=== PATIENT | male | born 1945 | race Hispanic/Latino ===

== ENCOUNTER 2018-03-13 19:28 | Observation (INO) | payer OTHER ==
[2018-03-13 19:34] VITALS: BMI 26.2
--- NOTE | 2018-03-13 20:18 | ED PDOC ---
Arrival/HPI - General Chief Complaint: Dizziness/Lightheaded Time Seen by Provider: 03/13/18 19:31 Historian: Patient - History of Present Illness Narrative History of Present Illness (Text): 03/13/18 20:16 Bruce Riggins is a 72 year old male smoker, whose past medical history includes hypertension, who presents to the Emergency department complaining of dizziness. Patient was sitting in his car smoking a cigarette when began feeling dizzy. Patient denies any fever, chills, chest pain, shortness of breath, nausea, vomiting, diarrhea, urinary symptoms, back pain, neck pain, headache, focal deficits, vision changes, or any other complaints. 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 Past Medical History - Provider Review Nursing Documentation Reviewed: Yes - Cardiac Hx Hypertension: Yes - Psychiatric Hx Depression: No Hx Emotional Abuse: No Hx Physical Abuse: No Hx Substance Use: No - Surgical History Hx Appendectomy: Yes (at age 17) - Anesthesia Hx Anesthesia: Yes Hx Anesthesia Reactions: No - Suicidal Assessment Feels Threatened In Home Enviroment: No Family/Social History - Physician Review Nursing Documentation Reviewed: Yes Family/Social History: Unknown Family HX Smoking Status: Heavy Smoker > 10 Cigarettes Daily Hx Alcohol Use: No Hx Substance Use: No Hx Substance Use Treatment: No Allergies/Home Meds Allergies/Adverse Reactions: Allergies No Known Allergies Allergy (Verified 03/13/18 19:39) Home Medications: Home Meds Medication Instructions Recorded Confirmed Losartan Potassium 50 mg PO DAILY 03/13/18 03/13/18 Losartan [Cozaar] 50 mg PO DAILY 03/13/18 03/13/18 Metoprolol Tartrate [Lopressor] 50 mg PO DAILY 03/13/18 03/13/18 Tamsulosin [Flomax] 0.4 mg PO HS 03/13/18 03/13/18 Review of Systems - Physician Review All systems were reviewed & negative as marked: Yes - Review of Systems Constitutional: Normal. absent: Fevers Eyes: Normal ENT: Normal Respiratory: Normal. absent: SOB, Cough Cardiovascular: Normal. absent: Chest Pain Gastrointestinal: Normal. absent: Abdominal Pain, Diarrhea, Nausea, Vomiting Genitourinary Male: Normal. absent: Dysuria, Frequency, Hematuria, Urinary Output Changes Musculoskeletal: Normal. absent: Back Pain, Neck Pain Skin: Normal. absent: Rash Neurological: Dizziness. absent: Headache Endocrine: Normal Hemo/Lymphatic: Normal Psychiatric: Normal Physical Exam Vital Signs Reviewed: Yes Vital Signs Temp Pulse Resp BP Pulse Ox 03/13/18 19:42 98.7 F 106 H 18 145/97 H 98 Temperature: Afebrile Blood Pressure: Normal Pulse: Regular Respiratory Rate: Normal Appearance: Positive for: Well-Appearing, Non-Toxic, Comfortable Pain Distress: None Mental Status: Positive for: Alert and Oriented X 3 - Systems Exam Head: Present: Atraumatic, Normocephalic Pupils: Present: PERRL Extroacular Muscles: Present: EOMI Conjunctiva: Present: Normal Ears: Present: Normal, NORMAL TM, Normal Canal. No: Erythema, TM Bulging, Fluid, TM Perf Mouth: Present: Moist Mucous Membranes Pharnyx: Present: Normal. No: ERYTHEMA, EXUDATE, TONSILS ENLARGED, Peritonsilar Swelling, Uvular Deviation, Muffled/Hoarse Voice, Strider, Soft Palate/Uvular Edema Nose (External): Present: Atraumatic Nose (Internal): Present: Normal Inspection Neck: Present: Normal Range of Motion. No: Meningeal Signs, MIDLINE TENDERNESS, Paraspinal Tenderness Respiratory/Chest: Present: Clear to Auscultation, Good Air Exchange. No: Respiratory Distress, Accessory Muscle Use Cardiovascular: Present: Regular Rate and Rhythm, Normal S1, S2. No: Murmurs Abdomen: No: Tenderness, Distention, Peritoneal Signs Back: Present: Normal Inspection. No: CVA Tenderness, Midline Tenderness, Paraspinal Tenderness Upper Extremity: Present: Normal Inspection. No: Cyanosis, Edema Lower Extremity: Present: Normal Inspection. No: Edema Neurological: Present: GCS=15, CN II-XII Intact, Speech Normal, Motor Func Grossly Intact, Normal Sensory Function, Normal Cerebellar Funct, Memory Normal Skin: Present: Warm, Dry, Normal Color. No: Rashes Psychiatric: Present: Alert, Oriented x 3, Normal Insight, Normal Concentration Medical Decision Making ED Course and Treatment: 03/13/18 20:16 Impression: 72 year old male complaining of dizziness tonight. Plan: -- CT Head w/o contrast -- EKG -- Chest X-ray -- Labs, troponin -- UA -- IV fluids -- Reassess and disposition Progress Notes: 03/13/18 20:36 Reviewed EKG, sinus tachycardia at [address]-segment elevations or depressions, no T-wave inversions, normal intervals. 03/13/18 22:40 CT Head reviewed, shows: BRAIN Chronic periventricular and subcortical microvascular disease is seen. 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 VENTRICLES: There is generalized parenchymal atrophy noted as demonstrated by symmetrical dilatation of ventricles and sulci. ORBITS: The orbits are unremarkable. SINUSES AND MASTOIDS: The paranasal sinuses and mastoid air cells are clear. BONES: No fracture. SOFT TISSUES: Unremarkable. MISCELLANEOUS: No acute intracranial pathology. IMPRESSION: 1. There is generalized parenchymal atrophy noted as demonstrated by symmetrical dilatation of ventricles and sulci. 2. Chronic periventricular and subcortical microvascular disease is seen. 3. 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 4. No acute intracranial pathology. Electronically signed on Mar 13, 2018 10:38:15 PM EST by: Jorge Limon M.D., GIL Certified By [facility]BR & [facility] Fellowship Trained MRI and CT SpecialistCT 03/13/18 22:53 Chest X-ray reviewed, shows no acute processes. 03/14/18 00:[address] Benavides, covering for Dr. Lorenz, who is aware and agrees with plan. Accepts pt in to her service. Pt will go to [facility] observation for dehydration and COPD. - Lab Interpretations I have reviewed the lab results: Yes - RAD Interpretation Structural Architect: ED Physician, Radiologist - EKG Interpretation Interpreted by ED Physician: Yes Type: 12 lead EKG - Scribe Statement The provider has reviewed the documentation as recorded by the Susanibmike Trujillo Provider Scribe Attestation: All medical record entries made by the Scribe were at my direction and personally dictated by me. I have reviewed the chart and agree that the record accurately reflects my personal performance of the history, physical exam, medical decision making, and the department course for this patient. I have also personally directed, reviewed, and agree with the discharge instructions and disposition. Disposition/Present on Arrival - Present on Arrival Any Indicators Present on Arrival: No History of DVT/PE: No History of Uncontrolled Diabetes: No Urinary Catheter: No History of Decub. Ulcer: No History Surgical Site Infection Following: None - Disposition Have Diagnosis and Disposition been Completed?: Yes Diagnosis: COPD (chronic obstructive pulmonary disease) Disposition: HOSPITALIZED Disposition Time: 00:45 Condition: FAIR
[2018-03-13 21:13] LABS: BASO # 0.04 K/mm3 (0.0-2.0); BASO % 0.3 % (0.0-3.0); EOS # 0.2 (0.0-0.7); EOS % 1.9 % (1.5-5.0); GRAN # 9.39 (1.4-6.5); GRAN % 79.7 % (50.0-68.0); HEMOGLOBIN 11.8 g/dL (14.0-18.0); LYMPH # 1.4 (1.2-3.4); LYMPH % 12.2 % (22.0-35.0); MEAN CELL VOLUME 85.8 fl (80.0-105.0); MEAN CORPUSCULAR HEMOGLOBIN 27.5 pg (25.0-35.0); MEAN CORPUSCULAR HGB CONC 32.1 g/dl (31.0-37.0); MEAN PLATELET VOLUME 8.9 fl (7.0-11.0); MONO # 0.7 (0.1-0.6); MONO % 5.9 % (1.0-6.0); RBC 4.29 10^6/uL (3.5-6.1); RED CELL DISTRIBUTION WIDTH 14.5 % (11.5-14.5); WHITE BLOOD COUNT 11.8 10^3/uL (4.5-11.0)
[2018-03-13 21:22] LABS: ALB/GLOB RATIO 1.2 (1.1-1.8); ALBUMIN 3.8 g/dL (3.0-4.8); ALT/SGPT 54 U/L (7-56); AST/SGOT 28 U/L (17-59); BLOOD UREA NITROGEN 38 mg/dL (7-21); GFR NON-AFRICAN AMERICAN 60
[2018-03-13 21:33] LABS: TROPONIN I 0.02 ng/mL
[2018-03-13] MEDS: Sodium Chloride 0.9% 1,000 ML IV SCH (21:54)
[2018-03-14] MEDS ORDERED: Albuterol-Ipratrop 3 mg / 0.5 (3 ml) UD IH PRN (01:39)
[2018-03-14] MEDS ORDERED: Sodium Chloride 0.9% 1,000 ML IV STA (01:39)
[2018-03-14] MEDS: Albuterol-Ipratrop 3 mg / 0.5 (3 ml) UD IH SCH ×3 (01:39→02:05)
[2018-03-14 01:50] LABS: PH,URINE 6.5 (4.7-8.0); URINE BILIRUBIN NEGATIVE (NEGATIVE); URINE BLOOD NEGATIVE (NEGATIVE); URINE GLUCOSE (UA) NEGATIVE (NEGATIVE); URINE LEUKOCYTE ESTERASE TRACE Leu/uL (NEGATIVE); URINE PROTEIN TRACE mg/dL (<30 mg/dL); URINE UROBILINOGEN 0.2 E.U./dL (<1 E.U./dL)
[2018-03-14 01:55] LABS: URINE APPEARANCE SL CLOUDY (CLEAR); URINE COLOR YELLOW (YELLOW)
[2018-03-14 02:09] LABS: URINE RBC NEGATIVE /hpf (0-2)
[2018-03-14 02:10] LABS: URINE BACTERIA LARGE (NEG)
[2018-03-14] MEDS ORDERED: Metoprolol 1 mg/ml Inj IVP ONE (02:49)
[2018-03-14] MEDS ORDERED: Metoprolol Succinate 50 mg XL Tab PO ONE (02:59)
[2018-03-14 05:03] VITALS: RESP 20
--- NOTE | 2018-03-14 09:20 | RAD ---
Date of service: 03/13/2018 PROCEDURE: CHEST RADIOGRAPH, 1 VIEW HISTORY: pain COMPARISON: None available. FINDINGS: LUNGS: Clear. PLEURA: No pneumothorax or pleural fluid seen. CARDIOVASCULAR: No aortic atherosclerotic calcification present. Normal. OSSEOUS STRUCTURES: Sternal wires VISUALIZED UPPER ABDOMEN: Normal. OTHER FINDINGS: None. IMPRESSION: No active disease.
--- NOTE | 2018-03-14 10:05 | HP ---
DATE OF EXAM: 03/14/2018 HISTORY OF PRESENT ILLNESS: Mr. Riggins is a 72-year-old male admitted to the hospital with dehydration. He was sitting in his car felt dizzy. No nausea or vomiting. No fever. No cough [place] [id number]. UA mildly positive. He was hydrated in the ER. 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 No acute pathology. No complaints right now. PAST MEDICAL HISTORY: Hypertension. PAST SURGICAL HISTORY: None. PERSONAL HISTORY: Heavy smoker, more than 10 cigarettes a day. No history of alcohol abuse. FAMILY HISTORY: Noncontributory. ALLERGIES: NO KNOWN DRUG ALLERGIES. HOME MEDICATION: Potassium, Cozaar 50 mg daily, Lopressor 50 mg daily, Flomax 0.4 mg p.o. at bedtime. REVIEW OF SYSTEMS: As per HPI. Rest of 12-point systems reviewed negative. PHYSICAL EXAMINATION: GENERAL: Comfortable in bed in no acute distress. VITAL SIGNS: Temperature 98.7, heart rate 106 per minute, respiratory rate 18 per minute, blood pressure of 145/97 and pulse ox is 98% room air. HEENT: Pallor positive. NECK: No lymphadenopathy. CHEST: Air entry present and equal bilaterally. No added sounds. CARDIOVASCULAR: S1, S2 normal. No murmur. No gallop. ABDOMEN: Soft, nontender. No hepatosplenomegaly. EXTREMITIES: No edema. SKIN: No petechiae. No rash. NEURO: Alert and oriented x3. No focal sensory motor deficit. LABORATORY DATA: CT head as per HPI. White count 11.8, hemoglobin 11.8 and platelet 204,000. Granulocyte 79% and lymphocyte 12%. Sodium 139, potassium 4.1, BUN 38 and creatinine 1.2. LFTs within normal limits. UA positive, trace leukocyte esterase. ASSESSMENT: 1. Dehydration. 2. Dizziness. 3. Hypertension. 4. Leukocytosis. 5. Anemia. PLAN: He will be admitted to the hospital, IV fluid at 100 mL an hour, normal saline and Nicoderm patch one patch daily. DuoNeb inhalation every 4 hours p.r.n., Tylenol 650 every 4 hours p.r.n. for pain. We will continue home medications, losartan 50 mg daily, metoprolol 50 mg daily and Flomax 0.4 mg p.o. at bedtime for BPH. We will continue to monitor clinically. Zuleika Benavides MD ANTHONY
--- NOTE | 2018-03-14 10:11 | CT ---
Date of service: 03/13/2018 PROCEDURE: CT HEAD WITHOUT CONTRAST. HISTORY: dizzy COMPARISON: None available. TECHNIQUE: Axial computed tomography images were obtained through the head/brain without intravenous contrast. Radiation dose: Total exam DLP = 981.98 mGy-cm. This CT exam was performed using one or more of the following dose reduction techniques: Automated exposure control, adjustment of the mA and/or kV according to patient size, and/or use of iterative reconstruction technique. FINDINGS: HEMORRHAGE: No intracranial hemorrhage. BRAIN: No mass effect or edema. Chronic microvascular changes are seen in the periventricular white matter. There is more focal encephalomalacia in the right parietal lobe and right frontal lobe. VENTRICLES: There is moderate atrophy right greater than left. There dilatation of the right lateral ventricle CALVARIUM: Unremarkable. PARANASAL SINUSES: Unremarkable as visualized. No significant inflammatory changes. MASTOID AIR CELLS: Unremarkable as visualized. No inflammatory changes. OTHER FINDINGS: The report concurs with the preliminary [facility] report IMPRESSION: No acute intracranial finding
[2018-03-14] MEDS: Sodium Chloride 0.9% 1,000 ML IV SCH (12:45)
--- NOTE | 2018-03-15 07:57 | CARD ---
APPROVED REPORT Date of service: 03/13/2018 EKG Measurement Heart [id number] <Conclusion> Sinus tachycardia PRWP NSSTW changes Prolonged QTc
[2018-03-15 08:29] VITALS: PULSE 85; TEMP 98.6; O2SAT 98
[2018-03-15 10:59] VITALS: BP 140/74
--- NOTE | 2018-03-17 22:56 | CP.PCM.DIS ---
Provider - Provider Date of Admission: 03/14/18 01:07 Attending physician: Zuleika Benavides MD Primary care physician: Estrada Cifuentes MD Time Spent in preparation of Discharge (in minutes): 55 Hospital Course - Lab Results Lab Results: Micro Results 03/14/18 01:30 Urine,Clean Catch Urine Culture - Final Proteus Vulgaris Most Recent Lab Values WBC 11.8 10^3/uL (4.5-11.0) H 03/13/18 21:05 RBC 4.29 10^6/uL (3.5-6.1) 03/13/18 21:05 Hgb 11.8 g/dL (14.0-18.0) L 03/13/18 21:05 Hct 36.8 % (42.0-52.0) L 03/13/18 21:05 MCV 85.8 fl (80.0-105.0) 03/13/18 21:05 MCH 27.5 pg (25.0-35.0) 03/13/18 21:05 MCHC 32.1 g/dl (31.0-37.0) 03/13/18 21:05 RDW 14.5 % (11.5-14.5) 03/13/18 21:05 Plt Count 204 10^3/uL (120.0-450.0) 03/13/18 21:05 MPV 8.9 fl (7.0-11.0) 03/13/18 21:05 Gran % 79.7 % (50.0-68.0) H 03/13/18 21:05 Lymph % (Auto) 12.2 % (22.0-35.0) L 03/13/18 21:05 Borden % (Auto) 5.9 % (1.0-6.0) 03/13/18 21:05 Eos % (Auto) 1.9 % (1.5-5.0) 03/13/18 21:05 Baso % (Auto) 0.3 % (0.0-3.0) 03/13/18 21:05 Gran # 9.39 (1.4-6.5) H 03/13/18 21:05 Lymph # (Auto) 1.4 (1.2-3.4) 03/13/18 21:05 Borden # (Auto) 0.7 (0.1-0.6) H 03/13/18 21:05 Eos # (Auto) 0.2 (0.0-0.7) 03/13/18 21:05 Baso # (Auto) 0.04 K/mm3 (0.0-2.0) 03/13/18 21:05 Sodium 139 mmol/L (132-148) 03/13/18 21:05 Potassium 4.1 mmol/L (3.6-5.0) 03/13/18 21:05 Chloride 107 mmol/L (98-107) 03/13/18 21:05 Carbon Dioxide 28 mmol/L (21-33) 03/13/18 21:05 Anion Gap 8 (10-20) L 03/13/18 21:05 BUN 38 mg/dL (7-21) H 03/13/18 21:05 Creatinine 1.2 mg/dl (0.8-1.5) 03/13/18 21:05 Est GFR ( Amer) > 60 03/13/18 21:05 Est GFR (Non-Af Amer) 60 03/13/18 21:05 Random Glucose 103 mg/dL (70-110) 03/13/18 21:05 Calcium 9.0 mg/dL (8.4-10.5) 03/13/18 21:05 Total Bilirubin 0.3 mg/dL (0.2-1.3) 03/13/18 21:05 AST 28 U/L (17-59) 03/13/18 21:05 ALT 54 U/L (7-56) 03/13/18 21:05 Alkaline Phosphatase 92 U/L (38-126) 03/13/18 21:05 Troponin I 0.02 ng/mL 03/13/18 21:05 Total Protein 7.0 g/dL (5.8-8.3) 03/13/18 21:05 Albumin 3.8 g/dL (3.0-4.8) 03/13/18 21:05 Globulin 3.2 gm/dL 03/13/18 21:05 Albumin/Globulin Ratio 1.2 (1.1-1.8) 03/13/18 21:05 Urine Color Yellow (YELLOW) 03/14/18 01:30 Urine Appearance Sl cloudy (CLEAR) 03/14/18 01:30 Urine pH 6.5 (4.7-8.0) 03/14/18 01:30 Ur Specific [place] 1.020 (1.005-1.035) 03/14/18 01:30 Urine Protein Trace mg/dL (<30 mg/dL) H 03/14/18 01:30 Urine Glucose (UA) Negative mg/dL (NEGATIVE) 03/14/18 01:30 Urine Ketones Negative mg/dL (NEGATIVE) 03/14/18 01:30 Urine Blood Negative (NEGATIVE) 03/14/18 01:30 Urine Nitrate Positive (NEGATIVE) H 03/14/18 01:30 Urine Bilirubin Negative (NEGATIVE) 03/14/18 01:30 Urine Urobilinogen 0.2 E.U./dL (<1 E.U./dL) 03/14/18 01:30 Ur Leukocyte Esterase Trace Allyson/uL (NEGATIVE) H 03/14/18 01:30 Urine RBC Negative /hpf (0-2) 03/14/18 01:30 Urine WBC 1 - 3 /hpf (0-6) 03/14/18 01:30 Ur Epithelial Cells 4 - 5 /hpf (0-5) 03/14/18 01:30 Urine Bacteria Large (NEG) 03/14/18 01:30 Urine Other Mucus 03/14/18 01:30 - Hospital Course Hospital Course: 1. Dehydration. 2. Dizziness. 3. Hypertension. 4. Leukocytosis. 5. Anemia Mr. Riggins is a 72-year-old male admitted to the hospital with dehydration. He was sitting in his car felt dizzy. No nausea or vomiting. No fever. No cough [place] [id number]. UA mildly positive. He was hydrated in the ER. 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 No acute pathology. No complaints right now. He is being discharge home in stable condition. PHYSICAL EXAMINATION: GENERAL: Comfortable in bed in no acute distress. VITAL SIGNS: Temperature 98.8, heart rate 80 per minute, respiratory rate 18 per minute, blood pressure of 140/80 and pulse ox is 98% room air. HEENT: Pallor positive. NECK: No lymphadenopathy. CHEST: Air entry present and equal bilaterally. No added sounds. CARDIOVASCULAR: S1, S2 normal. No murmur. No gallop. ABDOMEN: Soft, nontender. No hepatosplenomegaly. EXTREMITIES: No edema. SKIN: No petechiae. No rash. NEURO: Alert and oriented x3. No focal sensory motor deficit. Dispo : discharge home. condition on discharge : stable. Meds : continue home meds. FU : with Dr. Sr. Zuleika Benavides MD - Date & Time of H&P Date of H&P: 03/15/18 Time of H&P: 11:00 Discharge Plan - Follow Up Plan Condition: FAIR Disposition: HOME/ ROUTINE Instructions: Chronic Obstructive Pulmonary Disease (COPD), Including Emphysema, Smoking: Not Just Harmful to Your Lungs and Heart, Dehydration, Adult (DC), High Blood Pressure (DC), Prostate Cancer (DC), Flu Vaccine Referrals: Zuleika Benavides MD [Staff Provider] -
== END 2018-03-15 14:37 | disposition home or self-care (01) ==
LOC: ED 19:28 → ERH 03-14 01:07 → 5RSO 03-14 02:30
PROVIDERS: ADMIT Internal Medicine Medical Oncology; ATTEND Internal Medicine Medical Oncology
DX: E86.0 Dehydration (principal); I10 Essential (primary) hypertension; D64.9 Anemia, unspecified; F17.210 Nicotine dependence, cigarettes, uncomplicated; G93.89 Other specified disorders of brain; D72.829 Elevated white blood cell count, unspecified; N40.0 Benign prostatic hyperplasia without lower urinary tract symptoms
CPT/HCPCS: 70450; 71045; 80053; 81001; 84484; 85025; 87086; 87181; 93005; 96374; 99285; G0378; J2930; J7030

== ENCOUNTER 2018-03-15 17:51 | Emergency (ER) | payer OTHER ==
[2018-03-15 21:34] VITALS: BMI 23.1
== END 2018-03-15 18:05 | disposition left against medical advice (07) ==
LOC: ED 17:51
DX: Z02.89 Encounter for other administrative examinations (principal); Z59.0 Homelessness

== ENCOUNTER 2018-03-15 21:16 | Emergency (ER) | payer OTHER ==
[2018-03-15 21:34] VITALS: BMI 23.1
--- NOTE | 2018-03-15 21:37 | ED PDOC ---
Arrival/HPI - General Time Seen by Provider: 03/15/18 21:18 Historian: Patient - History of Present Illness Narrative History of Present Illness (Text): 03/15/18 21:36 A 72 year old male, whose past medical history includes hypertension, brought in by Beatriz CORNEJO after being found sleeping in an apartment building. Someone in the apartment building called the police and the police brought patient to the Emergency room Patient reports no symptomatic/physical complaints. No PMD Past Medical History - Provider Review Nursing Documentation Reviewed: Yes - Cardiac Hx Hypertension: Yes - Pulmonary Hx Respiratory Disorders: Yes Hx Chronic Obstructive Pulmonary Disease (COPD): Yes Other/Comment: smoker 1 PPD - Neurological Hx Neurological Disorder: No - HEENT Hx HEENT Disorder: No - Renal Hx Renal Disorder: No - Endocrine/Metabolic Hx Endocrine Disorders: No - Hematological/Oncological Hx Blood Disorders: No - Integumentary Other/Comment: rash/reaction from bed bugs - Musculoskeletal/Rheumatological Hx Musculoskeletal Disorders: Yes Hx Falls: No Other/Comment: uses cane for ambulation - Gastrointestinal Hx Gastrointestinal Disorders: No - Genitourinary/Gynecological Hx Genitourinary Disorders: Yes Other/Comment: Hx prostate ca with radiation therapy - Psychiatric Hx Depression: No Hx Emotional Abuse: No Hx Physical Abuse: No Hx Substance Use: No - Surgical History Hx Appendectomy: Yes (at age 17) - Anesthesia Hx Anesthesia: Yes Hx Anesthesia Reactions: No - Suicidal Assessment Feels Threatened In Home Enviroment: No Family/Social History - Physician Review Nursing Documentation Reviewed: Yes Family/Social History: No Known Family HX Smoking Status: Heavy Smoker > 10 Cigarettes Daily Hx Alcohol Use: No Hx Substance Use: No Hx Substance Use Treatment: No Allergies/Home Meds Allergies/Adverse Reactions: Allergies No Known Allergies Allergy (Verified 03/15/18 21:33) Home Medications: Home Meds Medication Instructions Recorded Confirmed RX: Losartan Potassium 50 mg PO DAILY 03/13/18 03/15/18 RX: Losartan [Cozaar] 50 mg PO DAILY 03/13/18 03/15/18 RX: Metoprolol Tartrate [Lopressor] 50 mg PO DAILY 03/13/18 03/15/18 RX: Tamsulosin [Flomax] 0.4 mg PO HS 03/13/18 03/15/18 Review of Systems - Physician Review All systems were reviewed & negative as marked: Yes - Review of Systems Constitutional: absent: Fevers, Night Sweats Respiratory: absent: SOB, Cough Cardiovascular: absent: Chest Pain Gastrointestinal: absent: Abdominal Pain, Diarrhea, Nausea Genitourinary Male: absent: Dysuria, Frequency, Hematuria Musculoskeletal: absent: Back Pain, Neck Pain Neurological: absent: Headache, Dizziness Physical Exam Appearance: Positive for: Other (disheveled) - Systems Exam Head: Present: Atraumatic, Normocephalic Pupils: Present: PERRL Extroacular Muscles: Present: EOMI Conjunctiva: Present: Normal Mouth: Present: Moist Mucous Membranes Neck: Present: Normal Range of Motion Respiratory/Chest: Present: Clear to Auscultation, Good Air Exchange. No: Respiratory Distress, Accessory Muscle Use Cardiovascular: Present: Regular Rate and Rhythm, Normal S1, S2. No: Murmurs Abdomen: No: Tenderness, Distention, Peritoneal Signs Back: Present: Normal Inspection Upper Extremity: Present: Normal Inspection. No: Cyanosis, Edema Lower Extremity: Present: Normal Inspection. No: Edema Neurological: Present: GCS=15, CN II-XII Intact, Speech Normal Skin: Present: Warm, Dry, Normal Color. No: Rashes Psychiatric: Present: Alert, Oriented x 3, Other (disheveled) Medical Decision Making ED Course and Treatment: 03/15/18 21:35 Impression: 72 year old male brought in by Beatriz CORNEJO after being found sleeping in an apartment building. Plan: -- Reassess and disposition Prior Visits: Notes and results from previous visits were reviewed. Patient was last seen in the emergency department on 03/13/2018 for dizziness. Patient was admitted for COPD. Progress Notes: Patient with no complaints at all in the ED. No further medical evaluation clinically indicated at this time. Stable for discharge. - Scribe Statement The provider has reviewed the documentation as recorded by the Dylan Parson Provider Scribe Attestation: All medical record entries made by the Susanibmike were at my direction and personally dictated by me. I have reviewed the chart and agree that the record accurately reflects my personal performance of the history, physical exam, medical decision making, and the department course for this patient. I have also personally directed, reviewed, and agree with the discharge instructions and disposition. Disposition/Present on Arrival - Present on Arrival Any Indicators Present on Arrival: No History of DVT/PE: No History of Uncontrolled Diabetes: No Urinary Catheter: No History Surgical Site Infection Following: None - Disposition Have Diagnosis and Disposition been Completed?: Yes Diagnosis: Homelessness Disposition: HOME/ ROUTINE Disposition Time: 21:42 Condition: STABLE Discharge Instructions (ExitCare): Deciding Where to Go for Care Additional Instructions: SKYLER GALLAGHER, thank you for letting us take care of you today. Your provider was Violet Moe MD and you were treated for HOMELESS. The emergency medical care you received today was directed at your acute symptoms. If you were prescribed any medication, please fill it and take as directed. It may take several days for your symptoms to resolve. Return to the Emergency Department if your symptoms worsen, do not improve, or if you have any other problems. Please contact your doctor or call one of the physicians/clinics you have been referred to that are listed on the Patient Visit Information form that is included in your discharge packet. Bring any paperwork you were given at discharge with you along with any medications you are taking to your follow up visit. Our treatment cannot replace ongoing medical care by a primary care provider outside of the emergency department. Thank you for allowing the [facility] team to be part of your care today. If you had an X-Ray or CT scan: A Radiologist will review the ED reading if any change in treatment is needed we will contact you. If you had a blood, urine, or wound culture: It will take several days for the results, if any change in treatment is needed we will contact you. If you had an STI test: It will take 48 hours for the results. Please call after 1 week if you have not heard back. Forms: [employer] (Sinhala)
[2018-03-15 21:58] VITALS: RESP 18; TEMP 97.8; O2SAT 100
[2018-03-16 00:26] VITALS: BP 128/89; PULSE 87
== END 2018-03-16 00:20 | disposition home or self-care (01) ==
LOC: ED 21:16
DX: Z59.0 Homelessness (principal); I10 Essential (primary) hypertension; F17.210 Nicotine dependence, cigarettes, uncomplicated

== ENCOUNTER 2018-03-16 14:26 | Emergency (ER) | payer OTHER ==
[2018-03-16 14:27] VITALS: BMI 26.2
[2018-03-16 14:33] VITALS: BP 137/72; PULSE 88; RESP 18; TEMP 97.9; O2SAT 97
--- NOTE | 2018-03-16 15:00 | ED PDOC ---
Arrival/HPI - General Chief Complaint: Dizziness/Lightheaded - History of Present Illness Narrative History of Present Illness (Text): 03/16/18 16:36 A 72 year old male, whose past medical history includes hypertension, reports to the emergency department for a complaint of dizziness. Patient has been seen in the emergency department multiple times desiring a place to stay. He has been noted to have bed bugs on him. Upon interrogation patient denies any somatic complaints at this time and requests a bed to stay. The patient denies fevers, chills, headache, dizziness, chest pain, shortness of breath, dyspnea on exertion, cough, abdominal pain, nausea, vomiting, diarrhea, back pain, neck pain, urinary/bowel changes, or any other complaint. Time/Duration: Prior to Arrival Symptom Onset: Sudden Symptom Course: Unchanged Activities at Onset: Rest Context: Street Past Medical History - Provider Review Nursing Documentation Reviewed: Yes - Cardiac Hx Hypertension: Yes - Pulmonary Hx Respiratory Disorders: Yes Hx Chronic Obstructive Pulmonary Disease (COPD): Yes Other/Comment: smoker 1 PPD - Neurological Hx Neurological Disorder: No - HEENT Hx HEENT Disorder: No - Renal Hx Renal Disorder: No - Endocrine/Metabolic Hx Endocrine Disorders: No - Hematological/Oncological Hx Blood Disorders: No - Integumentary Other/Comment: rash/reaction from bed bugs - Musculoskeletal/Rheumatological Hx Musculoskeletal Disorders: Yes Hx Falls: No Other/Comment: uses cane for ambulation - Gastrointestinal Hx Gastrointestinal Disorders: No - Genitourinary/Gynecological Hx Genitourinary Disorders: Yes Other/Comment: Hx prostate ca with radiation therapy - Psychiatric Hx Depression: No Hx Emotional Abuse: No Hx Physical Abuse: No Hx Substance Use: No - Surgical History Hx Appendectomy: Yes (at age 17) - Anesthesia Hx Anesthesia: Yes Hx Anesthesia Reactions: No Hx Malignant Hyperthermia: No - Suicidal Assessment Feels Threatened In Home Enviroment: No Family/Social History - Physician Review Nursing Documentation Reviewed: Yes Family/Social History: No Known Family HX Smoking Status: Heavy Smoker > 10 Cigarettes Daily Hx Alcohol Use: No Hx Substance Use: No Hx Substance Use Treatment: No Allergies/Home Meds Allergies/Adverse Reactions: Allergies No Known Allergies Allergy (Verified 03/15/18 21:33) Home Medications: Home Meds Medication Instructions Recorded Confirmed Losartan Potassium 50 mg PO DAILY 03/13/18 03/15/18 Losartan [Cozaar] 50 mg PO DAILY 03/13/18 03/15/18 Metoprolol Tartrate [Lopressor] 50 mg PO DAILY 03/13/18 03/15/18 Tamsulosin [Flomax] 0.4 mg PO HS 03/13/18 03/15/18 Review of Systems - Physician Review All systems were reviewed & negative as marked: Yes - Review of Systems Constitutional: absent: Fevers ENT: absent: Sore Throat Respiratory: absent: SOB, Cough Cardiovascular: absent: Chest Pain, BROWNING Gastrointestinal: absent: Abdominal Pain, Stool Changes, Diarrhea, Nausea, Vomiting Genitourinary Male: absent: Urinary Output Changes Musculoskeletal: absent: Back Pain, Neck Pain Neurological: absent: Headache, Dizziness Physical Exam - Physical Exam Physical Exam Limitations: Uncooperative Vital Signs Reviewed: Yes Vital Signs Temp Pulse Resp BP Pulse Ox 03/16/18 14:32 97.9 F 88 18 137/72 97 Temperature: Afebrile Blood Pressure: Normal Pulse: Regular Respiratory Rate: Normal Appearance: Positive for: Well-Appearing, Non-Toxic, Comfortable Pain Distress: None Mental Status: Positive for: Alert and Oriented X 3 Medical Decision Making ED Course and Treatment: Impression: A 72 year old male reports to the emergency department with complaint of dizziness, upon interrogation, patient denies any complaints and requesting a place to stay. Plan: -- Reassess and disposition Prior Visits: Notes and results from previous visits were reviewed. Progress Notes: Patient is in no acute distress. I have discussed plan with the patient, who expresses understanding. Patient is stable for discharge. Patient was instructed to follow up with physician or return if symptoms worsen or new concerning symptoms arise. Disposition/Present on Arrival - Present on Arrival Any Indicators Present on Arrival: No History of DVT/PE: No History of Uncontrolled Diabetes: No Urinary Catheter: No History of Decub. Ulcer: No History Surgical Site Infection Following: None - Disposition Have Diagnosis and Disposition been Completed?: Yes Diagnosis: Homelessness Disposition Time: 14:59 Patient Plan: Discharge Patient Problems: Current Active Problems Problem Status Onset Homelessness Acute Condition: STABLE Print Language: CROATIAN Additional Instructions: All medical record entries made by the Scribe were at my direction and personally dictated by me. I have reviewed the chart and agree that the record accurately reflects my personal performance of the history, physical exam, medic al decision making, and the department course for this patient. I have also personally directed, reviewed, and agree with the discharge instructions and disposition. Referrals: Destiny Warner MD [Medical Doctor] - Follow up with primary [facility] [place] - Follow up with primary Forms: [employer] (Andorran)
== END 2018-03-16 15:10 | disposition home or self-care (01) ==
LOC: ED 14:26
DX: Z59.0 Homelessness (principal); I10 Essential (primary) hypertension; F17.210 Nicotine dependence, cigarettes, uncomplicated

== ENCOUNTER 2018-03-18 22:01 | Emergency (ER) | payer OTHER ==
[2018-03-18 22:01] VITALS: BMI 26.2
--- NOTE | 2018-03-18 23:08 | ED PDOC ---
Arrival/HPI - General Chief Complaint: Medical Clearance Time Seen by Provider: 03/18/18 22:02 Historian: Patient - History of Present Illness Narrative History of Present Illness (Text): 03/18/18 23:05 72 year old male, whose past medical history includes hypertension, reports to the emergency department for a complaint of homelessness. Patient has been seen in the emergency department multiple times desiring a place to stay. He has been noted to have bed bugs on him, and has been showered and treated before room assignment. Upon interrogation patient denies any somatic complaints at this time and requests a bed to stay. The patient denies fevers, chills, headache, dizziness, chest pain, shortness of breath, cough, abdominal pain, nausea, vomiting, diarrhea, back pain, neck pain, urinary/bowel symptoms, or any other complaint. Time/Duration: Prior to Arrival Past Medical History - Provider Review Nursing Documentation Reviewed: Yes - Cardiac Hx Hypertension: Yes - Pulmonary Hx Respiratory Disorders: Yes Hx Chronic Obstructive Pulmonary Disease (COPD): Yes Other/Comment: smoker 1 PPD - Neurological Hx Neurological Disorder: No - HEENT Hx HEENT Disorder: No - Renal Hx Renal Disorder: No - Endocrine/Metabolic Hx Endocrine Disorders: No - Hematological/Oncological Hx Blood Disorders: No - Integumentary Other/Comment: rash/reaction from bed bugs - Musculoskeletal/Rheumatological Hx Musculoskeletal Disorders: Yes Hx Falls: No Other/Comment: uses cane for ambulation - Gastrointestinal Hx Gastrointestinal Disorders: No - Genitourinary/Gynecological Hx Genitourinary Disorders: Yes Other/Comment: Hx prostate ca with radiation therapy - Psychiatric Hx Depression: No Hx Emotional Abuse: No Hx Physical Abuse: No Hx Substance Use: No - Surgical History Hx Appendectomy: Yes (at age 17) - Anesthesia Hx Anesthesia: Yes Hx Anesthesia Reactions: No Hx Malignant Hyperthermia: No - Suicidal Assessment Feels Threatened In Home Enviroment: No Family/Social History - Physician Review Nursing Documentation Reviewed: Yes Family/Social History: No Known Family HX Smoking Status: Heavy Smoker > 10 Cigarettes Daily Hx Alcohol Use: No Hx Substance Use: No Hx Substance Use Treatment: No Allergies/Home Meds Allergies/Adverse Reactions: Allergies No Known Allergies Allergy (Verified 03/18/18 22:28) Home Medications: Home Meds Medication Instructions Recorded Confirmed Losartan Potassium 50 mg PO DAILY 03/13/18 03/18/18 Losartan [Cozaar] 50 mg PO DAILY 03/13/18 03/18/18 Metoprolol Tartrate [Lopressor] 50 mg PO DAILY 03/13/18 03/18/18 Tamsulosin [Flomax] 0.4 mg PO HS 03/13/18 03/18/18 Review of Systems - Physician Review All systems were reviewed & negative as marked: Yes - Review of Systems Constitutional: absent: Fevers, Night Sweats Respiratory: absent: SOB, Cough Cardiovascular: absent: Chest Pain Gastrointestinal: Normal. absent: Abdominal Pain, Diarrhea, Nausea, Vomiting Genitourinary Male: Normal. absent: Urinary Output Changes Musculoskeletal: absent: Back Pain, Neck Pain Neurological: absent: Headache, Dizziness Physical Exam - Systems Exam Head: Present: Atraumatic, Normocephalic Pupils: Present: PERRL Extroacular Muscles: Present: EOMI Conjunctiva: Present: Normal Mouth: Present: Moist Mucous Membranes Neck: Present: Normal Range of Motion Respiratory/Chest: Present: Clear to Auscultation, Good Air Exchange. No: Respiratory Distress, Accessory Muscle Use Cardiovascular: Present: Regular Rate and Rhythm, Normal S1, S2. No: Murmurs Abdomen: No: Tenderness, Distention, Peritoneal Signs Back: Present: Normal Inspection Upper Extremity: Present: Normal Inspection. No: Cyanosis, Edema Lower Extremity: Present: Normal Inspection. No: Edema Neurological: Present: GCS=15, CN II-XII Intact, Speech Normal Skin: Present: Warm, Dry, Normal Color. No: Rashes Psychiatric: Present: Alert, Oriented x 3, Normal Insight, Normal Concentration - Scribe Statement The provider has reviewed the documentation as recorded by the Dylan Woods Provider Scribe Attestation: All medical record entries made by the Scribe were at my direction and personally dictated by me. I have reviewed the chart and agree that the record accurately reflects my personal performance of the history, physical exam, medical decision making, and the department course for this patient. I have also personally directed, reviewed, and agree with the discharge instructions and disposition. Disposition/Present on Arrival - Present on Arrival Any Indicators Present on Arrival: No History of DVT/PE: No History of Uncontrolled Diabetes: No Urinary Catheter: No History of Decub. Ulcer: No History Surgical Site Infection Following: None - Disposition Have Diagnosis and Disposition been Completed?: Yes Diagnosis: Homelessness Disposition: HOME/ ROUTINE Disposition Time: 22:30 Patient Problems: Current Active Problems Problem Status Onset Homelessness Acute Condition: GOOD Discharge Instructions (ExitCare): Dana Additional Instructions: SKYLER GALLAGHER, thank you for letting us take care of you today. The emergency medical care you received today was directed at your acute symptoms. If you were prescribed any medication, please fill it and take as directed. It may take several days for your symptoms to resolve. Return to the Emergency Department if your symptoms worsen, do not improve, or if you have any other problems. Please contact your doctor or call one of the physicians/clinics you have been referred to that are listed on the Patient Visit Information form that is included in your discharge packet. Bring any paperwork you were given at discharge with you along with any medications you are taking to your follow up visit. Our treatment cannot replace ongoing medical care by a primary care provider outside of the emergency department. Thank you for allowing the [facility] team to be part of your care today. Follow up with your doctor or our clinic this week. Referrals: [facility] [Outside] - Follow up with primary Estrada Cifuentes MD [Primary Care Provider] - Follow up with primary Destiny Warner MD [Medical Doctor] - Follow up with primary Forms: [employer] (Tongan)
[2018-03-19 06:12] VITALS: O2SAT 97
[2018-03-19 06:16] VITALS: BP 145/80
[2018-03-19 06:17] VITALS: PULSE 85; RESP 20; TEMP 98.9
== END 2018-03-19 06:19 | disposition home or self-care (01) ==
LOC: ED 22:01
DX: Z59.0 Homelessness (principal); I10 Essential (primary) hypertension; F17.210 Nicotine dependence, cigarettes, uncomplicated

== ENCOUNTER 2018-03-21 20:52 | Emergency (ER) | payer OTHER ==
[2018-03-21 20:52] VITALS: BMI 26.2
[2018-03-21 21:50] VITALS: RESP 18; TEMP 98.9
--- NOTE | 2018-03-21 22:18 | ED PDOC ---
Arrival/HPI - General Historian: Patient - History of Present Illness Narrative History of Present Illness (Text): 03/21/18 22:09 72 y o male with past medical history of HTN, homelessness presents to ED c/o b/l foot pain. Pt also states that he is here because it is cold outside. Reports he usually stays at residential in [place] but states that it was closed today because of a drug problem. States he walked from [place] to [place] and then called an ambulance to bring him to the ED. Otherwise denies any acute complaints. Denies headache, dizziness, fever, chills, chest pain, sob, n/v/d/c, abd pain, urinary complaints, or other symptoms currently. States he has a chronic cough that has been present for years that he states is due to his cigarette smoking. Past medical hx: HTN PSurgHx: denies Allergies: NKDA Meds: none Fam hx: denies Soc hx: smokes 1 ppd for 40+ years; homeless currently PMD: none <Yousif Mix - Last Filed: 03/21/18 22:43> <Asad Herzog - Last Filed: 03/21/18 22:47> - General Chief Complaint: Fever Time Seen by Provider: 03/21/18 21:06 Past Medical History - Infectious Disease Hx of Infectious Diseases: None - Cardiac Hx Hypertension: Yes - Pulmonary Hx Respiratory Disorders: Yes Hx Chronic Obstructive Pulmonary Disease (COPD): Yes Other/Comment: smoker 1 PPD - Neurological Hx Neurological Disorder: No - HEENT Hx HEENT Disorder: No - Renal Hx Renal Disorder: No - Endocrine/Metabolic Hx Endocrine Disorders: No - Hematological/Oncological Hx Blood Disorders: No - Integumentary Other/Comment: rash/reaction from bed bugs - Musculoskeletal/Rheumatological Hx Musculoskeletal Disorders: Yes Hx Falls: No Other/Comment: uses cane for ambulation - Gastrointestinal Hx Gastrointestinal Disorders: No - Genitourinary/Gynecological Hx Genitourinary Disorders: Yes Other/Comment: Hx prostate ca with radiation therapy - Psychiatric Hx Depression: No Hx Emotional Abuse: No Hx Physical Abuse: No Hx Substance Use: No - Surgical History Hx Appendectomy: Yes (at age 17) - Anesthesia Hx Anesthesia: Yes Hx Anesthesia Reactions: No Hx Malignant Hyperthermia: No - Suicidal Assessment Feels Threatened In Home Enviroment: No <Yousif Mix - Last Filed: 03/21/18 22:43> Family/Social History Family/Social History: No Known Family HX Smoking Status: Heavy Smoker > 10 Cigarettes Daily Hx Alcohol Use: No Hx Substance Use: No Hx Substance Use Treatment: No <Yousif Mix - Last Filed: 03/21/18 22:43> Allergies/Home Meds <Yousif Mix - Last Filed: 03/21/18 22:43> <MinoAsad - Last Filed: 03/21/18 22:47> Allergies/Adverse Reactions: Allergies No Known Allergies Allergy (Verified 03/18/18 22:28) Home Medications: Home Meds Medication Instructions Recorded Confirmed RX: Losartan Potassium 50 mg PO DAILY 03/13/18 03/21/18 RX: Losartan [Cozaar] 50 mg PO DAILY 03/13/18 03/21/18 RX: Metoprolol Tartrate [Lopressor] 50 mg PO DAILY 03/13/18 03/21/18 RX: Tamsulosin [Flomax] 0.4 mg PO HS 03/13/18 03/21/18 Review of Systems - Review of Systems Constitutional: Normal Cardiovascular: absent: Chest Pain, Palpitations Gastrointestinal: absent: Abdominal Pain, Stool Changes Musculoskeletal: absent: Arthralgias, Myalgias Skin: absent: Rash, Pruritis Neurological: absent: Headache, Dizziness, Gait Changes <Yousif Mix - Last Filed: 03/21/18 22:43> Physical Exam Vital Signs Temp Pulse Resp BP Pulse Ox 03/21/18 21:00 98.9 F 92 H 18 188/72 H 98 Temperature: Afebrile Blood Pressure: Hypertensive Pulse: Regular Respiratory Rate: Normal Appearance: Positive for: Non-Toxic, Comfortable, Unkept Pain Distress: None Mental Status: Positive for: Alert and Oriented X 3 - Systems Exam Head: Present: Atraumatic, Normocephalic Pupils: Present: PERRL Extroacular Muscles: Present: EOMI Conjunctiva: Present: Normal Mouth: Present: Moist Mucous Membranes Pharnyx: Present: Normal. No: ERYTHEMA, EXUDATE Neck: Present: Normal Range of Motion. No: MIDLINE TENDERNESS, JVD, Lymphadenopathy Respiratory/Chest: Present: Clear to Auscultation, Good Air Exchange. No: Respiratory Distress, Accessory Muscle Use, Wheezes, Rales, Rhonchi Cardiovascular: Present: Regular Rate and Rhythm, Normal S1, S2. No: Murmurs, Rub, Gallop Abdomen: Present: Normal Bowel Sounds. No: Tenderness, Distention, Mass/Organomegaly Upper Extremity: Present: Normal Inspection, Normal ROM, NORMAL PULSES, Neurovascularly Intact, Capillary Refill < 2s. No: Cyanosis, Edema Lower Extremity: Present: Normal Inspection, Edema (1+ pitting edema in ankles b/l; tenderness to palpation on soles of feet b/l), NORMAL PULSES, Neurovascularly Intact, Capillary Refill < 2 s. No: CALF TENDERNESS, Melody's Sign, Erythema, Temperature Abnormalties Skin: Present: Warm, Dry, Normal Color. No: Rashes Psychiatric: Present: Alert, Oriented x 3, Normal Insight, Normal Concentration <Yousif Mix - Last Filed: 03/21/18 22:43> Vital Signs Temp Pulse Resp BP Pulse Ox 03/21/18 21:00 98.9 F 92 H 18 188/72 H 98 <Asad Herzog - Last Filed: 03/21/18 22:47> Medical Decision Making ED Course and Treatment: 03/21/18 22:32 Pt w/ past medical hx of HTN, homelessness presenting w/ plantar fasciitis. Pt states he wants to sleep here for the night. Stable for discharge at this time, can follow with PMD 1 week after discharge. <Yousif Mix - Last Filed: 03/21/18 22:43> ED Course and Treatment: Seen and examined with resident. 72 y/o M presents for place to sleep. On exam, no distress. <Asad Herzog - Last Filed: 03/21/18 22:47> Disposition/Present on Arrival - Present on Arrival Any Indicators Present on Arrival: No History of DVT/PE: No History of Uncontrolled Diabetes: No Urinary Catheter: No History of Decub. Ulcer: No History Surgical Site Infection Following: None - Disposition Have Diagnosis and Disposition been Completed?: Yes Disposition Time: 22:35 Patient Plan: Discharge <Yousif Mix - Last Filed: 03/21/18 22:43> <Asad Herzog - Last Filed: 03/21/18 22:47> - Disposition Diagnosis: Plantar fasciitis, bilateral, Homelessness Disposition: HOME/ ROUTINE Patient Problems: Current Active Problems Problem Status Onset Homelessness Acute Plantar fasciitis, bilateral Acute Condition: GOOD Discharge Instructions (ExitCare): Heel Pain (Caused by Plantar Fasciitis) (DC) Print Language: CZECH Additional Instructions: Please follow up with your primary care physician (Dr. Warner, [facility]) within 1 week of discharge. Should symptoms recur or worsen, please call your primary care physician or report to your nearest emergency department. Referrals: Destiny Warner MD [Medical Doctor] - Follow up with primary Forms: [employer] (Turkmen)
[2018-03-22 00:01] VITALS: BP 145/74; PULSE 88; O2SAT 100
== END 2018-03-21 23:55 | disposition home or self-care (01) ==
LOC: ED 20:52
DX: M72.2 Plantar fascial fibromatosis (principal); Z59.0 Homelessness; I10 Essential (primary) hypertension; J44.9 Chronic obstructive pulmonary disease, unspecified; F17.210 Nicotine dependence, cigarettes, uncomplicated

== ENCOUNTER 2018-05-16 13:53 | Emergency (ER) | payer OTHER ==
[2018-05-16 13:53] VITALS: BMI 24.9
[2018-05-16 14:02] VITALS: RESP 18; TEMP 97.6; O2SAT 98
[2018-05-16 15:52] VITALS: BP 136/72; PULSE 86
--- NOTE | 2018-05-16 16:31 | ED PDOC ---
Arrival/HPI - General Chief Complaint: Lower Extremity Problem/Injury Time Seen by Provider: 05/16/18 13:58 Historian: Patient - History of Present Illness Narrative History of Present Illness (Text): 05/16/18 16:29 A 72 year old male, whose past medical history includes chronic foot pain, presents to the emergency department complaining of chronic right foot pain. Patient has been to the ER multiple times for the same complaint. Continues to have sutures to right foot. Patient denies any recent falls/traumas, or any other complaints at this time. Past Medical History - Provider Review Nursing Documentation Reviewed: Yes - Infectious Disease Hx of Infectious Diseases: None - Cardiac Hx Hypertension: Yes - Pulmonary Hx Respiratory Disorders: Yes Hx Chronic Obstructive Pulmonary Disease (COPD): Yes Other/Comment: smoker 1 PPD - Neurological Hx Neurological Disorder: No - HEENT Hx HEENT Disorder: No - Renal Hx Renal Disorder: No - Endocrine/Metabolic Hx Endocrine Disorders: No - Hematological/Oncological Hx Blood Disorders: No - Integumentary Hx Dermatological Disorder: Yes - Musculoskeletal/Rheumatological Hx Musculoskeletal Disorders: Yes Other/Comment: uses cane for ambulation. plantar faciitis - Gastrointestinal Hx Gastrointestinal Disorders: No - Genitourinary/Gynecological Hx Genitourinary Disorders: Yes Other/Comment: Hx prostate ca with radiation therapy - Psychiatric Hx Psychophysiologic Disorder: No Hx Substance Use: No - Surgical History Hx Appendectomy: Yes (at age 17) - Anesthesia Hx Anesthesia: Yes Hx Anesthesia Reactions: No Hx Malignant Hyperthermia: No - Suicidal Assessment Feels Threatened In Home Enviroment: No Family/Social History - Physician Review Nursing Documentation Reviewed: Yes Family/Social History: No Known Family HX Smoking Status: Heavy Smoker > 10 Cigarettes Daily Hx Alcohol Use: No Hx Substance Use: No Hx Substance Use Treatment: No Allergies/Home Meds Allergies/Adverse Reactions: Allergies No Known Allergies Allergy (Verified 05/12/18 08:59) Review of Systems - Physician Review All systems were reviewed & negative as marked: Yes - Review of Systems Constitutional: absent: Fevers, Night Sweats Respiratory: absent: SOB Cardiovascular: absent: Chest Pain Gastrointestinal: absent: Abdominal Pain, Nausea, Vomiting Musculoskeletal: Other (chronic right foot pain.) Physical Exam Vital Signs Reviewed: Yes Vital Signs Temp Pulse Resp BP Pulse Ox 05/16/18 15:52 86 18 136/72 98 05/16/18 13:58 97.6 F 90 18 157/71 H 98 Temperature: Afebrile Blood Pressure: Normal Pulse: Regular Respiratory Rate: Normal Appearance: Positive for: Well-Appearing, Non-Toxic, Comfortable Pain Distress: None Mental Status: Positive for: Alert and Oriented X 3 - Systems Exam Head: Present: Atraumatic, Normocephalic Respiratory/Chest: Present: Clear to Auscultation, Good Air Exchange. No: Respiratory Distress, Accessory Muscle Use Cardiovascular: Present: Regular Rate and Rhythm, Normal S1, S2. No: Murmurs Abdomen: No: Tenderness, Distention, Peritoneal Signs Upper Extremity: Present: Normal Inspection. No: Cyanosis, Edema Lower Extremity: Present: Other (right foot sutures to plantar aspect; has superficial ulcer right foot at NTP joint area.) Neurological: Present: GCS=15, CN II-XII Intact, Speech Normal Psychiatric: Present: Alert, Oriented x 3, Normal Insight, Normal Concentration Medical Decision Making ED Course and Treatment: 05/16/18 16:31 Impression: 72 year old male with chronic right foot pain. Plan: -- Reassess and disposition Prior Visits: Notes and results from previous visits were reviewed. Patient was last seen in the emergency department on 05/12/2018 for bilateral ankle pain. Patient was discharged home. Progress Notes: 05/16/2018 16:30 Right foot has been cleaned and redressed. Patient has been instructed to follow up at podiatry clinic for further management, patient understands. - Scribe Statement The provider has reviewed the documentation as recorded by the Dylan Parson Provider Scribe Attestation: All medical record entries made by the Dylan were at my direction and personally dictated by me. I have reviewed the chart and agree that the record accurately reflects my personal performance of the history, physical exam, medical decision making, and the department course for this patient. I have also personally directed, reviewed, and agree with the discharge instructions and disposition. Disposition/Present on Arrival - Present on Arrival Any Indicators Present on Arrival: No History of DVT/PE: No History of Uncontrolled Diabetes: No Urinary Catheter: No History of Decub. Ulcer: No History Surgical Site Infection Following: None - Disposition Have Diagnosis and Disposition been Completed?: Yes Diagnosis: Foot ulcer Disposition: HOME/ ROUTINE Disposition Time: 14:30 Condition: GOOD Discharge Instructions (ExitCare): Laceration Repair With Stitches (DC) Additional Instructions: SKYLER GALLAGHER, thank you for letting us take care of you today. The emergency medical care you received today was directed at your acute symptoms. If you were prescribed any medication, please fill it and take as directed. It may take several days for your symptoms to resolve. Return to the Emergency Department if your symptoms worsen, do not improve, or if you have any other problems. Please contact your doctor or call one of the physicians/clinics you have been referred to that are listed on the Patient Visit Information form that is included in your discharge packet. Bring any paperwork you were given at discharge with you along with any medications you are taking to your follow up visit. Our treatment cannot replace ongoing medical care by a primary care provider outside of the emergency department. Thank you for allowing the [facility] team to be part of your care today. YOU MUST FOLLOW UP WITH THE PODIATRY CLINIC FOR SUTURE REMOVAL AND WOUND CARE OF YOUR FOOT ULCER. Referrals: [facility] [Outside] - Follow up with primary Podiatry Clinic [Outside] - Follow up with primary Murali Wesley MD [Primary Care Provider] - Follow up with primary Forms: [employer] (Luxembourgish)
== END 2018-05-16 15:53 | disposition home or self-care (01) ==
LOC: ED 13:53
DX: L97.519 Non-pressure chronic ulcer of other part of right foot with unspecified severity (principal); F17.210 Nicotine dependence, cigarettes, uncomplicated; J44.9 Chronic obstructive pulmonary disease, unspecified; I10 Essential (primary) hypertension; Z85.46 Personal history of malignant neoplasm of prostate

== ENCOUNTER 2018-05-17 06:51 | Inpatient (IN) | payer OTHER ==
--- NOTE | 2018-05-17 07:20 | ED PDOC ---
Arrival/HPI - General Chief Complaint: Chest Pain Time Seen by Provider: 05/17/18 07:03 - History of Present Illness Narrative History of Present Illness (Text): 05/17/18 07:20 A 72 year old male with no significant past medical history presents to the em ergency department complaining of chest pain since 2 o'clock. Patient reports he was sanding the floorwhen he experienced chest pain for a few minutes. Patient states he fell down the stairs from light headedness after experiencing chest pain to which he developed a bruise to his left upper chest which does not hurt that much. Patient denies any shortness of breath, nausea, or any other complaints. PMD: Dr. Wesley (Dr. Wesley states he only saw the patient once years ago when Dr. Sims's patients were transferred to him.) Time/Duration: 4-6 hours Symptom Onset: Sudden Symptom Course: Unchanged Activities at Onset: Light Context: Home Past Medical History - Provider Review Nursing Documentation Reviewed: Yes - Infectious Disease Hx of Infectious Diseases: None - Cardiac Hx Hypertension: Yes - Pulmonary Hx Respiratory Disorders: Yes Hx Chronic Obstructive Pulmonary Disease (COPD): Yes Other/Comment: smoker 1 PPD - Neurological Hx Neurological Disorder: No - HEENT Hx HEENT Disorder: No - Renal Hx Renal Disorder: No - Endocrine/Metabolic Hx Endocrine Disorders: No - Hematological/Oncological Hx Blood Disorders: No - Integumentary Hx Dermatological Disorder: Yes Other/Comment: rash/reaction from bed bugs - Musculoskeletal/Rheumatological Hx Musculoskeletal Disorders: Yes Other/Comment: uses cane for ambulation. plantar faciitis - Gastrointestinal Hx Gastrointestinal Disorders: No - Genitourinary/Gynecological Hx Genitourinary Disorders: Yes Other/Comment: Hx prostate ca with radiation therapy - Psychiatric Hx Psychophysiologic Disorder: No Hx Substance Use: No - Surgical History Hx Appendectomy: Yes (at age 17) - Anesthesia Hx Anesthesia: Yes Hx Anesthesia Reactions: No Hx Malignant Hyperthermia: No - Suicidal Assessment Feels Threatened In Home Enviroment: No Family/Social History - Physician Review Nursing Documentation Reviewed: Yes Family/Social History: No Known Family HX Smoking Status: Heavy Smoker > 10 Cigarettes Daily Hx Alcohol Use: No Hx Substance Use: No Hx Substance Use Treatment: No Allergies/Home Meds Allergies/Adverse Reactions: Allergies No Known Allergies Allergy (Verified 05/12/18 08:59) Review of Systems - Physician Review All systems were reviewed & negative as marked: Yes - Review of Systems Respiratory: absent: SOB Gastrointestinal: absent: Nausea Physical Exam - Physical Exam Narrative Physical Exam (Text): 05/17/18 07:21 Constitutional: No acute distress. Head: Normocephalic. Atraumatic. Eyes: PERRL. ENT: Moist mucous membranes. Neck: Supple. Cardiovascular: Regular rate. Chest: No tenderness. Respiratory: Clear to auscultation bilaterally. GI: Soft. Nontender. Nondistended. Back: No CVA tenderness. No midline tenderness. Musculoskeletal: No tenderness or swelling of extremities. Skin: Ecchymosis to left side of chest. Neurologic: Alert, no focal deficit. Vital Signs Reviewed: Yes Vital Signs Temp Pulse Resp BP Pulse Ox 05/17/18 07:03 98.1 F 106 H 19 190/90 H 97 Temperature: Afebrile Blood Pressure: Hypertensive Pulse: Tachycardic Respiratory Rate: Normal Medical Decision Making ED Course and Treatment: 05/17/18 07:21 Impression: 72 year old male presents to the emergency department complaining of chest pain Plan: -- Chest CT without contrast -- Head CT without contrast -- Labs -- CBC -- Reassess and disposition Prior Visits: Notes and results from previous visits were reviewed. Progress Notes: 05/17/18 07:23 EKG: Ordered, reviewed, and independently interpreted the EKG. Rate : 110 BPM Rhythm : NSR Interpretation : No ST elevations. 05/17/18 09:24 Procedure: Chest CT without contrast Dictator: Jese Chacon MD Impression: Unremarkable non-contrast enhanced CT of the chest. No evidence of displaced rib fracture or pneumothorax. Procedure: Head CT without contrast Dictator: Jese Chacon MD Impression: No acute intracranial findings. Aspirin administered, continue cardiac observation for rule out ACS. - Scribe Statement The provider has reviewed the documentation as recorded by the Dylan Boone All medical record entries made by the Susanibmike were at my direction and personally dictated by me. I have reviewed the chart and agree that the record accurately reflects my personal performance of the history, physical exam, medical decision making, and the department course for this patient. I have also personally directed, reviewed, and agree with the discharge instructions and disposition. Disposition/Present on Arrival - Present on Arrival Any Indicators Present on Arrival: No History of DVT/PE: No History of Uncontrolled Diabetes: No Urinary Catheter: No History of Decub. Ulcer: No History Surgical Site Infection Following: None - Disposition Have Diagnosis and Disposition been Completed?: Yes Diagnosis: Chest pain Disposition: HOSPITALIZED Disposition Time: 09:24 Patient Plan: Observation, Telemetry Condition: FAIR
[2018-05-17 07:41] LABS: BASO # 0.04 K/mm3 (0.0-2.0); BASO % 0.4 % (0.0-3.0); EOS # 0.2 (0.0-0.7); EOS % 1.6 % (1.5-5.0); GRAN # 8.1 (1.4-6.5); GRAN % 81.8 % (50.0-68.0); LYMPH # 0.9 (1.2-3.4); LYMPH % 9.4 % (22.0-35.0); MEAN CELL VOLUME 82.5 fl (80.0-105.0); MEAN CORPUSCULAR HEMOGLOBIN 25.1 pg (25.0-35.0); MEAN CORPUSCULAR HGB CONC 30.4 g/dl (31.0-37.0); MEAN PLATELET VOLUME 8.3 fl (7.0-11.0); MONO # 0.7 (0.1-0.6); MONO % 6.8 % (1.0-6.0); RBC 3.99 10^6/uL (3.5-6.1); RED CELL DISTRIBUTION WIDTH 16.8 % (11.5-14.5); WHITE BLOOD COUNT 9.9 10^3/uL (4.5-11.0)
[2018-05-17 08:03] LABS: ALB/GLOB RATIO 1.4 (1.1-1.8); ALT/SGPT 22 U/L (7-56); AST/SGOT 25 U/L (17-59); BLOOD UREA NITROGEN 29 mg/dL (7-21); CALCIUM 8.9 mg/dL (8.4-10.5); GFR NON-AFRICAN AMERICAN > 60
[2018-05-17 08:07] LABS: TROPONIN I 0.04 ng/mL
--- NOTE | 2018-05-17 09:09 | CT ---
Date of service: 05/17/2018 PROCEDURE: CT HEAD WITHOUT CONTRAST. HISTORY: fall, headstrike COMPARISON: 05/05/2018 TECHNIQUE: Axial computed tomography images were obtained through the head/brain without intravenous contrast. Radiation dose: Total exam DLP = 986.49 mGy-cm. This CT exam was performed using one or more of the following dose reduction techniques: Automated exposure control, adjustment of the mA and/or kV according to patient size, and/or use of iterative reconstruction technique. FINDINGS: HEMORRHAGE: No intracranial hemorrhage. BRAIN: No mass effect or edema. Chronic encephalomalacia is seen in the right frontal and right parietal lobes. VENTRICLES: Unremarkable. No hydrocephalus. CALVARIUM: There is a large left frontal scalp hematoma. There is no associated fracture PARANASAL SINUSES: Unremarkable as visualized. No significant inflammatory changes. MASTOID AIR CELLS: Unremarkable as visualized. No inflammatory changes. OTHER FINDINGS: None. IMPRESSION: No acute intracranial findings
--- NOTE | 2018-05-17 09:13 | CT ---
Date of service: 05/17/2018 PROCEDURE: CT Chest without contrast HISTORY: fall, chest ecchymosis COMPARISON: None available. TECHNIQUE: Contiguous axial images were obtained through the chest without intravenous contrast enhancement. Sagittal and coronal reconstructions were performed. Radiation dose: Total exam DLP = 424.17 mGy-cm. This CT exam was performed using one or more of the following dose reduction techniques: Automated exposure control, adjustment of the mA and/or kV according to patient size, and/or use of iterative reconstruction technique. FINDINGS: LUNGS: Clear lungs. Visualized airway clear MEDIASTINUM: Unremarkable thoracic aorta. No aneurysm. Normal sized heart. Main pulmonary artery unremarkable. No vascular congestion. No lymphadenopathy. Aortic and coronary artery calcification PLEURA: No pleural fluid. No pneumothorax. BONES: No fracture. No destructive lesion. UPPER ABDOMEN: Grossly unremarkable. OTHER FINDINGS: None. IMPRESSION: Unremarkable non-contrast enhanced CT of the chest. No evidence of displaced rib fracture or pneumothorax.
[2018-05-17] MEDS ORDERED: Potassium Chloride 30 MEQ in Sodium Chloride 0.9% 1,000 ML IV SCH (10:15)
[2018-05-17] MEDS: Ergocalciferol 50,000 Intl Units Cap PO SCH (11:20)
[2018-05-17] MEDS ORDERED: Albuterol-Ipratrop 3 mg / 0.5 (3 ml) UD IH PRN (12:16)
--- NOTE | 2018-05-17 12:20 | CP.PCM.HP ---
<TashJono - Last Filed: 05/17/18 12:02> History of Present Illness - History of Present Illness History of Present Illness: Medicine H/P: Tash, PGY-2 Chief Complaint: Chest pain HPI: 72 year old male with pertinent medical history of questionable valve replacement presents s/p a fall with chest pain and headache. Patient states that he was at the top of his stairs, when he felt dizzy, lost control of his bladder, and fell down the stairs, hitting his chest and his forehead. Patient denies having any convulsions or any previous history of seizures. Patient denies having a cardiac catheterization, an echocardiogram, or recent stress testing, but that he does follow with Dr. Yuen. Patient at this time admits to reproducible chest pain on his left side, but denies any shortness of breath, loss of consciousness, and confusion. ED work-up showed tachycardia and hypertension with baseline anemia, elevated magnesium but otherwise normal electrolytes, elevated BUN, negative Head CT, negative chest CT for fractures, and EKG with Sinus Tachycardia and LVH. Review of Systems: 12 point ROS obtained and negative except as per HPI Surgical Hx: Questionable valve replacement; Appendectomy Medical Hx: COPD, HTN, Chronic b/l plantar fascitis, and Homelessness Allergies: NKDA Social Hx: 1ppd X 50 years; Denies EtOH, Illicits Home Meds: Lopressor 50, Cozaar 50, ASA 81, Flomax .4 HS Family Hx: Non-contributory PMD: Dr. 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 Present on Admission - Present on Admission Any Indicators Present on Admission: No Past Patient History - Infectious Disease Hx of Infectious Diseases: None - Past Social History Smoking Status: Heavy Smoker > 10 Cigarettes Daily - CARDIAC Hx Hypertension: Yes - PULMONARY Hx Respiratory Disorders: Yes Hx Chronic Obstructive Pulmonary Disease (COPD): Yes Other/Comment: smoker 1 PPD - NEUROLOGICAL Hx Neurological Disorder: No - HEENT Hx HEENT Problems: No - RENAL Hx Chronic Kidney Disease: No - ENDOCRINE/METABOLIC Hx Endocrine Disorders: No - HEMATOLOGICAL/ONCOLOGICAL Hx Blood Disorders: No - INTEGUMENTARY Hx Dermatological Problems: Yes Other/Comment: rash/reaction from bed bugs - MUSCULOSKELETAL/RHEUMATOLOGICAL Hx Musculoskeletal Disorders: Yes Other/Comment: uses cane for ambulation. plantar faciitis - GASTROINTESTINAL Hx Gastrointestinal Disorders: No - GENITOURINARY/GYNECOLOGICAL Hx Genitourinary Disorders: Yes Other/Comment: Hx prostate ca with radiation therapy - PSYCHIATRIC Hx Psychophysiologic Disorder: No Hx Substance Use: No - SURGICAL HISTORY Hx Appendectomy: Yes (at age 17) - ANESTHESIA Hx Anesthesia: Yes Hx Anesthesia Reactions: No Hx Malignant Hyperthermia: No Meds Allergies/Adverse Reactions: Allergies Allergy/AdvReac Type Severity Reaction Status Date / Time No Known Allergies Allergy Verified 05/12/18 08:59 Physical Exam - Constitutional Appears: Non-toxic, Unkempt - Head Exam Head Exam: NORMAL INSPECTION, NORMOCEPHALIC Additional comments: Contusion on left side of forehead - Eye Exam Eye Exam: EOMI, Normal appearance, PERRL Pupil Exam: NORMAL ACCOMODATION, PERRL - ENT Exam ENT Exam: Mucous Membranes Moist, Normal Exam - Neck Exam Neck exam: Positive for: Normal Inspection - Respiratory Exam Respiratory Exam: Clear to Auscultation Bilateral, NORMAL BREATHING PATTERN - Cardiovascular Exam Cardiovascular Exam: Tachycardia, REGULAR RHYTHM, +S1, +S2. absent: JVD, Systolic Murmur - GI/Abdominal Exam GI & Abdominal Exam: Normal Bowel Sounds, Soft. absent: Tenderness - Extremities Exam Extremities exam: Positive for: normal inspection - Back Exam Back exam: NORMAL INSPECTION - Neurological Exam Neurological exam: Alert, CN II-XII Intact, Normal Gait, Oriented x3, Reflexes Normal - Psychiatric Exam Psychiatric exam: Normal Affect, Normal Mood - Skin Skin Exam: Dry, Intact, Normal Color, Warm Results - Vital Signs Recent Vital Signs: Last Vital Signs Temp 97.8 F 05/17/18 11:24 Pulse 108 H 05/17/18 11:24 Resp 18 05/17/18 11:24 BP 118/62 05/17/18 11:24 Pulse Ox 98 05/17/18 11:24 - Labs Result Diagrams: 05/17/18 07:23 05/17/18 07:23 Labs: Laboratory Results - last 24 hr 05/17/18 05/17/18 07:23 07:23 WBC 9.9 D RBC 3.99 Hgb 10.0 L Hct 32.9 L MCV 82.5 MCH 25.1 MCHC 30.4 L RDW 16.8 H Plt Count 295 MPV 8.3 Gran % 81.8 H Lymph % (Auto) 9.4 L [place] % (Auto) 6.8 H Eos % (Auto) 1.6 Baso % (Auto) 0.4 Gran # 8.10 H Lymph # (Auto) 0.9 L [place] # (Auto) 0.7 H Eos # (Auto) 0.2 Baso # (Auto) 0.04 Sodium 139 Potassium 4.3 Chloride 105 Carbon Dioxide 28 Anion Gap 10 BUN 29 H Creatinine 0.9 Est GFR ( Amer) > 60 Est GFR (Non-Af Amer) > 60 Random Glucose 117 H Calcium 8.9 Phosphorus 3.2 Magnesium 2.5 H Total Bilirubin 0.3 AST 25 ALT 22 Alkaline Phosphatase 85 Total Creatine Kinase 59 Troponin I 0.04 D Total Protein 6.9 Albumin 4.0 Globulin 2.9 Albumin/Globulin Ratio 1.4 Assessment & Plan - Assessment and Plan (Free Text) Assessment: 72 year old male with pertinent medical history of questionable valve replacement and HTN presents with reproducible chest pain and head contusion. Plan Patient's initial EKG shows sinus tachy with LVH, but no signs of ischemia, and on physical exam chest pain is reproducible. Patient is neurovascularly intact. BUN is elevated and patient objectively seems unkempt with poor nutrition; per chart review, patient has periods of homelessness when his girlfriend kicks him out of the house. Given this information, patient's chest pain seems to be a result of his fall down the stairs, and his fall might have been secondary to poor po intake and dehydration. Anemia is also on the differential, but patient is at his baseline H&H. On his last admission, Fe/TIBC were both low, indicating ACD; he was prescribed iron at that time. Of note - PE was initially on the differential, given sinus tachycardia, chest pain, and syncopal event, however, patient is satting well on RA and denies any shortness of breath. Chest pain, likely 2/2 musculoskeletal s/p fall, r/o ACS - Trend tropes; EKG stat and next day in AM - ASA daily - TSH, A1C, Lipid panel, ECHO ordered; will calculate ASCVD - Cardiology consult: Dr. Yuen - Admit to tele Syncopal Event, most likely 2/2 dehdyration vs anemia vs arrhythmia vs stroke - CT Head resulted; MRI Brain, Cartoid U/s ordered - IVF hydration with NS at 100 mls/hr - Anemia work up as below, cardiac work up as above - Neurology consult: Dr. Jackson LVH, most likely 2/2 HTN - Cardiology consult: Dr. Yuen - Control pressure Bilateral LE Lesions - Wound care Hx Anemia - Iron studies to determine if patient's therapy on last admission is working - Continue Feosol for now - Monitor with CBC Hx HTN - Continue home medications of Cozaar, Lopressor Hx COPD - Continue with duonebs KILO and PRN Hx BPH - Continue Flomax Hx Tobacco Abuse - Patient counseled on cessation; does not want to quit - Nicotine patch offered Prophylaxis - SCD/Protonix <Rangasamy,Ajantha - Last Filed: 05/18/18 16:11> Results - Vital Signs Recent Vital Signs: Last Vital Signs Temp 97.1 F L 05/18/18 12:00 Pulse 75 05/18/18 14:00 Resp 19 05/18/18 12:00 BP 108/55 L 05/18/18 12:00 Pulse Ox 97 05/18/18 09:00 - Labs Result Diagrams: 05/18/18 07:00 05/18/18 07:00 Labs: Laboratory Results - last 24 hr 05/17/18 05/17/18 05/17/18 13:00 15:59 22:09 WBC RBC Hgb Hct MCV MCH MCHC RDW Plt Count MPV Neut % (Auto) Lymph % (Auto) [place] % (Auto) Eos % (Auto) Baso % (Auto) Lymph # (Auto) [place] # (Auto) Eos # (Auto) Baso # (Auto) Absolute Neuts (auto) ESR Sodium Potassium Chloride Carbon Dioxide Anion Gap BUN Creatinine Est GFR ( Amer) Est GFR (Non-Af Amer) Random Glucose Calcium Magnesium Ferritin 36.3 Total Bilirubin AST ALT Alkaline Phosphatase Lactate Dehydrogenase 466 Total Creatine Kinase 55 Troponin I 0.04 0.03 D Total Protein Albumin Globulin Albumin/Globulin Ratio Triglycerides Cholesterol LDL Cholesterol Direct HDL Cholesterol TSH 3rd Generation 05/18/18 05/18/18 05/18/18 02:15 07:00 07:00 WBC 8.2 RBC 3.52 Hgb 8.9 L Hct 29.1 L MCV 82.7 MCH 25.3 MCHC 30.6 L RDW 17.2 H Plt Count 274 MPV 8.5 Neut % (Auto) 69.6 H Lymph % (Auto) 19.3 L [place] % (Auto) 8.0 H Eos % (Auto) 2.7 Baso % (Auto) 0.4 Lymph # (Auto) 1.6 [place] # (Auto) 0.7 H Eos # (Auto) 0.2 Baso # (Auto) 0.03 Absolute Neuts (auto) 5.68 ESR Sodium 136 Potassium 4.7 Chloride 106 Carbon Dioxide 28 Anion Gap 7 L BUN 22 H Creatinine 1.1 Est GFR ( Amer) > 60 Est GFR (Non-Af Amer) > 60 Random Glucose 91 Calcium 8.5 Magnesium 2.4 H Ferritin Total Bilirubin 0.3 AST 19 ALT 30 Alkaline Phosphatase 75 Lactate Dehydrogenase 407 Total Creatine Kinase 67 Troponin I 0.02 D Total Protein 5.6 L Albumin 3.1 Globulin 2.6 Albumin/Globulin Ratio 1.2 Triglycerides 88 Cholesterol 119 L LDL Cholesterol Direct 70 HDL Cholesterol 32 TSH 3rd Generation 05/18/18 05/18/18 07:00 07:00 WBC RBC Hgb Hct MCV MCH MCHC RDW Plt Count MPV Neut % (Auto) Lymph % (Auto) [place] % (Auto) Eos % (Auto) Baso % (Auto) Lymph # (Auto) [place] # (Auto) Eos # (Auto) Baso # (Auto) Absolute Neuts (auto) ESR 31 H Sodium Potassium Chloride Carbon Dioxide Anion Gap BUN Creatinine Est GFR ( Amer) Est GFR (Non-Af Amer) Random Glucose Calcium Magnesium Ferritin Total Bilirubin AST ALT Alkaline Phosphatase Lactate Dehydrogenase Total Creatine Kinase Troponin I Total Protein Albumin Globulin Albumin/Globulin Ratio Triglycerides Cholesterol LDL Cholesterol Direct HDL Cholesterol TSH 3rd Generation 1.13 Attending/Attestation - Attestation I have personally seen and examined this patient.: Yes I have fully participated in the care of the patient.: Yes I have reviewed all pertinent clinical information: Yes Notes (Text): 05/18/18 16:06 Attending note; Patient seen and examined with resident. Patient is alert and awake. Poor historian. History reviewed from the chart. Patient is currently homeless. Unkempt. Patient is a 72 year old male with pertinent medical history of questionable valve replacement presents s/p a fall with chest pain and headache. Patient states that he was at the top of his stairs, when he felt dizzy, lost control of his bladder, and fell down the stairs. Denies any loss of consciousness. Denies any leg pain. Denies any abdominal pain. Denies any fevers, chills. 1. Status post fall/dizziness; currently has abrasions on the left frontal area. Conclusions on the left chest area. Patient with a history of long-standing gait instability secondary to neuropathy and peripheral vascular disease. EKG shows sinus tachycardia and nonspecific changes. Cardiac enzymes negative. 2. Left sided chest pain; post fall. CT is negative for any fracture or injury. 3. History of coronary artery disease and questionable history of valve surgery. Cardiology evaluation requested. Echocardiogram ordered. 4. Patient's medications reviewed with [facility] pharmacy. Patient was recently discharged from [facility] with aspirin, Plavix and Eliquis. We will get medical records from [facility]. 5. History of peripheral vascular disease; continue aspirin. 6. Homelessness; social insurance administrator evaluation requested. 7. Lower extremity wound. Patient has sutures in the right foot. Podiatry evaluation requested. Prognosis is poor secondary to noncompliance with follow-up and homelessness. Upon discharge patient will follow up with PMD Dr. Wesley.
[2018-05-17 13:30] LABS: TROPONIN I 0.04 ng/mL
[2018-05-17] MEDS: Sodium Chloride 0.9% 1,000 ML IV SCH (13:37)
[2018-05-17 13:58] LABS: IRON 29 ug/dL (45-180)
--- NOTE | 2018-05-17 13:59 | CP.PCM.CON ---
History of Present Illness - History of Present Illness History of Present Illness: Consult Note for Neurology Service, Dr. Jackson (requested as per attending Dr. Mcrae) Yousif Mix DO PGY-1 This is a 72 y o male with PMhx COPD, HTN, chronic b/l plantar fasciitis, and homelessness, who presented to the ED today s/p fall c/o chest pain and headache. Reason for Neurology consult was for syncopal event. Pt seen and examined at bedside. Denies any acute complaints, resting comfortably at bedside. Per chart review, pt stated that when he was at the top of his stairs, he started to feel dizzy, lost control of his bladder at that time, and fell down the stairs, hitting his chest and forehead. Denies seizure-like activity, vision changes, tinnitus, vertigo-like symptoms, sob, n/v/d/c, abd pain, urinary complaints, or other symptoms. PMhx: COPD, HTN, chronic b/l plantar fasciitis, and homelessness PSurgHx: Questionable valve replacement; Appendectomy Allergies: NKDA Current meds: reviewed as per MAR Fam hx: denies Soc hx: Smokes 1 ppd x 50 y; denies EtOH or illicit drug use PMD: [place] Review of Systems - Constitutional Constitutional: Headache. absent: Anorexia, Chills, Fatigue, Fever, Frequent Falls - EENT Eyes: absent: Blurred Vision, Change in Vision, Sees Flashes, Spots in Vision Ears: absent: Tinnitus - Cardiovascular Cardiovascular: Chest Pain. absent: Dyspnea on Exertion, Leg Edema, Palpitations - Neurological Neurological: Dizziness, Headaches. absent: Abnormal Hearing, Abnormal Movements, Abnormal Speech, Behavioral Changes, Confusion, Numbness, Focal [place], Sensory Deficit, Tingling, Tremor, Weakness Past Patient History - Infectious Disease Hx of Infectious Diseases: None - Past Social History Smoking Status: Heavy Smoker > 10 Cigarettes Daily - CARDIAC Hx Hypertension: Yes - PULMONARY Hx Respiratory Disorders: Yes Hx Chronic Obstructive Pulmonary Disease (COPD): Yes Other/Comment: smoker 1 PPD - NEUROLOGICAL Hx Neurological Disorder: No - HEENT Hx HEENT Problems: No - RENAL Hx Chronic Kidney Disease: No - ENDOCRINE/METABOLIC Hx Endocrine Disorders: No - HEMATOLOGICAL/ONCOLOGICAL Hx Blood Disorders: No - INTEGUMENTARY Hx Dermatological Problems: Yes Other/Comment: rash/reaction from bed bugs - MUSCULOSKELETAL/RHEUMATOLOGICAL Hx Musculoskeletal Disorders: Yes Other/Comment: uses cane for ambulation. plantar faciitis - GASTROINTESTINAL Hx Gastrointestinal Disorders: No - GENITOURINARY/GYNECOLOGICAL Hx Genitourinary Disorders: Yes Other/Comment: Hx prostate ca with radiation therapy - PSYCHIATRIC Hx Psychophysiologic Disorder: No Hx Substance Use: No - SURGICAL HISTORY Hx Appendectomy: Yes (at age 17) - ANESTHESIA Hx Anesthesia: Yes Hx Anesthesia Reactions: No Hx Malignant Hyperthermia: No Meds Allergies/Adverse Reactions: Allergies Allergy/AdvReac Type Severity Reaction Status Date / Time No Known Allergies Allergy Verified 05/12/18 08:59 - Medications Medications: Current Medications Albuterol/Ipratropium (Duoneb 3 Mg/0.5 Mg (3 Ml) Ud) 3 ml IH [id number] Albuterol/Ipratropium (Duoneb 3 Mg/0.5 Mg (3 Ml) Ud) 3 ml IH Q2H PRN PRN Reason: Shortness of Breath Aspirin (Ecotrin) 81 mg PO DAILY [facility] Ergocalciferol (Drisdol 50,000 Intl Units Cap) 1 cap PO Q7D [facility] Last Admin: 05/17/18 11:20 Dose: 1 cap Ferrous Sulfate (Feosol) 324 mg PO TID [facility] Last Admin: 05/17/18 13:45 Dose: 324 mg Sodium Chloride (Sodium Chloride 0.9%) 1,000 mls @ 100 mls/hr IV .Q10H [facility] Last Admin: 05/17/18 13:37 Dose: 100 mls/hr Metoprolol Tartrate (Lopressor) 50 mg PO DAILY [facility] Last Admin: 05/17/18 11:18 Dose: 50 mg Nicotine (Nicoderm Cq) 1 patch TD DAILY [facility] Last Admin: 05/17/18 13:42 Dose: Not Given Pantoprazole Sodium (Protonix Ec Tab) 40 mg PO 0600 [facility] Tamsulosin HCl (Flomax) 0.4 mg PO HS [facility] Physical Exam - Constitutional Appears: Non-toxic, Unkempt - Head Exam Head Exam: ATRAUMATIC, NORMOCEPHALIC - Eye Exam Eye Exam: EOMI, Normal appearance, PERRL - ENT Exam ENT Exam: Mucous Membranes Moist - Respiratory Exam Respiratory Exam: Clear to Auscultation Bilateral, NORMAL BREATHING PATTERN. absent: Rales, Rhonchi, Wheezes - Cardiovascular Exam Cardiovascular Exam: Tachycardia, +S1, +S2. absent: Gallop, Rubs, Systolic Murmur - GI/Abdominal Exam GI & Abdominal Exam: Normal Bowel Sounds, Soft. absent: Distended, Organomegaly, Tenderness - Extremities Exam Extremities exam: Positive for: full ROM, normal capillary refill, normal inspection, pedal pulses present. Negative for: calf tenderness, pedal edema - Neurological Exam Neurological exam: Alert, CN II-XII Intact, Oriented x3, Reflexes Normal - Expanded Neurological Exam Expanded Patient oriented to: person, place, time Speech: Fluid Speech Cerebellar Function: Finger to Nose: Normal Upper motor neuron: Pronator Drift: Normal Neuro motor strength exam: Left Upper Extremity: 5, Right Upper Extremity: 5, Left Lower Extremity: 5, Right Lower Extremity: 5 Coma Scale Eye Opening: SPONTANEOUS Coma Scale Motor Response: OBEYS COMMANDS Coma Scale Verbal: Oriented Coma Scale Total: 15 - Skin Skin Exam: Dry, Intact, Warm Results - Vital Signs Recent Vital Signs: Last Vital Signs Temp 97.8 F 05/17/18 11:24 Pulse 108 H 05/17/18 11:24 Resp 18 05/17/18 11:24 BP 118/62 05/17/18 11:24 Pulse Ox 98 05/17/18 11:24 - Labs Result Diagrams: 05/17/18 07:23 05/17/18 07:23 Labs: Laboratory Results - last 24 hr 05/17/18 05/17/18 05/17/18 07:23 07:23 12:45 WBC 9.9 D RBC 3.99 Hgb 10.0 L Hct 32.9 L MCV 82.5 MCH 25.1 MCHC 30.4 L RDW 16.8 H Plt Count 295 MPV 8.3 Gran % 81.8 H Lymph % (Auto) 9.4 L [place] % (Auto) 6.8 H Eos % (Auto) 1.6 Baso % (Auto) 0.4 Gran # 8.10 H Lymph # (Auto) 0.9 L [place] # (Auto) 0.7 H Eos # (Auto) 0.2 Baso # (Auto) 0.04 Sodium 139 Potassium 4.3 Chloride 105 Carbon Dioxide 28 Anion Gap 10 BUN 29 H Creatinine 0.9 Est GFR ( Amer) > 60 Est GFR (Non-Af Amer) > 60 Random Glucose 117 H Calcium 8.9 Phosphorus 3.2 Magnesium 2.5 H Iron Total Bilirubin 0.3 AST 25 ALT 22 Alkaline Phosphatase 85 Lactate Dehydrogenase 505 Total Creatine Kinase 59 58 Troponin I 0.04 D 0.04 Total Protein 6.9 Albumin 4.0 Globulin 2.9 Albumin/Globulin Ratio 1.4 05/17/18 13:20 WBC RBC Hgb Hct MCV MCH MCHC RDW Plt Count MPV Gran % Lymph % (Auto) [place] % (Auto) Eos % (Auto) Baso % (Auto) Gran # Lymph # (Auto) [place] # (Auto) Eos # (Auto) Baso # (Auto) Sodium Potassium Chloride Carbon Dioxide Anion Gap BUN Creatinine Est GFR ( Amer) Est GFR (Non-Af Amer) Random Glucose Calcium Phosphorus Magnesium Iron 29 L Total Bilirubin AST ALT Alkaline Phosphatase Lactate Dehydrogenase Total Creatine Kinase Troponin I Total Protein Albumin Globulin Albumin/Globulin Ratio Assessment & Plan - Assessment and Plan (Free Text) Assessment: This is a 72 y o male with PMhx COPD, HTN, chronic b/l plantar fasciitis, and homelessness, who presented to the ED today s/p fall c/o chest pain and headache. Reason for Neurology consult was for syncopal event. Plan: Syncope/dizziness -R/o neurogenic, cardiogenic, vasovagal as etiologies; could also be 2/2 iron deficiency anemia, currently on Feosol tx -Trops 0.04 x2 -CT head: Chronic encephalomalacia seen in R frontal + R parietal lobes. Large L frontal scalp hematoma. Otherwise no acute intracranial findings. -Echo and carotid doppler done, f/u results -MRI ordered, f/u results -C/w ASA Will continue to follow. Thank you for allowing us to participate in the care of your patient. Please call with any questions/concerns. Pt seen, examined with, and plan discussed with Dr. Jackson, attending physician. Yousif Mix DO PGY-1, Produce Sorter Pager #[phone]
[2018-05-17 14:07] LABS: % IRON SATURATION 10 % (20-55); TOTAL IRON BINDING CAPACITY 290 ug/dL (261-462)
[2018-05-17 15:16] VITALS: BMI 26.1
[2018-05-17] MEDS ORDERED: Pneumococcal 23-Valent Vaccine IM ONE (15:17)
[2018-05-17] MEDS ORDERED: Influenza Vaccine 60 mcg/0.5 mL SYR (4YR UP) IM ONE (15:17)
--- NOTE | 2018-05-17 15:48 | CARD ---
APPROVED REPORT Date of service: 05/17/2018 EKG Measurement Heart [id number] <Conclusion> Sinus tachycardia Voltage criteria for left ventricular hypertrophy Abnormal ECG
[2018-05-17 16:29] LABS: TROPONIN I 0.04 ng/mL
--- NOTE | 2018-05-17 17:26 | CARD ---
APPROVED REPORT Date of service: 05/17/2018 EXAM: Two-dimensional and M-mode echocardiogram with Doppler and color Doppler. INDICATION Chest Pain R/O ACS 2D DIMENSIONS Left Atrium (2D)4.5 (1.6-4.0cm)IVSd1.6 (0.7-1.1cm) LVDd5.2 (3.9-5.9cm)PWd1.5 (0.7-1.1cm) LVDs3.6 (2.5-4.0cm)FS (%) 30.7 % LVEF (%)57.9 (>50%) M-Mode DIMENSIONS Aortic Root3.80 (2.2-3.7cm)Aortic Cusp Exc.2.10 (1.5-2.0cm) Aortic Valve AoV Peak Zsfmjznl343.0cm/sAoV VTI36.7cmAO Peak GR.14mmHg LVOT Peak Dnkkughv058.0cm/sLVOT VTI25.00cmAO Mean GR.8mmHg Mitral Valve MV E Qsieofio13.3cm/sMV A Dwogpiwk217.0cm/sE/A ratio0.8 TDI Lateral E' Peak V11.00cm/sMedial E' Peak V9.22cm/sE/Lateral E'8.4 E/Medial E'10.0 Pulmonary Valve PV Peak Gvdpjwkj58.4cm/sPV Peak Grad.3mmHg Tricuspid Valve TR Peak Ewfpewow413id/sRAP PNWAFNST88cvBxBH Peak Gr.17mmHg [id number] LEFT VENTRICLE The left ventricle is normal size. There is mild to moderate concentric left ventricular hypertrophy. The left ventricular function is normal. The left ventricular ejection fraction is within the normal range. Transmitral Doppler flow pattern is Grade I-abnormal relaxation pattern. RIGHT VENTRICLE The right ventricle is normal size. There is normal right ventricular wall thickness. The right ventricular systolic function is normal. ATRIA The left atrium is mildly dilated. The right atrium size is normal. AORTIC VALVE The aortic valve is mildly to moderately sclerotic. No aortic regurgitation is present. There is trace valvular aortic stenosis. MITRAL VALVE The mitral valve is mildly thickened. Mitral regurgitation is trace to mild. TRICUSPID VALVE There is mild tricuspid regurgitation. There is mild pulmonary hypertension. PULMONIC VALVE There is trace pulmonic valvular regurgitation. GREAT VESSELS The aortic root is mildly enlarged. PERICARDIAL EFFUSION There is no pericardial effusion. <Conclusion> There is mild to moderate concentric left ventricular hypertrophy. The left ventricular function is normal. The left ventricular ejection fraction is within the normal range. Transmitral Doppler flow pattern is Grade I-abnormal relaxation pattern. Mitral regurgitation is trace to mild. There is mild tricuspid regurgitation. There is mild pulmonary hypertension.
[2018-05-18] MEDS: Albuterol-Ipratrop 3 mg / 0.5 (3 ml) UD IH SCH ×6 (00:40→23:56)
[2018-05-18 02:47] LABS: TROPONIN I 0.02 ng/mL
[2018-05-18] MEDS: Sodium Chloride 0.9% 1,000 ML IV SCH ×2 (05:06→14:24)
[2018-05-18] MEDS ORDERED: Pantoprazole 40 mg EC Tab PO SCH (06:00)
[2018-05-18 07:32] LABS: BASO # 0.03 K/mm3 (0.0-2.0); BASO % 0.4 % (0.0-3.0); EOS # 0.2 (0.0-0.7); EOS % 2.7 % (1.5-5.0); HEMOGLOBIN 8.9 g/dL (14.0-18.0); LYMPH # 1.6 (1.2-3.4); LYMPH % 19.3 % (22.0-35.0); MEAN CELL VOLUME 82.7 fl (80.0-105.0); MEAN CORPUSCULAR HEMOGLOBIN 25.3 pg (25.0-35.0); MEAN CORPUSCULAR HGB CONC 30.6 g/dl (31.0-37.0); MEAN PLATELET VOLUME 8.5 fl (7.0-11.0); MONO # 0.7 (0.1-0.6); RBC 3.52 10^6/uL (3.5-6.1); RED CELL DISTRIBUTION WIDTH 17.2 % (11.5-14.5); WHITE BLOOD COUNT 8.2 10^3/uL (4.5-11.0)
[2018-05-18 07:56] LABS: ALB/GLOB RATIO 1.2 (1.1-1.8); ALBUMIN 3.1 g/dL (3.0-4.8); ALT/SGPT 30 U/L (7-56); AST/SGOT 19 U/L (17-59); BLOOD UREA NITROGEN 22 mg/dL (7-21); CALCIUM 8.5 mg/dL (8.4-10.5); GFR NON-AFRICAN AMERICAN > 60; HDL CHOLESTEROL 32 mg/dL (29-60); LDL CHOLESTEROL 70 mg/dL (0-129)
[2018-05-18] MEDS: Collagenase 250 Units/gm Ointment(30 gm) TOP SCH ×2 (11:27→14:13)
--- NOTE | 2018-05-18 11:33 | CP.PCM.PN ---
<Ishmael Fuentes - Last Filed: 05/18/18 12:12> Subjective - Date & Time of Evaluation Date of Evaluation: 05/18/18 Time of Evaluation: 11:26 - Subjective Subjective: Ishmael Fuentes D.O. PGY-3, Internal Medicine Resident, Hospitalist Progress Note 72 year old male with a PMH of sternotomy for suspected valve repair, HFpEF, DVT on Eliquis, HTN, COPD, suspected CAD, and homelessness who presented after a fall complaining of chest pain and headache. Patient was seen and examined at bedside. States that he is feeling somewhat better. Chest pain resolved. No overnight events. Objective - Vital Signs/Intake and Output Vital Signs (last 24 hours): Temp Pulse Resp BP Pulse Ox 97.8 F 83 20 169/74 H 96 05/18/18 05:23 05/18/18 10:19 05/18/18 05:23 05/18/18 10:19 05/18/18 05:23 Intake and Output: 05/18/18 05/18/18 06:59 18:59 Intake Total 180 Output Total 700 Balance -520 - Medications Medications: Current Medications Albuterol/Ipratropium (Duoneb 3 Mg/0.5 Mg (3 Ml) Ud) 3 ml [id number] Last Admin: 05/18/18 08:28 Dose: Not Given Albuterol/Ipratropium (Duoneb 3 Mg/0.5 Mg (3 Ml) Ud) 3 ml IH Q2H PRN PRN Reason: Shortness of Breath Aspirin (Ecotrin) 81 mg PO DAILY [facility] Last Admin: 05/18/18 10:19 Dose: 81 mg Collagenase (Santyl) 0 gm TOP DAILY [facility] Ergocalciferol (Drisdol 50,000 Intl Units Cap) 1 cap PO Q7D [facility] Last Admin: 05/17/18 11:20 Dose: 1 cap Ferrous Sulfate (Feosol) 324 mg PO TID [facility] Last Admin: 05/18/18 10:19 Dose: 324 mg Sodium Chloride (Sodium Chloride 0.9%) 1,000 mls @ 100 mls/hr IV .Q10H [facility] Last Admin: 05/18/18 05:06 Dose: 100 mls/hr Metoprolol Tartrate (Lopressor) 50 mg PO DAILY [facility] Last Admin: 05/18/18 10:19 Dose: 50 mg Nicotine (Nicoderm Cq) 1 patch TD DAILY [facility] Last Admin: 05/18/18 10:18 Dose: Not Given Pantoprazole Sodium (Protonix Ec Tab) 40 mg PO 0600 [facility] Last Admin: 05/18/18 05:06 Dose: 40 mg Tamsulosin HCl (Flomax) 0.4 mg PO HS [facility] Last Admin: 05/17/18 22:05 Dose: 0.4 mg - Labs Labs: 05/18/18 07:00 05/18/18 07:00 - Constitutional Appears: Disheveled, elderly male, Non-toxic, Unkempt - Head Exam Head Exam: NORMAL INSPECTION, NORMOCEPHALIC Additional comments: Contusion on left side of forehead, healing ecchymosis - Eye Exam Eye Exam: EOMI, Normal appearance, PERRL - ENT Exam ENT Exam: Mucous Membranes Moist, Normal Exam - Neck Exam Neck exam: soft, supple, no LAD - Respiratory Exam Respiratory Exam: Clear to Auscultation Bilateral, NORMAL BREATHING PATTERN, no wheezing, rhonchi, or rales appreciated - Cardiovascular Exam Cardiovascular Exam: RRR, +S1, +S2. absent: JVD, Systolic Murmur - GI/Abdominal Exam GI & Abdominal Exam: Normal Bowel Sounds, Soft. absent: Tenderness - Extremities Exam Extremities exam: BL feet covered s/p md physician dermatologist examination, known stitches on R foot - Neurological Exam Neurological exam: Alert, CN II-XII Intact, Normal Gait, Oriented x4, Reflexes Normal - Psychiatric Exam Psychiatric exam: Normal Affect, Normal Mood - Skin Skin Exam: Dry, Intact, Normal Color, Warm Assessment and Plan - Assessment and Plan (Free Text) Assessment: 72 year old male with a PMH of sternotomy for suspected valve repair, HFpEF, DVT on Eliquis, HTN, COPD, suspected CAD, and homelessness who presented after a fall complaining of chest pain and headache. Plan: 1. Syncope Likely dehydration given homelessness status in the setting of anemia of chronic disease 05/17 CT Head showed no acute changes MRI Brain and Carotid U/s pending Cont NS @ 100 mls/hr Neurology following PT eval pending 2. Chest pain in setting of known HFpEF and LVH with hx of HTN Likely musculoskeletal after recent fall down flight of stairs Troponins negative x3 Cont aspirin Cardio following Monitoring in tele Total cholesterol low, TSH within limits, echo shows HFpEF 3. Bilateral LE Lesions 2/2 homelessness/trauma Wound care Podiatry following 4. Anemia of Chronic Disease Cont iron supplementation Monitoring CBCs Hemodynamically stable No active bleeding 5. Hx HTN Cont home medications of Cozaar and Lopressor 6. Hx COPD Cont with duonebs KILO and PRN 7. Hx BPH Cont Flomax 8. Hx Tobacco Abuse Counseled on cessation, unwilling to try and quit Cont nicotine patch 9. Homelessness Social work/CM consulted Ppx: SCD Patient was seen and examined and case was discussed at length during rounds with attending physician Dr. Clementina Davey <Jessica Mcrae - Last Filed: 05/18/18 16:40> Objective - Vital Signs/Intake and Output Vital Signs (last 24 hours): Temp Pulse Resp BP Pulse Ox 97.1 F L 75 19 108/55 L 97 05/18/18 12:00 05/18/18 14:00 05/18/18 12:00 05/18/18 12:00 05/18/18 09:00 Intake and Output: 05/18/18 05/18/18 06:59 18:59 Intake Total 180 Output Total 700 Balance -520 - Medications Medications: Current Medications Albuterol/Ipratropium (Duoneb 3 Mg/0.5 Mg (3 Ml) Ud) 3 ml IH [id number] Last Admin: 05/18/18 12:01 Dose: Not Given Albuterol/Ipratropium (Duoneb 3 Mg/0.5 Mg (3 Ml) Ud) 3 ml IH Q2H PRN PRN Reason: Shortness of Breath Aspirin (Ecotrin) 81 mg PO DAILY [facility] Last Admin: 05/18/18 10:19 Dose: 81 mg Collagenase (Santyl) 0 gm TOP DAILY [facility] Last Admin: 05/18/18 14:13 Dose: 2 applic Ergocalciferol (Drisdol 50,000 Intl Units Cap) 1 cap PO Q7D [facility] Last Admin: 05/17/18 11:20 Dose: 1 cap Ferrous Sulfate (Feosol) 324 mg PO TID [facility] Last Admin: 05/18/18 14:13 Dose: 324 mg Sodium Chloride (Sodium Chloride 0.9%) 1,000 mls @ 100 mls/hr IV .Q10H [facility] Last Admin: 05/18/18 14:24 Dose: 100 mls/hr Metoprolol Tartrate (Lopressor) 50 mg PO DAILY [facility] Last Admin: 05/18/18 10:19 Dose: 50 mg Nicotine (Nicoderm Cq) 1 patch TD DAILY [facility] Last Admin: 05/18/18 10:18 Dose: Not Given Tamsulosin HCl (Flomax) 0.4 mg PO HS [facility] Last Admin: 05/17/18 22:05 Dose: 0.4 mg - Labs Labs: 05/18/18 07:00 05/18/18 07:00 Attending/Attestation - Attestation I have personally seen and examined this patient.: Yes I have fully participated in the care of the patient.: Yes I have reviewed all pertinent clinical information, including history, physical exam and plan: Yes Notes (Text): 05/18/18 16:13 Attending note; Patient seen and examined with resident. Patient is alert and awake. Poor historian. History reviewed from the chart. [place] [facility] [place]. [place] was recently discharged [place] [facility]. Patient has multiple ER visits between [facility] and other hospitals because of homelessness and and chronic fall/ leg pain issues. Patient is a 72 year old male with pertinent medical history of questionable valve replacement presents s/p a fall with chest pain and headache. Patient states that he was at the top of his stairs, when he felt dizzy, lost control of his bladder, and fell down the stairs. Denies any loss of consciousness. Denies any leg pain. Denies any abdominal pain. Denies any fevers, chills. 1. Status post fall/dizziness/syncope; currently has abrasions on the left fro ntal area. Contusions on the left chest area. Patient with a history of long-standing gait instability secondary to neuropathy and peripheral vascular disease. EKG shows sinus tachycardia and nonspecific changes. Cardiac enzymes negative. Neurology evaluation appreciated. CT head showed chronic encephalomalacia in the frontal and parietal lobe. No acute ischemia noted. MRI and carotid Doppler. 2. Left sided chest pain; post fall. cardiac enzymes negative. CT chest is negative for any fracture or injury. 3. History of coronary artery disease and questionable history of valve surgery. Cardiology evaluation requested. Echocardiogram showed normal ejection fraction. 4. History of DVT as per [facility] [place]. Continue eliquis. 5. History of peripheral vascular disease; continue aspirin. No evidence of peripheral stent placement/ documentation noted. 6. Anemia; chronic. Monitor closely. 6. Homelessness; social work nurse evaluation requested. 7. Lower extremity wound. Patient has sutures in the right foot. Podiatry evaluation appreciated. Wound culture sent. Prognosis is poor secondary to noncompliance with follow-up and homelessness. Upon discharge patient will follow up with PMD Dr. Wesley.
--- NOTE | 2018-05-18 12:48 | CON ---
DATE OF CONSULTATION: 05/18/2018 REQUESTING PHYSICIAN: Jessica Mcrae MD REASON FOR CONSULTATION: Possible syncope and chest pain. HISTORY: This is a 72-year-old man well known to me with a history of coronary artery disease status post prior bypass surgery as well as prior carotid endarterectomy, who reportedly had a fall at home. Details were somewhat vague. According to the chart, he was sanding a floor and developed chest pain and lightheadedness and fell down stairs. Upon interrogation this morning, he cannot recall having had any chest pain and cannot recall the details of his fall. He is uncertain if he lost consciousness. He is well known to me and often, in light of his symptoms and disease processes, does not give reliable history. He was under my care some years ago when he underwent bypass surgery and carotid endarterectomy, however has not maintained regular followup. He has been a heavy smoker for many years and continues to do so. He does have a history of hypertension and COPD. PAST HISTORY: Notable for prostate cancer for which he has undergone radiation therapy. He had a prior appendectomy. MEDICATIONS AT HOME: Reportedly are clindamycin, carvedilol 6.25 mg b.i.d., Eliquis, metformin 500 mg b.i.d., Lipitor, Plavix, Pro-Air, Protonix, Symbicort, and Zestril. It is unclear as to his compliance with medications. It is not immediately clear why he had been placed on Eliquis either. ALLERGIES: NONE. FAMILY HISTORY: He cannot recall. SOCIAL HISTORY: As mentioned, he does state that he is currently homeless. REVIEW OF SYSTEMS: A 10-point review of systems appears otherwise unremarkable. PHYSICAL EXAMINATION: GENERAL: He is a somewhat disheveled-appearing middle-aged man. VITAL SIGNS: His blood pressure is 116/56 with a pulse of 76 and sinus. Respirations are 16. He is afebrile. HEENT: A facial contusion is noted. NECK: No JVD. CHEST: Bilateral scattered rhonchi. HEART: PMI displaced laterally with a systolic murmur at the left sternal border. ABDOMEN: Soft, nontender with normoactive bowel sounds. EXTREMITIES: No edema. SKIN: Warm and dry. PSYCHIATRIC: Fairly normal mood and affect. NEUROLOGIC: Alert and oriented x3. No gross motor or sensory deficits noted. DIAGNOSTIC DATA: Potassium 4.7, BUN and creatinine 22 and 1.1. White count 8.2, hemoglobin and hematocrit 8.9 and 29.1 with a platelet count of 274,000. Cholesterol 119 with HDL 32, LDL 70, triglycerides of 88. His electrocardiogram reveals a sinus tachycardia with voltage criteria for LVH. An echocardiogram reportedly showed [id number] concentric LVH with normal LV function, mild mitral and tricuspid regurgitation. Chest x-ray is pending. Three sets of cardiac enzymes are negative. IMPRESSION: 1. Recent fall, unclear if this was a syncopal event. Etiology uncertain. 2. Known coronary artery disease status post prior bypass surgery, appears clinically stable at the present time. 3. Carotid disease, status post carotid endarterectomy. 4. Persistent tobacco abuse. 5. History of prostate cancer. RECOMMENDATIONS: Aspirin and beta-geni therapy should continue for now. Anticoagulant therapy should be withheld. Smoking absence was strongly encouraged. Telemetry monitoring should continue for now. Further recommendations were made based on review of the rest of his workup and his clinical course. Thank you for this consultation. We would be happy to see him as needed. Asad Barnhart MD
--- NOTE | 2018-05-18 13:27 | CON ---
DATE OF CONSULTATION: 05/18/2018 HISTORY OF PRESENT ILLNESS: A 72-year-old male seen at bedside for consultation, evaluation and management of bilateral foot wounds. The patient is a poor historian and cannot recall time or place of any of the events leading up to his admission. He states that he fell down the stairs and is adamant about "I wasn't drunk." The patient presented to the [facility] Room on 05/05/2018 after his fall where he had sustained a fracture of his right fifth digit with a severe laceration that required suturing at that time. He did not follow up as directed with production support specialist. He does not remember if he has experienced any fever, chills, nausea or vomiting. He states that he had chest pains and headaches, so he went to the emergency room. PAST MEDICAL HISTORY: Significant for essential hypertension, COPD, homelessness. PAST SURGICAL HISTORY: The patient does not remember; however, there is documentation in MAR for possible valve replacement and appendectomy. FAMILY HISTORY: The patient does not know his family history. SOCIAL HISTORY: The patient is a heavy smoker over one pack a day x50 years. He denies any illicit drug use and denies alcohol abuse. CURRENT MEDICATIONS: All listed in MAR. ALLERGIES: HE DOES NOT KNOW IF HE IS ALLERGIC TO ANY MEDICATIONS, BUT THERE ARE NO KNOWN DRUG ALLERGIES NOTED IN THE MAR. OBJECTIVE: VITAL SIGNS: Temperature of 97.8, pulse rate of 80, blood pressure of 115/56, respiratory rate of 20. EXTREMITIES: Nonpalpable pedal pulses noted bilaterally. Absent pedal hair growth noted bilaterally. Lower extremity skin presents thin, shining discolored bilaterally. Capillary filling time is delayed times all digits. There is decreased protective sensation noted using 5.07 g monofilament wire testing bilaterally. There is noted to be a superficial unstageable ulceration on the plantar aspect of the left first metatarsophalangeal joint. The ulcer measures approximately 0.2 x 0.2 x 0.2 cm. The base of the ulcer is primarily granular. No probing to the tendon or bone. There is scant serous drainage, no purulence. No signs of underlying abscess formation. Right foot presents with intact sutures at the base of the right fifth digit. There are no signs of dehiscence. The toe is not edematous or erythematous to suggest cellulitic activity present. There is a full-thickness ulceration located on the plantar aspect of the right first metatarsophalangeal joint that measures approximately 2 cm x 2 cm x 0.3 cm. Base of the ulcer is primarily fibrotic with some granulation tissue evident. The wound does not probe to tendon or bone. There is noted to be minimal serous drainage. There is no purulence to suggest underlying abscess formation. The periphery of the wound is void of edema or erythema to suggest cellulitic activity. LABORATORY FINDINGS: White count of 8.2, hemoglobin of 8.9, hematocrit of 29.1, platelet count of 274,000. X-rays taken on 05/05/2018 reveal acute fracture of the proximal phalanx of the right fifth digit. ASSESSMENT: Full-thickness right plantar foot ulceration and partial-thickness left plantar foot ulceration, resolving laceration to the right fifth digit. PLAN: The patient was examined and all of his answers to questions were vague and generalized with no specific answers. He has no palpable pulses. We will order arterial Dopplers to ascertain arterial lower extremity perfusion. We will order x-rays to evaluate wound healing of the fifth digit and to rule out osteomyelitis at ulcerated regions. A culture was taken and submitted for sensitivities. We will order Santyl ointment as an enzymatic debriding agent to the left plantar foot ulceration. We will order surgical shoes and Multi-Podus boots to offload the areas of concern. Recommend infectious disease consult to evaluate culture and sensitivity results. Recommend vascular consult with Dr. Johann Posadas to evaluate arterial Dopplers and ascertain whether vascular intervention is warranted given his lack of palpable pedal pulses. The patient will be seen and followed daily. Travis Zuniga DPM
--- NOTE | 2018-05-18 14:06 | RAD ---
Date of service: 05/18/2018 PROCEDURE: Right Foot Radiographs. HISTORY: submet one ulceration COMPARISON: Comparison is made with the prior study dated 04/11/2018 FINDINGS: BONES: Small cortical erosion noted at medial aspect of the distal 1st metatarsal bone adjacent to the skin ulcer suspicious for possible an early osteomyelitis. Otherwise no significant interval changes in the right foot since the previous exam. JOINTS: Arthritic degenerative changes are again noted. SOFT TISSUES: Skin and subcutaneous defect noted medial to the distal portion of 1st metatarsal bone consistent with ulcer. OTHER FINDINGS: None. IMPRESSION: Skin ulcer adjacent to the distal 1st metatarsal bone with suspicious for small erosion at the medial aspect of the distal 1st metatarsal head may represent an early osteomyelitis.
--- NOTE | 2018-05-18 14:08 | RAD ---
Date of service: 05/18/2018 PROCEDURE: Left Foot Radiographs. HISTORY: submet one ulceration COMPARISON: Comparison is made to the previous study dated 04/11/2018 FINDINGS: BONES: No significant interval changes noted in the osseous structures since the previous exam. JOINTS: Degenerative changes are noted. SOFT TISSUES: Normal. OTHER FINDINGS: None. IMPRESSION: No evidence of acute pathology.
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
--- NOTE | 2018-05-18 21:37 | US ---
HISTORY: Leg pain and swelling. Evaluate for DVT PHYSICIAN(S): Johann Posadas MD. TECHNIQUE: Duplex sonography and color-flow Doppler with graded compression were used to evaluate the deep venous systems of both lower extremities. FINDINGS: The visualized deep venous systems of both lower extremities are sonographically normal and compressible. Normal wave forms and augmentation are seen. There is no sonographic evidence for deep venous thrombosis in the visualized segments of both lower extremities. IMPRESSION: No sonographic evidence for deep venous thrombosis in the visualized segments of both lower extremities.
--- NOTE | 2018-05-18 21:57 | US ---
PROCEDURE: Bilateral carotid artery duplex ultrasound HISTORY: Carotid stenosis PHYSICIAN(S): Johann Posadas MD. TECHNIQUE: Duplex sonography and color-flow Doppler were used to evaluate the carotid bifurcations and limited segments of the vertebral arteries bilaterally. FINDINGS: There is moderate smooth diffuse plaque noted at the carotid bifurcations bilaterally. The peak systolic velocity in the proximal right internal carotid artery is 169 cm/sec. This corresponds to a 60-79 percent proximal right ICA stenosis. Normal systolic velocities are noted in the proximal right external carotid artery. There is antegrade flow in the right vertebral artery. The peak systolic velocity in the proximal left internal carotid artery is 109 cm/sec. This corresponds to a 40-59 percent proximal left ICA stenosis. Normal systolic velocities are noted in the proximal left external carotid artery. The left vertebral artery is not visualized and may be occluded IMPRESSION: 1. 60-79 percent proximal right ICA stenosis. 2. 40-59 percent proximal left ICA stenosis. 3. Antegrade flow in the right vertebral artery. The left vertebral artery is not visualized and may be occluded
--- NOTE | 2018-05-18 22:27 | CARD ---
APPROVED REPORT Date of service: 05/18/2018 EKG Measurement Heart [id number] <Conclusion> Normal sinus rhythm Prolonged QT Abnormal ECG
[2018-05-19] MEDS: Albuterol-Ipratrop 3 mg / 0.5 (3 ml) UD IH SCH ×5 (03:13→19:22)
[2018-05-19 06:21] LABS: BASO # 0.03 K/mm3 (0.0-2.0); BASO % 0.3 % (0.0-3.0); EOS # 0.2 (0.0-0.7); EOS % 1.7 % (1.5-5.0); LYMPH # 1.4 (1.2-3.4); MEAN CELL VOLUME 82.9 fl (80.0-105.0); MEAN CORPUSCULAR HEMOGLOBIN 25.2 pg (25.0-35.0); MEAN CORPUSCULAR HGB CONC 30.4 g/dl (31.0-37.0); MEAN PLATELET VOLUME 8.6 fl (7.0-11.0); MONO # 0.7 (0.1-0.6); MONO % 7.4 % (1.0-6.0); RBC 3.57 10^6/uL (3.5-6.1); RED CELL DISTRIBUTION WIDTH 16.8 % (11.5-14.5); WHITE BLOOD COUNT 9.2 10^3/uL (4.5-11.0)
[2018-05-19 06:33] LABS: ALB/GLOB RATIO 1.1 (1.1-1.8); ALT/SGPT 26 U/L (7-56); AST/SGOT 18 U/L (17-59); BLOOD UREA NITROGEN 22 mg/dL (7-21); CALCIUM 8.5 mg/dL (8.4-10.5); GFR NON-AFRICAN AMERICAN 60
[2018-05-19] MEDS: Sodium Chloride 0.9% 1,000 ML IV SCH (10:22)
--- NOTE | 2018-05-19 11:01 | CP.PCM.PN ---
<Harjinder Perez - Last Filed: 05/19/18 11:02> Subjective - Date & Time of Evaluation Date of Evaluation: 05/19/18 Time of Evaluation: 10:57 - Subjective Subjective: INTERNAL MEDICINE PROGRESS NOTE FOR DR. CHE Perez PGY1 Pt seen and examined at bedside this am. No acute nursing events overnight. Pt denies 12 point ROS Objective - Vital Signs/Intake and Output Vital Signs (last 24 hours): Temp Pulse Resp BP Pulse Ox 97.7 F 78 20 132/83 98 05/19/18 06:00 05/19/18 10:00 05/19/18 06:00 05/19/18 09:31 05/19/18 06:00 Intake and Output: 05/19/18 05/19/18 06:59 18:59 Intake Total 1901 Output Total 1900 Balance 1 - Medications Medications: Current Medications Albuterol/Ipratropium (Duoneb 3 Mg/0.5 Mg (3 Ml) Ud) 3 ml IH [id number] [facility] Last Admin: 05/19/18 08:06 Dose: Not Given Albuterol/Ipratropium (Duoneb 3 Mg/0.5 Mg (3 Ml) Ud) 3 ml IH Q2H PRN PRN Reason: Shortness of Breath Apixaban (Eliquis) 5 mg PO BID [facility]; Protocol Aspirin (Ecotrin) 81 mg PO DAILY [facility] Last Admin: 05/19/18 09:31 Dose: 81 mg Collagenase (Santyl) 0 gm TOP DAILY [facility] Last Admin: 05/18/18 14:13 Dose: 2 applic Ergocalciferol (Drisdol 50,000 Intl Units Cap) 1 cap PO Q7D [facility] Last Admin: 05/17/18 11:20 Dose: 1 cap Ferrous Sulfate (Feosol) 324 mg PO TID [facility] Last Admin: 05/19/18 09:31 Dose: 324 mg Sodium Chloride (Sodium Chloride 0.9%) 1,000 mls @ 100 mls/hr IV .Q10H [facility] Last Admin: 05/19/18 10:22 Dose: 100 mls/hr Metoprolol Tartrate (Lopressor) 50 mg PO DAILY [facility] Last Admin: 05/19/18 09:31 Dose: 50 mg Nicotine (Nicoderm Cq) 1 patch TD DAILY [facility] Last Admin: 05/19/18 09:34 Dose: Not Given Tamsulosin HCl (Flomax) 0.4 mg PO HS [facility] Last Admin: 05/18/18 21:18 Dose: 0.4 mg - Labs Labs: 05/19/18 05:00 05/19/18 05:00 - Constitutional Appears: Well, Non-toxic, No Acute Distress - Head Exam Head Exam: NORMAL INSPECTION, NORMOCEPHALIC - Eye Exam Eye Exam: EOMI, Normal appearance - ENT Exam ENT Exam: Mucous Membranes Moist, Normal Exam - Neck Exam Neck Exam: Normal Inspection - Respiratory Exam Respiratory Exam: Clear to Ausculation Bilateral, NORMAL BREATHING PATTERN - Cardiovascular Exam Cardiovascular Exam: REGULAR RHYTHM, +S1, +S2 - GI/Abdominal Exam GI & Abdominal Exam: Soft. absent: Tenderness - Extremities Exam Extremities Exam: absent: Calf Tenderness Additional comments: Dressings in place covering both feet - Back Exam Back Exam: NORMAL INSPECTION - Neurological Exam Neurological Exam: Alert, Awake, Oriented x3 - Psychiatric Exam Psychiatric exam: Normal Affect, Normal Mood - Skin Skin Exam: Dry, Intact, Warm Additional comments: L forehead contusion, no abrasion Assessment and Plan - Assessment and Plan (Free Text) Assessment: 72 year old male with a PMH of sternotomy for questionable valve repair, HFpEF, DVT on Eliquis, HTN, COPD, suspected CAD, and homelessness who presented after a fall from top of stairs with complaints of dizziness, chest pain and headache without LOC Plan: S/p fall/dizziness/syncope Likely dehydration given homelessness status in the setting of anemia of chronic disease 05/17: CT Head showed no acute changes, No acute changes on EKG MRI Brain and Carotid U/s pending Cont NS @ 100 mls/hr Neurology following PT eval pending Chest pain in setting of known HFpEF and LVH with hx of HTN Likely musculoskeletal after recent fall down flight of stairs Troponins negative x3 Cont aspirin Cardio following Monitoring in tele Total cholesterol low, TSH within limits, echo shows HFpEF Bilateral LE Lesions Hx of PAD. Continue aspirin 2/2 homelessness/trauma Wound care Duplex arterial ultrasounds pending Pt had recently had R foot MRI in march, no need to repeat Anemia of Chronic Disease Cont ferrous supplementation Monitoring CBCs Hemodynamically stable No active bleeding Hx DVT per [facility] records. Continue eliquis Hx HTN Cont home medications metoprolol Hx COPD Cont with duonebs [facility] and PRN Hx BPH Cont Flomax Hx Tobacco Abuse Counseled on cessation, unwilling to try and quit Cont nicotine patch Homelessness Social work/CM consulted Ppx: SCD Case seen, examined and discussed with attending physician, Dr Che Perez PGY1 <Jessica Mcrae - Last Filed: 05/19/18 11:59> Objective - Vital Signs/Intake and Output Vital Signs (last 24 hours): Temp Pulse Resp BP Pulse Ox 97.7 F 78 20 132/83 98 05/19/18 06:00 05/19/18 10:00 05/19/18 06:00 05/19/18 09:31 05/19/18 06:00 Intake and Output: 05/19/18 05/19/18 06:59 18:59 Intake Total 1901 1200 Output Total 1900 Balance 1 1200 - Medications Medications: Current Medications Albuterol/Ipratropium (Duoneb 3 Mg/0.5 Mg (3 Ml) Ud) 3 ml IH [id number] [facility] Last Admin: 05/19/18 08:06 Dose: Not Given Albuterol/Ipratropium (Duoneb 3 Mg/0.5 Mg (3 Ml) Ud) 3 ml IH Q2H PRN PRN Reason: Shortness of Breath Apixaban (Eliquis) 5 mg PO BID [facility]; Protocol Last Admin: 05/19/18 11:25 Dose: 5 mg Aspirin (Ecotrin) 81 mg PO DAILY [facility] Last Admin: 05/19/18 09:31 Dose: 81 mg Collagenase (Santyl) 0 gm TOP DAILY [facility] Last Admin: 05/18/18 14:13 Dose: 2 applic Ergocalciferol (Drisdol 50,000 Intl Units Cap) 1 cap PO Q7D [facility] Last Admin: 05/17/18 11:20 Dose: 1 cap Ferrous Sulfate (Feosol) 324 mg PO TID [facility] Last Admin: 05/19/18 09:31 Dose: 324 mg Sodium Chloride (Sodium Chloride 0.9%) 1,000 mls @ 100 mls/hr IV .Q10H [facility] Last Admin: 05/19/18 10:22 Dose: 100 mls/hr Metoprolol Tartrate (Lopressor) 50 mg PO DAILY [facility] Last Admin: 05/19/18 09:31 Dose: 50 mg Nicotine (Nicoderm Cq) 1 patch TD DAILY [facility] Last Admin: 05/19/18 09:34 Dose: Not Given Tamsulosin HCl (Flomax) 0.4 mg PO HS [facility] Last Admin: 05/18/18 21:18 Dose: 0.4 mg - Labs Labs: 05/19/18 05:00 05/19/18 05:00 Attending/Attestation - Attestation I have personally seen and examined this patient.: Yes I have fully participated in the care of the patient.: Yes I have reviewed all pertinent clinical information, including history, physical exam and plan: Yes Notes (Text): 05/19/18 11:51 Attending note; Patient seen and examined with resident. Patient is a 72 year old male with pertinent medical history of CABG, peripheral arterial disease, DVT, anemia, homelessness and noncompliance with medication is admitted status post fall. 1. Status post fall/dizziness/syncope; currently has abrasions on the left frontal area. Contusions on the left chest area. Patient with a history of long-standing gait instability secondary to neuropathy and peripheral vascular disease. EKG shows sinus tachycardia and nonspecific changes. Cardiac enzymes negative. Neurology evaluation appreciated. CT head showed chronic encephalomalacia in the frontal and parietal lobe. No acute ischemia noted. Patient did not tolerate MRI yesterday. Carotid ultrasound showed right-sided 60-79% stenosis and left carotid 40-59%. Continue aspirin. Follow-up with urology. 2. Left sided chest pain; post fall. cardiac enzymes negative. CT chest is negative for any fracture or injury. 3. History of coronary artery disease and questionable history of valve surgery. Cardiology evaluation requested. Echocardiogram showed normal ejection fraction. 4. History of DVT as per [facility] record. Continue eliquis. 5. History of peripheral vascular disease; continue aspirin. Will follow-up with interventional radiology tomorrow. Patient had recent MRA done on 04/12 showed right-sided SFA occlusion. 6. Anemia; chronic. Iron deficiency anemia. Benefiber ordered. 6. Homelessness; elementary school social worker evaluation requested. 7. Lower extremity wound. Patient has sutures in the right foot. Podiatry evaluation appreciated. Wound culture is pending. 8. ID evaluation appreciated; patient is currently off antibiotics. X-ray of the left foot is negative. X-ray of right foot showed distal early first metatarsal osteomyelitis. MRI of the right foot ordered. Prognosis is poor secondary to noncompliance with follow-up and homelessness. Upon discharge patient will follow up with PMD Dr. Wesley. 05/19/18 11:59
--- NOTE | 2018-05-19 12:21 | PN ---
DATE: 05/19/2018 SUBJECTIVE: The patient is in bed in no acute distress, nontoxic. PHYSICAL EXAMINATION: VITAL SIGNS: Temperature is 98, blood pressure is 150/90, respiratory rate of 20, heart rate of 89. HEENT: Unremarkable. NECK: Supple. LUNGS: Have decreased breath sounds. HEART: Normal S1, S2. ABDOMEN: Soft, nontender. LABORATORY EXAMINATION: Reveals the white count of 9.2, hemoglobin of 9, sed rate is 25. Chemistries reveals a BUN of 22, creatinine of 1.2. Microbiology is right foot culture is pending and review of orders reveals the patient to be off of antibiotics. X-ray of the foot reveals an ulcer, possible early osteomyelitis. Sed rate is 25. Chemistries; c-reactive protein of 17. The patient is scheduled for ultrasound lower extremity MRI of the head. ASSESSMENT AND PLAN: This is a 72-year-old with hypertension, diabetes, prostate cancer, chronic obstructive lung disease, diastolic congestive heart failure, anemia, admitted with systemic inflammatory response syndrome with left foot medial ulcer and a right foot medial and lateral ulcer, questionable osteomyelitis in a patient who is not systemically ill and currently off of antibiotics. Awaiting for should have an MRI of the foot both feet to rule out osteomyelitis and currently off of antibiotics and absence of any systemic presentation. We will hold off antibiotics pending MRI of bilateral feet. If osteo this present, we will need bone biopsy and bone cultures prior to any antibiotics. Otherwise, clinically at this time it appears to have superficial ulcers with no evidence of infection as far as the cellulitis is concerned. Should have an MRI of both feet. Toby Martin MD
[2018-05-19] MEDS: Collagenase 250 Units/gm Ointment(30 gm) TOP SCH (13:23)
--- NOTE | 2018-05-19 14:28 | CP.PCM.PN ---
<Kenny Wadsworth - Last Filed: 05/19/18 22:33> Subjective - Date & Time of Evaluation Date of Evaluation: 05/19/18 Time of Evaluation: 14:28 - Subjective Subjective: Podiatry Progress Note - Drs. Zuniga/Lorena 72M seen and evaluated this AM for bilateral foot wounds. Patient resting comfortably, hemodynamically stable and NAD. No acute events overnight. Patient more awake and alert during interview today; offers no complaints to both foot wounds. Dressings to bilateral LE clean/dry/intact. Denies n/v/f/d/c/sob. Objective - Vital Signs/Intake and Output Vital Signs (last 24 hours): Temp Pulse Resp BP Pulse Ox 98.2 F 58 L 20 122/66 98 05/19/18 12:00 05/19/18 12:00 05/19/18 12:00 05/19/18 12:00 05/19/18 06:00 Intake and Output: 05/19/18 05/19/18 06:59 18:59 Intake Total 1901 1200 Output Total 1900 Balance 1 1200 - Medications Medications: Current Medications Albuterol/Ipratropium (Duoneb 3 Mg/0.5 Mg (3 Ml) Ud) 3 ml IH [id number] [facility] Last Admin: 05/19/18 13:08 Dose: Not Given Albuterol/Ipratropium (Duoneb 3 Mg/0.5 Mg (3 Ml) Ud) 3 ml IH Q2H PRN PRN Reason: Shortness of Breath Apixaban (Eliquis) 5 mg PO BID [facility]; Protocol Last Admin: 05/19/18 11:25 Dose: 5 mg Aspirin (Ecotrin) 81 mg PO DAILY [facility] Last Admin: 05/19/18 09:31 Dose: 81 mg Collagenase (Santyl) 0 gm TOP DAILY [facility] Last Admin: 05/19/18 13:23 Dose: 1 applic Ergocalciferol (Drisdol 50,000 Intl Units Cap) 1 cap PO Q7D [facility] Last Admin: 05/17/18 11:20 Dose: 1 cap Ferrous Sulfate (Feosol) 324 mg PO TID [facility] Last Admin: 05/19/18 13:09 Dose: 324 mg Sodium Chloride (Sodium Chloride 0.9%) 1,000 mls @ 100 mls/hr IV .Q10H [facility] Last Admin: 05/19/18 10:22 Dose: 100 mls/hr Metoprolol Tartrate (Lopressor) 50 mg PO DAILY [facility] Last Admin: 05/19/18 09:31 Dose: 50 mg Nicotine (Nicoderm Cq) 1 patch TD DAILY [facility] Last Admin: 05/19/18 09:34 Dose: Not Given Tamsulosin HCl (Flomax) 0.4 mg PO HS [facility] Last Admin: 05/18/18 21:18 Dose: 0.4 mg - Labs Labs: 05/19/18 05:00 05/19/18 05:00 - Constitutional Appears: Non-toxic, No Acute Distress - Extremities Exam Additional comments: VASC: DP and PT pulses non-palpable b/l. CFT <3 seconds to digits x5 b/l. Pedal hair growth absent. NEURO: Light touch and protective sensation diminished bilaterally. DERM: LLE=Ulceration noted to plantar aspect of left 1st met head measuring approximately 0.2 x 0.2 x 0.2 cm - noted to have a granular base and hyperkeratotic rim; minimal serous drainage present; no purulence; no fluctuance; no undermining; no tunneling RLE=Sutures present to sulcus of 5th digit - appear intact with no evidence of wound dehiscence. Full thickness ulcer noted to medial aspect of 1st MPJ measuring approximately 2 x 2 x 0.3cm -wound noted to have a mixed fibronecrotic base and hyperkeratotic rim; no drainage present; no purulence; no fluctuance; no probe to bone. ORTHO: No pain on palpation noted to wounds. - Neurological Exam Neurological Exam: Alert, Awake, Oriented x3 - Psychiatric Exam Psychiatric exam: Normal Affect, Normal Mood Assessment and Plan - Assessment and Plan (Free Text) Assessment: 72M with 1) full thickness ulceration, right foot 2) resolving laceration right 5th digit 3) partial thickness left plantar foot ulcer Plan: Patient seen and evaluated Discussed with attending, Dr. Carrillo Right foot XR: Skin ulcer adjacent to 1st metatarsal, erosion at medial aspect of distal 1st metatarsal possible OM Arterial duplex ordered, pending ID recs appreciated Pending vascular consult Right foot wound culture pending Podiatry will continue to follow <aTnvi Carrillo - Last Filed: 05/20/18 08:03> Objective - Vital Signs/Intake and Output Vital Signs (last 24 hours): Temp Pulse Resp BP Pulse Ox 98.0 F 80 20 146/59 L 96 05/20/18 05:39 05/20/18 05:39 05/20/18 05:39 05/20/18 05:39 05/20/18 05:39 Intake and Output: 05/20/18 05/20/18 06:59 18:59 Intake Total 1320 Output Total 1190 Balance 130 - Medications Medications: Current Medications Albuterol/Ipratropium (Duoneb 3 Mg/0.5 Mg (3 Ml) Ud) 3 ml IH [id number] [facility] Last Admin: 05/20/18 02:48 Dose: Not Given Albuterol/Ipratropium (Duoneb 3 Mg/0.5 Mg (3 Ml) Ud) 3 ml IH Q2H PRN PRN Reason: Shortness of Breath Apixaban (Eliquis) 5 mg PO BID [facility]; Protocol Last Admin: 05/19/18 17:12 Dose: 5 mg Aspirin (Ecotrin) 81 mg PO DAILY [facility] Last Admin: 05/19/18 09:31 Dose: 81 mg Collagenase (Santyl) 0 gm TOP DAILY [facility] Last Admin: 05/19/18 13:23 Dose: 1 applic Ergocalciferol (Drisdol 50,000 Intl Units Cap) 1 cap PO Q7D [facility] Last Admin: 05/17/18 11:20 Dose: 1 cap Ferrous Sulfate (Feosol) 324 mg PO TID [facility] Last Admin: 05/19/18 17:12 Dose: 324 mg Sodium Chloride (Sodium Chloride 0.9%) 1,000 mls @ 100 mls/hr IV .Q10H [facility] Last Admin: 05/20/18 00:00 Dose: 100 mls/hr Metoprolol Tartrate (Lopressor) 50 mg PO DAILY [facility] Last Admin: 05/19/18 09:31 Dose: 50 mg Nicotine (Nicoderm Cq) 1 patch TD DAILY [facility] Last Admin: 05/19/18 09:34 Dose: Not Given Tamsulosin HCl (Flomax) 0.4 mg PO HS [facility] Last Admin: 05/19/18 21:18 Dose: 0.4 mg - Labs Labs: 05/20/18 07:00 05/19/18 05:00
--- NOTE | 2018-05-19 17:13 | PN ---
DATE: 05/19/2018 SUBJECTIVE: The patient is seen lying in bed on telemetry. He is comfortable. Denies any chest pain. CURRENT MEDICATIONS: Include DuoNeb inhaler, Ecotrin, Eliquis 5 mg b.i.d., ferrous sulfate, Flomax, metoprolol 50 mg daily, Nicoderm patch. OBJECTIVE: GENERAL: He is a middle-aged man, who is comfortable at rest. VITAL SIGNS: Blood pressure 122/80 with pulse 76 in sinus, respirations 16. He is afebrile. HEENT: No JVD. CHEST: Few scattered rhonchi. Heart: PMI displaced laterally. No pathological gallops noted. ABDOMEN: Soft and nontender with normoactive bowel sounds. EXTREMITIES: No edema. DIAGNOSTIC DATA: Potassium 4.6, BUN and creatinine 22 and 1.2. White count 9.2, hemoglobin and hematocrit 9 and 29.6 with platelet count of 258,000. IMPRESSION: 1. Status post recent fall with questionable syncope. 2. Carotid disease status post prior bypass surgery. 3. Persistent tobacco abuse. 4. Peripheral vascular disease. RECOMMENDATION: At this time, no further cardiac workup appears necessary. Continue risk factor control and smoking abstinence was strongly encouraged. Telemetry can be discontinued at this time. I will be happy to see as needed. Asad Barnhart MD
[2018-05-20] MEDS: Albuterol-Ipratrop 3 mg / 0.5 (3 ml) UD IH SCH ×6 (02:48→23:44)
[2018-05-20 07:20] LABS: BASO # 0.04 K/mm3 (0.0-2.0); BASO % 0.5 % (0.0-3.0); EOS # 0.2 (0.0-0.7); HEMOGLOBIN 9.4 g/dL (14.0-18.0); LYMPH # 1.4 (1.2-3.4); MEAN CELL VOLUME 81.9 fl (80.0-105.0); MEAN CORPUSCULAR HEMOGLOBIN 25.3 pg (25.0-35.0); MEAN CORPUSCULAR HGB CONC 30.9 g/dl (31.0-37.0); MEAN PLATELET VOLUME 8.7 fl (7.0-11.0); MONO # 0.5 (0.1-0.6); MONO % 6.4 % (1.0-6.0); RBC 3.71 10^6/uL (3.5-6.1); RED CELL DISTRIBUTION WIDTH 16.8 % (11.5-14.5); WHITE BLOOD COUNT 8.3 10^3/uL (4.5-11.0)
[2018-05-20 08:07] LABS: ALB/GLOB RATIO 1.1 (1.1-1.8); ALT/SGPT 27 U/L (7-56); AST/SGOT 23 U/L (17-59); BLOOD UREA NITROGEN 20 mg/dL (7-21); CALCIUM 8.6 mg/dL (8.4-10.5); GFR NON-AFRICAN AMERICAN > 60
[2018-05-20] MEDS: Collagenase 250 Units/gm Ointment(30 gm) TOP SCH (09:27)
--- NOTE | 2018-05-20 09:57 | CP.PCM.PN ---
Subjective - Date & Time of Evaluation Date of Evaluation: 05/20/18 Time of Evaluation: 09:53 - Subjective Subjective: Podiatry Progress Note - Drs. Zuniga/Lorena 72M seen and evaluated this AM with Dr. Carrillo for bilateral foot wounds. Patient resting comfortably, hemodynamically stable and NAD. No acute events overnight. Patient more awake and alert during interview today; offers no complaints to both foot wounds. Dressings to bilateral LE clean/dry/intact. Denies n/v/f/d/c/sob. Objective - Vital Signs/Intake and Output Vital Signs (last 24 hours): Temp Pulse Resp BP Pulse Ox 98.0 F 85 20 145/69 96 05/20/18 05:39 05/20/18 09:20 05/20/18 05:39 05/20/18 09:20 05/20/18 05:39 Intake and Output: 05/20/18 05/20/18 06:59 18:59 Intake Total 1320 Output Total 1190 Balance 130 - Medications Medications: Current Medications Albuterol/Ipratropium (Duoneb 3 Mg/0.5 Mg (3 Ml) Ud) 3 ml IH [id number] [facility] Last Admin: 05/20/18 08:53 Dose: Not Given Albuterol/Ipratropium (Duoneb 3 Mg/0.5 Mg (3 Ml) Ud) 3 ml IH Q2H PRN PRN Reason: Shortness of Breath Apixaban (Eliquis) 5 mg PO BID [facility]; Protocol Last Admin: 05/20/18 09:20 Dose: 5 mg Aspirin (Ecotrin) 81 mg PO DAILY [facility] Last Admin: 05/20/18 09:20 Dose: 81 mg Collagenase (Santyl) 0 gm TOP DAILY [facility] Last Admin: 05/20/18 09:27 Dose: Not Given Ergocalciferol (Drisdol 50,000 Intl Units Cap) 1 cap PO Q7D [facility] Last Admin: 05/17/18 11:20 Dose: 1 cap Ferrous Sulfate (Feosol) 324 mg PO TID [facility] Last Admin: 05/20/18 09:20 Dose: 324 mg Sodium Chloride (Sodium Chloride 0.9%) 1,000 mls @ 100 mls/hr IV .Q10H [facility] Last Admin: 05/20/18 00:00 Dose: 100 mls/hr Metoprolol Tartrate (Lopressor) 50 mg PO DAILY [facility] Last Admin: 05/20/18 09:20 Dose: 50 mg Nicotine (Nicoderm Cq) 1 patch TD DAILY [facility] Last Admin: 05/20/18 09:23 Dose: Not Given Tamsulosin HCl (Flomax) 0.4 mg PO HS [facility] Last Admin: 05/19/18 21:18 Dose: 0.4 mg - Labs Labs: 05/20/18 07:00 05/20/18 07:00 - Constitutional Appears: Well, Non-toxic, No Acute Distress - Head Exam Head Exam: ATRAUMATIC, NORMOCEPHALIC - Extremities Exam Additional comments: VASC: DP and PT pulses non-palpable b/l. CFT <3 seconds to digits x5 b/l. Pedal hair growth absent. NEURO: Light touch and protective sensation diminished bilaterally. DERM: LLE=Ulceration noted to plantar aspect of left 1st met head measuring approximately 0.2 x 0.2 x 0.2 cm - noted to have a granular base and hyperkeratotic rim; minimal serous drainage present; no purulence; no fluctuance; no undermining; no tunneling RLE=Sutures present to sulcus of 5th digit - appear intact with no evidence of wound dehiscence. Full thickness ulcer noted to medial aspect of 1st MPJ measuring approximately 2 x 2 x 0.3cm -wound noted to have a mixed fibronecrotic base and hyperkeratotic rim; no drainage present; no purulence; no fluctuance; no probe to bone. ORTHO: No pain on palpation noted to wounds. - Neurological Exam Neurological Exam: Alert, Awake, Oriented x3 - Psychiatric Exam Psychiatric exam: Normal Affect, Normal Mood Assessment and Plan - Assessment and Plan (Free Text) Assessment: 72M with 1) full thickness ulceration, right foot 2) resolving laceration right 5th digit 3) partial thickness left plantar foot ulcer Plan: Patient seen and evaluated with Dr. Carrillo Afebrile, absent leukocytosis Right foot XR: Skin ulcer adjacent to 1st metatarsal, erosion at medial aspect of distal 1st metatarsal possible OM Dressing instructions - cleansed with normal saline, b/l medial ulcerations dressed with optifoam, right laceration site betadine and DSD - will remove sutures tomorrow Arterial duplex ordered, pending ID recs appreciated Pending vascular consult Right foot wound culture pending Podiatry will continue to follow
[2018-05-20] MEDS: Sodium Chloride 0.9% 1,000 ML IV SCH ×3 (11:37→17:45)
--- NOTE | 2018-05-20 13:58 | CP.PCM.PN ---
<Frantz Redman - Last Filed: 05/20/18 14:34> Subjective - Date & Time of Evaluation Date of Evaluation: 05/20/18 Time of Evaluation: 06:15 - Subjective Subjective: Pt seen and examined this morning at bedside, pt has no new complaints at this time. Per nursing, no acute events overnight. Objective - Vital Signs/Intake and Output Vital Signs (last 24 hours): Temp Pulse Resp BP Pulse Ox 97.1 F L 59 L 19 130/64 96 05/20/18 12:00 05/20/18 12:00 05/20/18 12:00 05/20/18 12:00 05/20/18 05:39 Intake and Output: 05/20/18 05/20/18 06:59 18:59 Intake Total 1320 Output Total 1190 Balance 130 - Medications Medications: Current Medications Albuterol/Ipratropium (Duoneb 3 Mg/0.5 Mg (3 Ml) Ud) 3 ml IH [id number] [facility] Last Admin: 05/20/18 08:53 Dose: Not Given Albuterol/Ipratropium (Duoneb 3 Mg/0.5 Mg (3 Ml) Ud) 3 ml IH Q2H PRN PRN Reason: Shortness of Breath Aspirin (Ecotrin) 81 mg PO DAILY [facility] Last Admin: 05/20/18 09:20 Dose: 81 mg Atorvastatin Calcium (Lipitor) 20 mg PO DAILY [facility] Collagenase (Santyl) 0 gm TOP DAILY [facility] Last Admin: 05/20/18 09:27 Dose: Not Given Ergocalciferol (Drisdol 50,000 Intl Units Cap) 1 cap PO Q7D [facility] Last Admin: 05/17/18 11:20 Dose: 1 cap Ferrous Sulfate (Feosol) 324 mg PO TID [facility] Last Admin: 05/20/18 09:20 Dose: 324 mg Sodium Chloride (Sodium Chloride 0.9%) 1,000 mls @ 100 mls/hr IV .Q10H [facility] Metoprolol Tartrate (Lopressor) 50 mg PO DAILY [facility] Last Admin: 05/20/18 09:20 Dose: 50 mg Nicotine (Nicoderm Cq) 1 patch TD DAILY [facility] Last Admin: 05/20/18 09:23 Dose: Not Given Tamsulosin HCl (Flomax) 0.4 mg PO HS [facility] Last Admin: 05/19/18 21:18 Dose: 0.4 mg - Labs Labs: 05/20/18 07:00 05/20/18 07:00 - Constitutional Appears: No Acute Distress - Head Exam Head Exam: ATRAUMATIC, NORMOCEPHALIC - Eye Exam Eye Exam: EOMI - ENT Exam ENT Exam: Mucous Membranes Moist - Respiratory Exam Respiratory Exam: Clear to Ausculation Bilateral, NORMAL BREATHING PATTERN. absent: Accessory Muscle Use - Cardiovascular Exam Cardiovascular Exam: RRR, +S1, +S2. absent: Diastolic murmur, JVD, Murmur - GI/Abdominal Exam GI & Abdominal Exam: Soft, Normal Bowel Sounds - Extremities Exam Extremities Exam: Full ROM. absent: Pedal Edema - Neurological Exam Neurological Exam: Alert, Awake, Oriented x3 - Psychiatric Exam Psychiatric exam: Normal Affect, Normal Mood - Skin Skin Exam: Dry, Intact, Normal Color Assessment and Plan - Assessment and Plan (Free Text) Assessment: Pt is a 72 yo male with a PMH of sternotomy for ?valve repair, HFpEF, DVT on Eliquis, HTN, COPD, ?CAD, and homelessness who presented after a fall down the steps with associated dizziness, chest pain but without LOC. Plan: Syncope, s/p fall - NS@100 - PT: follow up recs - Carotid US: R ICA 60-79% stenosis, L ICA 40-59% stenosis - 05/17: CT Head showed no acute changes - MRI Brain: follow up - Neurology consulted Chest pain, rule out ACS - Likely musculoskeletal after recent fall down flight of stairs - Troponins negative x3 - continue telemetry - TSH 1.13 - echo shows HFpEF - Cardio following Bilateral LE Lesions - Hx of PAD - Wound care consulted - Duplex arterial ultrasounds: follow up - Podiatry, appreciate recs HTN - metoprolol COPD - duonebs KILO and PRN BPH - Flomax Hx of DVT - Hold eliquis due to GI bleed Anemia of Chronic Disease - ferrous supplementation Tobacco Abuse - nicotine patch - Counseled on cessation, unwilling to try and quit Homelessness - Social work consulted - CM consulted Ppx SCD Pt seen, examined, assessment and plan discussed with Dr Yas Redman PGY1, Internal Medicine Resident <Yas Mcneil R - Last Filed: 05/20/18 15:19> Objective - Vital Signs/Intake and Output Vital Signs (last 24 hours): Temp Pulse Resp BP Pulse Ox 97.1 F L 59 L 19 130/64 96 05/20/18 12:00 05/20/18 12:00 05/20/18 12:00 05/20/18 12:00 05/20/18 05:39 Intake and Output: 05/20/18 05/20/18 06:59 18:59 Intake Total 1320 Output Total 1190 Balance 130 - Medications Medications: Current Medications Albuterol/Ipratropium (Duoneb 3 Mg/0.5 Mg (3 Ml) Ud) 3 ml IH [id number] [facility] Last Admin: 05/20/18 12:03 Dose: Not Given Albuterol/Ipratropium (Duoneb 3 Mg/0.5 Mg (3 Ml) Ud) 3 ml IH Q2H PRN PRN Reason: Shortness of Breath Aspirin (Ecotrin) 81 mg PO DAILY [facility] Last Admin: 05/20/18 09:20 Dose: 81 mg Atorvastatin Calcium (Lipitor) 20 mg PO DAILY [facility] Collagenase (Santyl) 0 gm TOP DAILY [facility] Last Admin: 05/20/18 09:27 Dose: Not Given Ergocalciferol (Drisdol 50,000 Intl Units Cap) 1 cap PO Q7D [facility] Last Admin: 05/17/18 11:20 Dose: 1 cap Ferrous Sulfate (Feosol) 324 mg PO TID [facility] Last Admin: 05/20/18 09:20 Dose: 324 mg Sodium Chloride (Sodium Chloride 0.9%) 1,000 mls @ 100 mls/hr IV .Q10H [facility] Metoprolol Tartrate (Lopressor) 50 mg PO DAILY [facility] Last Admin: 05/20/18 09:20 Dose: 50 mg Nicotine (Nicoderm Cq) 1 patch TD DAILY [facility] Last Admin: 05/20/18 09:23 Dose: Not Given Tamsulosin HCl (Flomax) 0.4 mg PO HS [facility] Last Admin: 05/19/18 21:18 Dose: 0.4 mg - Labs Labs: 05/20/18 07:00 05/20/18 07:00 Attending/Attestation - Attestation I have personally seen and examined this patient.: Yes I have fully participated in the care of the patient.: Yes I have reviewed all pertinent clinical information, including history, physical exam and plan: Yes Notes (Text): Patient seen and examined by me with resident at 9:55AM on 05/20/18. Case including HPI, physical exam, and assessment and plan discussed with resident. Agree with above with following additions/corrections. Patient is a 72-year-old male with past medical history significant for COPD, chronic bilateral plantar fasciitis, CABG, PAD, DVT, anemia, noncompliance with medications, and homelessness presented to the emergency room with chest pain after a fall. Patient states he is feeling ok. Complains of bilateral feet pain. Patient kory es shortness of breath. No chest pain or palpitations. No headaches or dizziness. No fevers or chills. No nausea, vomiting, or abdominal pain. No dysuria. Physical exam: General: Awake and alert sitting up in bed in no acute distress HEENT: Normocephalic, atraumatic. Extraocular muscles intact, pupils equal and reactive, no scleral icterus. Oropharynx is pink and moist. No pharyngeal erythema or exudate appreciated. Neck is supple. Cardiovascular: Regular rhythm. Normal S1 and S2. No murmurs, rubs, or gallops appreciated Pulmonary: Normal respiratory effort. Decreased breath sounds at bases. No rhonchi, rales, or wheezing appreciated. Gastrointestinal: Soft, nondistended. Nontender. Positive bowel sounds all 4 quadrants. No guarding. Musculoskeletal: Moves all extremities. No calf tenderness. Positive bilateral lower extremity pitting edema. Unable to appreciate pedal pulses. Dressings bialteral feet clean, dry, and intact. Central nervous system: AAOx3, CN 2-12 grossly intact. Dermatologic: Skin warm and dry. Assessment and plan: Patient is a 72-year-old male with past medical history significant for COPD, chronic bilateral plantar fasciitis, CABG, PAD, DVT, anemia, noncompliance with medications, and homelessness presented to the emergency room with chest pain after a fall. 1. Dizziness, gait instability, Fall. Head CT per radiologist showed no intracranial abnormality. Carotid ultrasound per radiologist showed 60-79% proximal right ICA stenosis, 40-59% proximal left ICA stenosis, antegrade flow in the right vertebral artery, the left vertebral artery is no visualized and may be occluded. Continue ASA and Lipitor. Will need repeat cartoid ultrasound in [address] Jackson. Neurology following, recommendations appreciated. MRI brain pending. 2. Chest pain in a patient with CAD. Chest pain resolved. Troponins within normal limits. ACS ruled out. Cardiology following, recommendations appreciated. 2D echo per nanoscience technician showed mild to moderate concentric left ventricular hypertrophy; left ventricular function is normal; left ventricular ejection fraction is within normal range; transmitral doppler flow pattern is grade 1 abnormal relaxation pattern; mitral regurgitation is trace to mild; mild tricuspid regurgitation; mild pulmonary hypertension. Continue ASA, Lipitor, and Lopressor. Chest CT per radiologist showed unremarkable non-contrast enhanced CT of the chest; no evidence of displaced rib fracture or pneumothorax. 3. Bilateral feet ulcers. PAD. Podiatry following, recommendations appreciated. Right foot wound culture positive for corynebacterium. Continue local wound care. Pending right foot MRI to rule out osteomyelitis. Left foot xray per radiologist showed no evidence of acute pathology. Right foot xray per radiologist showed skin ulcer adjacent to the distal 1st metatarsal bone with suspicious for small erosion at the medial aspect of the distal 1st metatarsal head may represent an early osteomyelitis. Bilateral lower extremity venous dopplers negative for DVT. Arterial dopplers pending. IR evaluation pending. ID following, no antibiotics currently. 4. Stool for occult blood positive. Patient on Eliquis and ASA. GI consulted, follow up recommendations. 5. Chronic anemia. Continue ferrous sulfate. H&H stable. Continue to monitor. 6. Essential hypertension. Continue metoprolol 7. COPD. Continue nebulizer treatments. Patient counseled at length on tobacco cessation. 8. History of DVT. Continue Eliquis 9. BPH. Continue Flomax. 10. Tobacco abuse. Patient counseled at length on tobacco cessation. Continue nicotine patch 11. Homelessness. composition worker following. 12. GI/DVT prophylaxis. Protonix/Lovenox 13. Paitent is a full code. Case was discussed in detail with the patient regarding current diagnosis and treatment plan. All questions answered.
--- NOTE | 2018-05-20 14:10 | CP.PCM.PN ---
Subjective - Date & Time of Evaluation Date of Evaluation: 05/20/18 Time of Evaluation: 14:10 - Subjective Subjective: Neurology Progress Note: Patient seen and assessed at bedside. No acute events noted overnight. Patient denies any complaints at this time and 12 point ROS unremarkable at this time. Objective - Vital Signs/Intake and Output Vital Signs (last 24 hours): Temp Pulse Resp BP Pulse Ox 97.1 F L 59 L 19 130/64 96 05/20/18 12:00 05/20/18 12:00 05/20/18 12:00 05/20/18 12:00 05/20/18 05:39 Intake and Output: 05/20/18 05/20/18 06:59 18:59 Intake Total 1320 Output Total 1190 Balance 130 - Medications Medications: Current Medications Albuterol/Ipratropium (Duoneb 3 Mg/0.5 Mg (3 Ml) Ud) 3 ml IH [id number] [facility] Last Admin: 05/20/18 12:03 Dose: Not Given Albuterol/Ipratropium (Duoneb 3 Mg/0.5 Mg (3 Ml) Ud) 3 ml IH Q2H PRN PRN Reason: Shortness of Breath Aspirin (Ecotrin) 81 mg PO DAILY [facility] Last Admin: 05/20/18 09:20 Dose: 81 mg Atorvastatin Calcium (Lipitor) 20 mg PO DAILY [facility] Collagenase (Santyl) 0 gm TOP DAILY [facility] Last Admin: 05/20/18 09:27 Dose: Not Given Ergocalciferol (Drisdol 50,000 Intl Units Cap) 1 cap PO Q7D [facility] Last Admin: 05/17/18 11:20 Dose: 1 cap Ferrous Sulfate (Feosol) 324 mg PO TID [facility] Last Admin: 05/20/18 09:20 Dose: 324 mg Sodium Chloride (Sodium Chloride 0.9%) 1,000 mls @ 100 mls/hr IV .Q10H [facility] Metoprolol Tartrate (Lopressor) 50 mg PO DAILY [facility] Last Admin: 05/20/18 09:20 Dose: 50 mg Nicotine (Nicoderm Cq) 1 patch TD DAILY [facility] Last Admin: 05/20/18 09:23 Dose: Not Given Tamsulosin HCl (Flomax) 0.4 mg PO HS [facility] Last Admin: 05/19/18 21:18 Dose: 0.4 mg - Labs Labs: 05/20/18 07:00 05/20/18 07:00 - Additional Findings Additional findings: - Constitutional Appears: Non-toxic, Unkempt - Head Exam Head Exam: NORMOCEPHALIC Additional Comments: Contusion noted to left scalp - Eye Exam Eye Exam: EOMI, Normal appearance, PERRL - ENT Exam ENT Exam: Mucous Membranes Moist - Respiratory Exam Respiratory Exam: Clear to Auscultation Bilateral, NORMAL BREATHING PATTERN. absent: Rales, Rhonchi, Wheezes - Cardiovascular Exam Cardiovascular Exam: Tachycardia, +S1, +S2. absent: Gallop, Rubs, Systolic Murmur - GI/Abdominal Exam GI & Abdominal Exam: Normal Bowel Sounds, Soft. absent: Distended, Organomegaly, Tenderness - Extremities Exam Extremities exam: Additional Comments: Bilateral lower extremity wound dressing clean, dry and intact - Neurological Exam Neurological exam: Alert, CN II-XII Intact, Oriented x3, Reflexes Normal - Expanded Neurological Exam Expanded Patient oriented to: person, place, time Speech: Fluid Speech Cerebellar Function: Finger to Nose: Normal Upper motor neuron: Pronator Drift: Normal Neuro motor strength exam: Left Upper Extremity: 5, Right Upper Extremity: 5, Left Lower Extremity: 5, Right Lower Extremity: 5 Coma Scale Eye Opening: SPONTANEOUS Coma Scale Motor Response: OBEYS COMMANDS Coma Scale Verbal: Oriented Coma Scale Total: 15 - Skin Skin Exam: Dry, Intact, Warm Assessment and Plan - Assessment and Plan (Free Text) Assessment: 72 year old male with a past medical history significant for COPD, HTN, and chronic bilateral plantar fasciitis who presented s/p fall and with complaints of chest pain and headache. Neurology was consulted as patient had a syncopal episode. Plan: -MRI Brain pending -CT Head showed chronic encephalomalacia seen in right frontal and parietal lobes, large left frontal scalp hematoma and no acute intracranial abnormalities -2D Echocardiogram showed normal left ventricular function, no cardiac thrombi or atrial septal defects -Carotid Artery US showed 60-79% proximal right ICA stenosis and 40-59% proximal left ICA stenosis -Continue ASA and Lipitor -Advised smoking cessation -Further recommendations as per Dr. Jackson Disposition: Patient will need to continue daily low dose ASA and Lipitor as ordered as well as have repeat Carotid Artery US with his PMD as an outpatient in six months time. Patient seen and case discussed with attending, Dr. Jackson. Ganesh Miles PGY2
--- NOTE | 2018-05-20 14:22 | CON ---
DATE OF CONSULTATION: 05/20/2018 TIME OF CONSULTATION: 12:08 p.m. CHIEF COMPLAINT/HISTORY OF PRESENT ILLNESS: This is a disheveled 72-year-old gentleman, who was admitted after a serious fall. I am evaluating him for PVD and ischemia, primarily involving the right foot. Mr. Riggins has an ischemic laceration of the base of the right fifth toe and an ischemic ulceration of the right first MTP joint medially. He continues to smoke ~ 1 pack/day. He has documented coronary and cerebrovascular disease. He had a CABG and a carotid endarterectomy approximately 8 years ago. He is on Eliquis for uncertain indications. He is also on anti platelet therapy. On physical exam, he has an absent right femoral pulse. He has a palpable left femoral pulse. His popliteal and distal pulses were absent bilaterally. Mr. Riggins underwent a lower extremity arterial workup in March,. His right NGOZI is severely abnormal, 0.44. His left NGOZI is also severely abnormal, 0.55. At that time in March, he also had an MRA runoff, which was limited due to motion. 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 There are bilateral long segment SFA occlusions. He has one - two vessel tibial runoff bilaterally. I spoke this with Mr. Riggins concerning his right foot. Hopefully, by intervening on the iliac disease, we may be able to improve healing. His BUN and creatinine are normal. He needs to stop smoking, but I doubt he will be compliant with that. I will schedule him for an angiogram and possible iliac intervention in the next 1-2 days. Johann Posadas MD ANTHONY
--- NOTE | 2018-05-20 14:56 | CP.PCM.PN ---
Subjective - Date & Time of Evaluation Date of Evaluation: 05/20/18 Time of Evaluation: 14:10 - Subjective Subjective: No fevers, not in distress. Objective - Vital Signs/Intake and Output Vital Signs (last 24 hours): Temp Pulse Resp BP Pulse Ox 97.1 F L 59 L 19 130/64 96 05/20/18 12:00 05/20/18 12:00 05/20/18 12:00 05/20/18 12:00 05/20/18 05:39 Intake and Output: 05/20/18 05/20/18 06:59 18:59 Intake Total 1320 Output Total 1190 Balance 130 - Medications Medications: Current Medications Albuterol/Ipratropium (Duoneb 3 Mg/0.5 Mg (3 Ml) Ud) 3 ml IH [id number] [facility] Last Admin: 05/20/18 12:03 Dose: Not Given Albuterol/Ipratropium (Duoneb 3 Mg/0.5 Mg (3 Ml) Ud) 3 ml IH Q2H PRN PRN Reason: Shortness of Breath Aspirin (Ecotrin) 81 mg PO DAILY [facility] Last Admin: 05/20/18 09:20 Dose: 81 mg Atorvastatin Calcium (Lipitor) 20 mg PO DAILY [facility] Collagenase (Santyl) 0 gm TOP DAILY [facility] Last Admin: 05/20/18 09:27 Dose: Not Given Ergocalciferol (Drisdol 50,000 Intl Units Cap) 1 cap PO Q7D [facility] Last Admin: 05/17/18 11:20 Dose: 1 cap Ferrous Sulfate (Feosol) 324 mg PO TID [facility] Last Admin: 05/20/18 09:20 Dose: 324 mg Sodium Chloride (Sodium Chloride 0.9%) 1,000 mls @ 100 mls/hr IV .Q10H [facility] Metoprolol Tartrate (Lopressor) 50 mg PO DAILY [facility] Last Admin: 05/20/18 09:20 Dose: 50 mg Nicotine (Nicoderm Cq) 1 patch TD DAILY [facility] Last Admin: 05/20/18 09:23 Dose: Not Given Tamsulosin HCl (Flomax) 0.4 mg PO HS [facility] Last Admin: 05/19/18 21:18 Dose: 0.4 mg - Labs Labs: 05/20/18 07:00 05/20/18 07:00 - Constitutional Appears: No Acute Distress, Chronically Ill - Head Exam Head Exam: NORMAL INSPECTION - Respiratory Exam Respiratory Exam: Decreased Breath Sounds - Cardiovascular Exam Cardiovascular Exam: +S1, +S2 - GI/Abdominal Exam GI & Abdominal Exam: Soft. absent: Tenderness Assessment and Plan - Assessment and Plan (Free Text) Plan: Assessment SIRS probably due to superficial ulcers on the left foot, R/O osteomyelitis HTN DM prostate cancer chronic CHF Plan continue to monitor off antibiotics since the patient is not toxic and will f ollow up MRI of the foot discussed with Podiatry
--- NOTE | 2018-05-20 16:55 | MRI ---
Date of service: 05/20/2018 PROCEDURE: MRI BRAIN WITHOUT CONTRAST HISTORY: Syncopal event. COMPARISON: Comparison made with prior CT scan 05/17/2018.. TECHNIQUE: . Note that the patient terminated the exam prior to completion and only axial diffusion imaging obtained. The study is therefore limited. FINDINGS: HEMORRHAGE: No gross intracranial hemorrhage identified on diffusion imaging.. DWI: No evidence of an acute or early subacute infarction seen on diffusion imaging. . BRAIN PARENCHYMA: Chronic appearing ischemic changes in the right frontal and right parietal regions with moderate diffuse/confluent chronic white matter ischemic changes. Moderate to significant atrophy. VENTRICLES: Unremarkable. No hydrocephalus. CRANIUM: Unremarkable. ORBITS: Grossly unremarkable. PARANASAL SINUSES/MASTOIDS: Clear VASCULAR SYSTEM: Skull base flow voids intact. OTHER FINDINGS: Limited study demonstrating no acute IMPRESSION: Limited study as patient terminated the exam. No gross intracranial hemorrhage or infarction so far as can be seen. Chronic appearing ischemic changes in the right frontal and right parietal regions with moderate diffuse/confluent chronic white matter ischemic changes. Moderate to significant atrophy.
--- NOTE | 2018-05-20 20:35 | CON ---
DATE: 05/20/2018 HISTORY OF PRESENT ILLNESS: I saw Mr. Riggins this morning. He is a 72-year-old male with no significant past medical or GI history, who presented apparently to the emergency room with complaints of chest pain. The patient had been seen previously by Dr. Wesley. The patient was seen by multiple consultants including Dr. Barnhart, Dr. Martin, and Dr. Carrillo. PAST MEDICAL HISTORY: I reviewed the patient's past medica history, which is not significant for any GI issues including dysphagia, rectal bleeding, etc. Note that reviewing the H and P, it Indicates the patient's medical history includes COPD, hypertension, homelessness, and high blood pressure. Note that the patient has not had any EGD or colonoscopies. Current evaluation of the patient consists of treatment of his foot disease by Dr. Carrillo. This consult was apparently called for occult bleeding.. PHYSICAL EXAMINATION: VITAL SIGNS: I reviewed this patient's vital signs. HEENT: Noncontributory. LUNGS: Decreased breath sounds at bases. HEART: Regular rhythm. ABDOMEN: Soft. No tenderness elicited anywhere. LABORATORY DATA: Significant for H and H of 10 and 32, decreased to 9.4 and 30 and platelet count 251. Chemistry noncontributory. ASSESSMENT AND PLAN: This is a 72-year-old male currently being treated by Infectious Disease. Cardiology indicates that at this particular time point no significant cardiac workup appears necessary. On discussion with the patient, he indicates he is willing to follow with Dr. Wesley and there is no evidence of gross rectal bleeding possibly a colonoscopy procedure and/or EGD could be accomplished on an outpatient basis. Again, the patient is asymptomatic from a GI point of view. Sameer Rodriguez DO, PhD [facility]Y
[2018-05-21] MEDS: Albuterol-Ipratrop 3 mg / 0.5 (3 ml) UD IH SCH ×4 (05:21→14:49)
[2018-05-21 07:25] LABS: BASO # 0.03 K/mm3 (0.0-2.0); BASO % 0.4 % (0.0-3.0); EOS # 0.2 (0.0-0.7); EOS % 2.2 % (1.5-5.0); HEMOGLOBIN 9.2 g/dL (14.0-18.0); LYMPH # 1.4 (1.2-3.4); LYMPH % 16.9 % (22.0-35.0); MEAN CELL VOLUME 82.6 fl (80.0-105.0); MEAN CORPUSCULAR HGB CONC 30.3 g/dl (31.0-37.0); MEAN PLATELET VOLUME 8.8 fl (7.0-11.0); MONO # 0.6 (0.1-0.6); MONO % 7.7 % (1.0-6.0); RBC 3.68 10^6/uL (3.5-6.1); RED CELL DISTRIBUTION WIDTH 16.7 % (11.5-14.5); WHITE BLOOD COUNT 8.3 10^3/uL (4.5-11.0)
[2018-05-21 07:28] LABS: ALB/GLOB RATIO 1.2 (1.1-1.8); ALT/SGPT 23 U/L (7-56); AST/SGOT 18 U/L (17-59); BLOOD UREA NITROGEN 20 mg/dL (7-21); CALCIUM 8.7 mg/dL (8.4-10.5); GFR NON-AFRICAN AMERICAN > 60
[2018-05-21 07:34] LABS: INR 1.13; PROTHROMBIN TIME 12.8 SECONDS (9.4-12.5)
[2018-05-21] MEDS ORDERED: Phenylephrine 10 mg/ml Inj ONE (08:00)
[2018-05-21] MEDS ORDERED: Lidocaine 2% Inj (20ml) ONE (08:00)
[2018-05-21] MEDS ORDERED: Iodixanol 320 MG/ML 200 ML BOTTLE IV ONE (08:01)
[2018-05-21] MEDS ORDERED: Nitroglycerin 50mg in D5W 50 MG/250 ML BOTTLE IV ONE (08:01)
[2018-05-21] MEDS ORDERED: Iodixanol 320 mg/ml 150 ml Bottle IV ONE (08:01)
[2018-05-21] MEDS ORDERED: Midazolam 2 MG/2 ML VIAL ONE ×2 (09:07→09:22)
[2018-05-21] MEDS ORDERED: Iodixanol 320 MG/ML 100 ML BOTTLE IV ONE (09:31)
[2018-05-21] MEDS ORDERED: DiphenhydrAMINE 50 mg/ml Inj ONE (10:04)
--- NOTE | 2018-05-21 10:42 | CP.PCM.PN ---
Subjective - Date & Time of Evaluation Date of Evaluation: 05/21/18 Time of Evaluation: 10:39 - Subjective Subjective: Podiatry Progress Note - Drs. Zuniga/Lorena 72M seen and evaluated this AM with Dr. Zuniga for bilateral foot wounds. Patient resting comfortably, hemodynamically stable and NAD. No acute events overnight. Denies pedal complaints. Dressings to bilateral LE clean/dry/intact. Denies n/v/f/d/c/sob. Objective - Vital Signs/Intake and Output Vital Signs (last 24 hours): Temp Pulse Resp BP Pulse Ox 98.7 F 82 20 129/66 97 05/21/18 05:51 05/21/18 05:51 05/21/18 05:51 05/21/18 05:51 05/21/18 05:51 Intake and Output: 05/21/18 05/21/18 06:59 18:59 Intake Total 3600 Output Total 2200 Balance 1400 - Medications Medications: Current Medications Albuterol/Ipratropium (Duoneb 3 Mg/0.5 Mg (3 Ml) Ud) 3 ml IH [id number] [facility] Last Admin: 05/21/18 07:30 Dose: 3 ml Albuterol/Ipratropium (Duoneb 3 Mg/0.5 Mg (3 Ml) Ud) 3 ml IH Q2H PRN PRN Reason: Shortness of Breath Aspirin (Ecotrin) 81 mg PO DAILY [facility] Last Admin: 05/20/18 09:20 Dose: 81 mg Atorvastatin Calcium (Lipitor) 20 mg PO DAILY [facility] Collagenase (Santyl) 0 gm TOP DAILY [facility] Last Admin: 05/20/18 09:27 Dose: Not Given Ergocalciferol (Drisdol 50,000 Intl Units Cap) 1 cap PO Q7D [facility] Last Admin: 05/17/18 11:20 Dose: 1 cap Ferrous Sulfate (Feosol) 324 mg PO TID [facility] Last Admin: 05/20/18 17:44 Dose: 324 mg Sodium Chloride (Sodium Chloride 0.9%) 1,000 mls @ 100 mls/hr IV .Q10H [facility] Last Admin: 05/20/18 17:45 Dose: 100 mls/hr Metoprolol Tartrate (Lopressor) 50 mg PO DAILY [facility] Last Admin: 05/20/18 09:20 Dose: 50 mg Nicotine (Nicoderm Cq) 1 patch TD DAILY [facility] Last Admin: 05/20/18 09:23 Dose: Not Given Ondansetron HCl (Zofran Inj) 4 mg IVP ONCE PRN PRN Reason: Nausea/Vomiting Tamsulosin HCl (Flomax) 0.4 mg PO HS [facility] Last Admin: 05/20/18 21:59 Dose: 0.4 mg - Labs Labs: 05/21/18 07:00 05/21/18 07:00 PT 12.8 SECONDS (9.4-12.5) H 05/21/18 07:00 INR 1.13 05/21/18 07:00 APTT 29.0 Seconds (26.9-38.3) 05/21/18 07:00 - Constitutional Appears: Non-toxic - Head Exam Head Exam: NORMOCEPHALIC - Extremities Exam Additional comments: VASC: DP and PT pulses non-palpable b/l. CFT <3 seconds to digits x5 b/l. Pedal hair growth absent. NEURO: Light touch and protective sensation diminished bilaterally. DERM: LLE=Ulceration noted to plantar aspect of left 1st met head measuring approximately 0.2 x 0.2 x 0.2 cm - noted to have a granular base and hyperkeratotic rim; minimal serous drainage present; no purulence; no fluctu ance; no undermining; no tunneling RLE=Sutures present to sulcus of 5th digit - appear intact with no evidence of wound dehiscence. Full thickness ulcer noted to medial aspect of 1st MPJ measuring approximately 2 x 2 x 0.3cm -wound noted to have a mixed fibronecrotic base and hyperkeratotic rim; no drainage present; no purulence; no fluctuance; no probe to bone. ORTHO: No pain on palpation noted to wounds. - Neurological Exam Neurological Exam: Alert, Awake, Oriented x3 - Psychiatric Exam Psychiatric exam: Normal Affect, Normal Mood Assessment and Plan - Assessment and Plan (Free Text) Assessment: 72M with 1) full thickness ulceration, right foot 2) resolving laceration right 5th digit 3) partial thickness left plantar foot ulcer Plan: Patient seen and evaluated with Dr. Zuniga Afebrile, absent leukocytosis Right foot XR: Skin ulcer adjacent to 1st metatarsal, erosion at medial aspect of distal 1st metatarsal possible OM Dressing instructions - cleansed with normal saline, b/l medial ulcerations dressed with optifoam, right laceration site betadine and DSD Patient underwent interventional vascular procedure this morning Sutures to be removed tomorrow Arterial duplex ordered, pending ID recs appreciated Pending vascular consult Right foot wound culture pending Podiatry will continue to follow
--- NOTE | 2018-05-21 13:40 | CP.PCM.PN ---
Subjective - Date & Time of Evaluation Date of Evaluation: 05/21/18 Time of Evaluation: 07:45 - Subjective Subjective: No fevers, not in distress. Objective - Vital Signs/Intake and Output Vital Signs (last 24 hours): Temp Pulse Resp BP Pulse Ox 97.1 F L 59 L 19 130/64 96 05/20/18 12:00 05/20/18 12:00 05/20/18 12:00 05/20/18 12:00 05/20/18 05:39 Intake and Output: 05/20/18 05/20/18 06:59 18:59 Intake Total 1320 Output Total 1190 Balance 130 - Medications Medications: Current Medications Albuterol/Ipratropium (Duoneb 3 Mg/0.5 Mg (3 Ml) Ud) 3 ml IH [id number] [facility] Last Admin: 05/20/18 12:03 Dose: Not Given Albuterol/Ipratropium (Duoneb 3 Mg/0.5 Mg (3 Ml) Ud) 3 ml IH Q2H PRN PRN Reason: Shortness of Breath Aspirin (Ecotrin) 81 mg PO DAILY [facility] Last Admin: 05/20/18 09:20 Dose: 81 mg Atorvastatin Calcium (Lipitor) 20 mg PO DAILY [facility] Collagenase (Santyl) 0 gm TOP DAILY [facility] Last Admin: 05/20/18 09:27 Dose: Not Given Ergocalciferol (Drisdol 50,000 Intl Units Cap) 1 cap PO Q7D [facility] Last Admin: 05/17/18 11:20 Dose: 1 cap Ferrous Sulfate (Feosol) 324 mg PO TID [facility] Last Admin: 05/20/18 09:20 Dose: 324 mg Sodium Chloride (Sodium Chloride 0.9%) 1,000 mls @ 100 mls/hr IV .Q10H [facility] Metoprolol Tartrate (Lopressor) 50 mg PO DAILY [facility] Last Admin: 05/20/18 09:20 Dose: 50 mg Nicotine (Nicoderm Cq) 1 patch TD DAILY [facility] Last Admin: 05/20/18 09:23 Dose: Not Given Tamsulosin HCl (Flomax) 0.4 mg PO HS [facility] Last Admin: 05/19/18 21:18 Dose: 0.4 mg - Labs Labs: 05/20/18 07:00 05/20/18 07:00 - Constitutional Appears: Chronically Ill - Head Exam Head Exam: NORMAL INSPECTION - Respiratory Exam Respiratory Exam: Decreased Breath Sounds - Cardiovascular Exam Cardiovascular Exam: +S1, +S2 - GI/Abdominal Exam GI & Abdominal Exam: Soft. absent: Tenderness Assessment and Plan - Assessment and Plan (Free Text) Plan: Assessment SIRS probably due to superficial ulcers on the left foot, R/O osteomyelitis HTN DM prostate cancer chronic CHF Plan continue to monitor off antibiotics since the patient is not toxic and will follow up MRI of the foot discussed with Podiatry previously
--- NOTE | 2018-05-21 14:17 | PN ---
DATE: 05/21/2018 TIME: 10:35. SUBJECTIVE: Mr. Riggins's angiogram reveals an occluded right external iliac stent and right common femoral artery. He has a large profunda femoral artery with an occluded right SFA. There is two-vessel runoff below the knee. The occluded right external iliac stent and right common femoral artery were recanalized with [place] atherectomy and drug-eluting balloon angioplasty. There is a good right femoral pulse present. He has a strong right posterior tibial signal by Doppler, but no anterior tibial signal. Hopefully, this will be enough improvement in circulation to heal his ischemic areas in the right foot. If not, he can be evaluated for a femoral-popliteal bypass. Obviously, he is not a good candidate for this and is currently smoking. If that is not an option, he may require below-knee amputation at some point if the wounds deteriorate. He needs close interval wound care followup. Johann Posadas MD [facility]
--- NOTE | 2018-05-21 15:36 | CP.PCM.PN ---
<Frantz Redman - Last Filed: 05/21/18 15:49> Subjective - Date & Time of Evaluation Date of Evaluation: 05/21/18 Time of Evaluation: 06:15 - Subjective Subjective: Pt seen and examined this morning at bedside. Per nursing, multipodus boots on both feet for heel, dressings on bl feet wrapped in cling. Pt being non compliant with nursing staff, peripheral pulses palpated. Pt eating well. Objective - Vital Signs/Intake and Output Vital Signs (last 24 hours): Temp Pulse Resp BP Pulse Ox 98 F 77 13 214/100 H 97 05/21/18 11:34 05/21/18 13:48 05/21/18 11:34 05/21/18 13:48 05/21/18 05:51 Intake and Output: 05/21/18 05/21/18 06:59 18:59 Intake Total 3600 Output Total 2200 Balance 1400 - Medications Medications: Current Medications Albuterol/Ipratropium (Duoneb 3 Mg/0.5 Mg (3 Ml) Ud) 3 ml IH [id number] [facility] Last Admin: 05/21/18 14:49 Dose: Not Given Albuterol/Ipratropium (Duoneb 3 Mg/0.5 Mg (3 Ml) Ud) 3 ml IH Q2H PRN PRN Reason: Shortness of Breath Aspirin (Ecotrin) 81 mg PO DAILY [facility] Last Admin: 05/21/18 13:47 Dose: 81 mg Atorvastatin Calcium (Lipitor) 20 mg PO DAILY [facility] Last Admin: 05/21/18 13:47 Dose: 20 mg Collagenase (Santyl) 0 gm TOP DAILY [facility] Last Admin: 05/20/18 09:27 Dose: Not Given Ergocalciferol (Drisdol 50,000 Intl Units Cap) 1 cap PO Q7D [facility] Last Admin: 05/17/18 11:20 Dose: 1 cap Ferrous Sulfate (Feosol) 324 mg PO TID [facility] Last Admin: 05/21/18 13:47 Dose: 324 mg Sodium Chloride (Sodium Chloride 0.9%) 1,000 mls @ 100 mls/hr IV .Q10H [facility] Last Admin: 05/20/18 17:45 Dose: 100 mls/hr Metoprolol Tartrate (Lopressor) 50 mg PO DAILY [facility] Last Admin: 05/21/18 13:47 Dose: 50 mg Nicotine (Nicoderm Cq) 1 patch TD DAILY [facility] Last Admin: 05/21/18 13:30 Dose: Not Given Ondansetron HCl (Zofran Inj) 4 mg IVP ONCE PRN PRN Reason: Nausea/Vomiting Tamsulosin HCl (Flomax) 0.4 mg PO HS [facility] Last Admin: 05/20/18 21:59 Dose: 0.4 mg - Labs Labs: 05/21/18 07:00 05/21/18 07:00 PT 12.8 SECONDS (9.4-12.5) H 05/21/18 07:00 INR 1.13 05/21/18 07:00 APTT 29.0 Seconds (26.9-38.3) 05/21/18 07:00 - Constitutional Appears: No Acute Distress - Head Exam Head Exam: ATRAUMATIC, NORMOCEPHALIC - Eye Exam Eye Exam: EOMI - ENT Exam ENT Exam: Mucous Membranes Moist - Neck Exam Neck Exam: Full ROM - Respiratory Exam Respiratory Exam: Clear to Ausculation Bilateral, NORMAL BREATHING PATTERN. absent: Accessory Muscle Use, Respiratory Distress - Cardiovascular Exam Cardiovascular Exam: RRR, +S1, +S2. absent: Diastolic murmur, Murmur - GI/Abdominal Exam GI & Abdominal Exam: Soft, Normal Bowel Sounds. absent: Tenderness - Rectal Exam Rectal Exam: NORMAL INSPECTION - Extremities Exam Extremities Exam: absent: Pedal Edema - Neurological Exam Neurological Exam: Alert, Awake, Oriented x3 - Psychiatric Exam Psychiatric exam: Normal Affect, Normal Mood - Skin Skin Exam: Dry, Intact, Warm Assessment and Plan - Assessment and Plan (Free Text) Assessment: Pt is a 72 yo male with a PMH of sternotomy for ?valve repair, HFpEF, DVT on Eliquis, HTN, COPD, ?CAD, and homelessness who presented after a fall down the steps with associated dizziness, chest pain but without LOC. Plan: Possible Syncope, s/p fall - NS@100 - PT: xrays show possible osteopmyelitis - Carotid US: R ICA 60-79% stenosis, L ICA 40-59% stenosis - 05/17: CT Head showed no acute changes - MRI Brain: chronic ischemic changes in the right frontal and right parietal region - Neurology, pt should continue ASA and lipitor, repeat carotid art US as out pt in 6 months Chest pain, rule out ACS - Likely musculoskeletal after recent fall down flight of stairs - Troponins negative x3 - TSH 1.13 - echo shows HFpEF, EF 57% - cardiac cath report pending - Cardio following Bilateral LE Lesions - Hx of PAD - Wound care consulted - Duplex arterial ultrasounds: follow up - Podiatry, appreciate recs - angio report pending - ID, monitor pt off antibiotics, follow up foot MRI HTN - metoprolol COPD - duonebs KILO and PRN BPH - Flomax Hx of DVT - hold eliquis at this time Anemia of Chronic Disease - ferrous supplementation Tobacco Abuse - nicotine patch - Counseled on cessation, unwilling to try and quit Homelessness - Social work consulted - CM consulted Ppx SCD Pt seen, examined, assessment and plan discussed with Dr Yas Redman PGY1, Internal Medicine Resident <Yas Mcneil R - Last Filed: 05/21/18 17:08> Objective - Vital Signs/Intake and Output Vital Signs (last 24 hours): Temp Pulse Resp BP Pulse Ox 98 F 68 16 157/82 H 97 05/21/18 11:34 05/21/18 16:50 05/21/18 16:50 05/21/18 16:50 05/21/18 05:51 Intake and Output: 05/21/18 05/21/18 06:59 18:59 Intake Total 3600 Output Total 2200 Balance 1400 - Medications Medications: Current Medications Albuterol/Ipratropium (Duoneb 3 Mg/0.5 Mg (3 Ml) Ud) 3 ml IH [id number] PRN PRN Reason: Shortness of Breath Arformoterol Tartrate (Brovana) 15 mcg IH [id number] [facility] Aspirin (Ecotrin) 81 mg PO DAILY [facility] Last Admin: 05/21/18 13:47 Dose: 81 mg Atorvastatin Calcium (Lipitor) 20 mg PO DAILY [facility] Last Admin: 05/21/18 13:47 Dose: 20 mg Budesonide (Pulmicort Respules) 0.25 mg IH [id number] [facility] Carvedilol (Coreg) 6.25 mg PO BID [facility] Collagenase (Santyl) 0 gm TOP DAILY [facility] Last Admin: 05/20/18 09:27 Dose: Not Given Ergocalciferol (Drisdol 50,000 Intl Units Cap) 1 cap PO Q7D [facility] Last Admin: 05/17/18 11:20 Dose: 1 cap Ferrous Sulfate (Feosol) 324 mg PO TID [facility] Last Admin: 05/21/18 13:47 Dose: 324 mg Sodium Chloride (Sodium Chloride 0.9%) 1,000 mls @ 100 mls/hr IV .Q10H [facility] Last Admin: 05/20/18 17:45 Dose: 100 mls/hr Lisinopril (Zestril) 5 mg PO DAILY [facility] Nicotine (Nicoderm Cq) 1 patch TD DAILY [facility] Last Admin: 05/21/18 13:30 Dose: Not Given Ondansetron HCl (Zofran Inj) 4 mg IVP ONCE PRN PRN Reason: Nausea/Vomiting Pantoprazole Sodium (Protonix Ec Tab) 40 mg PO 0600 [facility] Tamsulosin HCl (Flomax) 0.4 mg PO HS [facility] Last Admin: 05/20/18 21:59 Dose: 0.4 mg - Labs Labs: 05/21/18 07:00 05/21/18 07:00 PT 12.8 SECONDS (9.4-12.5) H 05/21/18 07:00 INR 1.13 05/21/18 07:00 APTT 29.0 Seconds (26.9-38.3) 05/21/18 07:00 Attending/Attestation - Attestation I have personally seen and examined this patient.: Yes I have fully participated in the care of the patient.: Yes I have reviewed all pertinent clinical information, including history, physical exam and plan: Yes Notes (Text): Patient seen and examined by me with resident at 4:30PM on 05/21/18. Case including HPI, physical exam, and assessment and plan discussed with resident. Agree with above with following additions/corrections. Patient is a 72-year-old male with past medical history significant for COPD, chronic bilateral plantar fasciitis, CABG, PAD, DVT, anemia, noncompliance with medications, and homelessness presented to the emergency room with chest pain after a fall. Patient states he is feeling ok. S/P vascular procedure. States he has pain in his feet. Patient denies any pain at left groin site where procedure was done. Patient denies shortness of breath. No chest pain or palpitations. No headaches or dizziness. No fevers or chills. No nausea, vomiting, or abdominal pain. No dysuria. Physical exam: General: Awake and alert lying in bed in no acute distress HEENT: Normocephalic, atraumatic. Extraocular muscles intact, pupils equal and reactive, no scleral icterus. Oropharynx is pink and moist. No pharyngeal erythema or exudate appreciated. Neck is supple. Cardiovascular: Regular rhythm. Normal S1 and S2. No murmurs, rubs, or gallops appreciated Pulmonary: Normal respiratory effort. Decreased breath sounds at bases. No rhonchi, rales, or wheezing appreciated. Gastrointestinal: Soft, nondistended. Nontender. Positive bowel sounds all 4 quadrants. No guarding. Musculoskeletal: Moves all extremities. No calf tenderness. Positive bilateral lower extremity pitting edema. Dressings bialteral feet clean, dry, and intact. Left groin dressing clean, dry, and intact Central nervous system: AAOx3, CN 2-12 grossly intact. Dermatologic: Skin warm and dry. Assessment and plan: Patient is a 72-year-old male with past medical history significant for COPD, chronic bilateral plantar fasciitis, CABG, PAD, DVT, anemia, noncompliance with medications, and homelessness presented to the emergency room with chest pain after a fall. 1. Bilateral feet ulcers. PAD. S/P angiogram today which per interventional radiologist showed an occluded right external iliac stent and right common femoral artery; large profunda femoral artery with an occluded right SFA. S/P recanalization with SilverHawk atherectomy and drug-eluting balloon angioplasty of occulded right external iliac stent and right common femoral artery. IR following, recommendations appreciated. Continue aspirin and Lipitor. Podiatry following, recommendations appreciated. Right foot wound culture positive for corynebacterium. Continue local wound care. Pending right foot MRI to rule out osteomyelitis. Left foot xray per radiologist showed no evidence of acute pathology. Right foot xray per radiologist showed skin ulcer adjacent to the distal 1st metatarsal bone with suspicious for small erosion at the medial aspect of the distal 1st metatarsal head may represent an early osteomyelitis. Bilateral lower extremity venous dopplers negative for DVT. ID following, no antibiotics for now. 2. Dizziness, gait instability, Fall. Continue ASA and Lipitor. Neurology following, recommendations appreciated. MRI brain per radiologist showed limited study as patient terminated the exam, no gross intracranial hemorrhage or infarction, chronic appearing ischemic changes in the right frontal and right parietal regions and moderate diffuse/confluent chronic white matter ischemic changes, moderate to significant atrophy. Head CT per radiologist showed no intracranial abnormality. Carotid ultrasound per radiologist showed 60-79% proximal right ICA stenosis, 40-59% proximal left ICA stenosis, antegrade flow in the right vertebral artery, the left vertebral artery is no visualized and may be occluded. Will need repeat cartoid ultrasound in [address] Jackson. 3. Chest pain in a patient with CAD. Chest pain resolved. Continue ASA, Lipitor, Coreg, and Lisinopril. Troponins within normal limits. ACS ruled out. Cardiology following, recommendations appreciated. 2D echo per pedorthist showed mild to moderate concentric left ventricular hypertrophy; left ventricular function is normal; left ventricular ejection fraction is within normal range; transmitral doppler flow pattern is grade 1 abnormal relaxation pattern; mitral regurgitation is trace to mild; mild tricuspid regurgitation; mild pulmonary hypertension. Chest CT per radiologist showed unremarkable non-contrast enhanced CT of the chest; no evidence of displaced rib fracture or pneumothorax. 4. Stool for occult blood positive. Patient on Eliquis and ASA. GI recommendations appreciated. Patient to have outpatient colonscopy and EGD. H&H stable 5. Chronic anemia. Continue ferrous sulfate. H&H stable. Continue to monitor. 6. Essential hypertension. Continue Coreg and Lisinopril 7. COPD. Continue nebulizer treatments as needed. Placed on Brovana and pulmicort. Patient counseled at length on tobacco cessation. 8. History of DVT. Continue Eliquis when ok with IR. 9. BPH. Continue Flomax. 10. Tobacco abuse. Patient counseled at length on tobacco cessation. Continue nicotine patch 11. Homelessness. insemination worker following. 12. GI/DVT prophylaxis. Protonix/ELiquis when ok with IR. 13. Paitent is a full code. Case was discussed in detail with the patient regarding current diagnosis and treatment plan. All questions answered.
[2018-05-21] MEDS ORDERED: Albuterol-Ipratrop 3 mg / 0.5 (3 ml) UD IH PRN (17:02)
--- NOTE | 2018-05-21 20:11 | VASCULAR ---
Date of service: 05/21/2018 PROCEDURE: 1. Abdominal aortogram and bilateral lower extremity runoff with right selective views 2. Right external iliac artery silver Hawk atherectomy and drug-eluting balloon angioplasty 3. Right common femoral artery silver Hawk atherectomy and drug-eluting balloon angioplasty HISTORY: Severe peripheral vascular disease. Right foot ischemia with digital gangrene. Occluded right external iliac artery stent. PHYSICIAN(S): Johann Posadas M.D. TECHNIQUE: The relative risks and indications of the procedure were explained to the patient and consent obtained. The patient was hydrated prior to the procedure and the appropriate labs drawn. The patient was placed supine on the arteriogram table and the left groin prepped and draped in the usual sterile fashion. Conscious sedation and monitoring were provided throughout the procedure by a nurse. Under ultrasound guidance, the left common femoral artery was punctured with a micropuncture set. A 5 Yemeni sheath was placed. Through the sheath and over guidewire a 5 Yemeni flush catheter was placed the abdominal aorta at the level renal arteries and a PA DSA abdominal pelvic arteriogram performed. The catheter was pulled down the aortic bifurcation and bilateral oblique DSA pelvic arteriograms were performed. Overlapping bilateral lower extremity DSA arteriograms were obtained from the inguinal ligaments to the feet. A 7 Yemeni 45 cm sheath was advanced over the bifurcation and placed in the right common iliac artery. The occluded self expanding stent in the right external iliac artery was crossed with an angled glidewire and 5 Yemeni catheter. The right common femoral artery occlusion was also crossed with a 5 Yemeni catheter and angled Glidewire. The wire was advanced into the large right profunda femoral artery. The guidewire was exchanged for a 0.014 support wire. Silver Hawk atherectomy of the occluded right external iliac artery stent and chronically occluded right common femoral artery was performed. Approximately 6 passes were obtained. The right common femoral artery was dilated with a 7 mm drug-eluting balloon. Eventually an 8 mm balloon was utilized. The occluded right external iliac artery stent was dilated with 7 and 8 mm balloons. Completion angiograms were obtained. The sheath was removed hemostasis obtained with a Perclose device. The patient tolerated the procedure well. FINDINGS: There are single renal arteries bilaterally. Mild smooth stenoses are present. There is smooth diffuse calcified atherosclerotic disease of the infrarenal abdominal aorta. The aortic bifurcation is patent. The common iliac arteries are smoothly disease but widely patent on two views. Left internal iliac artery is occluded. The right internal iliac artery is patent. There is an occlusion of the right external iliac artery self expanding stent. The left external iliac artery is patent without a significant stenosis. Right lower extremity: The right common femoral artery is occluded. The right SFA is occluded from its origin to the adductor canal. There reconstitution of the proximal right profunda femoral artery. The right popliteal artery is reconstituted and patent. The right anterior tibial artery occludes near its origin. There is 2 vessel runoff via the right posterior tibial and peroneal arteries which supply the dorsalis pedis artery and plantar arch Left lower extremity: Left common femoral artery is patent. The left profunda femoral artery is hypertrophied.. The left SFA is occluded proximally. There reconstitution of the mid left SFA. Calcification of the distal left SFA is noted. The left popliteal artery is continuous. Once again there occlusion of the proximal left anterior tibial artery. There is 2 vessel runoff via the left posterior tibial and peroneal arteries. IMPRESSION: 1.Successful silver Hawk atherectomy and drug-eluting balloon angioplasty of the occluded right external iliac artery stent 2. Successful silver Hawk atherectomy and drug-eluting balloon angioplasty of the occluded right common femoral artery. 3. Long segment right SFA occlusion. 4. Proximal left SFA occlusion. 5. Two vessel tibial runoff bilaterally. 6. If the patient's right foot gangrene progresses, he can potentially be evaluated for right femoral-popliteal bypass.
[2018-05-21] MEDS: Sodium Chloride 0.9% 1,000 ML IV SCH (20:30)
[2018-05-21] MEDS: Budesonide 0.25 mg/2 ml Inhal Susp UD IH SCH (21:35)
[2018-05-21] MEDS: Arformoterol 15 mcg/2 ml Inh Sol IH SCH (21:35)
[2018-05-22 04:46] LABS: URINE BILIRUBIN NEGATIVE (NEGATIVE); URINE BLOOD NEGATIVE (NEGATIVE); URINE GLUCOSE (UA) NEGATIVE (NEGATIVE); URINE LEUKOCYTE ESTERASE NEGATIVE Leu/uL (NEGATIVE); URINE PROTEIN NEGATIVE mg/dL (<30 mg/dL); URINE UROBILINOGEN 0.2 E.U./dL (<1 E.U./dL)
[2018-05-22 04:55] LABS: URINE APPEARANCE CLEAR (CLEAR); URINE COLOR YELLOW (YELLOW)
[2018-05-22] MEDS: Pantoprazole 40 mg EC Tab PO SCH (06:18)
[2018-05-22 07:09] LABS: BASO # 0.03 K/mm3 (0.0-2.0); BASO % 0.3 % (0.0-3.0); EOS # 0.2 (0.0-0.7); EOS % 2.4 % (1.5-5.0); HEMOGLOBIN 10.2 g/dL (14.0-18.0); MEAN CELL VOLUME 81.4 fl (80.0-105.0); MEAN CORPUSCULAR HEMOGLOBIN 25.7 pg (25.0-35.0); MEAN CORPUSCULAR HGB CONC 31.6 g/dl (31.0-37.0); MEAN PLATELET VOLUME 8.6 fl (7.0-11.0); MONO # 0.8 (0.1-0.6); MONO % 8.5 % (1.0-6.0); RBC 3.97 10^6/uL (3.5-6.1); RED CELL DISTRIBUTION WIDTH 16.5 % (11.5-14.5); WHITE BLOOD COUNT 9.5 10^3/uL (4.5-11.0)
[2018-05-22 07:30] LABS: ALB/GLOB RATIO 1.2 (1.1-1.8); ALBUMIN 3.3 g/dL (3.0-4.8); ALT/SGPT 26 U/L (7-56); AST/SGOT 18 U/L (17-59); BLOOD UREA NITROGEN 17 mg/dL (7-21); CALCIUM 8.9 mg/dL (8.4-10.5); GFR NON-AFRICAN AMERICAN > 60
[2018-05-22] MEDS: Budesonide 0.25 mg/2 ml Inhal Susp UD IH SCH ×2 (07:37→21:50)
[2018-05-22] MEDS: Arformoterol 15 mcg/2 ml Inh Sol IH SCH ×2 (07:37→21:51)
--- NOTE | 2018-05-22 09:55 | CP.PCM.PN ---
Subjective - Date & Time of Evaluation Date of Evaluation: 05/22/18 Time of Evaluation: 09:50 - Subjective Subjective: Podiatry Progress Note - Drs. Zuniga/Lorena 72M seen and evaluated this AM for bilateral foot wounds. Patient resting comfortably, hemodynamically stable and NAD. No acute events overnight. Patient offers no complaints to both foot wounds. Dressings to bilateral LE clean/dry/intact. Denies n/v/f/d/c/sob. Objective - Vital Signs/Intake and Output Vital Signs (last 24 hours): Temp Pulse Resp BP Pulse Ox 98.9 F 86 20 138/64 99 05/22/18 05:16 05/22/18 05:16 05/22/18 05:16 05/22/18 05:16 05/22/18 05:16 Intake and Output: 05/22/18 05/22/18 06:59 18:59 Intake Total 1200 Output Total 1850 Balance -650 - Medications Medications: Current Medications Albuterol/Ipratropium (Duoneb 3 Mg/0.5 Mg (3 Ml) Ud) 3 ml IH [id number] PRN PRN Reason: Shortness of Breath Arformoterol Tartrate (Brovana) 15 mcg IH [id number] [facility] Last Admin: 05/22/18 07:37 Dose: Not Given Aspirin (Ecotrin) 81 mg PO DAILY [facility] Last Admin: 05/21/18 13:47 Dose: 81 mg Atorvastatin Calcium (Lipitor) 20 mg PO DAILY [facility] Last Admin: 05/21/18 13:47 Dose: 20 mg Budesonide (Pulmicort Respules) 0.25 mg IH [id number] [facility] Last Admin: 05/22/18 07:37 Dose: Not Given Carvedilol (Coreg) 6.25 mg PO BID [facility] Last Admin: 05/21/18 18:23 Dose: 6.25 mg Collagenase (Santyl) 0 gm TOP DAILY [facility] Last Admin: 05/20/18 09:27 Dose: Not Given Ergocalciferol (Drisdol 50,000 Intl Units Cap) 1 cap PO Q7D [facility] Last Admin: 05/17/18 11:20 Dose: 1 cap Ferrous Sulfate (Feosol) 324 mg PO TID [facility] Last Admin: 05/21/18 18:23 Dose: 324 mg Sodium Chloride (Sodium Chloride 0.9%) 1,000 mls @ 100 mls/hr IV .Q10H [facility] Last Admin: 05/21/18 20:30 Dose: Not Given Lisinopril (Zestril) 5 mg PO DAILY [facility] Nicotine (Nicoderm Cq) 1 patch TD DAILY [facility] Last Admin: 05/21/18 13:30 Dose: Not Given Ondansetron HCl (Zofran Inj) 4 mg IVP ONCE PRN PRN Reason: Nausea/Vomiting Pantoprazole Sodium (Protonix Ec Tab) 40 mg PO 0600 [facility] Last Admin: 05/22/18 06:18 Dose: 40 mg Tamsulosin HCl (Flomax) 0.4 mg PO HS [facility] Last Admin: 05/21/18 21:19 Dose: 0.4 mg - Labs Labs: 05/22/18 06:30 05/22/18 06:30 PT 12.8 SECONDS (9.4-12.5) H 05/21/18 07:00 INR 1.13 05/21/18 07:00 APTT 29.0 Seconds (26.9-38.3) 05/21/18 07:00 - Constitutional Appears: Non-toxic, No Acute Distress - Head Exam Head Exam: NORMOCEPHALIC - Extremities Exam Additional comments: VASC: DP and PT pulses non-palpable b/l. CFT <3 seconds to digits x5 b/l. Pedal hair growth absent. NEURO: Light touch and protective sensation diminished bilaterally. DERM: LLE=Ulceration noted to plantar aspect of left 1st met head measuring approximately 0.2 x 0.2 x 0.2 cm - noted to have a granular base and hyperkeratotic rim; minimal serous drainage present; no purulence; no fluctuance; no undermining; no tunneling RLE=Sutures present to sulcus of 5th digit - appear intact with no evidence of wound dehiscence. Full thickness ulcer noted to medial aspect of 1st MPJ measuring approximately 2 x 2 x 0.3cm -wound noted to have a mixed fibronecrotic base and hyperkeratotic rim; no drainage present; no purulence; no fluctuance; no probe to bone. ORTHO: No pain on palpation noted to wounds. - Neurological Exam Neurological Exam: Alert, Awake - Psychiatric Exam Psychiatric exam: Normal Affect, Normal Mood Assessment and Plan - Assessment and Plan (Free Text) Assessment: 72M with 1) full thickness ulceration, right foot 2) resolving laceration right 5th digit 3) partial thickness left plantar foot ulcer Plan: Patient seen and evaluated with Dr. Carrillo Afebrile, absent leukocytosis Right foot XR: Skin ulcer adjacent to 1st metatarsal, erosion at medial aspect of distal 1st metatarsal possible OM Sutures removed from right laceration site with 1 interdigital stitch left intact - patient tolerated procedure Dressing instructions - cleansed with normal saline, betadine to laceration site on right foot, santyl applied to ulcerations b/l and dressed with optifoam and DSD Dr. Posadas vascular procedure - successful angioplasty of occluded right external iliac artery stent, angioplasty of occluded right common femoral artery, long segment right SFA occlusion, proximal left SFA occlusion, two vessel tibial runo ff bilaterally, if gangrene progresses to right foot, fem-pop bypass evaluation Right foot wound culture - corynebacterium species Continue abx per ID Podiatry will continue to follow
[2018-05-22] MEDS: Collagenase 250 Units/gm Ointment(30 gm) TOP SCH (11:28)
--- NOTE | 2018-05-22 14:43 | MRI ---
Date of service: 05/22/2018 PROCEDURE: MRI Right Foot HISTORY: Pain. COMPARISON: None available. TECHNIQUE: Multiecho multiplanar sequences were performed through the right foot without the use of intravenous contrast. FINDINGS: BONES: Marrow signal abnormality in the 5th distal and middle phalanges compatible with osteomyelitis in the appropriate clinical setting. Severe degenerative changes of the 1st metatarsophalangeal joint. MUSCLES: Extensive edema in the plantar musculature possibly representing myositis. SOFT TISSUES: Normal. LISFRANC LIGAMENT: Normal. PLANTAR PLATE: Normal. EXTENSOR TENDONS: Normal. FLEXOR TENDONS: Normal. OTHER FINDINGS: None. IMPRESSION: Marrow signal abnormality in the 5th distal and middle phalanges compatible with osteomyelitis in the appropriate clinical setting.
--- NOTE | 2018-05-22 15:48 | CP.PCM.PN ---
<Frantz Redman - Last Filed: 05/22/18 16:03> Subjective - Date & Time of Evaluation Date of Evaluation: 05/22/18 Time of Evaluation: 06:00 - Subjective Subjective: Pt seen and examined at bedside. Per nursing, pt BP was elevated, pt given hydralazine, pt being non compliant with with staff. No bleeding or oozing from catheter site, able to doppler pulses BL. Objective - Vital Signs/Intake and Output Vital Signs (last 24 hours): Temp Pulse Resp BP Pulse Ox 98.6 F 89 18 123/56 L 99 05/22/18 12:00 05/22/18 12:00 05/22/18 12:00 05/22/18 12:00 05/22/18 05:16 Intake and Output: 05/22/18 05/22/18 06:59 18:59 Intake Total 1200 680 Output Total 1850 925 Balance -650 -245 - Medications Medications: Current Medications Albuterol/Ipratropium (Duoneb 3 Mg/0.5 Mg (3 Ml) Ud) 3 ml IH [id number] PRN PRN Reason: Shortness of Breath Arformoterol Tartrate (Brovana) 15 mcg IH [id number] [facility] Last Admin: 05/22/18 07:37 Dose: Not Given Aspirin (Ecotrin) 81 mg PO DAILY [facility] Last Admin: 05/22/18 11:25 Dose: 81 mg Atorvastatin Calcium (Lipitor) 20 mg PO DAILY [facility] Last Admin: 05/22/18 11:24 Dose: 20 mg Budesonide (Pulmicort Respules) 0.25 mg IH [id number] [facility] Last Admin: 05/22/18 07:37 Dose: Not Given Carvedilol (Coreg) 6.25 mg PO BID [facility] Last Admin: 05/22/18 11:25 Dose: 6.25 mg Collagenase (Santyl) 0 gm TOP DAILY [facility] Last Admin: 05/22/18 11:28 Dose: 1 applic Ergocalciferol (Drisdol 50,000 Intl Units Cap) 1 cap PO Q7D [facility] Last Admin: 05/17/18 11:20 Dose: 1 cap Ferrous Sulfate (Feosol) 324 mg PO TID [facility] Last Admin: 05/22/18 14:33 Dose: 324 mg Sodium Chloride (Sodium Chloride 0.9%) 1,000 mls @ 100 mls/hr IV .Q10H [facility] Last Admin: 05/21/18 20:30 Dose: Not Given Lisinopril (Zestril) 5 mg PO DAILY [facility] Last Admin: 05/22/18 11:27 Dose: 5 mg Nicotine (Nicoderm Cq) 1 patch TD DAILY [facility] Last Admin: 05/22/18 10:00 Dose: Not Given Ondansetron HCl (Zofran Inj) 4 mg IVP ONCE PRN PRN Reason: Nausea/Vomiting Pantoprazole Sodium (Protonix Ec Tab) 40 mg PO 0600 [facility] Last Admin: 05/22/18 06:18 Dose: 40 mg Tamsulosin HCl (Flomax) 0.4 mg PO HS [facility] Last Admin: 05/21/18 21:19 Dose: 0.4 mg - Labs Labs: 05/22/18 06:30 05/22/18 06:30 PT 12.8 SECONDS (9.4-12.5) H 05/21/18 07:00 INR 1.13 05/21/18 07:00 APTT 29.0 Seconds (26.9-38.3) 05/21/18 07:00 - Constitutional Appears: No Acute Distress - Head Exam Head Exam: ATRAUMATIC, NORMOCEPHALIC - Eye Exam Eye Exam: EOMI - ENT Exam ENT Exam: Mucous Membranes Moist - Neck Exam Neck Exam: Full ROM - Respiratory Exam Respiratory Exam: Clear to Ausculation Bilateral, NORMAL BREATHING PATTERN. absent: Accessory Muscle Use, Wheezes, Respiratory Distress - Cardiovascular Exam Cardiovascular Exam: RRR, +S1, +S2. absent: Diastolic murmur, Murmur - GI/Abdominal Exam GI & Abdominal Exam: Soft, Normal Bowel Sounds. absent: Tenderness - Extremities Exam Extremities Exam: Full ROM. absent: Calf Tenderness, Pedal Edema Additional comments: distal pulses dopplerable BL, no bleeding or oozing form catheter site - Neurological Exam Neurological Exam: Alert, Awake, Oriented x3 - Psychiatric Exam Psychiatric exam: Normal Affect, Normal Mood - Skin Skin Exam: Dry, Intact, Warm Assessment and Plan - Assessment and Plan (Free Text) Assessment: Pt is a 72 yo male with a PMH of sternotomy for ?valve repair, HFpEF, DVT on Eliquis, HTN, COPD, ?CAD, and homelessness who presented after a fall down the steps with associated dizziness, chest pain but without LOC. Plan: Possible Syncope, s/p fall - Carotid US: R ICA 60-79% stenosis, L ICA 40-59% stenosis - 05/17: CT Head showed no acute changes - MRI Brain: chronic ischemic changes in the right frontal and right parietal region - Neurology, pt should continue ASA and lipitor, repeat carotid art US as out pt in 6 months - PT: rec home PT vs JUAN MANUEL pending ambulation assessment Bilateral LE Lesions - Hx of PAD - Foot MRI: marrow signal abnormality in the 5th distal and middle phalanges compatible with osteomyelitis in the appropriate clinical setting. - ID, monitor pt off antibiotics, follow up foot MRI - IR, angio reveals occluded right external iliac stent and right common femoral art were recanalized with a drug eluting balloon angioplasty. In the future, pt may need fem-pop bypass - Podiatry, continue antibiotics per ID Chest pain, rule out ACS - Likely musculoskeletal after recent fall down flight of stairs - Troponins negative x3 - TSH 1.13 - echo shows HFpEF, EF 57% - Cardio following Hx of DVT - hold eliquis Anemia of Chronic Disease - ferrous supplementation HTN - metoprolol COPD - duonebs KILO and PRN BPH - Flomax Tobacco Abuse - nicotine patch - Counseled on cessation, unwilling to try and quit Homelessness - Social work consulted - CM consulted Ppx - SCD Pt seen, examined, assessment and plan discussed with Dr Yas Redman PGY1, Internal Medicine Resident <Yas Mcneil R - Last Filed: 05/23/18 16:49> Objective - Vital Signs/Intake and Output Vital Signs (last 24 hours): Temp Pulse Resp BP Pulse Ox 98.0 F 66 18 110/54 L 98 05/23/18 16:35 05/23/18 16:35 05/23/18 16:35 05/23/18 16:35 05/23/18 16:35 Intake and Output: 05/23/18 05/23/18 06:59 18:59 Intake Total 420 Output Total 650 Balance -230 - Medications Medications: Current Medications Albuterol/Ipratropium (Duoneb 3 Mg/0.5 Mg (3 Ml) Ud) 3 ml IH [id number] PRN PRN Reason: Shortness of Breath Arformoterol Tartrate (Brovana) 15 mcg IH [id number] Last Admin: 05/23/18 08:09 Dose: Not Given Aspirin (Ecotrin) 81 mg PO DAILY [facility] Last Admin: 05/23/18 09:22 Dose: 81 mg Atorvastatin Calcium (Lipitor) 20 mg PO DAILY [facility] Last Admin: 05/23/18 09:21 Dose: 20 mg Budesonide (Pulmicort Respules) 0.25 mg IH [id number] [facility] Last Admin: 05/23/18 08:10 Dose: Not Given Carvedilol (Coreg) 6.25 mg PO BID [facility] Last Admin: 05/23/18 09:21 Dose: 6.25 mg Collagenase (Santyl) 0 gm TOP DAILY [facility] Last Admin: 05/23/18 09:22 Dose: 1 applic Ergocalciferol (Drisdol 50,000 Intl Units Cap) 1 cap PO Q7D [facility] Last Admin: 05/17/18 11:20 Dose: 1 cap Ferrous Sulfate (Feosol) 324 mg PO TID [facility] Last Admin: 05/23/18 13:47 Dose: 324 mg Sodium Chloride (Sodium Chloride 0.9%) 1,000 mls @ 100 mls/hr IV .Q10H [facility] Last Admin: 05/21/18 20:30 Dose: Not Given Doxycycline Hyclate 100 mg/ (Sodium Chloride) 100 mls @ 100 mls/hr IVPB Q12 [facility]; Protocol Cefepime HCl (Maxipime 2gm) 2 gm in 100 mls @ 25 mls/hr IVPB Q12 [facility]; Protocol Stop: 05/28/18 22:01 Lisinopril (Zestril) 5 mg PO DAILY [facility] Last Admin: 05/23/18 09:22 Dose: 5 mg Nicotine (Nicoderm Cq) 1 patch TD DAILY [facility] Last Admin: 05/23/18 09:23 Dose: Not Given Ondansetron HCl (Zofran Inj) 4 mg IVP ONCE PRN PRN Reason: Nausea/Vomiting Pantoprazole Sodium (Protonix Ec Tab) 40 mg PO 0600 [facility] Last Admin: 05/23/18 06:25 Dose: 40 mg Tamsulosin HCl (Flomax) 0.4 mg PO HS [facility] Last Admin: 05/22/18 21:12 Dose: 0.4 mg - Labs Labs: 05/23/18 06:00 05/23/18 06:00 PT 12.8 SECONDS (9.4-12.5) H 05/21/18 07:00 INR 1.13 05/21/18 07:00 APTT 29.0 Seconds (26.9-38.3) 05/21/18 07:00 Attending/Attestation - Attestation I have personally seen and examined this patient.: Yes I have fully participated in the care of the patient.: Yes I have reviewed all pertinent clinical information, including history, physical exam and plan: Yes Notes (Text): Patient seen and examined by me with resident at 10:30AM on 05/22/18. Case including HPI, physical exam, and assessment and plan discussed with resident. Agree with above with following additions/corrections. Patient is a 72-year-old male with past medical history significant for COPD, chronic bilateral plantar fasciitis, CABG, PAD, DVT, anemia, noncompliance with medications, and homelessness presented to the emergency room with chest pain after a fall. Patient states he feels ok. States pain in his feet have improved. No pain at left groin site where vascular procedure was done. No shortness of breath. No ch est pain or palpitations. No headaches or dizziness. No fevers or chills. No nausea, vomiting, or abdominal pain. No dysuria. Physical exam: General: Awake and alert lying in bed in no acute distress HEENT: Normocephalic, atraumatic. Extraocular muscles intact, pupils equal and reactive, no scleral icterus. Oropharynx is pink and moist. No pharyngeal erythema or exudate appreciated. Neck is supple. Cardiovascular: Regular rhythm. Normal S1 and S2. No murmurs, rubs, or gallops appreciated Pulmonary: Normal respiratory effort. Decreased breath sounds at bases. No rhonchi, rales, or wheezing appreciated. Gastrointestinal: Soft, nondistended. Nontender. Positive bowel sounds all 4 quadrants. No guarding. Musculoskeletal: Moves all extremities. No calf tenderness. Positive bilateral lower extremity pitting edema. Dressings bialteral feet clean, dry, and intact. Central nervous system: AAOx3, CN 2-12 grossly intact. Dermatologic: Skin warm and dry. Assessment and plan: Patient is a 72-year-old male with past medical history significant for COPD, chronic bilateral plantar fasciitis, CABG, PAD, DVT, anemia, noncompliance with medications, and homelessness presented to the emergency room with chest pain after a fall. 1. Bilateral feet ulcers. PAD. S/P angiogram 05/21/18 which per radiologist showed an occluded right external iliac stent and right common femoral artery; large profunda femoral artery with an occluded right SFA. S/P recanalization with [place] atherectomy and drug-eluting balloon angioplasty of occulded right external iliac stent and right common femoral artery. IR following, recommendations appreciated. Continue aspirin and Lipitor. ID following, no antibiotics for now. Pending right foot MRI to rule out osteomyelitis. Podiatry following, recommendations appreciated. Right foot wound culture positive for corynebacterium. Continue local wound care. Left foot xray per radiologist showed no evidence of acute pathology. Right foot xray per radiologist showed skin ulcer adjacent to the distal 1st metatarsal bone with suspicious for small erosion at the medial aspect of the distal 1st metatarsal head may represent an early osteomyelitis. Bilateral lower extremity venous dopplers negative for DVT. 2. Dizziness, gait instability, Fall. Continue ASA and Lipitor. JUAN MANUEL recommended. Neurology following, recommendations appreciated. MRI brain per radiologist showed limited study as patient terminated the exam, no gross intracranial hemorrhage or infarction, chronic appearing ischemic changes in the right frontal and right parietal regions and moderate diffuse/confluent chronic white matter ischemic changes, moderate to significant atrophy. Head CT per radiologist showed no intracranial abnormality. Carotid ultrasound per radiologist showed 60-79% proximal right ICA stenosis, 40-59% proximal left ICA stenosis, antegrade flow in the right vertebral artery, the left vertebral artery is no visualized and may be occluded. Will need repeat cartoid ultrasound in [address] Jackson. 3. Chest pain in a patient with CAD. Chest pain resolved. Continue ASA, Lipitor, Coreg, and Lisinopril. Troponins within normal limits. ACS ruled out. Cardiology following, recommendations appreciated. 2D echo per returned case inspector showed mild to moderate concentric left ventricular hypertrophy; left ventricular function is normal; left ventricular ejection fraction is within normal range; transmitral doppler flow pattern is grade 1 abnormal relaxation pattern; mitral regurgitation is trace to mild; mild tricuspid regurgitation; mild pulmonary hypertension. Chest CT per radiologist showed unremarkable non-contrast enhanced CT of the chest; no evidence of displaced rib fracture or pneumothorax. 4. Stool for occult blood positive. Patient on Eliquis and ASA. GI recommendations appreciated. Patient to have outpatient colonscopy and EGD. H&H stable 5. Chronic anemia. Continue ferrous sulfate. H&H stable. Continue to monitor. 6. Essential hypertension. Continue Coreg and Lisinopril 7. COPD. Continue nebulizer treatments. Continue Brovana and pulmicort. Patient counseled at length on tobacco cessation. 8. History of DVT. Restart Eliquis when ok with IR. 9. BPH. Continue Flomax. 10. Tobacco abuse. Patient counseled at length on tobacco cessation. Continue nicotine patch 11. Homelessness. See by PT. JUAN MANUEL recommended. skid road worker following. 12. GI/DVT prophylaxis. Protonix/ELiquis when ok with IR. 13. Sin is a full code. Case was discussed in detail with the patient regarding current diagnosis and treatment plan. All questions answered.
--- NOTE | 2018-05-22 16:06 | CP.PCM.PN ---
Subjective - Date & Time of Evaluation Date of Evaluation: 05/22/18 Time of Evaluation: 14:20 - Subjective Subjective: MRI of the foot done today, no fevers, not in distress. Objective - Vital Signs/Intake and Output Vital Signs (last 24 hours): Temp Pulse Resp BP Pulse Ox 98 F 79 13 180/81 H 97 05/21/18 11:34 05/21/18 11:34 05/21/18 11:34 05/21/18 11:34 05/21/18 05:51 Intake and Output: 05/21/18 05/21/18 06:59 18:59 Intake Total 3600 Output Total 2200 Balance 1400 - Medications Medications: Current Medications Albuterol/Ipratropium (Duoneb 3 Mg/0.5 Mg (3 Ml) Ud) 3 ml IH [id number] [facility] Last Admin: 05/21/18 10:40 Dose: Not Given Albuterol/Ipratropium (Duoneb 3 Mg/0.5 Mg (3 Ml) Ud) 3 ml IH Q2H PRN PRN Reason: Shortness of Breath Aspirin (Ecotrin) 81 mg PO DAILY [facility] Last Admin: 05/20/18 09:20 Dose: 81 mg Atorvastatin Calcium (Lipitor) 20 mg PO DAILY [facility] Collagenase (Santyl) 0 gm TOP DAILY [facility] Last Admin: 05/20/18 09:27 Dose: Not Given Ergocalciferol (Drisdol 50,000 Intl Units Cap) 1 cap PO Q7D [facility] Last Admin: 05/17/18 11:20 Dose: 1 cap Ferrous Sulfate (Feosol) 324 mg PO TID [facility] Last Admin: 05/21/18 13:28 Dose: Not Given Sodium Chloride (Sodium Chloride 0.9%) 1,000 mls @ 100 mls/hr IV .Q10H [facility] Last Admin: 05/20/18 17:45 Dose: 100 mls/hr Metoprolol Tartrate (Lopressor) 50 mg PO DAILY [facility] Last Admin: 05/20/18 09:20 Dose: 50 mg Nicotine (Nicoderm Cq) 1 patch TD DAILY [facility] Last Admin: 05/21/18 13:30 Dose: Not Given Ondansetron HCl (Zofran Inj) 4 mg IVP ONCE PRN PRN Reason: Nausea/Vomiting Tamsulosin HCl (Flomax) 0.4 mg PO HS [facility] Last Admin: 05/20/18 21:59 Dose: 0.4 mg - Labs Labs: 05/21/18 07:00 05/21/18 07:00 PT 12.8 SECONDS (9.4-12.5) H 05/21/18 07:00 INR 1.13 05/21/18 07:00 APTT 29.0 Seconds (26.9-38.3) 05/21/18 07:00 - Constitutional Appears: Chronically Ill - Head Exam Head Exam: NORMAL INSPECTION - Respiratory Exam Respiratory Exam: Decreased Breath Sounds - Cardiovascular Exam Cardiovascular Exam: +S1, +S2 - GI/Abdominal Exam GI & Abdominal Exam: Soft. absent: Tenderness Assessment and Plan - Assessment and Plan (Free Text) Plan: Assessment SIRS probably due to superficial ulcers on the left foot, R/O osteomyelitis HTN DM prostate cancer chronic CHF Plan continue to monitor off antibiotics since the patient is not toxic and will follow up MRI of the foot discussed with Dr. Carrillo
[2018-05-23] MEDS: Pantoprazole 40 mg EC Tab PO SCH (06:25)
[2018-05-23 06:45] LABS: BASO # 0.02 K/mm3 (0.0-2.0); BASO % 0.2 % (0.0-3.0); EOS # 0.4 (0.0-0.7); EOS % 4.3 % (1.5-5.0); HEMOGLOBIN 10.3 g/dL (14.0-18.0); LYMPH # 1.2 (1.2-3.4); LYMPH % 12.5 % (22.0-35.0); MEAN CELL VOLUME 82.5 fl (80.0-105.0); MEAN CORPUSCULAR HEMOGLOBIN 25.4 pg (25.0-35.0); MEAN CORPUSCULAR HGB CONC 30.8 g/dl (31.0-37.0); MEAN PLATELET VOLUME 9.6 fl (7.0-11.0); MONO # 0.9 (0.1-0.6); RBC 4.05 10^6/uL (3.5-6.1); RED CELL DISTRIBUTION WIDTH 16.8 % (11.5-14.5); WHITE BLOOD COUNT 9.8 10^3/uL (4.5-11.0)
[2018-05-23 07:26] LABS: ALB/GLOB RATIO 1.2 (1.1-1.8); ALBUMIN 3.4 g/dL (3.0-4.8); ALT/SGPT 21 U/L (7-56); AST/SGOT 18 U/L (17-59); BLOOD UREA NITROGEN 23 mg/dL (7-21); CALCIUM 8.9 mg/dL (8.4-10.5); GFR NON-AFRICAN AMERICAN > 60
[2018-05-23] MEDS: Arformoterol 15 mcg/2 ml Inh Sol IH SCH ×2 (08:09→19:33)
[2018-05-23] MEDS: Budesonide 0.25 mg/2 ml Inhal Susp UD IH SCH ×2 (08:10→19:33)
[2018-05-23] MEDS: Collagenase 250 Units/gm Ointment(30 gm) TOP SCH (09:22)
--- NOTE | 2018-05-23 10:16 | CP.PCM.PN ---
Subjective - Date & Time of Evaluation Date of Evaluation: 05/23/18 Time of Evaluation: 10:11 - Subjective Subjective: Podiatry Progress Note - Drs. Zuniga/Lorena 72M seen and evaluated this AM with Dr. Carrillo for bilateral foot wounds. Patient resting comfortably, hemodynamically stable and NAD. No acute events overnight. Patient offers no complaints to both foot wounds. Dressings to bilateral LE clean/dry/intact. Denies n/v/f/d/c/sob. Objective - Vital Signs/Intake and Output Vital Signs (last 24 hours): Temp Pulse Resp BP Pulse Ox 97.8 F 70 18 122/59 L 95 05/23/18 06:00 05/23/18 09:22 05/23/18 06:00 05/23/18 09:22 05/23/18 06:00 Intake and Output: 05/23/18 05/23/18 06:59 18:59 Intake Total 420 Output Total 650 Balance -230 - Medications Medications: Current Medications Albuterol/Ipratropium (Duoneb 3 Mg/0.5 Mg (3 Ml) Ud) 3 ml IH [id number] PRN PRN Reason: Shortness of Breath Arformoterol Tartrate (Brovana) 15 mcg IH [id number] [facility] Last Admin: 05/23/18 08:09 Dose: Not Given Aspirin (Ecotrin) 81 mg PO DAILY [facility] Last Admin: 05/23/18 09:22 Dose: 81 mg Atorvastatin Calcium (Lipitor) 20 mg PO DAILY [facility] Last Admin: 05/23/18 09:21 Dose: 20 mg Budesonide (Pulmicort Respules) 0.25 mg IH [id number] [facility] Last Admin: 05/23/18 08:10 Dose: Not Given Carvedilol (Coreg) 6.25 mg PO BID [facility] Last Admin: 05/23/18 09:21 Dose: 6.25 mg Collagenase (Santyl) 0 gm TOP DAILY [facility] Last Admin: 05/23/18 09:22 Dose: 1 applic Ergocalciferol (Drisdol 50,000 Intl Units Cap) 1 cap PO Q7D [facility] Last Admin: 05/17/18 11:20 Dose: 1 cap Ferrous Sulfate (Feosol) 324 mg PO TID [facility] Last Admin: 05/23/18 09:21 Dose: 324 mg Sodium Chloride (Sodium Chloride 0.9%) 1,000 mls @ 100 mls/hr IV .Q10H [facility] Last Admin: 05/21/18 20:30 Dose: Not Given Lisinopril (Zestril) 5 mg PO DAILY [facility] Last Admin: 05/23/18 09:22 Dose: 5 mg Nicotine (Nicoderm Cq) 1 patch TD DAILY [facility] Last Admin: 05/23/18 09:23 Dose: Not Given Ondansetron HCl (Zofran Inj) 4 mg IVP ONCE PRN PRN Reason: Nausea/Vomiting Pantoprazole Sodium (Protonix Ec Tab) 40 mg PO 0600 [facility] Last Admin: 05/23/18 06:25 Dose: 40 mg Tamsulosin HCl (Flomax) 0.4 mg PO HS [facility] Last Admin: 05/22/18 21:12 Dose: 0.4 mg - Labs Labs: 05/23/18 06:00 05/23/18 06:00 PT 12.8 SECONDS (9.4-12.5) H 05/21/18 07:00 INR 1.13 05/21/18 07:00 APTT 29.0 Seconds (26.9-38.3) 05/21/18 07:00 - Constitutional Appears: Non-toxic, No Acute Distress - Head Exam Head Exam: NORMOCEPHALIC - Extremities Exam Additional comments: VASC: DP and PT pulses dopplerable. CFT <3 seconds to digits x5 b/l. Pedal hair growth absent. NEURO: Light touch and protective sensation diminished bilaterally. DERM: LLE=Ulceration noted to plantar aspect of left 1st met head measuring approxi mately 0.2 x 0.2 x 0.2 cm - noted to have a granular base and hyperkeratotic rim; minimal serous drainage present; no purulence; no fluctuance; no undermining; no tunneling RLE=Sutures present to sulcus of 5th digit - appear intact with no evidence of wound dehiscence. Full thickness ulcer noted to medial aspect of 1st MPJ measuring approximately 2 x 2 x 0.3cm -wound noted to have a mixed fibronecrotic base and hyperkeratotic rim; no drainage present; no purulence; no fluctuance; no probe to bone. ORTHO: No pain on palpation noted to wounds. - Neurological Exam Neurological Exam: Alert, Awake - Psychiatric Exam Psychiatric exam: Normal Affect, Normal Mood Assessment and Plan - Assessment and Plan (Free Text) Assessment: 72M with 1) full thickness ulceration, right foot 2) resolving laceration right 5th digit 3) partial thickness left plantar foot ulcer Plan: Patient seen and evaluated with Dr. Carrillo Afebrile, absent leukocytosis Right foot XR: Skin ulcer adjacent to 1st metatarsal, erosion at medial aspect of distal 1st metatarsal possible OM Sutures removed from right laceration site with 1 interdigital stitch left intact - patient tolerated procedure Dressing instructions - cleansed with normal saline, betadine to laceration site on right foot, santyl applied to ulcerations b/l and dressed with optifoam and DSD Dr. Posadas vascular procedure - successful angioplasty of occluded right external iliac artery stent, angioplasty of occluded right common femoral artery, long segment right SFA occlusion, proximal left SFA occlusion, two vessel tibial runoff bilaterally, if gangrene progresses to right foot, fem-pop bypass evaluation Right foot wound culture - corynebacterium species Right foot MRI: marrow signal abnormality in 5th distal and middle phalanges suggestive of OM in appropriate clinical setting Continue abx per ID Will need 4-6 weeks IV abx, stable for transfer to [facility] per podiatry, will follow as outpatient Dressing instructions: santyl to ulcers at right first MPJ and left submet 1, cover with foam dressing, right laceration at fifth digit apply betadine and dry sterile dressing Can be full weight bearing in surgical shoe, wedge shoe if provided for heel weight bearing to offload right fifth digit Podiatry will continue to follow
--- NOTE | 2018-05-23 12:28 | CP.PCM.PN ---
<Frantz Redman - Last Filed: 05/23/18 12:51> Subjective - Date & Time of Evaluation Date of Evaluation: 05/23/18 Time of Evaluation: 06:00 - Subjective Subjective: Pt seen and examined this morning at bedside. Per nursing, pt BP elevated 181/82 given hydralazine, pt confused and having auditory hallucinations, left groin status unchanged. Objective - Vital Signs/Intake and Output Vital Signs (last 24 hours): Temp Pulse Resp BP Pulse Ox 97.7 F 72 18 102/54 L 95 05/23/18 12:00 05/23/18 12:00 05/23/18 12:00 05/23/18 12:00 05/23/18 06:00 Intake and Output: 05/23/18 05/23/18 06:59 18:59 Intake Total 420 Output Total 650 Balance -230 - Medications Medications: Current Medications Albuterol/Ipratropium (Duoneb 3 Mg/0.5 Mg (3 Ml) Ud) 3 ml IH [id number] PRN PRN Reason: Shortness of Breath Arformoterol Tartrate (Brovana) 15 mcg IH [id number] [facility] Last Admin: 05/23/18 08:09 Dose: Not Given Aspirin (Ecotrin) 81 mg PO DAILY [facility] Last Admin: 05/23/18 09:22 Dose: 81 mg Atorvastatin Calcium (Lipitor) 20 mg PO DAILY [facility] Last Admin: 05/23/18 09:21 Dose: 20 mg Budesonide (Pulmicort Respules) 0.25 mg IH [id number] [facility] Last Admin: 05/23/18 08:10 Dose: Not Given Carvedilol (Coreg) 6.25 mg PO BID [facility] Last Admin: 05/23/18 09:21 Dose: 6.25 mg Collagenase (Santyl) 0 gm TOP DAILY [facility] Last Admin: 05/23/18 09:22 Dose: 1 applic Ergocalciferol (Drisdol 50,000 Intl Units Cap) 1 cap PO Q7D [facility] Last Admin: 05/17/18 11:20 Dose: 1 cap Ferrous Sulfate (Feosol) 324 mg PO TID [facility] Last Admin: 05/23/18 09:21 Dose: 324 mg Sodium Chloride (Sodium Chloride 0.9%) 1,000 mls @ 100 mls/hr IV .Q10H [facility] Last Admin: 05/21/18 20:30 Dose: Not Given Lisinopril (Zestril) 5 mg PO DAILY [facility] Last Admin: 05/23/18 09:22 Dose: 5 mg Nicotine (Nicoderm Cq) 1 patch TD DAILY [facility] Last Admin: 05/23/18 09:23 Dose: Not Given Ondansetron HCl (Zofran Inj) 4 mg IVP ONCE PRN PRN Reason: Nausea/Vomiting Pantoprazole Sodium (Protonix Ec Tab) 40 mg PO 0600 [facility] Last Admin: 05/23/18 06:25 Dose: 40 mg Tamsulosin HCl (Flomax) 0.4 mg PO HS [facility] Last Admin: 05/22/18 21:12 Dose: 0.4 mg - Labs Labs: 05/23/18 06:00 05/23/18 06:00 PT 12.8 SECONDS (9.4-12.5) H 05/21/18 07:00 INR 1.13 05/21/18 07:00 APTT 29.0 Seconds (26.9-38.3) 05/21/18 07:00 - Constitutional Appears: No Acute Distress - Head Exam Head Exam: ATRAUMATIC, NORMOCEPHALIC - Eye Exam Eye Exam: EOMI - ENT Exam ENT Exam: Mucous Membranes Moist - Neck Exam Neck Exam: Full ROM - Respiratory Exam Respiratory Exam: Clear to Ausculation Bilateral, NORMAL BREATHING PATTERN. absent: Accessory Muscle Use - Cardiovascular Exam Cardiovascular Exam: RRR, +S1, +S2 - GI/Abdominal Exam GI & Abdominal Exam: Soft, Normal Bowel Sounds. absent: Tenderness - Extremities Exam Extremities Exam: Full ROM. absent: Calf Tenderness, Pedal Edema, Tenderness Additional comments: dressing on both LE, clean dry and intact - Neurological Exam Neurological Exam: Alert, Awake, Oriented x3 - Psychiatric Exam Psychiatric exam: Normal Affect, Normal Mood - Skin Skin Exam: Dry, Intact, Normal Color Assessment and Plan - Assessment and Plan (Free Text) Assessment: Pt is a 72 yo male with a PMH of sternotomy for ?valve repair, HFpEF, DVT on Eliquis, HTN, COPD, ?CAD, and homelessness who presented after a fall down the steps with associated dizziness, chest pain but without LOC. Plan: Clinical Osteomyelitis - Hx of PAD - Foot MRI: marrow signal abnormality in the 5th distal and middle phalanges compatible with osteomyelitis in the appropriate clinical setting. - ID, following - IR, angio reveals occluded right external iliac stent and right common femoral art were recanalized with a drug eluting balloon angioplasty. In the future, pt may need fem-pop bypass - Podiatry, Will need 4-6 weeks IV abx, stable for transfer to [facility] per podiatry, will follow as outpatient. continue to treat with Betadine. Santyl to ulcers at right first MPJ and left submet 1, cover with foam dressing, right laceration at fifth digit apply betadine and dry sterile dressing. Possible Syncope, s/p fall - Carotid US: R ICA 60-79% stenosis, L ICA 40-59% stenosis - 05/17: CT Head showed no acute changes - MRI Brain: chronic ischemic changes in the right frontal and right parietal region - Neurology, pt should continue ASA and lipitor, repeat carotid art US as out pt in 6 months - PT: rec subacute rehab Chest pain, rule out ACS - Likely musculoskeletal after recent fall down flight of stairs - Troponins negative x3 - TSH 1.13 - echo shows HFpEF, EF 57% - Cardio following BPH - Flomax Tobacco Abuse - nicotine patch - Counseled on cessation, unwilling to try and quit Hx of DVT - hold eliquis Anemia of Chronic Disease - ferrous supplementation HTN - metoprolol COPD - duonebs [facility] and PRN Homelessness - Social work consulted - CM consulted Ppx - SCD Dispo: pt pending placement Pt seen, examined, assessment and plan discussed with Dr Yas Redman PGY1, Internal Medicine Resident <Yas Mcneil R - Last Filed: 05/24/18 07:47> Objective - Vital Signs/Intake and Output Vital Signs (last 24 hours): Temp Pulse Resp BP Pulse Ox 98.0 F 70 20 118/50 L 97 05/24/18 06:00 05/24/18 06:00 05/24/18 06:00 05/24/18 06:00 05/24/18 06:00 Intake and Output: 05/24/18 05/24/18 06:59 18:59 Intake Total 203 Balance 203 - Medications Medications: Current Medications Albuterol/Ipratropium (Duoneb 3 Mg/0.5 Mg (3 Ml) Ud) 3 ml IH [id number] PRN PRN Reason: Shortness of Breath Arformoterol Tartrate (Brovana) 15 mcg IH [id number] [facility] Last Admin: 05/23/18 19:33 Dose: 15 mcg Aspirin (Ecotrin) 81 mg PO DAILY [facility] Last Admin: 05/23/18 09:22 Dose: 81 mg Atorvastatin Calcium (Lipitor) 20 mg PO DAILY [facility] Last Admin: 05/23/18 09:21 Dose: 20 mg Budesonide (Pulmicort Respules) 0.25 mg IH [id number] [facility] Last Admin: 05/23/18 19:33 Dose: 0.25 mg Carvedilol (Coreg) 6.25 mg PO BID [facility] Last Admin: 05/23/18 17:33 Dose: 6.25 mg Collagenase (Santyl) 0 gm TOP DAILY [facility] Last Admin: 05/23/18 09:22 Dose: 1 applic Ergocalciferol (Drisdol 50,000 Intl Units Cap) 1 cap PO Q7D [facility] Last Admin: 05/17/18 11:20 Dose: 1 cap Ferrous Sulfate (Feosol) 324 mg PO TID [facility] Last Admin: 05/23/18 17:33 Dose: 324 mg Sodium Chloride (Sodium Chloride 0.9%) 1,000 mls @ 100 mls/hr IV .Q10H [facility] Last Admin: 05/21/18 20:30 Dose: Not Given Doxycycline Hyclate 100 mg/ (Sodium Chloride) 100 mls @ 100 mls/hr IVPB Q12 [facility]; Protocol Last Admin: 05/23/18 22:15 Dose: 100 mls/hr Cefepime HCl (Maxipime 2gm) 2 gm in 100 mls @ 25 mls/hr IVPB Q12 [facility]; Protocol Stop: 05/28/18 22:01 Last Admin: 05/23/18 22:14 Dose: 25 mls/hr Lisinopril (Zestril) 5 mg PO DAILY [facility] Last Admin: 05/23/18 09:22 Dose: 5 mg Nicotine (Nicoderm Cq) 1 patch TD DAILY [facility] Last Admin: 05/23/18 09:23 Dose: Not Given Ondansetron HCl (Zofran Inj) 4 mg IVP ONCE PRN PRN Reason: Nausea/Vomiting Pantoprazole Sodium (Protonix Ec Tab) 40 mg PO 0600 [facility] Last Admin: 05/24/18 05:35 Dose: 40 mg Tamsulosin HCl (Flomax) 0.4 mg PO HS [facility] Last Admin: 05/23/18 22:14 Dose: 0.4 mg - Labs Labs: 05/24/18 06:30 05/24/18 06:30 PT 12.8 SECONDS (9.4-12.5) H 05/21/18 07:00 INR 1.13 05/21/18 07:00 APTT 29.0 Seconds (26.9-38.3) 05/21/18 07:00 Attending/Attestation - Attestation I have personally seen and examined this patient.: Yes I have fully participated in the care of the patient.: Yes I have reviewed all pertinent clinical information, including history, physical exam and plan: Yes Notes (Text): Patient seen and examined by me with resident at 9:40AM on 05/23/18. Case including HPI, physical exam, and assessment and plan discussed with resident. Agree with above with following additions/corrections. Patient is a 72-year-old male with past medical history significant for COPD, chronic bilateral plantar fascitis, CABG, PAD, DVT, anemia, noncompliance with medications, and homelessness presented to the emergency room with chest pain after a fall. Patient states he is feeling much better today. Denies any pain in is feet. Patient wants to work with physical therapy. Patient denies shortness of breath. No chest pain or palpitations. No headaches or dizziness. No fevers or chills. No nausea, vomiting, or abdominal pain. No dysuria. Physical exam: General: Awake and alert lying in bed in no acute distress HEENT: Normocephalic, atraumatic. Extraocular muscles intact, pupils equal and reactive, no scleral icterus. Oropharynx is pink and moist. No pharyngeal erythema or exudate appreciated. Neck is supple. Cardiovascular: Regular rhythm. Normal S1 and S2. No murmurs, rubs, or gallops appreciated Pulmonary: Normal respiratory effort. Decreased breath sounds at bases. No rhonchi, rales, or wheezing appreciated. Gastrointestinal: Soft, nondistended. Nontender. Positive bowel sounds all 4 quadrants. No guarding. Musculoskeletal: Moves all extremities. No calf tenderness. Positive bilateral lower extremity pitting edema. Dressings bilateral feet clean, dry, and intact. Central nervous system: AAOx3, CN 2-12 grossly intact. Dermatologic: Skin warm and dry. Assessment and plan: Patient is a 72-year-old male with past medical history significant for COPD, chronic bilateral plantar fasciitis, CABG, PAD, DVT, anemi a, noncompliance with medications, and homelessness presented to the emergency room with chest pain after a fall. 1. Bilateral feet ulcers. PAD. S/P angiogram 05/21/18 which per radiologist showed an occluded right external iliac stent and right common femoral artery; large profunda femoral artery with an occluded right SFA. S/P recanalization with [place] atherectomy and drug-eluting balloon angioplasty of occulded right external iliac stent and right common femoral artery. IR following, kelsi mmendations appreciated. Continue aspirin and Lipitor. ID following, no antibiotics for now. MRI right foot per radiologist showed marrow signal abnormality in the fifth distal and middle phalanges compatible with osteomyelitis in the appropriate clinical setting. Patient started on doxycycline and cefepime per ID. Podiatry following, recommendations appreciated. Right foot wound culture positive for corynebacterium. Continue local wound care. Left foot xray per radiologist showed no evidence of acute pathology. Right foot xray per radiologist showed skin ulcer adjacent to the distal 1st metatarsal bone with suspicious for small erosion at the medial aspect of the distal 1st metatarsal head may represent an early osteomyelitis. Bilateral lower extremity venous dopplers negative for DVT. 2. Dizziness, gait instability, Fall. Continue ASA and Lipitor. PT following, recommendations appreciated. For JUAN MNAUEL tomorrow. Neurology following, recommendations appreciated. MRI brain per radiologist showed limited study as patient terminated the exam, no gross intracranial hemorrhage or infarction, chronic appearing ischemic changes in the right frontal and right parietal regions and moderate diffuse/confluent chronic white matter ischemic changes, moderate to significant atrophy. Head CT per radiologist showed no intracranial abnormality. Carotid ultrasound per radiologist showed 60-79% proximal right ICA stenosis, 40-59% proximal left ICA stenosis, antegrade flow in the right vertebral artery, the left vertebral artery is no visualized and may be occluded. Will need repeat cartoid ultrasound in [address] Jackson. 3. Chest pain in a patient with CAD. Chest pain resolved. Continue ASA, Lipitor, Coreg, and Lisinopril. Troponins within normal limits. ACS ruled out. Cardiology following, recommendations appreciated. 2D echo per relationship advisor showed mild to moderate concentric left ventricular hypertrophy; left ventricular function is normal; left ventricular ejection fraction is within normal range; transmitral doppler flow pattern is grade 1 abnormal relaxation pattern; mitral regurgitation is trace to mild; mild tricuspid regurgitation; mild pulmonary hypertension. Chest CT per radiologist showed unremarkable non-contrast enhanced CT of the chest; no evidence of displaced rib fracture or pneumothorax. 4. Stool for occult blood positive. Patient on Eliquis and ASA. GI recommendations appreciated. Patient to have outpatient colonscopy and EGD. H&H stable 5. Chronic anemia. Continue ferrous sulfate. H&H stable. Continue to monitor. 6. Essential hypertension. Continue Coreg and Lisinopril 7. COPD. Continue nebulizer treatments. Continue Brovana and pulmicort. Patient counseled at length on tobacco cessation. 8. History of DVT. Restart Eliquis when ok with IR. 9. BPH. Continue Flomax. 10. Tobacco abuse. Patient counseled at length on tobacco cessation. Continue nicotine patch 11. Homelessness. See by PT. JUAN MANUEL recommended. house worker following. 12. GI/DVT prophylaxis. Protonix/ELiquis when ok with IR. 13. Paitent is a full code. Case was discussed in detail with the patient regarding current diagnosis and treatment plan. All questions answered.
--- NOTE | 2018-05-23 13:23 | CP.PCM.PN ---
Subjective - Date & Time of Evaluation Date of Evaluation: 05/23/18 Time of Evaluation: 10:00 - Subjective Subjective: No increased pain the right foot, no fevers, no nausea, no diarrhea, no SOB at rest. Objective - Vital Signs/Intake and Output Vital Signs (last 24 hours): Temp Pulse Resp BP Pulse Ox 98.6 F 89 18 123/56 L 99 05/22/18 12:00 05/22/18 12:00 05/22/18 12:00 05/22/18 12:00 05/22/18 05:16 Intake and Output: 05/22/18 05/22/18 06:59 18:59 Intake Total 1200 680 Output Total 1850 925 Balance -650 -245 - Medications Medications: Current Medications Albuterol/Ipratropium (Duoneb 3 Mg/0.5 Mg (3 Ml) Ud) 3 ml IH [id number] PRN PRN Reason: Shortness of Breath Arformoterol Tartrate (Brovana) 15 mcg IH [id number] [facility] Last Admin: 05/22/18 07:37 Dose: Not Given Aspirin (Ecotrin) 81 mg PO DAILY [facility] Last Admin: 05/22/18 11:25 Dose: 81 mg Atorvastatin Calcium (Lipitor) 20 mg PO DAILY [facility] Last Admin: 05/22/18 11:24 Dose: 20 mg Budesonide (Pulmicort Respules) 0.25 mg IH [id number] [facility] Last Admin: 05/22/18 07:37 Dose: Not Given Carvedilol (Coreg) 6.25 mg PO BID [facility] Last Admin: 05/22/18 11:25 Dose: 6.25 mg Collagenase (Santyl) 0 gm TOP DAILY [facility] Last Admin: 05/22/18 11:28 Dose: 1 applic Ergocalciferol (Drisdol 50,000 Intl Units Cap) 1 cap PO Q7D [facility] Last Admin: 05/17/18 11:20 Dose: 1 cap Ferrous Sulfate (Feosol) 324 mg PO TID [facility] Last Admin: 05/22/18 14:33 Dose: 324 mg Sodium Chloride (Sodium Chloride 0.9%) 1,000 mls @ 100 mls/hr IV .Q10H [facility] Last Admin: 05/21/18 20:30 Dose: Not Given Lisinopril (Zestril) 5 mg PO DAILY [facility] Last Admin: 05/22/18 11:27 Dose: 5 mg Nicotine (Nicoderm Cq) 1 patch TD DAILY [facility] Last Admin: 05/22/18 10:00 Dose: Not Given Ondansetron HCl (Zofran Inj) 4 mg IVP ONCE PRN PRN Reason: Nausea/Vomiting Pantoprazole Sodium (Protonix Ec Tab) 40 mg PO 0600 [facility] Last Admin: 05/22/18 06:18 Dose: 40 mg Tamsulosin HCl (Flomax) 0.4 mg PO HS [facility] Last Admin: 05/21/18 21:19 Dose: 0.4 mg - Labs Labs: 05/22/18 06:30 05/22/18 06:30 PT 12.8 SECONDS (9.4-12.5) H 05/21/18 07:00 INR 1.13 05/21/18 07:00 APTT 29.0 Seconds (26.9-38.3) 05/21/18 07:00 - Constitutional Appears: No Acute Distress, Chronically Ill - Head Exam Head Exam: NORMAL INSPECTION - Neck Exam Neck Exam: absent: Meningismus - Respiratory Exam Respiratory Exam: Decreased Breath Sounds - Cardiovascular Exam Cardiovascular Exam: +S1, +S2 - GI/Abdominal Exam GI & Abdominal Exam: Soft. absent: Tenderness Assessment and Plan - Assessment and Plan (Free Text) Plan: Assessment left foot osteomyelitis of the 5th distal and middle phalanges in this patient with peripheral vascular disease S/P angioplasty POD #2 HTN DM prostate cancer chronic CHF Plan as discussed with Podiatry and medical team, patient will need 4-6 weeks of antibiotics with weekly ESR, CRP, CBC, CMP with labs to be followed up by Podiatry and PMD as outpatient patient to follow up with Podiatry as outpatient will start Doxycycline and Cefepime for broad spectrum coverage since we do not have bone cultures to guide our therapy
[2018-05-23] MEDS: Cefepime IV 2 gm in NS 2 GM/100 ML BAG IVPB SCH (22:14)
[2018-05-24] MEDS: Pantoprazole 40 mg EC Tab PO SCH (05:35)
[2018-05-24 06:23] VITALS: RESP 20; O2SAT 97
[2018-05-24 07:10] LABS: BASO # 0.03 K/mm3 (0.0-2.0); BASO % 0.3 % (0.0-3.0); EOS # 0.4 (0.0-0.7); EOS % 3.9 % (1.5-5.0); LYMPH # 1.1 (1.2-3.4); LYMPH % 11.9 % (22.0-35.0); MEAN CELL VOLUME 82.2 fl (80.0-105.0); MEAN CORPUSCULAR HEMOGLOBIN 25.8 pg (25.0-35.0); MEAN CORPUSCULAR HGB CONC 31.3 g/dl (31.0-37.0); MONO # 0.9 (0.1-0.6); MONO % 9.8 % (1.0-6.0); RBC 3.88 10^6/uL (3.5-6.1); RED CELL DISTRIBUTION WIDTH 17.1 % (11.5-14.5); WHITE BLOOD COUNT 9.5 10^3/uL (4.5-11.0)
[2018-05-24 07:37] LABS: ALB/GLOB RATIO 1.1 (1.1-1.8); ALBUMIN 3.2 g/dL (3.0-4.8); ALT/SGPT 22 U/L (7-56); AST/SGOT 16 U/L (17-59); BLOOD UREA NITROGEN 31 mg/dL (7-21); CALCIUM 8.5 mg/dL (8.4-10.5); GFR NON-AFRICAN AMERICAN > 60
[2018-05-24] MEDS: Arformoterol 15 mcg/2 ml Inh Sol IH SCH ×2 (08:48→09:31)
[2018-05-24] MEDS: Budesonide 0.25 mg/2 ml Inhal Susp UD IH SCH ×2 (08:49→09:32)
[2018-05-24] MEDS: Cefepime IV 2 gm in NS 2 GM/100 ML BAG IVPB SCH (10:35)
[2018-05-24] MEDS: Ergocalciferol 50,000 Intl Units Cap PO SCH (10:39)
--- NOTE | 2018-05-24 11:26 | CP.PCM.PN ---
<Chad Juarez - Last Filed: 05/24/18 11:24> Subjective - Date & Time of Evaluation Date of Evaluation: 05/24/18 Time of Evaluation: 11:24 - Subjective Subjective: Podiatry Progress Note - Drs. Zuniga/Lorena 72M seen and evaluated this AM with Dr. Zuniga for bilateral foot wounds. Patient resting comfortably, hemodynamically stable and NAD. No acute events overnight. Patient offers no complaints to both foot wounds. Patient aware he is being transferred to subacute rehab today. Dressings to bilateral LE clean/dry/intact. Denies n/v/f/d/c/sob. Objective - Vital Signs/Intake and Output Vital Signs (last 24 hours): Temp Pulse Resp BP Pulse Ox 98.0 F 78 20 128/71 97 05/24/18 06:00 05/24/18 10:37 05/24/18 06:00 05/24/18 10:37 05/24/18 06:00 Intake and Output: 05/24/18 05/24/18 06:59 18:59 Intake Total 203 Balance 203 - Medications Medications: Current Medications Albuterol/Ipratropium (Duoneb 3 Mg/0.5 Mg (3 Ml) Ud) 3 ml IH [id number] PRN PRN Reason: Shortness of Breath Arformoterol Tartrate (Brovana) 15 mcg IH [id number] [facility] Last Admin: 05/24/18 09:31 Dose: Not Given Aspirin (Ecotrin) 81 mg PO DAILY [facility] Last Admin: 05/24/18 10:37 Dose: 81 mg Atorvastatin Calcium (Lipitor) 20 mg PO DAILY [facility] Last Admin: 05/24/18 10:37 Dose: 20 mg Budesonide (Pulmicort Respules) 0.25 mg IH [id number] [facility] Last Admin: 05/24/18 09:32 Dose: Not Given Carvedilol (Coreg) 6.25 mg PO BID [facility] Last Admin: 05/24/18 10:36 Dose: 6.25 mg Collagenase (Santyl) 0 gm TOP DAILY [facility] Last Admin: 05/23/18 09:22 Dose: 1 applic Ergocalciferol (Drisdol 50,000 Intl Units Cap) 1 cap PO Q7D [facility] Last Admin: 05/24/18 10:39 Dose: 1 cap Ferrous Sulfate (Feosol) 324 mg PO TID [facility] Last Admin: 05/24/18 10:37 Dose: 324 mg Sodium Chloride (Sodium Chloride 0.9%) 1,000 mls @ 100 mls/hr IV .Q10H [facility] Last Admin: 05/21/18 20:30 Dose: Not Given Doxycycline Hyclate 100 mg/ (Sodium Chloride) 100 mls @ 100 mls/hr IVPB Q12 [facility]; Protocol Last Admin: 05/23/18 22:15 Dose: 100 mls/hr Cefepime HCl (Maxipime 2gm) 2 gm in 100 mls @ 25 mls/hr IVPB Q12 [facility]; Protocol Stop: 05/28/18 22:01 Last Admin: 05/24/18 10:35 Dose: 25 mls/hr Lisinopril (Zestril) 5 mg PO DAILY [facility] Last Admin: 05/24/18 10:37 Dose: 5 mg Nicotine (Nicoderm Cq) 1 patch TD DAILY [facility] Last Admin: 05/24/18 10:38 Dose: Not Given Ondansetron HCl (Zofran Inj) 4 mg IVP ONCE PRN PRN Reason: Nausea/Vomiting Pantoprazole Sodium (Protonix Ec Tab) 40 mg PO 0600 [facility] Last Admin: 05/24/18 05:35 Dose: 40 mg Tamsulosin HCl (Flomax) 0.4 mg PO HS [facility] Last Admin: 05/23/18 22:14 Dose: 0.4 mg - Labs Labs: 05/24/18 06:30 05/24/18 06:30 PT 12.8 SECONDS (9.4-12.5) H 05/21/18 07:00 INR 1.13 05/21/18 07:00 APTT 29.0 Seconds (26.9-38.3) 05/21/18 07:00 - Constitutional Appears: Well, Non-toxic, No Acute Distress - Head Exam Head Exam: ATRAUMATIC, NORMOCEPHALIC - Extremities Exam Additional comments: VASC: DP and PT pulses dopplerable. CFT <3 seconds to digits x5 b/l. Pedal hair growth absent. NEURO: Light touch and protective sensation diminished bilaterally. DERM: LLE=Ulceration noted to plantar aspect of left 1st met head measuring approximately 0.2 x 0.2 x 0.2 cm - noted to have a granular base and hyperkeratotic rim; minimal serous drainage present; no purulence; no fluctuance; no undermining; no tunneling RLE=Sutures present to sulcus of 5th digit - appear intact with no evidence of wound dehiscence. Full thickness ulcer noted to medial aspect of 1st MPJ measuring approximately 2 x 2 x 0.3cm -wound noted to have a mixed fibronecrotic base and hyperkeratotic rim; no drainage present; no purulence; no fluctuance; n o probe to bone. ORTHO: No pain on palpation noted to wounds. - Neurological Exam Neurological Exam: Alert, Awake, Oriented x3 - Psychiatric Exam Psychiatric exam: Normal Affect, Normal Mood Assessment and Plan - Assessment and Plan (Free Text) Assessment: 72M with 1) full thickness ulceration, right foot 2) resolving laceration right 5th digit 3) partial thickness left plantar foot ulcer Plan: Patient seen and evaluated with Dr. Carrillo Afebrile, absent leukocytosis Right foot XR: Skin ulcer adjacent to 1st metatarsal, erosion at medial aspect of distal 1st metatarsal possible OM Sutures removed from right laceration site with 1 interdigital stitch left intact - patient tolerated procedure Dressing instructions - cleansed with normal saline, betadine to laceration site on right foot, santyl applied to ulcerations b/l and dressed with optifoam and DSD Dr. Posadas vascular procedure - successful angioplasty of occluded right external iliac artery stent, angioplasty of occluded right common femoral artery, long segment right SFA occlusion, proximal left SFA occlusion, two vessel tibial runoff bilaterally, if gangrene progresses to right foot, fem-pop bypass evaluation Right foot wound culture - corynebacterium species Right foot MRI: marrow signal abnormality in 5th distal and middle phalanges suggestive of OM in appropriate clinical setting Continue abx per ID Will need 4-6 weeks IV abx, stable for transfer to [facility] per podiatry, will follow as outpatient Dressing instructions: santyl to ulcers at right first MPJ and left submet 1, cover with foam dressing, right laceration at fifth digit apply betadine and dry sterile dressing Can be full weight bearing in surgical shoe, wedge shoe if provided for heel weight bearing to offload right fifth digit Podiatry will continue to follow <Travis Zuniga - Last Filed: 05/24/18 19:12> Objective - Vital Signs/Intake and Output Vital Signs (last 24 hours): Temp Pulse Resp BP Pulse Ox 97.7 F 77 20 129/69 97 05/24/18 12:00 05/24/18 12:00 05/24/18 12:00 05/24/18 12:00 05/24/18 06:00 - Labs Labs: 05/24/18 06:30 05/24/18 06:30 PT 12.8 SECONDS (9.4-12.5) H 05/21/18 07:00 INR 1.13 05/21/18 07:00 APTT 29.0 Seconds (26.9-38.3) 05/21/18 07:00 Attending/Attestation - Attestation I have personally seen and examined this patient.: Yes I have fully participated in the care of the patient.: Yes I have reviewed all pertinent clinical information, including history, physical exam and plan: Yes
[2018-05-24 12:58] VITALS: BP 129/69; PULSE 77; TEMP 97.7
--- NOTE | 2018-05-24 15:31 | CP.PCM.PN ---
Subjective - Date & Time of Evaluation Date of Evaluation: 05/24/18 Time of Evaluation: 14:05 - Subjective Subjective: Comfortable, not in distress. Objective - Vital Signs/Intake and Output Vital Signs (last 24 hours): Temp Pulse Resp BP Pulse Ox 97.7 F 77 20 129/69 97 05/24/18 12:00 05/24/18 12:00 05/24/18 12:00 05/24/18 12:00 05/24/18 06:00 Intake and Output: 05/24/18 05/24/18 06:59 18:59 Intake Total 203 Balance 203 - Medications Medications: Current Medications Albuterol/Ipratropium (Duoneb 3 Mg/0.5 Mg (3 Ml) Ud) 3 ml IH [id number] PRN PRN Reason: Shortness of Breath Arformoterol Tartrate (Brovana) 15 mcg IH [id number] [facility] Last Admin: 05/24/18 09:31 Dose: Not Given Aspirin (Ecotrin) 81 mg PO DAILY [facility] Last Admin: 05/24/18 10:37 Dose: 81 mg Atorvastatin Calcium (Lipitor) 20 mg PO DAILY [facility] Last Admin: 05/24/18 10:37 Dose: 20 mg Budesonide (Pulmicort Respules) 0.25 mg IH [id number] [facility] Last Admin: 05/24/18 09:32 Dose: Not Given Carvedilol (Coreg) 6.25 mg PO BID [facility] Last Admin: 05/24/18 10:36 Dose: 6.25 mg Collagenase (Santyl) 0 gm TOP DAILY [facility] Last Admin: 05/23/18 09:22 Dose: 1 applic Ergocalciferol (Drisdol 50,000 Intl Units Cap) 1 cap PO Q7D [facility] Last Admin: 05/24/18 10:39 Dose: 1 cap Ferrous Sulfate (Feosol) 324 mg PO TID [facility] Last Admin: 05/24/18 14:51 Dose: 324 mg Sodium Chloride (Sodium Chloride 0.9%) 1,000 mls @ 100 mls/hr IV .Q10H [facility] Last Admin: 05/21/18 20:30 Dose: Not Given Doxycycline Hyclate 100 mg/ (Sodium Chloride) 100 mls @ 100 mls/hr IVPB Q12 [facility]; Protocol Last Admin: 05/24/18 14:52 Dose: 100 mls/hr Cefepime HCl (Maxipime 2gm) 2 gm in 100 mls @ 25 mls/hr IVPB Q12 [facility]; Protocol Stop: 05/28/18 22:01 Last Admin: 05/24/18 10:35 Dose: 25 mls/hr Lisinopril (Zestril) 5 mg PO DAILY [facility] Last Admin: 05/24/18 10:37 Dose: 5 mg Nicotine (Nicoderm Cq) 1 patch TD DAILY [facility] Last Admin: 05/24/18 10:38 Dose: Not Given Ondansetron HCl (Zofran Inj) 4 mg IVP ONCE PRN PRN Reason: Nausea/Vomiting Pantoprazole Sodium (Protonix Ec Tab) 40 mg PO 0600 [facility] Last Admin: 05/24/18 05:35 Dose: 40 mg Tamsulosin HCl (Flomax) 0.4 mg PO HS [facility] Last Admin: 05/23/18 22:14 Dose: 0.4 mg - Labs Labs: 05/24/18 06:30 05/24/18 06:30 PT 12.8 SECONDS (9.4-12.5) H 05/21/18 07:00 INR 1.13 05/21/18 07:00 APTT 29.0 Seconds (26.9-38.3) 05/21/18 07:00 - Constitutional Appears: Chronically Ill - Head Exam Head Exam: NORMAL INSPECTION - Respiratory Exam Respiratory Exam: Decreased Breath Sounds - Cardiovascular Exam Cardiovascular Exam: +S1, +S2 - GI/Abdominal Exam GI & Abdominal Exam: Soft. absent: Tenderness Assessment and Plan - Assessment and Plan (Free Text) Plan: Assessment left foot osteomyelitis of the 5th distal and middle phalanges in this patient with peripheral vascular disease S/P angioplasty POD #3 HTN DM prostate cancer chronic CHF Plan as discussed with Podiatry and medical team, patient will need 4-6 weeks of antibiotics with weekly ESR, CRP, CBC, CMP with labs to be followed up by Podiatry and PMD as outpatient patient to follow up with Podiatry as outpatient will continue Doxycycline and Cefepime for broad spectrum coverage since we do n ot have bone cultures to guide our therapy - discussed this with the medical team
--- NOTE | 2018-05-24 16:47 | CP.PCM.DIS ---
Provider - Provider Date of Admission: 05/19/18 14:40 Attending physician: Jessica Mcrae MD Primary care physician: Murali Wesley MD Consults: 05/17/18 10:08 Neurology Consult Stat Comment: Consulting Provider: Rashad Jackson Consulting Physician: Rashad Jackson Reason for Consult: Syncopal event 05/17/18 12:30 Cardiology Consult Routine Comment: Consulting Provider: Asad Barnhart Consulting Physician: Asad Barnhart Reason for Consult: chest pain s/p syncopal event 05/17/18 14:15 Social Work Referral Routine Comment: pt is homeless/ d/c plan Physician Instructions: Reason For Exam: eval 05/17/18 14:30 Consult [Physician Consult] Routine Comment: Consulting Provider: Travis Zuniga Consulting Physician: Travis Zuniga Reason for Consult: FOOT ULCER, pvd, SUTURES PRESENT 05/17/18 14:32 Case Management Referral Routine Comment: Physician Instructions: Reason For Exam: Reason for Referral: Discharge Planning 05/17/18 15:17 Inpatient [employer] Core Measures Referral Routine Comment: chest pain Physician Instructions: Reason For Exam: eval Respiratory Therapy Referral Routine Comment: 1 ppd smoker Physician Instructions: Reason For Exam: eval Transition In Care/Readmission Reduction Routine Comment: chest pain Physician Instructions: Reason For Exam: eval 05/18/18 09:53 Consult [Physician Consult] Routine Comment: evaluate art dopplers Consulting Provider: Johann Posadas Consulting Physician: Johann Posadas Reason for Consult: evaluate art dopplers Additional Comments: bilateral foot uclers 05/18/18 09:55 Consult [Physician Consult] Routine Comment: evaluate C and S Consulting Provider: Toby Martin Consulting Physician: Toby Martin Reason for Consult: Evaluate C and S Additional Comments: foot ulcers 05/20/18 09:56 Gastroenterology Consult Routine Comment: Consulting Provider: Sameer Rodriguez Consulting Physician: Sameer Rodriguez Reason for Consult: fecal occult pos 05/20/18 22:24 Nursing Referral for Wound Care Routine Comment: Physician Instructions: Reason For Exam: protocol Time Spent in preparation of Discharge (in minutes): 40 Diagnosis - Discharge Diagnosis (1) Osteomyelitis Status: Acute Priority: High (2) Chest pain Status: Acute Priority: High (3) Fall Status: Acute Priority: High (4) HTN (hypertension) Status: Chronic Priority: High (5) Anemia Status: Chronic Priority: High Hospital Course - Lab Results Lab Results: Micro Results 05/18/18 08:30 Foot - Right Gram Stain - Final 05/18/18 08:30 Foot - Right Wound Culture - Final Corynebacterium Species Most Recent Lab Values WBC 9.5 10^3/uL (4.5-11.0) 05/24/18 06:30 RBC 3.88 10^6/uL (3.5-6.1) 05/24/18 06:30 Hgb 10.0 g/dL (14.0-18.0) L 05/24/18 06:30 Hct 31.9 % (42.0-52.0) L 05/24/18 06:30 MCV 82.2 fl (80.0-105.0) 05/24/18 06:30 MCH 25.8 pg (25.0-35.0) 05/24/18 06:30 MCHC 31.3 g/dl (31.0-37.0) 05/24/18 06:30 RDW 17.1 % (11.5-14.5) H 05/24/18 06:30 Plt Count 214 10^3/uL (120.0-450.0) 05/24/18 06:30 MPV 9.0 fl (7.0-11.0) 05/24/18 06:30 Gran % 81.8 % (50.0-68.0) H 05/17/18 07:23 Neut % (Auto) 74.1 % (50.0-68.0) H 05/24/18 06:30 Lymph % (Auto) 11.9 % (22.0-35.0) L 05/24/18 06:30 [place] % (Auto) 9.8 % (1.0-6.0) H 05/24/18 06:30 Eos % (Auto) 3.9 % (1.5-5.0) 05/24/18 06:30 Baso % (Auto) 0.3 % (0.0-3.0) 05/24/18 06:30 Gran # 8.10 (1.4-6.5) H 05/17/18 07:23 Lymph # (Auto) 1.1 (1.2-3.4) L 05/24/18 06:30 [place] # (Auto) 0.9 (0.1-0.6) H 05/24/18 06:30 Eos # (Auto) 0.4 (0.0-0.7) 05/24/18 06:30 Baso # (Auto) 0.03 K/mm3 (0.0-2.0) 05/24/18 06:30 Absolute Neuts (auto) 7.00 (1.4-6.5) H 05/24/18 06:30 ESR 66 mm/hr (0.00-15.0) H 05/23/18 06:00 PT 12.8 SECONDS (9.4-12.5) H 05/21/18 07:00 INR 1.13 05/21/18 07:00 APTT 29.0 Seconds (26.9-38.3) 05/21/18 07:00 Sodium 135 mmol/L (132-148) 05/24/18 06:30 Potassium 4.7 mmol/L (3.6-5.0) 05/24/18 06:30 Chloride 104 mmol/L (98-107) 05/24/18 06:30 Carbon Dioxide 27 mmol/L (21-33) 05/24/18 06:30 Anion Gap 8 (10-20) L 05/24/18 06:30 BUN 31 mg/dL (7-21) H 05/24/18 06:30 Creatinine 1.1 mg/dl (0.8-1.5) 05/24/18 06:30 Est GFR ( Amer) > 60 05/24/18 06:30 Est GFR (Non-Af Amer) > 60 05/24/18 06:30 Random Glucose 96 mg/dL (70-110) 05/24/18 06:30 Hemoglobin A1c 5.5 % (4.2-6.5) 05/18/18 07:00 Calcium 8.5 mg/dL (8.4-10.5) 05/24/18 06:30 Phosphorus 3.2 mg/dL (2.5-4.5) 05/17/18 07:23 Magnesium 2.3 mg/dL (1.7-2.2) H 05/24/18 06:30 Iron 29 ug/dL (45-180) L 05/17/18 13:20 TIBC 290 ug/dL (261-462) 05/17/18 13:20 % Saturation 10 % (20-55) L 05/17/18 13:20 Ferritin 36.3 ng/mL 05/17/18 13:00 Total Bilirubin 0.3 mg/dL (0.2-1.3) 05/24/18 06:30 AST 16 U/L (17-59) L 05/24/18 06:30 ALT 22 U/L (7-56) 05/24/18 06:30 Alkaline Phosphatase 74 U/L (38-126) 05/24/18 06:30 Lactate Dehydrogenase 407 U/L (333-699) 05/18/18 02:15 Total Creatine Kinase 67 U/L (35-230) 05/18/18 02:15 Troponin I 0.02 ng/mL D 05/18/18 02:15 C-Reactive Protein 36.10 mg/L (0.0-9.9) H 05/23/18 06:00 Total Protein 6.0 g/dL (5.8-8.3) 05/24/18 06:30 Albumin 3.2 g/dL (3.0-4.8) 05/24/18 06:30 Globulin 2.8 gm/dL 05/24/18 06:30 Albumin/Globulin Ratio 1.1 (1.1-1.8) 05/24/18 06:30 Triglycerides 88 mg/dL (35-160) 05/18/18 07:00 Cholesterol 119 mg/dL (130-200) L 05/18/18 07:00 LDL Cholesterol Direct 70 mg/dL (0-129) 05/18/18 07:00 HDL Cholesterol 32 mg/dL (29-60) 05/18/18 07:00 TSH 3rd Generation 1.13 mIU/mL (0.46-4.68) 05/18/18 07:00 Urine Color Yellow (YELLOW) 05/22/18 04:30 Urine Appearance Clear (CLEAR) 05/22/18 04:30 Urine pH 7.0 (4.7-8.0) 05/22/18 04:30 Ur Specific [place] 1.015 (1.005-1.035) 05/22/18 04:30 Urine Protein Negative mg/dL (<30 mg/dL) 05/22/18 04:30 Urine Glucose (UA) Negative mg/dL (NEGATIVE) 05/22/18 04:30 Urine Ketones Negative mg/dL (NEGATIVE) 05/22/18 04:30 Urine Blood Negative (NEGATIVE) 05/22/18 04:30 Urine Nitrate Negative (NEGATIVE) 05/22/18 04:30 Urine Bilirubin Negative (NEGATIVE) 05/22/18 04:30 Urine Urobilinogen 0.2 E.U./dL (<1 E.U./dL) 05/22/18 04:30 Ur Leukocyte Esterase Negative [place]/uL (NEGATIVE) 05/22/18 04:30 Stool Occult Blood Positive (NEGATIVE) H 05/19/18 13:20 - Hospital Course Hospital Course: Hospitalization Pt is a 72 yo male with a PMH of valve replacement presents s/p a fall with chest pain and headache. Pt states that he was at the top of his stairs, when he felt dizzy, lost control of his bladder, and fell down the stairs, hitting his chest and his forehead. Patient denies having a cardiac catheterization, an echocardiogram, or recent stress testing, but that he does follow with Dr. Yuen. Discharge Found to have an infection in the bones of Right foot. Given a PICC line, will receive the 4-6 weeks of IV antibiotics (Cefepime and Doxycycline) to treat this infection. You will be sent to a rehab facility to gain strength while continuing your antibiotics. You will be getting 1. Cefepime 2gm every 12 hours. 2. Doxycycline 100mg every 12 hours. Once the antibiotics are completed, your PICC line will need to be removed. Please follow up with primary (Dr. Wesley) within 3-5 days of discharge. Please follow up with the [facility] (Dr. Carrillo & Dr. Zuniga) for further care of leg wounds within 3-5 days of discharge. Follow up with Director Of Digital Technology (Dr. Barnahrt) within 3-5 days after discharge. Please follow up with the [facility] (stomach doctor - Dr. Rodriguez) 1-2 weeks after discharge to schedule an outpatient EGD and colonoscopy. Previously on Eliquis (a blood thinner) due to the prior clot in legs. This has been stopped, do not take it anymore. Please get an ultrasound of legs in 3 weeks to make sure you do not have a blood clot. (Patient will need bilateral lower extremity venous dopplers in 3 weeks) - Date & Time of H&P Date of H&P: 05/24/18 Time of H&P: 07:25 Discharge Exam - Head Exam Head Exam: NORMAL INSPECTION - Eye Exam Eye Exam: EOMI - ENT Exam ENT Exam: Mucous Membranes Moist - Respiratory Exam Respiratory Exam: NORMAL BREATHING PATTERN. absent: Accessory Muscle Use, Respiratory Distress - Cardiovascular Exam Cardiovascular Exam: RRR, +S1, +S2. absent: Diastolic murmur, Systolic Murmur - GI/Abdominal Exam GI & Abdominal Exam: Normal Bowel Sounds, Soft. absent: Tenderness - Extremities Exam Extremities exam: full ROM, pedal pulses present Additional comments: bandage on right foot, clean dry and in place - Neurological Exam Neurological exam: Alert, Normal Gait, Oriented x3 - Psychiatric Exam Psychiatric exam: Normal Affect, Normal Mood - Skin Skin Exam: Dry, Normal Color, Warm Discharge Plan - Discharge Medications Prescriptions: Cefepime [Maxipime] 2 gm IV Q12 #56 vial Doxycycline Hyclate [Vibramycin] 100 mg IVPB Q12 #56 vial Ferrous Sulfate [Feosol] 324 mg PO TID #30 ect - Follow Up Plan Condition: FAIR Disposition: TRANSF TO SNF Instructions: Heart Healthy Diet, Chest Pain (DC), Arteriogram, Peripherally- Inserted Central Catheter (DC) Additional Instructions: * You were seen in the hospital for falling. * You were found to have an infection in the bones of your Right foot. You have been given a special IV so that you can receive the 4-6 weeks of IV antibiotics (Cefepime and Doxycycline) you will need to treat this infection. You will be sent to a rehab facility to gain strength while continuing your antibiotics. You will be getting 1. Cefepime 2gm every 12 hours. 2. Doxycycline 100mg every 12 hours. Once the antibiotics are completed, your PICC line will need to be removed. * Please follow up with your primary doctor (Dr. Wesley) within 3-5 days of discharge. * Please follow up with the [facility] (Dr. Carrillo & Dr. Zuniga) for further care of your leg wounds within 3-5 days of discharge * Please follow up with your Director Of Digital Technology (Dr. Barnhart) within 3-5 days after discharge. * Please follow up with the [facility] (stomach doctor - Dr. Rodriguez) 1-2 weeks after discharge to schedule an outpatient EGD and colonoscopy. * You were previously on Eliquis (a blood thinner) due to the prior clot in your legs. This has been stopped, do not take it anymore. * Please get an ultrasound of your legs in 3 weeks to make sure you do not have a blood clot. (Patient will need bilateral lower extremity venous dopplers in 3 weeks) * Please resume all other home medications as previously prescribed. * You have been started on Vitamin D weekly (for low Vitamin D level), Iron three times per day (for low blood iron level), Santyl ointment (for wounds to your arms and legs), and Nicotine Patch (for smoking prevention). Please continue to take these as prescribed. * Please stop all smoking, to prevent further blockages of the vessels in your legs or worsening wounds. * If you experience new concerning or worsening symptoms, please present to the nearest Emergency Department. Referrals: Tanvi Carrillo DPM [Staff Provider] - Asad Barnhart MD [Staff Provider] - Murali Wesley MD [Primary Care Provider] - Sameer Rodriguez DO [Staff Provider] -
== END 2018-05-24 16:40 | DRG 271 ==
LOC: ED 06:51 → ERH 09:52 → 2RNO 12:17 → OBSVTOIN 05-19 14:40 → 2RSO 05-21 12:02
PROVIDERS: ADMIT Internal Medicine; ATTEND Internal Medicine
PROC: 047K34Z Dilation of Right Femoral Artery with Drug-eluting Intraluminal Device, Percutaneous Approach (ICD-10-PCS; principal; 2018-05-21)
PROC: 04CK3ZZ Extirpation of Matter from Right Femoral Artery, Percutaneous Approach (ICD-10-PCS; 2018-05-21)
PROC: 047H34Z Dilation of Right External Iliac Artery with Drug-eluting Intraluminal Device, Percutaneous Approach (ICD-10-PCS; 2018-05-21)
PROC: 04CH3ZZ Extirpation of Matter from Right External Iliac Artery, Percutaneous Approach (ICD-10-PCS; 2018-05-21)
PROC: B41DYZZ Fluoroscopy of Aorta and Bilateral Lower Extremity Arteries using Other Contrast (ICD-10-PCS; 2018-05-21)
PROC: 02HV33Z Insertion of Infusion Device into Superior Vena Cava, Percutaneous Approach (ICD-10-PCS; 2018-05-24)
DX: E11.52 Type 2 diabetes mellitus with diabetic peripheral angiopathy with gangrene (principal); I70.261 Atherosclerosis of native arteries of extremities with gangrene, right leg; M86.171 Other acute osteomyelitis, right ankle and foot; I50.32 Chronic diastolic (congestive) heart failure; T82.868A Thrombosis due to vascular prosthetic devices, implants and grafts, initial encounter; R65.10 Systemic inflammatory response syndrome (SIRS) of non-infectious origin without acute organ dysfunction; E11.621 Type 2 diabetes mellitus with foot ulcer; L97.519 Non-pressure chronic ulcer of other part of right foot with unspecified severity; L97.529 Non-pressure chronic ulcer of other part of left foot with unspecified severity; E11.69 Type 2 diabetes mellitus with other specified complication; N40.0 Benign prostatic hyperplasia without lower urinary tract symptoms; J44.9 Chronic obstructive pulmonary disease, unspecified; I11.0 Hypertensive heart disease with heart failure; I25.10 Atherosclerotic heart disease of native coronary artery without angina pectoris; F17.210 Nicotine dependence, cigarettes, uncomplicated; S00.03XA Contusion of scalp, initial encounter; G93.89 Other specified disorders of brain; S20.212A Contusion of left front wall of thorax, initial encounter; D50.9 Iron deficiency anemia, unspecified; I65.23 Occlusion and stenosis of bilateral carotid arteries; M72.2 Plantar fascial fibromatosis; Y84.8 Other medical procedures as the cause of abnormal reaction of the patient, or of later complication, without mention of misadventure at the time of the procedure; W10.8XXA Fall (on) (from) other stairs and steps, initial encounter; Y92.9 Unspecified place or not applicable; Z85.46 Personal history of malignant neoplasm of prostate; Z92.3 Personal history of irradiation; Z59.0 Homelessness; Z95.1 Presence of aortocoronary bypass graft; Z91.19 Patient's noncompliance with other medical treatment and regimen; Z86.718 Personal history of other venous thrombosis and embolism; Z95.2 Presence of prosthetic heart valve; Z91.14 Patient's other noncompliance with medication regimen; Z79.84 Long term (current) use of oral hypoglycemic drugs

== ENCOUNTER 2018-07-17 16:31 | Inpatient (IN) | payer MEDICARE, OTHER ==
[2018-07-17] MEDS ORDERED: Sodium Chloride 0.9% 500 ML IV STA (16:50)
--- NOTE | 2018-07-17 16:50 | ED PDOC ---
Arrival/HPI - General Time Seen by Provider: 07/17/18 16:36 Historian: Patient - History of Present Illness Narrative History of Present Illness (Text): 07/17/18 16:46 72 year old male, whose past medical history includes cardiac stent, replaced valve, bypass, carotid endarterectomy and DVTs, previously on eliquis and discontinued in May, who presents to the emergency department complaining of heart palpitations and shortness of breath earlier today. Patient states he was eating an egg sandwich when his symptoms began. His palpitations have now resolved, but he still feels short of breath. He denies fever, chills, headache, dizziness, abdominal pain, nausea, vomiting, back pain, neck pain, or any other complaint. 07/17/18 19:28 Time/Duration: Prior to Arrival Symptom Onset: Gradual Symptom Course: Improving Activities at Onset: Light Past Medical History - Provider Review Nursing Documentation Reviewed: Yes - Infectious Disease Hx of Infectious Diseases: None - Cardiac Hx Hypertension: Yes - Pulmonary Hx Respiratory Disorders: Yes Hx Chronic Obstructive Pulmonary Disease (COPD): Yes Other/Comment: smoker 1 PPD - Neurological Hx Neurological Disorder: No - HEENT Hx HEENT Disorder: No - Renal Hx Renal Disorder: No - Endocrine/Metabolic Hx Endocrine Disorders: No - Hematological/Oncological Hx Blood Disorders: No - Integumentary Hx Dermatological Disorder: Yes Other/Comment: rash/reaction from bed bugs - Musculoskeletal/Rheumatological Hx Musculoskeletal Disorders: Yes Other/Comment: uses cane for ambulation. plantar faciitis - Gastrointestinal Hx Gastrointestinal Disorders: No - Genitourinary/Gynecological Hx Genitourinary Disorders: Yes Other/Comment: Hx prostate ca with radiation therapy - Psychiatric Hx Psychophysiologic Disorder: No Hx Substance Use: No - Surgical History Hx Appendectomy: Yes (at age 17) - Anesthesia Hx Anesthesia: Yes Hx Anesthesia Reactions: No Hx Malignant Hyperthermia: No - Suicidal Assessment Feels Threatened In Home Enviroment: No Family/Social History - Physician Review Nursing Documentation Reviewed: Yes Family/Social History: No Known Family HX Smoking Status: Heavy Smoker > 10 Cigarettes Daily Hx Alcohol Use: Yes (stopped drinking 2-3 yrs ago) Hx Substance Use: No Hx Substance Use Treatment: No Allergies/Home Meds Allergies/Adverse Reactions: Allergies No Known Allergies Allergy (Verified 05/12/18 08:59) Home Medications: Home Meds Medication Instructions Recorded Confirmed Albuterol Sulfate [Proair Hfa] 2 puff IH BID 05/17/18 05/17/18 Atorvastatin [Lipitor] 20 mg PO DAILY 05/17/18 05/17/18 Budesonide/Formoterol Fumarate 2 puff IH BID 05/17/18 05/17/18 [Symbicort 160-4.5 Mcg Inhaler] Carvedilol [Coreg] 6.25 mg PO BID 05/17/18 05/17/18 Clopidogrel [Plavix] 75 mg PO DAILY 05/17/18 05/17/18 Lisinopril [Zestril] 5 mg PO DAILY 05/17/18 05/17/18 Pantoprazole Sodium [Protonix] 40 mg PO DAILY 05/17/18 05/17/18 metFORMIN [glucOPHAGE] 500 mg PO BID 05/17/18 05/17/18 Review of Systems - Physician Review All systems were reviewed & negative as marked: Yes - Review of Systems Constitutional: absent: Fevers Respiratory: SOB. absent: Cough Cardiovascular: Palpitations Gastrointestinal: absent: Abdominal Pain, Diarrhea, Nausea, Vomiting Musculoskeletal: absent: Back Pain, Neck Pain Neurological: absent: Headache, Dizziness Physical Exam Vital Signs Reviewed: Yes Temperature: Afebrile Blood Pressure: Normal Pulse: Tachycardic Respiratory Rate: Normal Appearance: Positive for: Well-Appearing, Non-Toxic, Comfortable Pain Distress: None Mental Status: Positive for: Alert and Oriented X 3 - Systems Exam Head: Present: Atraumatic, Normocephalic Pupils: Present: PERRL Extroacular Muscles: Present: EOMI Conjunctiva: Present: Normal Mouth: Present: Moist Mucous Membranes Neck: Present: Normal Range of Motion Respiratory/Chest: Present: Clear to Auscultation, Good Air Exchange. No: Respiratory Distress, Accessory Muscle Use Cardiovascular: Present: Regular Rate and Rhythm, Normal S1, S2. No: Murmurs Abdomen: No: Tenderness, Distention, Peritoneal Signs Back: Present: Normal Inspection Upper Extremity: Present: Normal Inspection. No: Cyanosis, Edema Lower Extremity: Present: Normal Inspection. No: Edema Neurological: Present: GCS=15, CN II-XII Intact, Speech Normal Skin: Present: Warm, Dry, Normal Color. No: Rashes Psychiatric: Present: Alert, Oriented x 3, Normal Insight, Normal Concentration, Anxious Medical Decision Making ED Course and Treatment: 07/17/18 16:52 Impression: 72 year old male who presents to the emergency department complaining of palpitations and shortness of breath. Plan: -- EKG -- Labs -- Chest X-ray -- IV fluids -- lower extremity US -- Reassess and disposition Prior Visits: Notes and results from previous visits were reviewed. Progress Notes: 07/17/18 17:13 EKG shows NSR at 91bpm with LVH. QTc 487. 07/17/18 19:31 DVT study shows DVT. Lovenox ordered. Trop x 1 negative. 07/17/18 21:20 IMPRESSION: 1. No evidence of pulmonary embolism. 2. Status post medial sternotomy and CABG. 3. Scattered upper lobes predominant centrilobular emphysema. 4. Mild biapical scarring. 5. Bibasilar atelectasis versus scarring. 6. Diffuse vascularity in the right anterior and lateral chest wall with suggestion of stricture or occlusion involving the right subclavian vein. Consider consultation with vascular service and follow-up venography. - Lab Interpretations I have reviewed the lab results: Yes - RAD Interpretation Director Food Safety: Radiologist - EKG Interpretation Interpreted by ED Physician: Yes Type: 12 lead EKG - Scribe Statement The provider has reviewed the documentation as recorded by the Scribmike Robert All medical record entries made by the Susanibmike were at my direction and personally dictated by me. I have reviewed the chart and agree that the record accurately reflects my personal performance of the history, physical exam, medical decision making, and the department course for this patient. I have also personally directed, reviewed, and agree with the discharge instructions and disposition. Disposition/Present on Arrival - Present on Arrival Any Indicators Present on Arrival: No History of DVT/PE: No History of Uncontrolled Diabetes: No Urinary Catheter: No History Surgical Site Infection Following: None - Disposition Have Diagnosis and Disposition been Completed?: Yes Diagnosis: DVT (deep venous thrombosis), Chest pain Disposition: HOSPITALIZED Disposition Time: 21:16 Patient Plan: Observation Patient Problems: Current Active Problems Problem Status Onset Chest pain Acute DVT (deep venous thrombosis) Acute Condition: FAIR Discharge Instructions (ExitCare): Chest Pain (ED)
[2018-07-17 17:39] LABS: BASO # 0.03 K/mm3 (0.0-2.0); BASO % 0.4 % (0.0-3.0); EOS # 0.1 (0.0-0.7); EOS % 1.5 % (1.5-5.0); LYMPH # 1.2 (1.2-3.4); MEAN CELL VOLUME 85.4 fl (80.0-105.0); MEAN CORPUSCULAR HGB CONC 31.7 g/dl (31.0-37.0); MEAN PLATELET VOLUME 8.5 fl (7.0-11.0); MONO # 0.7 (0.1-0.6); MONO % 8.5 % (1.0-6.0); RBC 4.44 10^6/uL (3.5-6.1); RED CELL DISTRIBUTION WIDTH 16.8 % (11.5-14.5); WHITE BLOOD COUNT 7.8 10^3/uL (4.5-11.0)
[2018-07-17 17:45] LABS: INR 1.2; PARTIAL THROMBOPLASTIN TIME 27.2 Seconds (26.9-38.3); PROTHROMBIN TIME 13.3 SECONDS (9.4-12.5)
[2018-07-17 17:47] LABS: ALB/GLOB RATIO 1.2 (1.1-1.8); ALBUMIN 3.8 g/dL (3.0-4.8); ALT/SGPT 10 U/L (7-56); AST/SGOT 15 U/L (17-59); BLOOD UREA NITROGEN 26 mg/dL (7-21); CALCIUM 9.7 mg/dL (8.4-10.5); GFR NON-AFRICAN AMERICAN > 60
[2018-07-17 17:59] LABS: B-TYPE NATRIURETIC PEPTIDE 311 pg/mL (0-450); TROPONIN I < 0.01 ng/mL
--- NOTE | 2018-07-17 18:42 | CARD ---
APPROVED REPORT Date of service: 07/17/2018 EKG Measurement Heart [id number] <Conclusion> Normal sinus rhythm Minimal voltage criteria for LVH, may be normal variant Prolonged QT Abnormal ECG
[2018-07-17] MEDS ORDERED: Enoxaparin 100 mg Syringe SC STA (19:44)
--- NOTE | 2018-07-17 23:08 | CP.PCM.HP ---
<Flakito Nicholson - Last Filed: 07/18/18 05:06> History of Present Illness - History of Present Illness History of Present Illness: PGY-1 History and [address] Langley Patient is a 72 year old male with PMHx CAD s/p CABG and stents, valve replacement, recent DVT, recent osteomyelitis, who presents with chief complaints of sudden onset palpitations occuring earlier this evening. Patient states he was sitting at the bus stop when he had sudden-onset palpitations which lasted about 20 minutes. When questioned, patient did first say he had had chest pain, but then changed to say he did not really have pain, just the feeling of palpitations like his heart was "beating like a drum". Patient is homeless and has a history of noncompliance with medications and is well known to our service. Patient states by the time he presented to ER, his palpitations had subsided prior to any medical intervention. He denied any shortness of breath, pleuritic pain, dizziness, focal weakness. Patient denied any leg or calf pain, swelling, numbness, or tingling. Patient states he did have similar symptoms to these palpitations once in the past several years ago when he had a "heart attack". Patient was most recently hospitalized in [facility] in early April- May with osteomyelitis and should have completed his prescribed course of IV antibiotics by this time. Surgical Hx: Cardiac valve replacement, CABG, Appendectomy Medical Hx: COPD, HTN, Chronic b/l plantar fascitis, and homelessness Allergies: NKDA Social Hx: 1ppd X 50 years; Denies EtOH, Illicit drug use Home Meds: Reviewed as per JUN - confirm with patient's pharmacy Family Hx: No known family hx coronary disease or other PMD: Dr. Wesley [employer]: Dr. Yuen Present on Admission - Present on Admission Any Indicators Present on Admission: Yes History of DVT/PE: Yes Review of Systems - Constitutional Constitutional: absent: Chills, Fever - EENT Eyes: absent: Blurred Vision, Photophobia Ears: absent: Dizziness Nose/Mouth/Throat: absent: Nasal Congestion, Nasal Discharge - Cardiovascular Cardiovascular: Palpitations (Resolved), Rapid Heart Rate (Resolved). absent: Chest Pain, Chest Pain at Rest, Chest Pain with Activity, Dyspnea, Dyspnea on Exertion, Edema, Leg Edema, Lightheadedness, Pedal Edema, Radiating Pain, Syncope - Respiratory Respiratory: absent: Cough, Dyspnea, Wheezing - Gastrointestinal Gastrointestinal: absent: Abdominal Pain, Diarrhea, Nausea - Musculoskeletal Musculoskeletal: absent: Numbness, Tingling - Integumentary Integumentary: Skin Ulcer (small heal ulcer). absent: Rash - Neurological Neurological: absent: Behavioral Changes, Confusion, Dizziness, Numbness, Focal Weakness, Headaches, Memory Loss, Sensory Deficit, Syncope, Tingling, Weakness - Psychiatric Psychiatric: absent: Anxiety, Depression - Hematologic/Lymphatic Hematologic: absent: Easy Bleeding, Easy Bruising Past Patient History - Infectious Disease Hx of Infectious Diseases: None - Past Social History Smoking Status: Heavy Smoker > 10 Cigarettes Daily - CARDIAC Hx Hypertension: Yes - PULMONARY Hx Respiratory Disorders: Yes Hx Chronic Obstructive Pulmonary Disease (COPD): Yes Other/Comment: smoker 1 PPD - NEUROLOGICAL Hx Neurological Disorder: No - HEENT Hx HEENT Problems: No - RENAL Hx Chronic Kidney Disease: No - ENDOCRINE/METABOLIC Hx Endocrine Disorders: No - HEMATOLOGICAL/ONCOLOGICAL Hx Blood Disorders: No - INTEGUMENTARY Hx Dermatological Problems: Yes Other/Comment: rash/reaction from bed bugs - MUSCULOSKELETAL/RHEUMATOLOGICAL Hx Musculoskeletal Disorders: Yes Other/Comment: uses cane for ambulation. plantar faciitis - GASTROINTESTINAL Hx Gastrointestinal Disorders: No - GENITOURINARY/GYNECOLOGICAL Hx Genitourinary Disorders: Yes Other/Comment: Hx prostate ca with radiation therapy - PSYCHIATRIC Hx Psychophysiologic Disorder: No Hx Substance Use: No - SURGICAL HISTORY Hx Appendectomy: Yes (at age 17) - ANESTHESIA Hx Anesthesia: Yes Hx Anesthesia Reactions: No Hx Malignant Hyperthermia: No Meds Allergies/Adverse Reactions: Allergies Allergy/AdvReac Type Severity Reaction Status Date / Time No Known Allergies Allergy Verified 05/12/18 08:59 Physical Exam - Constitutional Appears: Non-toxic, No Acute Distress - Head Exam Head Exam: ATRAUMATIC, NORMOCEPHALIC - Eye Exam Eye Exam: EOMI, Normal appearance - ENT Exam ENT Exam: Mucous Membranes Moist - Respiratory Exam Respiratory Exam: Clear to Auscultation Bilateral, NORMAL BREATHING PATTERN. absent: Rhonchi, Wheezes - Cardiovascular Exam Cardiovascular Exam: REGULAR RHYTHM, +S1, +S2. absent: Tachycardia Additional comments: Vertical sternotomy incision scar. No tenderness on palpation - GI/Abdominal Exam GI & Abdominal Exam: Normal Bowel Sounds, Soft. absent: Tenderness - Extremities Exam Extremities exam: Negative for: calf tenderness, pedal edema, tenderness Additional comments: No calf swelling, no calf tenderness, no erythema. Small ulcer on right foot. - Neurological Exam Neurological exam: Alert, CN II-XII Intact, Oriented x3 - Psychiatric Exam Psychiatric exam: Normal Affect, Normal Mood - Skin Skin Exam: Dry, Intact, Normal Color, Warm Results - Vital Signs Recent Vital Signs: Last Vital Signs Temp Pulse 79 07/17/18 20:45 Resp 18 07/17/18 20:45 BP 158/75 H 07/17/18 20:45 Pulse Ox 99 07/17/18 20:45 - Labs Result Diagrams: 07/17/18 17:30 07/17/18 17:30 Labs: Laboratory Results - last 24 hr 07/17/18 07/17/18 07/17/18 17:30 17:30 17:30 WBC 7.8 RBC 4.44 Hgb 12.0 L D Hct 37.9 L MCV 85.4 D MCH 27.0 MCHC 31.7 RDW 16.8 H Plt Count 157 MPV 8.5 Neut % (Auto) 73.6 H Lymph % (Auto) 16.0 L [place] % (Auto) 8.5 H Eos % (Auto) 1.5 Baso % (Auto) 0.4 Lymph # (Auto) 1.2 [place] # (Auto) 0.7 H Eos # (Auto) 0.1 Baso # (Auto) 0.03 Absolute Neuts (auto) 5.70 PT 13.3 H INR 1.20 APTT 27.2 D-Dimer, Quantitative 562 H Sodium 142 Potassium 3.8 Chloride 107 Carbon Dioxide 27 Anion Gap 13 BUN 26 H Creatinine 1.1 Est GFR ( Amer) > 60 Est GFR (Non-Af Amer) > 60 Random Glucose 94 Calcium 9.7 Phosphorus 2.8 Magnesium 2.3 H Total Bilirubin 0.4 AST 15 L ALT 10 Alkaline Phosphatase 77 Total Creatine Kinase 32 L Troponin I < 0.01 D NT-Pro-B Natriuret Pep 311 Total Protein 6.9 Albumin 3.8 Globulin 3.1 Albumin/Globulin Ratio 1.2 TSH 3rd Generation 07/17/18 17:30 WBC RBC Hgb Hct MCV MCH MCHC RDW Plt Count MPV Neut % (Auto) Lymph % (Auto) [place] % (Auto) Eos % (Auto) Baso % (Auto) Lymph # (Auto) [place] # (Auto) Eos # (Auto) Baso # (Auto) Absolute Neuts (auto) PT INR APTT D-Dimer, Quantitative Sodium Potassium Chloride Carbon Dioxide Anion Gap BUN Creatinine Est GFR ( Amer) Est GFR (Non-Af Amer) Random Glucose Calcium Phosphorus Magnesium Total Bilirubin AST ALT Alkaline Phosphatase Total Creatine Kinase Troponin I NT-Pro-B Natriuret Pep Total Protein Albumin Globulin Albumin/Globulin Ratio TSH 3rd Generation 0.91 Assessment & Plan - Assessment and Plan (Free Text) Assessment: RLE DVT on preliminary US read Prelim read per ED chart - Doppler study shows R DVT CTA 07/17: 1. No evidence of pulmonary embolism. 2. Status post medial sternotomy and CABG. 3. Scattered upper lobes predominant centrilobular emphysema. 4. Mild biapical scarring. 5. Bibasilar atelectasis versus scarring. 6. Diffuse vascularity in the right anterior and lateral chest wall with suggestion of stricture or occlusion involving the right subclavian vein. Consider consultation with vascular service and follow-up venography. -Monitor on telemetry -EKG - sinus tach with prolonged QTc -No evidence of PE on CTA (see above) -S/p 1 dose therapeutic lovenox in ED --Heparin DVT ppx. Will start KILO DVT treatment pending official doppler US read Palpitations - ACS vs Afib/arrythmia vs 2/2 medication vs cocaine/amphetamine toxicity vs hyperthyroid -Monitor on telemetry -EKG - sinus tach with prolonged QTc -Troponins neg x 2. F/u troponin 0500 -No evidence of PE on CTA (see above) -TSH WNL -UDS - f/u -Cardiology consulted, Dr. Barnhart - f/u recs -Home coreg 6.25 mg PO BID CAD s/p CABG, stents -ASA 81 daily -Plavix 75 mg PO daily -EKG and trops as above QTc prolongation -QTc 487 -Avoid QT-prolonging agents Anemia, history iron deficiency -Normocytic anemia -HgB 12.0 -Anemic on all labs dating back to March 2018 (ranging 9-11.8) -Ferrous sulfate 324 mg PO TID R foot ulcer -Podiatry consulted, Dr. Salinas - f/u recs DM -ISS medium dose -Accuchecks ACHS -Hypoglycemia protocol COPD -Albuterol 2.5 mg IH BID prn -Brovana 15mg IG Q12 KILO -Pulmincort 0.5 mg IH Q12 HTN -Lisinopril 5 mg PO daily -Coreg 6.25 PO BID BPH -Flomax 0.4 mg PO HS Vit D deficiency -Vit D 50,000 U Q7d PPx -DVT: Heparin 5000 U SC Q8, SCDs contraindicated 2/2 suspected acute DVT -HHD Assessment and plan discussed with Dr. Shivam Nicholson, PGY-1 <Alan Langley - Last Filed: 07/18/18 05:08> Results - Vital Signs Recent Vital Signs: Last Vital Signs Temp 97.8 F 07/18/18 00:01 Pulse 62 07/18/18 00:01 Resp 19 07/18/18 00:01 BP 168/73 H 07/18/18 00:01 Pulse Ox 95 07/18/18 00:01 - Labs Result Diagrams: 07/17/18 17:30 07/17/18 17:30 Labs: Laboratory Results - last 24 hr 07/17/18 07/17/18 07/17/18 17:30 17:30 17:30 WBC 7.8 RBC 4.44 Hgb 12.0 L D Hct 37.9 L MCV 85.4 D MCH 27.0 MCHC 31.7 RDW 16.8 H Plt Count 157 MPV 8.5 Neut % (Auto) 73.6 H Lymph % (Auto) 16.0 L [place] % (Auto) 8.5 H Eos % (Auto) 1.5 Baso % (Auto) 0.4 Lymph # (Auto) 1.2 [place] # (Auto) 0.7 H Eos # (Auto) 0.1 Baso # (Auto) 0.03 Absolute Neuts (auto) 5.70 PT 13.3 H INR 1.20 APTT 27.2 D-Dimer, Quantitative 562 H Sodium 142 Potassium 3.8 Chloride 107 Carbon Dioxide 27 Anion Gap 13 BUN 26 H Creatinine 1.1 Est GFR ( Amer) > 60 Est GFR (Non-Af Amer) > 60 Random Glucose 94 Calcium 9.7 Phosphorus 2.8 Magnesium 2.3 H Total Bilirubin 0.4 AST 15 L ALT 10 Alkaline Phosphatase 77 Total Creatine Kinase 32 L Troponin I < 0.01 D NT-Pro-B Natriuret Pep 311 Total Protein 6.9 Albumin 3.8 Globulin 3.1 Albumin/Globulin Ratio 1.2 TSH 3rd Generation 07/17/18 07/17/18 17:30 23:40 WBC RBC Hgb Hct MCV MCH MCHC RDW Plt Count MPV Neut % (Auto) Lymph % (Auto) [place] % (Auto) Eos % (Auto) Baso % (Auto) Lymph # (Auto) [place] # (Auto) Eos # (Auto) Baso # (Auto) Absolute Neuts (auto) PT INR APTT D-Dimer, Quantitative Sodium Potassium Chloride Carbon Dioxide Anion Gap BUN Creatinine Est GFR ( Amer) Est GFR (Non-Af Amer) Random Glucose Calcium Phosphorus Magnesium Total Bilirubin AST ALT Alkaline Phosphatase Total Creatine Kinase Troponin I 0.02 D NT-Pro-B Natriuret Pep Total Protein Albumin Globulin Albumin/Globulin Ratio TSH 3rd Generation 0.91 Attending/Attestation - Attestation I have personally seen and examined this patient.: Yes I have fully participated in the care of the patient.: Yes I have reviewed all pertinent clinical information: Yes
[2018-07-18 00:05] VITALS: BMI 20.8
[2018-07-18] MEDS ORDERED: Ergocalciferol 50,000 Intl Units Cap PO SCH (00:45)
[2018-07-18] MEDS ORDERED: Dextrose 50% SYRINGE Inj (50 ml) IV PRN (00:49)
[2018-07-18 06:50] LABS: BASO # 0.02 K/mm3 (0.0-2.0); BASO % 0.3 % (0.0-3.0); EOS # 0.2 (0.0-0.7); EOS % 3.4 % (1.5-5.0); HEMOGLOBIN 11.2 g/dL (14.0-18.0); LYMPH # 1.5 (1.2-3.4); LYMPH % 24.5 % (22.0-35.0); MEAN CORPUSCULAR HEMOGLOBIN 26.2 pg (25.0-35.0); MEAN CORPUSCULAR HGB CONC 32.1 g/dl (31.0-37.0); MEAN PLATELET VOLUME 8.8 fl (7.0-11.0); MONO # 0.5 (0.1-0.6); MONO % 7.7 % (1.0-6.0); RBC 4.28 10^6/uL (3.5-6.1); RED CELL DISTRIBUTION WIDTH 16.8 % (11.5-14.5); WHITE BLOOD COUNT 6.1 10^3/uL (4.5-11.0)
[2018-07-18 07:00] LABS: TROPONIN I 0.02 ng/mL
[2018-07-18 07:09] LABS: ALB/GLOB RATIO 1.1 (1.1-1.8); ALBUMIN 3.3 g/dL (3.0-4.8); ALT/SGPT 16 U/L (7-56); AST/SGOT 16 U/L (17-59); BLOOD UREA NITROGEN 25 mg/dL (7-21); GFR NON-AFRICAN AMERICAN > 60
--- NOTE | 2018-07-18 07:36 | CT ---
Date of service: 07/17/2018 PROCEDURE: CT Chest with contrast (Pulmonary Angiogram) HISTORY: hx of dvt, now with palpitations COMPARISON: None available. TECHNIQUE: Axial computed tomography images were obtained of the chest in the pulmonary arterial phase of enhancement. Coronal and sagittal reformatted images were created and reviewed. Intravenous contrast dose: 148 cc of Omni 350 Radiation dose: Total exam DLP = 391.86 mGy-cm. This CT exam was performed using one or more of the following dose reduction techniques: Automated exposure control, adjustment of the mA and/or kV according to patient size, and/or use of iterative reconstruction technique. FINDINGS: PULMONARY ARTERIES: Unremarkable. No pulmonary embolism. AORTA: No acute findings. No thoracic aortic aneurysm. Aortic and coronary artery calcifications are seen. LUNGS: Unremarkable. No nodule, mass or pulmonary consolidation. PLEURAL SPACES: Unremarkable. No effusion or pneumothorax. HEART: Unremarkable. No cardiomegaly. No significant pericardial effusion. LYMPH NODES: No lymphadenopathy. BONES, CHEST WALL: Unremarkable. No fracture or destructive lesion Extensive venous collaterals are seen over the right side of the chest. 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 There is filling of the azygos vein via collaterals. OTHER FINDINGS: The report concurs with the preliminary [facility] report IMPRESSION: Unremarkable CT pulmonary angiogram. No pulmonary embolus. Extensive venous collaterals are seen over the right side of the chest. 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 There is filling of the azygos vein via collaterals.
--- NOTE | 2018-07-18 07:43 | RAD ---
Date of service: 07/17/2018 HISTORY: palpitations COMPARISON: 04/11/2018 TECHNIQUE: 1 view obtained. FINDINGS: LUNGS: No active pulmonary disease. PLEURA: No significant pleural effusion identified, no pneumothorax apparent. CARDIOVASCULAR: No aortic atherosclerotic calcification present. Normal cardiac size. No pulmonary vascular congestion. OSSEOUS STRUCTURES: Sternal wires VISUALIZED UPPER ABDOMEN: Normal. OTHER FINDINGS: None. IMPRESSION: No active disease.
[2018-07-18] MEDS: Insulin Regular 1 UNITS/0.01 ML ML SC SCH ×4 (07:59→21:34)
[2018-07-18] MEDS ORDERED: Arformoterol 15 mcg/2 ml Inh Sol IH SCH (08:00)
[2018-07-18] MEDS ORDERED: Albuterol 0.083% Inhal Sol (2.5 mg/3 mL) UD IH PRN (08:00)
[2018-07-18] MEDS ORDERED: Budesonide 0.5 mg/2 ml Inhal Susp UD IH SCH (08:00)
[2018-07-18 08:37] LABS: MEAN CELL VOLUME 85.3 fl (80.0-105.0)
[2018-07-18 08:37] LABS: BARBITURATES, UR NEGATIVE (NEGATIVE); BENZODIAZEPINES, UR NEGATIVE (NEGATIVE); OPIATES, UR NEGATIVE (NEGATIVE); PHENCYCLIDINE, UR NEGATIVE (NEGATIVE)
--- NOTE | 2018-07-18 09:34 | US ---
HISTORY: Leg pain and swelling. Evaluate for DVT PHYSICIAN(S): Johann Posadas MD. TECHNIQUE: Duplex sonography and color-flow Doppler with graded compression were used to evaluate the deep venous systems of both lower extremities. FINDINGS: There is adherent echogenic chronic post phlebitic changes noted in the right popliteal vein. The right femoral vein and right common femoral vein are patent and compressible. 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
--- NOTE | 2018-07-18 10:59 | CP.PCM.APN ---
Subjective - Date & Time of Evaluation Date of Evaluation: 07/18/18 Time of Evaluation: 10:00 - Subjective Subjective: pt seen and examined with his daughter at his bedside. pt reports he feels better, denies sob or palps, only complaint is hunger Review of Systems - Review of Systems All systems: reviewed and no additional remarkable complaints except Objective - Vital Signs/Intake and Output Vital Signs (last 24 hours): Temp Pulse Resp BP Pulse Ox 98.1 F 73 19 127/67 98 07/18/18 06:00 07/18/18 10:00 07/18/18 06:00 07/18/18 09:20 07/18/18 06:00 Intake and Output: 07/18/18 07/18/18 06:59 18:59 Intake Total 480 Output Total 225 Balance 255 - Medications Medications: Current Medications Albuterol Sulfate (Albuterol 0.083% Inhal Aury (2.5 Mg/3 Ml) Ud) 2.5 mg IH BIDRESP PRN PRN Reason: Shortness of Breath Arformoterol Tartrate (Brovana) 15 mcg IH [id number] [facility] Aspirin (Ecotrin) 81 mg PO DAILY [facility] Last Admin: 07/18/18 09:18 Dose: 81 mg Atorvastatin Calcium (Lipitor) 20 mg PO DAILY [facility] Last Admin: 07/18/18 09:18 Dose: 20 mg Budesonide (Pulmicort Respules) 0.5 mg IH [id number] [facility] Carvedilol (Coreg) 6.25 mg PO BID [facility] Last Admin: 07/18/18 09:18 Dose: 6.25 mg Clopidogrel Bisulfate (Plavix) 75 mg PO DAILY [facility] Last Admin: 07/18/18 09:18 Dose: 75 mg Dextrose (Dextrose 50% Inj) 0 ml IV STAT PRN; Protocol PRN Reason: Hypoglycemia Protocol Ergocalciferol (Drisdol 50,000 Intl Units Cap) 1 cap PO Q7D [facility] Last Admin: 07/18/18 01:00 Dose: 1 cap Ferrous Sulfate (Feosol) 324 mg PO TID [facility] Last Admin: 07/18/18 09:18 Dose: 324 mg Heparin Sodium (Porcine) (Heparin) 5,000 units SC Q8 [facility]; Protocol Last Admin: 07/18/18 06:03 Dose: 5,000 units Dextrose (Dextrose 5% In Water 1000 Ml) 1,000 mls @ 0 mls/hr IV .Q0M PRN; Protocol PRN Reason: Hypoglycemia Protocol Insulin Human Regular (Humulin R) 0 units SC ACHS [facility]; Protocol Last Admin: 07/18/18 07:59 Dose: Not Given Lisinopril (Zestril) 5 mg PO DAILY [facility] Last Admin: 07/18/18 09:20 Dose: 5 mg Pantoprazole Sodium (Protonix Ec Tab) 40 mg PO 0600,1600 [facility] Tamsulosin HCl (Flomax) 0.4 mg PO HS KILO - Labs Labs: 07/18/18 05:45 07/18/18 05:45 PT 13.3 SECONDS (9.4-12.5) H 07/17/18 17:30 INR 1.20 07/17/18 17:30 APTT 27.2 Seconds (26.9-38.3) 07/17/18 17:30 - Constitutional Appears: Non-toxic, Older Than Stated Age - Eye Exam Eye Exam: Normal appearance - ENT Exam ENT Exam: Normal Exam - Neck Exam Neck Exam: Normal Inspection - Respiratory Exam Respiratory Exam: Decreased Breath Sounds, NORMAL BREATHING PATTERN - Cardiovascular Exam Cardiovascular Exam: +S1, +S2 - GI/Abdominal Exam GI & Abdominal Exam: Soft, Normal Bowel Sounds - Extremities Exam Extremities Exam: Full ROM Additional comments: right foot with ulceration at lateral aspect of great toe- no drainage noted - Neurological Exam Neurological Exam: Alert, Awake, Oriented x3 - Psychiatric Exam Psychiatric exam: Normal Affect, Normal Mood - Skin Skin Exam: Dry, Intact Assessment and Plan - Assessment and Plan (Free Text) Plan: ITS Impressions Chest X-Ray 07/17/18 16:49 IMPRESSION: No active disease. 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 No pulmonary embolus. 72 yr old white male with pmh sig for cea, Right leg dvt, CABG, right foot osteo, copd, htn, valve surgery who was admitted for sob and palpitations and chest pain now admitted for evaluation. pt with workup in progress for questionable stricture of right subclavian vein and diffuse vascularity of right anterior chest. pt is pending ID, cardio and vasc evaluation and workup. will continue to follow and discuss with IDT in rounds. Belinda Cates, DNP, EYE PHYSICIAN BPCI/TIC - BPCIA/TIC Educated pt/family on BPCIA/CIR/Med to Bed Programs: N/A Flyers given, including CMS Beneficiary letter: N/A Pt/family verbalized understanding & agreed to program: N/A
--- NOTE | 2018-07-18 11:02 | CP.PCM.CON ---
<Ishmael Fuentes - Last Filed: 07/18/18 10:59> History of Present Illness - History of Present Illness History of Present Illness: Ishmael Fuentes D.O. PGY-3, Internal Medicine Resident, Infectious Disease Consultation Note 72-year-old male with a past medical history of sternotomy for valve repair, heart failure with preserved ejection fracture, history of DVT, hypertension, COPD, right foot osteomyelitis, tobacco abuse, and homelessness who presented for complaint of palpitations. Infectious disease consultation was requested for this history of osteomyelitis. Patient was seen and examined at bedside. Patient states after discharge he did go to subacute rehab. Patient is a poor historian and cannot say exactly when he left. When asked about his antibiotic regimen that he was supposed to be on, patient is very nonspecific. States that he was given a bunch of pills and not sure what is what. He starts describing specific pills that he still has loads of that he thinks might have been the antibiotics. Has however been getting better with his foot and he is able to ambulate about with minimal discomfort. He denies any fevers, chills, nausea, vomiting, diarrhea, constipation but he was concerned about these palpitations that originally brought him in this admission. Review of Systems - Review of Systems All systems: reviewed and no additional remarkable complaints except (as per HPI) Past Patient History - Infectious Disease Hx of Infectious Diseases: None - Past Social History Smoking Status: Heavy Smoker > 10 Cigarettes Daily - CARDIAC Hx Hypertension: Yes - PULMONARY Hx Respiratory Disorders: Yes Hx Chronic Obstructive Pulmonary Disease (COPD): Yes Other/Comment: smoker 1 PPD - NEUROLOGICAL Hx Neurological Disorder: No - HEENT Hx HEENT Problems: No - RENAL Hx Chronic Kidney Disease: No - ENDOCRINE/METABOLIC Hx Endocrine Disorders: No - HEMATOLOGICAL/ONCOLOGICAL Hx Blood Disorders: No - INTEGUMENTARY Hx Dermatological Problems: Yes Other/Comment: rash/reaction from bed bugs - MUSCULOSKELETAL/RHEUMATOLOGICAL Hx Musculoskeletal Disorders: Yes Other/Comment: uses cane for ambulation. plantar faciitis - GASTROINTESTINAL Hx Gastrointestinal Disorders: No - GENITOURINARY/GYNECOLOGICAL Hx Genitourinary Disorders: Yes Other/Comment: Hx prostate ca with radiation therapy - PSYCHIATRIC Hx Psychophysiologic Disorder: No Hx Substance Use: No - SURGICAL HISTORY Hx Appendectomy: Yes (at age 17) - ANESTHESIA Hx Anesthesia: Yes Hx Anesthesia Reactions: No Hx Malignant Hyperthermia: No Meds Allergies/Adverse Reactions: Allergies Allergy/AdvReac Type Severity Reaction Status Date / Time No Known Allergies Allergy Verified 05/12/18 08:59 - Medications Medications: Current Medications Albuterol Sulfate (Albuterol 0.083% Inhal Aury (2.5 Mg/3 Ml) Ud) 2.5 mg IH BIDRESP PRN PRN Reason: Shortness of Breath Arformoterol Tartrate (Brovana) 15 mcg [facility] [id number] [facility] Aspirin (Ecotrin) 81 mg PO DAILY [facility] Last Admin: 07/18/18 09:18 Dose: 81 mg Atorvastatin Calcium (Lipitor) 20 mg PO DAILY [facility] Last Admin: 07/18/18 09:18 Dose: 20 mg Budesonide (Pulmicort Respules) 0.5 mg IH [id number] [facility] Carvedilol (Coreg) 6.25 mg PO BID [facility] Last Admin: 07/18/18 09:18 Dose: 6.25 mg Clopidogrel Bisulfate (Plavix) 75 mg PO DAILY [facility] Last Admin: 07/18/18 09:18 Dose: 75 mg Dextrose (Dextrose 50% Inj) 0 ml IV STAT PRN; Protocol PRN Reason: Hypoglycemia Protocol Ergocalciferol (Drisdol 50,000 Intl Units Cap) 1 cap PO Q7D [facility] Last Admin: 07/18/18 01:00 Dose: 1 cap Ferrous Sulfate (Feosol) 324 mg PO TID [facility] Last Admin: 07/18/18 09:18 Dose: 324 mg Heparin Sodium (Porcine) (Heparin) 5,000 units SC Q8 [facility]; Protocol Last Admin: 07/18/18 06:03 Dose: 5,000 units Dextrose (Dextrose 5% In Water 1000 Ml) 1,000 mls @ 0 mls/hr IV .Q0M PRN; Protocol PRN Reason: Hypoglycemia Protocol Insulin Human Regular (Humulin R) 0 units SC ACHS [facility]; Protocol Last Admin: 07/18/18 07:59 Dose: Not Given Lisinopril (Zestril) 5 mg PO DAILY [facility] Last Admin: 07/18/18 09:20 Dose: 5 mg Pantoprazole Sodium (Protonix Ec Tab) 40 mg PO 0600,1600 [facility] Tamsulosin HCl (Flomax) 0.4 mg PO HS [facility] Physical Exam - Constitutional Appears: Non-toxic, No Acute Distress - Head Exam Head Exam: ATRAUMATIC, NORMOCEPHALIC - Eye Exam Eye Exam: EOMI. absent: Scleral icterus - ENT Exam ENT Exam: Mucous Membranes Moist, Normal Oropharynx - Neck Exam Neck exam: Positive for: Normal Inspection - Respiratory Exam Respiratory Exam: absent: Rhonchi - Cardiovascular Exam Cardiovascular Exam: +S1, +S2 - GI/Abdominal Exam GI & Abdominal Exam: Soft - Extremities Exam Extremities exam: Negative for: calf tenderness Additional comments: right foot bandaged - Neurological Exam Neurological exam: Alert, Oriented x3 - Skin Skin Exam: Dry, Warm Results - Vital Signs Recent Vital Signs: Last Vital Signs Temp 98.1 F 07/18/18 06:00 Pulse 73 07/18/18 10:00 Resp 19 07/18/18 06:00 BP 127/67 07/18/18 09:20 Pulse Ox 98 07/18/18 06:00 - Labs Result Diagrams: 07/18/18 05:45 07/18/18 05:45 Labs: Laboratory Results - last 24 hr 07/17/18 07/17/18 07/17/18 17:30 17:30 17:30 WBC 7.8 RBC 4.44 Hgb 12.0 L D Hct 37.9 L MCV 85.4 D MCH 27.0 MCHC 31.7 RDW 16.8 H Plt Count 157 MPV 8.5 Neut % (Auto) 73.6 H Lymph % (Auto) 16.0 L [place] % (Auto) 8.5 H Eos % (Auto) 1.5 Baso % (Auto) 0.4 Lymph # (Auto) 1.2 [place] # (Auto) 0.7 H Eos # (Auto) 0.1 Baso # (Auto) 0.03 Absolute Neuts (auto) 5.70 PT 13.3 H INR 1.20 APTT 27.2 D-Dimer, Quantitative 562 H Sodium 142 Potassium 3.8 Chloride 107 Carbon Dioxide 27 Anion Gap 13 BUN 26 H Creatinine 1.1 Est GFR ( Amer) > 60 Est GFR (Non-Af Amer) > 60 Random Glucose 94 Calcium 9.7 Phosphorus 2.8 Magnesium 2.3 H Total Bilirubin 0.4 AST 15 L ALT 10 Alkaline Phosphatase 77 Total Creatine Kinase 32 L Troponin I < 0.01 D NT-Pro-B Natriuret Pep 311 Total Protein 6.9 Albumin 3.8 Globulin 3.1 Albumin/Globulin Ratio 1.2 TSH 3rd Generation Urine Opiates Screen Urine Methadone Screen Ur Barbiturates Screen Ur Phencyclidine Scrn Ur Amphetamines Screen U Benzodiazepines Scrn U Oth Cocaine Metabols U Cannabinoids Screen 07/17/18 07/17/18 07/18/18 17:30 23:40 05:45 WBC 6.1 D RBC 4.28 Hgb 11.2 L Hct 34.9 L MCV 85.3 MCH 26.2 MCHC 32.1 RDW 16.8 H Plt Count 161 MPV 8.8 Neut % (Auto) 64.1 Lymph % (Auto) 24.5 [place] % (Auto) 7.7 H Eos % (Auto) 3.4 Baso % (Auto) 0.3 Lymph # (Auto) 1.5 [place] # (Auto) 0.5 Eos # (Auto) 0.2 Baso # (Auto) 0.02 Absolute Neuts (auto) 3.90 PT INR APTT D-Dimer, Quantitative Sodium Potassium Chloride Carbon Dioxide Anion Gap BUN Creatinine Est GFR ( Amer) Est GFR (Non-Af Amer) Random Glucose Calcium Phosphorus Magnesium Total Bilirubin AST ALT Alkaline Phosphatase Total Creatine Kinase Troponin I 0.02 D NT-Pro-B Natriuret Pep Total Protein Albumin Globulin Albumin/Globulin Ratio TSH 3rd Generation 0.91 Urine Opiates Screen Urine Methadone Screen Ur Barbiturates Screen Ur Phencyclidine Scrn Ur Amphetamines Screen U Benzodiazepines Scrn U Oth Cocaine Metabols U Cannabinoids Screen 07/18/18 07/18/18 05:45 07:30 WBC RBC Hgb Hct MCV MCH MCHC RDW Plt Count MPV Neut % (Auto) Lymph % (Auto) [place] % (Auto) Eos % (Auto) Baso % (Auto) Lymph # (Auto) [place] # (Auto) Eos # (Auto) Baso # (Auto) Absolute Neuts (auto) PT INR APTT D-Dimer, Quantitative Sodium 141 Potassium 3.8 Chloride 108 H Carbon Dioxide 26 Anion Gap 11 BUN 25 H Creatinine 1.1 Est GFR ( Amer) > 60 Est GFR (Non-Af Amer) > 60 Random Glucose 86 Calcium 9.0 Phosphorus Magnesium Total Bilirubin 0.3 AST 16 L ALT 16 Alkaline Phosphatase 69 Total Creatine Kinase Troponin I 0.02 NT-Pro-B Natriuret Pep Total Protein 6.2 Albumin 3.3 Globulin 2.9 Albumin/Globulin Ratio 1.1 TSH 3rd Generation Urine Opiates Screen Negative Urine Methadone Screen Negative Ur Barbiturates Screen Negative Ur Phencyclidine Scrn Negative Ur Amphetamines Screen Negative U Benzodiazepines Scrn Negative U Oth Cocaine Metabols Negative U Cannabinoids Screen Negative Assessment & Plan - Assessment and Plan (Free Text) Assessment: 72-year-old male with a past medical history of sternotomy for valve repair, heart failure with preserved ejection fracture, history of DVT, hypertension, COPD, right foot osteomyelitis, tobacco abuse, and homelessness who presented for complaint of palpitations. Infectious disease consultation was requested for this history of osteomyelitis. Plan: History of osteomyelitis diagnosed on 05/22/18 Palpitations Heart failure with preserved ejection fracture History of DVT Hypertension COPD Homelessness Tobacco abuse Sternotomy with valve repair Made a call out to [facility] [place] where the patient was discharged to on 05/24/18, per their records the patient received 2 weeks of IV cefepime and doxycycline until 06/06/18 but then the patient developed issues with his PICC line. Patient was offered to have a new PICC line inserted on the other arm but he refused and so at that time he was switched to p.o. with doxycycline and Keflex which he took for another 3-1/2 weeks until his discharge on 07/02/18 Afebrile No leukocytosis No tachycardia or tachypnea No acute signs of infection Here for complaint of palpitations We will monitor off antibiotics at this time We will get x-rays of the right foot Reviewed foot MRI from 05/22 We will obtain a ESR and CRP We will follow with you Patient was seen and examined and case to be discussed with attending physician Thank you for the pleasure participating in the care of this patient - Date & Time Date: 07/18/18 Time: 09:45 <Daniel Thayer S - Last Filed: 07/18/18 23:29> Meds - Medications Medications: Current Medications Albuterol Sulfate (Albuterol 0.083% Inhal Aury (2.5 Mg/3 Ml) Ud) 2.5 mg IH BIDRESP PRN PRN Reason: Shortness of Breath Arformoterol Tartrate (Brovana) 15 mcg IH [id number] [facility] Last Admin: 07/18/18 14:37 Dose: Not Given Aspirin (Ecotrin) 81 mg PO DAILY [facility] Last Admin: 07/18/18 09:18 Dose: 81 mg Atorvastatin Calcium (Lipitor) 20 mg PO DAILY [facility] Last Admin: 07/18/18 09:18 Dose: 20 mg Budesonide (Pulmicort Respules) 0.5 mg IH [id number] [facility] Last Admin: 07/18/18 14:38 Dose: Not Given Carvedilol (Coreg) 6.25 mg PO BID [facility] Last Admin: 07/18/18 17:38 Dose: 6.25 mg Clopidogrel Bisulfate (Plavix) 75 mg PO DAILY [facility] Last Admin: 07/18/18 09:18 Dose: 75 mg Dextrose (Dextrose 50% Inj) 0 ml IV STAT PRN; Protocol PRN Reason: Hypoglycemia Protocol Ergocalciferol (Drisdol 50,000 Intl Units Cap) 1 cap PO Q7D [facility] Last Admin: 07/18/18 01:00 Dose: 1 cap Ferrous Sulfate (Feosol) 324 mg PO TID [facility] Last Admin: 07/18/18 17:38 Dose: 324 mg Heparin Sodium (Porcine) (Heparin) 5,000 units SC Q8 [facility]; Protocol Last Admin: 07/18/18 21:26 Dose: 5,000 units Dextrose (Dextrose 5% In Water 1000 Ml) 1,000 mls @ 0 mls/hr IV .Q0M PRN; Protocol PRN Reason: Hypoglycemia Protocol Insulin Human Regular (Humulin R) 0 units SC ACHS [facility]; Protocol Last Admin: 07/18/18 21:34 Dose: Not Given Lisinopril (Zestril) 5 mg PO DAILY [facility] Last Admin: 07/18/18 09:20 Dose: 5 mg Pantoprazole Sodium (Protonix Ec Tab) 40 mg PO 0600,1600 [facility] Last Admin: 07/18/18 17:38 Dose: 40 mg Tamsulosin HCl (Flomax) 0.4 mg PO HS [facility] Last Admin: 07/18/18 21:26 Dose: 0.4 mg Results - Vital Signs Recent Vital Signs: Last Vital Signs Temp 98.5 F 07/18/18 17:30 Pulse 50 L 07/18/18 22:00 Resp 20 07/18/18 17:30 BP 117/65 07/18/18 17:38 Pulse Ox 98 07/18/18 06:00 - Labs Result Diagrams: 07/18/18 05:45 07/18/18 05:45 Labs: Laboratory Results - last 24 hr 07/17/18 07/18/18 07/18/18 23:40 05:45 05:45 WBC 6.1 D RBC 4.28 Hgb 11.2 L Hct 34.9 L MCV 85.3 MCH 26.2 MCHC 32.1 RDW 16.8 H Plt Count 161 MPV 8.8 Neut % (Auto) 64.1 Lymph % (Auto) 24.5 [place] % (Auto) 7.7 H Eos % (Auto) 3.4 Baso % (Auto) 0.3 Lymph # (Auto) 1.5 [place] # (Auto) 0.5 Eos # (Auto) 0.2 Baso # (Auto) 0.02 Absolute Neuts (auto) 3.90 ESR Sodium 141 Potassium 3.8 Chloride 108 H Carbon Dioxide 26 Anion Gap 11 BUN 25 H Creatinine 1.1 Est GFR ( Amer) > 60 Est GFR (Non-Af Amer) > 60 Random Glucose 86 Calcium 9.0 Total Bilirubin 0.3 AST 16 L ALT 16 Alkaline Phosphatase 69 Troponin I 0.02 D 0.02 C-React Prot High Sens Total Protein 6.2 Albumin 3.3 Globulin 2.9 Albumin/Globulin Ratio 1.1 Urine Opiates Screen Urine Methadone Screen Ur Barbiturates Screen Ur Phencyclidine Scrn Ur Amphetamines Screen U Benzodiazepines Scrn U Oth Cocaine Metabols U Cannabinoids Screen 07/18/18 07/18/18 07/18/18 07:30 11:00 11:00 WBC RBC Hgb Hct MCV MCH MCHC RDW Plt Count MPV Neut % (Auto) Lymph % (Auto) [place] % (Auto) Eos % (Auto) Baso % (Auto) Lymph # (Auto) [place] # (Auto) Eos # (Auto) Baso # (Auto) Absolute Neuts (auto) ESR 29 H Sodium Potassium Chloride Carbon Dioxide Anion Gap BUN Creatinine Est GFR ( Amer) Est GFR (Non-Af Amer) Random Glucose Calcium Total Bilirubin AST ALT Alkaline Phosphatase Troponin I C-React Prot High Sens 4.81 H Total Protein Albumin Globulin Albumin/Globulin Ratio Urine Opiates Screen Negative Urine Methadone Screen Negative Ur Barbiturates Screen Negative Ur Phencyclidine Scrn Negative Ur Amphetamines Screen Negative U Benzodiazepines Scrn Negative U Oth Cocaine Metabols Negative U Cannabinoids Screen Negative Assessment & Plan - Assessment and Plan (Free Text) Plan: Infectious Diseases Attending Physician Attestation Patient seen and examined at bedside, discussed with medical anthropologist. I have reviewed the HPI, ROS, physical examination findings. I have also reviewed the pertinent labs and diagnostic imaging. I have fully participiated in the care of this patient. I agree with the above findings, assessment, plan.
--- NOTE | 2018-07-18 15:24 | CP.PCM.PN ---
<Kody Birmingham - Last Filed: 07/18/18 15:21> Subjective - Date & Time of Evaluation Date of Evaluation: 07/18/18 Time of Evaluation: 08:00 - Subjective Subjective: Kody Birmingham PGY1 Medicine Progress Note for Dr. Martinez Patient seen and examined at bedside this morning. Vital signs stable. Patient verbally abusive to medical staff. Denies cp, sob, palpitations, lightheadedness, dizziness, n/v/d. A full 12 point ROS was conducted and unremarkable except as stated above. Objective - Vital Signs/Intake and Output Vital Signs (last 24 hours): Temp Pulse Resp BP Pulse Ox 98 F 69 20 114/55 L 98 07/18/18 12:00 07/18/18 14:00 07/18/18 12:00 07/18/18 12:00 07/18/18 06:00 Intake and Output: 07/18/18 07/18/18 06:59 18:59 Intake Total 480 Output Total 225 Balance 255 - Medications Medications: Current Medications Albuterol Sulfate (Albuterol 0.083% Inhal Aury (2.5 Mg/3 Ml) Ud) 2.5 mg IH BIDRESP PRN PRN Reason: Shortness of Breath Arformoterol Tartrate (Brovana) 15 mcg IH [id number] [facility] Last Admin: 07/18/18 14:37 Dose: Not Given Aspirin (Ecotrin) 81 mg PO DAILY [facility] Last Admin: 07/18/18 09:18 Dose: 81 mg Atorvastatin Calcium (Lipitor) 20 mg PO DAILY [facility] Last Admin: 07/18/18 09:18 Dose: 20 mg Budesonide (Pulmicort Respules) 0.5 mg IH [id number] [facility] Last Admin: 07/18/18 14:38 Dose: Not Given Carvedilol (Coreg) 6.25 mg PO BID [facility] Last Admin: 07/18/18 09:18 Dose: 6.25 mg Clopidogrel Bisulfate (Plavix) 75 mg PO DAILY [facility] Last Admin: 07/18/18 09:18 Dose: 75 mg Dextrose (Dextrose 50% Inj) 0 ml IV STAT PRN; Protocol PRN Reason: Hypoglycemia Protocol Ergocalciferol (Drisdol 50,000 Intl Units Cap) 1 cap PO Q7D [facility] Last Admin: 07/18/18 01:00 Dose: 1 cap Ferrous Sulfate (Feosol) 324 mg PO TID [facility] Last Admin: 07/18/18 13:19 Dose: 324 mg Heparin Sodium (Porcine) (Heparin) 5,000 units SC Q8 [facility]; Protocol Last Admin: 07/18/18 13:19 Dose: 5,000 units Dextrose (Dextrose 5% In Water 1000 Ml) 1,000 mls @ 0 mls/hr IV .Q0M PRN; Protocol PRN Reason: Hypoglycemia Protocol Insulin Human Regular (Humulin R) 0 units SC ACHS [facility]; Protocol Last Admin: 07/18/18 11:52 Dose: 1 unit Lisinopril (Zestril) 5 mg PO DAILY [facility] Last Admin: 07/18/18 09:20 Dose: 5 mg Pantoprazole Sodium (Protonix Ec Tab) 40 mg PO 0600,1600 [facility] Tamsulosin HCl (Flomax) 0.4 mg PO HS [facility] - Labs Labs: 07/18/18 05:45 07/18/18 05:45 PT 13.3 SECONDS (9.4-12.5) H 07/17/18 17:30 INR 1.20 07/17/18 17:30 APTT 27.2 Seconds (26.9-38.3) 07/17/18 17:30 - Constitutional Appears: Non-toxic, No Acute Distress - Head Exam Head Exam: ATRAUMATIC, NORMOCEPHALIC - Eye Exam Eye Exam: EOMI, Normal appearance - ENT Exam ENT Exam: Mucous Membranes Moist - Respiratory Exam Respiratory Exam: Clear to Auscultation Bilateral, NORMAL BREATHING PATTERN. absent: Rhonchi, Wheezes - Cardiovascular Exam Cardiovascular Exam: REGULAR RHYTHM, +S1, +S2. absent: Tachycardia Additional comments: Vertical sternotomy incision scar. - GI/Abdominal Exam GI & Abdominal Exam: Normal Bowel Sounds, Soft. absent: Tenderness - Extremities Exam Extremities exam: Negative for: calf tenderness, pedal edema, tenderness Additional comments: No calf swelling, no calf tenderness, no erythema. Small ulcer on right foot. - Neurological Exam Neurological exam: Alert, CN II-XII Intact, Oriented x3 - Psychiatric Exam Psychiatric exam: Normal Affect, Normal Mood - Skin Skin Exam: Dry, Intact, Normal Color, Warm Assessment and Plan - Assessment and Plan (Free Text) Assessment: 72-year-old male with a past medical history of sternotomy for valve repair, heart failure with preserved ejection fracture, history of DVT, hypertension, COPD, right foot osteomyelitis (recent admission), tobacco abuse, and homelessness who presented for complaint of palpitations. Plan: Palpitations - Patient says symptoms are improving - CTA: no evidence of PE - EKG: sinus tach with prolonged QTc - Troponins neg x 3 - TSH WNL - UDS negative - Cardiology is on consult (Dr. Barnhart) Right Lower Extremity Ulcer with Hx R-foot osteomyelitis - R-LE US: chronic post-phlebitic changes in right popliteal vein; no evidence of DVT - continue to monitor on telemetry - Podiatry is on consult - f/u results of foot jakob - ID on consult (Dr. Martin) - IR on consult (Dr. Posadas) Anemia, history iron deficiency -HgB 12.0 (baseline 10) -Previous admission +stool occult; patient refuses colonoscopy -Ferrous sulfate 324 mg PO TID -Hx Anemia CAD s/p CABG, stents -ASA 81 daily -Plavix 75 mg PO daily -EKG and trops as above QTc prolongation -QTc 487 -Avoid QT-prolonging agents DM -ISS medium dose -Accuchecks ACHS -Hypoglycemia protocol COPD -Albuterol 2.5 mg IH BID prn -Brovana 15mg IG Q12 [facility] -Pulmincort 0.5 mg IH Q12 HTN -Lisinopril 5 mg PO daily -Coreg 6.25 PO BID BPH -Flomax 0.4 mg PO HS Vit D deficiency -Vit D 50,000 U Q7d PPx -DVT: Heparin 5000 U SC Q8, SCDs -GI: not indicated -HHD Dispo: Monitor patient on telemetry. Pending recs from podiatry and cardiology. Case was discussed and reviewed with Attending Physician, Dr. Martinez. <Liza Martinez - Last Filed: 07/18/18 16:59> Objective - Vital Signs/Intake and Output Vital Signs (last 24 hours): Temp Pulse Resp BP Pulse Ox 98 F 69 20 114/55 L 98 07/18/18 12:00 07/18/18 14:00 07/18/18 12:00 07/18/18 12:00 07/18/18 06:00 Intake and Output: 07/18/18 07/18/18 06:59 18:59 Intake Total 480 Output Total 225 Balance 255 - Medications Medications: Current Medications Albuterol Sulfate (Albuterol 0.083% Inhal Aury (2.5 Mg/3 Ml) Ud) 2.5 mg IH BIDRESP PRN PRN Reason: Shortness of Breath Arformoterol Tartrate (Brovana) 15 mcg IH [id number] [facility] Last Admin: 07/18/18 14:37 Dose: Not Given Aspirin (Ecotrin) 81 mg PO DAILY [facility] Last Admin: 07/18/18 09:18 Dose: 81 mg Atorvastatin Calcium (Lipitor) 20 mg PO DAILY [facility] Last Admin: 07/18/18 09:18 Dose: 20 mg Budesonide (Pulmicort Respules) 0.5 mg IH [id number] [facility] Last Admin: 07/18/18 14:38 Dose: Not Given Carvedilol (Coreg) 6.25 mg PO BID [facility] Last Admin: 07/18/18 09:18 Dose: 6.25 mg Clopidogrel Bisulfate (Plavix) 75 mg PO DAILY [facility] Last Admin: 07/18/18 09:18 Dose: 75 mg Dextrose (Dextrose 50% Inj) 0 ml IV STAT PRN; Protocol PRN Reason: Hypoglycemia Protocol Ergocalciferol (Drisdol 50,000 Intl Units Cap) 1 cap PO Q7D [facility] Last Admin: 07/18/18 01:00 Dose: 1 cap Ferrous Sulfate (Feosol) 324 mg PO TID [facility] Last Admin: 07/18/18 13:19 Dose: 324 mg Heparin Sodium (Porcine) (Heparin) 5,000 units SC Q8 [facility]; Protocol Last Admin: 07/18/18 13:19 Dose: 5,000 units Dextrose (Dextrose 5% In Water 1000 Ml) 1,000 mls @ 0 mls/hr IV .Q0M PRN; Protocol PRN Reason: Hypoglycemia Protocol Insulin Human Regular (Humulin R) 0 units SC ACHS [facility]; Protocol Last Admin: 07/18/18 11:52 Dose: 1 unit Lisinopril (Zestril) 5 mg PO DAILY [facility] Last Admin: 07/18/18 09:20 Dose: 5 mg Pantoprazole Sodium (Protonix Ec Tab) 40 mg PO 0600,1600 [facility] Tamsulosin HCl (Flomax) 0.4 mg PO HS [facility] - Labs Labs: 07/18/18 05:45 03/28/19 05:45 PT 13.3 SECONDS (9.4-12.5) H 07/17/18 17:30 INR 1.20 07/17/18 17:30 APTT 27.2 Seconds (26.9-38.3) 07/17/18 17:30 Attending/Attestation - Attestation I have personally seen and examined this patient.: Yes I have fully participated in the care of the patient.: Yes I have reviewed all pertinent clinical information, including history, physical exam and plan: Yes Notes (Text): 07/18/18 16:54 72 year old hom[place] male with past medical history of DVT, hypertension, COPD, CAD and recently treated right foot osteomyelitis who presented with complaint of palpitations and chest pain. Serial cardiac enzymes were negative. TSH is normal. D-dimer was elevated. LE doppler showed chronic post-phlebitic changes in the right popliteal vein; no evidence of DVT. CT angio was negative for PE but showed severe subclavian vein stenosis. He is on aspirin, plavix and statin. He was on eliquis in the past which was discontinued due to history of falls. IR and cardiology evaluations were requested. ID input was appreciated. Will follow on xray and with podiatry recommendations as well. Will request PT evaluation and social work services. Liza Martinez MD Hospitalist.
--- NOTE | 2018-07-18 15:55 | CON ---
DATE OF CONSULTATION: 07/18/2018 REQUESTING PHYSICIAN: Dr. Martinez. REASON FOR CONSULTATION: Palpitations, possible chest pain. HISTORY: This is a 72-year-old man, well known to me with a history of coronary artery disease status post prior PCI and ultimate bypass surgery as well as a bilateral carotid disease status post bilateral carotid endarterectomy, admitted with complaints of palpitations yesterday. The patient states that shortly after eating he felt a rapid heart rate and pounding in his chest, which lasted for approximately 20 minutes. He had no associated chest pain or dyspnea. He denied any lightheadedness. He has had no prior syncope. He has had no known dysrhythmias in the past. Initial electrocardiogram showed no acute changes and telemetry monitoring reveals no significant dysrhythmias. He was hospitalized several months ago with DVT and had been on Eliquis therapy for this. This was discontinued last month. He states that he is fairly active. He does use a cane for ambulation, and he continues to smoke a pack per day. PAST MEDICAL HISTORY: He has a history of COPD and he also has hypertension, diabetes, and hyperlipidemia. History of prostate cancer treated with radiation therapy as well as a prior appendectomy. MEDICATIONS: His medications at home include clopidogrel, Coreg 6.25 mg b.i.d., lisinopril 5 mg daily, Protonix 40 mg daily, metformin 500 mg b.i.d., Symbicort, ProAir, and Lipitor 20 mg daily. ALLERGIES: NONE. SOCIAL HISTORY: He has been a heavy smoker for many, many years. He had a history of alcohol abuse, but stopped several years ago. FAMILY HISTORY: Both parents are from age-related illness. REVIEW OF SYSTEMS: A 10-point review of systems is notable mainly for the problems mentioned above. PHYSICAL EXAMINATION: GENERAL: He is a middle-aged man, who appears comfortable at the present time. VITAL SIGNS: His blood pressure is 126/70 with a pulse of 82 and sinus, respirations are 14. He is afebrile. HEENT: A bilateral carotid endarterectomy scar is present. Normocephalic, atraumatic. NECK: Supple. No JVD noted. CHEST: Bilateral scattered rhonchi heard. HEART: PMI displaced laterally with a soft systolic murmur at the lower left sternal border. ABDOMEN: Soft, nontender with normoactive bowel sounds. EXTREMITIES: No clubbing, cyanosis, or edema. SKIN: Warm and dry. PSYCHIATRIC: Normal mood and affect. NEUROLOGIC: No gross motor or sensory deficits notable. He does walk with a cane due to chronic plantar fasciitis. DIAGNOSTIC DATA: White count 6.1, hemoglobin and hematocrit of 11.2 and 34.9 with a platelet count of 161,000. PT/PTT are 13.3 and 27.2, potassium is 3.8, BUN and creatinine of 25 and 1.1. Three sets of cardiac enzymes are negative. . Toxicology screen was negative. Electrocardiogram reveals a sinus rhythm with voltage criteria for LVH and slight prolongation of his QT interval. Followup electrocardiogram shows T-wave inversions in V1 and V2. Chest x-ray reveals post sternotomy changes with a normal cardiac silhouette. Lung zepeda are clear. IMPRESSION: 1. Palpitations that sound somewhat suspicious for nonsustained tachycardia, possible atrial fibrillation or other cause. 2. Coronary artery disease, status post remote bypass surgery. 3. Bilateral carotid endarterectomy. 4. Chronic tobacco abuse. 5. Rest of the problems as noted. RECOMMENDATIONS: Telemetry monitoring should continue for several hours. If he has no significant dysrhythmias, discharge home with outpatient followup can be arranged. Smoking abstinence was strongly emphasized to him. An outpatient followup stress test will be recommended. If he has recurrent symptoms, a 24-hour Holter monitor or a 30-day event monitor can be arranged. Thank you for this consultation. We will be happy to follow along as needed and arrange for outpatient followup as well. Asad Barnhart MD MTDD
--- NOTE | 2018-07-18 16:08 | RAD ---
Date of service: 07/18/2018 PROCEDURE: Right Foot Radiographs. HISTORY: hx osteo 5th distal and middle phalanges,?recur COMPARISON: 05/18/2018 TECHNIQUE: 3 views obtained. FINDINGS: BONES: There is a minimally displaced fracture of the 5th proximal phalanx. JOINTS: Degenerative changes in the 1st MTP joint SOFT TISSUES: Normal. OTHER FINDINGS: None. IMPRESSION: There is a minimally displaced fracture of the 5th proximal phalanx.
--- NOTE | 2018-07-18 16:13 | CARD ---
APPROVED REPORT Date of service: 07/18/2018 EKG Measurement Heart [id number] <Conclusion> Sinus bradycardia LVH ST-T Changes.
--- NOTE | 2018-07-18 16:16 | CON ---
DATE OF CONSULTATION: 07/18/2018 TIME: 11:50 a.m. CHIEF COMPLAINT/HISTORY OF PRESENT ILLNESS: Mr. Riggins is a 72-year-old vasculopath that I know from a recent arteriogram and right external iliac and common femoral artery atherectomy/angioplasty in 04/2018. He was recently admitted with palpitations. His CT scan showed no evidence of emboli. 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 There is a request for an IVC filter. The thrombus is minuscule and likely chronic. Mr. Riggins does not meet the criteria for IVC filter placement. He should be on prophylactic anticoagulation in the hospital. Compression stockings should be applied. Early ambulation is recommended. Johann Posadas MD MTDRadha
[2018-07-18] MEDS: Pantoprazole 40 mg EC Tab PO SCH (17:38)
[2018-07-19] MEDS: Pantoprazole 40 mg EC Tab PO SCH ×2 (05:26→17:33)
[2018-07-19 05:54] VITALS: O2SAT 96
[2018-07-19 06:58] LABS: BASO # 0.02 K/mm3 (0.0-2.0); BASO % 0.3 % (0.0-3.0); EOS # 0.3 (0.0-0.7); EOS % 4.7 % (1.5-5.0); LYMPH # 1.3 (1.2-3.4); MEAN CELL VOLUME 85.3 fl (80.0-105.0); MEAN CORPUSCULAR HEMOGLOBIN 26.6 pg (25.0-35.0); MEAN CORPUSCULAR HGB CONC 31.2 g/dl (31.0-37.0); MEAN PLATELET VOLUME 8.9 fl (7.0-11.0); MONO # 0.4 (0.1-0.6); MONO % 6.2 % (1.0-6.0); RBC 4.14 10^6/uL (3.5-6.1); RED CELL DISTRIBUTION WIDTH 16.5 % (11.5-14.5); WHITE BLOOD COUNT 7.1 10^3/uL (4.5-11.0)
[2018-07-19 07:14] LABS: ALB/GLOB RATIO 1.2 (1.1-1.8); ALBUMIN 3.3 g/dL (3.0-4.8); ALT/SGPT 16 U/L (7-56); AST/SGOT 16 U/L (17-59); BLOOD UREA NITROGEN 21 mg/dL (7-21); CALCIUM 8.6 mg/dL (8.4-10.5); GFR NON-AFRICAN AMERICAN > 60
[2018-07-19] MEDS: Insulin Regular 1 UNITS/0.01 ML ML SC SCH ×3 (08:00→17:30)
--- NOTE | 2018-07-19 08:55 | CP.PCM.PN ---
Subjective - Date & Time of Evaluation Date of Evaluation: 07/19/18 Time of Evaluation: 08:00 - Subjective Subjective: Kody [place], PGY1 Medicine Progress Note for Dr. Martinez Patient seen at bedside. No adverse overnight events. Vital signs stable. Denies palpitations, cp, n/v/d, fever, chills. A full 12 point ROS was conducted and unremarkable except as stated above. Objective - Vital Signs/Intake and Output Vital Signs (last 24 hours): Temp Pulse Resp BP Pulse Ox 98.2 F 74 19 110/74 96 07/19/18 05:52 07/19/18 05:52 07/19/18 05:52 07/19/18 05:52 07/19/18 05:52 Intake and Output: 07/19/18 07/19/18 06:59 18:59 Intake Total 480 Output Total 300 Balance 180 - Medications Medications: Current Medications Albuterol Sulfate (Albuterol 0.083% Inhal Aury (2.5 Mg/3 Ml) Ud) 2.5 mg IH BIDRESP PRN PRN Reason: Shortness of Breath Arformoterol Tartrate (Brovana) 15 mcg IH [id number] [facility] Last Admin: 07/18/18 14:37 Dose: Not Given Aspirin (Ecotrin) 81 mg PO DAILY [facility] Last Admin: 07/18/18 09:18 Dose: 81 mg Atorvastatin Calcium (Lipitor) 20 mg PO DAILY [facility] Last Admin: 07/18/18 09:18 Dose: 20 mg Budesonide (Pulmicort Respules) 0.5 mg IH [id number] [facility] Last Admin: 07/18/18 14:38 Dose: Not Given Carvedilol (Coreg) 6.25 mg PO BID [facility] Last Admin: 07/18/18 17:38 Dose: 6.25 mg Clopidogrel Bisulfate (Plavix) 75 mg PO DAILY [facility] Last Admin: 07/18/18 09:18 Dose: 75 mg Dextrose (Dextrose 50% Inj) 0 ml IV STAT PRN; Protocol PRN Reason: Hypoglycemia Protocol Ergocalciferol (Drisdol 50,000 Intl Units Cap) 1 cap PO Q7D [facility] Last Admin: 07/18/18 01:00 Dose: 1 cap Ferrous Sulfate (Feosol) 324 mg PO TID [facility] Last Admin: 07/18/18 17:38 Dose: 324 mg Heparin Sodium (Porcine) (Heparin) 5,000 units SC Q8 [facility]; Protocol Last Admin: 07/19/18 05:27 Dose: 5,000 units Dextrose (Dextrose 5% In Water 1000 Ml) 1,000 mls @ 0 mls/hr IV .Q0M PRN; Protocol PRN Reason: Hypoglycemia Protocol Insulin Human Regular (Humulin R) 0 units SC ACHS [facility]; Protocol Last Admin: 07/19/18 08:00 Dose: Not Given Lisinopril (Zestril) 5 mg PO DAILY [facility] Last Admin: 07/18/18 09:20 Dose: 5 mg Pantoprazole Sodium (Protonix Ec Tab) 40 mg PO 0600,1600 [facility] Last Admin: 07/19/18 05:26 Dose: 40 mg Tamsulosin HCl (Flomax) 0.4 mg PO HS [facility] Last Admin: 07/18/18 21:26 Dose: 0.4 mg - Labs Labs: 07/19/18 06:00 07/19/18 06:00 PT 13.3 SECONDS (9.4-12.5) H 07/17/18 17:30 INR 1.20 07/17/18 17:30 APTT 27.2 Seconds (26.9-38.3) 07/17/18 17:30 - Constitutional Appears: Non-toxic, No Acute Distress - Head Exam Head Exam: ATRAUMATIC, NORMOCEPHALIC - Eye Exam Eye Exam: EOMI, Normal appearance - ENT Exam ENT Exam: Mucous Membranes Moist - Respiratory Exam Respiratory Exam: Clear to Auscultation Bilateral, NORMAL BREATHING PATTERN. absent: Rhonchi, Wheezes - Cardiovascular Exam Cardiovascular Exam: REGULAR RHYTHM, +S1, +S2. absent: Tachycardia Additional comments: Vertical sternotomy incision scar. - GI/Abdominal Exam GI & Abdominal Exam: Normal Bowel Sounds, Soft. absent: Tenderness - Extremities Exam Extremities exam: Negative for: calf tenderness, pedal edema, tenderness Additional comments: No calf swelling, no calf tenderness, no erythema. Small ulcer on right foot - not draining, no signs of active infection/drainage/erythema. - Neurological Exam Neurological exam: Alert, CN II-XII Intact, Oriented x3 - Psychiatric Exam Psychiatric exam: Normal Affect, Normal Mood - Skin Skin Exam: Dry, Intact, Normal Color, Warm Assessment and Plan - Assessment and Plan (Free Text) Assessment: 72-year-old male with a past medical history of sternotomy for valve repair, heart failure with preserved ejection fracture, history of DVT, hypertension, COPD, right foot osteomyelitis (recent admission), tobacco abuse, and homelessness who presented for complaint of palpitations. Patient admitted for palpitations and R-subclavian vein stenosis (Catheter related). Plan: R-Subclavian Vein Stenosis (Catheter related) - Heme/onc on board (Dr. Celeste); will f/u recs for anticoagulation for UE DVT - CTA (07/17): no PE. Severe stenosis in R-subclavian vein. Palpitations - resolved - Tele rhythm strip reviewed - patient has occasional episodes of sinus estrellita (HR 45) and NSR; symptoms improved - Troponins neg x 3; ACS workup has been negative - EKG: sinus tach with prolonged QTc - TSH WNL - UDS negative - Cardiology is on consult (Dr. Barnhart) - CTA: no evidence of PE Right Lower Extremity Ulcer with Hx R-foot osteomyelitis - R-Foot XR: minimally displaced fracture 5th proximal phalanx - Podiatry is on consult - Compression stocking - OOB - ID on consult (Dr. Martin). Recs appreciated - monitor off antibiotics (recently discharged for osteo) - IR on consult (Dr. Posadas). Recs appreciated - no indication for IVC filter. Recommend ppx anticoagulation, compression stockings, and early ambulation. - R-LE US: chronic post-phlebitic changes in right popliteal vein; no evidence of DVT Anemia, history iron deficiency -HgB 12.0 (baseline 10) -Previous admission +stool occult; patient refuses colonoscopy -Ferrous sulfate 324 mg PO TID -Hx Anemia CAD s/p CABG, stents -ASA 81 daily -Plavix 75 mg PO daily -EKG and trops as above QTc prolongation -QTc 487 -Avoid QT-prolonging agents DM -ISS medium dose -Accuchecks ACHS -Hypoglycemia protocol COPD -Albuterol 2.5 mg IH BID prn -Brovana 15mg IG Q12 [facility] -Pulmincort 0.5 mg IH Q12 HTN -Lisinopril 5 mg PO daily -Coreg 6.25 PO BID BPH -Flomax 0.4 mg PO HS Vit D deficiency -Vit D 50,000 U Q7d PPx -DVT: Heparin 5000 U SC Q8, SCDs -GI: not indicated -HHD Dispo: Monitor patient on telemetry. Pending recs from podiatry and cardiology. Case was discussed and reviewed with Attending Physician, Dr. Martinez.
--- NOTE | 2018-07-19 10:23 | CP.PCM.PN ---
<Ishmael Fuentes - Last Filed: 07/19/18 10:19> Subjective - Date & Time of Evaluation Date of Evaluation: 07/19/18 Time of Evaluation: 07:00 - Subjective Subjective: Ishmael Fuentes D.O. PGY-3, Internal Medicine Resident, Infectious Disease Progress Note 72-year-old male with a past medical history of sternotomy for valve repair, heart failure with preserved ejection fracture, history of DVT, hypertension, COPD, right foot osteomyelitis, tobacco abuse, and homelessness who presented for complaint of palpitations. Infectious disease consultation was requested for this history of osteomyelitis. Patient was seen and examined at bedside. Pleasant as always. States no active complaints at this time. No more palpitations. Objective - Vital Signs/Intake and Output Vital Signs (last 24 hours): Temp Pulse Resp BP Pulse Ox 98.2 F 74 19 110/74 96 07/19/18 05:52 07/19/18 05:52 07/19/18 05:52 07/19/18 05:52 07/19/18 05:52 Intake and Output: 07/19/18 07/19/18 06:59 18:59 Intake Total 480 Output Total 300 Balance 180 - Medications Medications: Current Medications Albuterol Sulfate (Albuterol 0.083% Inhal Aury (2.5 Mg/3 Ml) Ud) 2.5 mg IH BIDRESP PRN PRN Reason: Shortness of Breath Arformoterol Tartrate (Brovana) 15 mcg IH [id number] [facility] Last Admin: 07/18/18 14:37 Dose: Not Given Aspirin (Ecotrin) 81 mg PO DAILY [facility] Last Admin: 07/18/18 09:18 Dose: 81 mg Atorvastatin Calcium (Lipitor) 20 mg PO DAILY [facility] Last Admin: 07/18/18 09:18 Dose: 20 mg Budesonide (Pulmicort Respules) 0.5 mg IH [id number] [facility] Last Admin: 07/18/18 14:38 Dose: Not Given Carvedilol (Coreg) 6.25 mg PO BID [facility] Last Admin: 07/18/18 17:38 Dose: 6.25 mg Clopidogrel Bisulfate (Plavix) 75 mg PO DAILY [facility] Last Admin: 07/18/18 09:18 Dose: 75 mg Dextrose (Dextrose 50% Inj) 0 ml IV STAT PRN; Protocol PRN Reason: Hypoglycemia Protocol Ergocalciferol (Drisdol 50,000 Intl Units Cap) 1 cap PO Q7D [facility] Last Admin: 07/18/18 01:00 Dose: 1 cap Ferrous Sulfate (Feosol) 324 mg PO TID [facility] Last Admin: 07/18/18 17:38 Dose: 324 mg Heparin Sodium (Porcine) (Heparin) 5,000 units SC Q8 [facility]; Protocol Last Admin: 07/19/18 05:27 Dose: 5,000 units Dextrose (Dextrose 5% In Water 1000 Ml) 1,000 mls @ 0 mls/hr IV .Q0M PRN; Protocol PRN Reason: Hypoglycemia Protocol Insulin Human Regular (Humulin R) 0 units SC ACHS [facility]; Protocol Last Admin: 07/19/18 08:00 Dose: Not Given Lisinopril (Zestril) 5 mg PO DAILY [facility] Last Admin: 07/18/18 09:20 Dose: 5 mg Pantoprazole Sodium (Protonix Ec Tab) 40 mg PO 0600,1600 [facility] Last Admin: 07/19/18 05:26 Dose: 40 mg Tamsulosin HCl (Flomax) 0.4 mg PO HS [facility] Last Admin: 07/18/18 21:26 Dose: 0.4 mg - Labs Labs: 07/19/18 06:00 07/19/18 06:00 PT 13.3 SECONDS (9.4-12.5) H 07/17/18 17:30 INR 1.20 07/17/18 17:30 APTT 27.2 Seconds (26.9-38.3) 07/17/18 17:30 - Constitutional Appears: Non-toxic, No Acute Distress, pleasant elderly male, chronically ill - Head Exam Head Exam: ATRAUMATIC, NORMOCEPHALIC - Eye Exam Eye Exam: EOMI. absent: Scleral icterus - ENT Exam ENT Exam: Mucous Membranes Moist, Normal Oropharynx - Neck Exam Neck exam: Positive for: Normal Inspection - Respiratory Exam Respiratory Exam: absent: Rhonchi - Cardiovascular Exam Cardiovascular Exam: RRR, +S1, +S2 - GI/Abdominal Exam GI & Abdominal Exam: Soft, NT, ND - Extremities Exam Extremities exam: right foot bandaged - Neurological Exam Neurological exam: Alert, Oriented x4 - Skin Skin Exam: Dry, Warm Assessment and Plan - Assessment and Plan (Free Text) Assessment: 72-year-old male with a past medical history of sternotomy for valve repair, heart failure with preserved ejection fracture, history of DVT, hypertension, COPD, right foot osteomyelitis, tobacco abuse, and homelessness who presented for complaint of palpitations. Infectious disease consultation was requested for this history of osteomyelitis. Plan: History of osteomyelitis diagnosed on 05/22/18 Palpitations R foot 5th phalanx minimally displaced fracture Heart failure with preserved ejection fracture History of DVT Hypertension COPD Homelessness Tobacco abuse Sternotomy with valve repair Continues to be afebrile with no leukocytosis Continue to monitor off antibiotics at this time Xrays showed R 5th fracture, podiatry following ESR now elevated for age and CRP also not very elevated Is at risk for nosocomial infections however We will follow with you Patient was seen and examined and case to be discussed with attending physician Thank you for the pleasure participating in the care of this patient <Toby Martin - Last Filed: 07/19/18 11:17> Objective - Vital Signs/Intake and Output Vital Signs (last 24 hours): Temp Pulse Resp BP Pulse Ox 98.2 F 60 19 112/56 L 96 07/19/18 05:52 07/19/18 10:51 07/19/18 05:52 07/19/18 10:51 07/19/18 05:52 Intake and Output: 07/19/18 07/19/18 06:59 18:59 Intake Total 480 Output Total 300 Balance 180 - Medications Medications: Current Medications Albuterol Sulfate (Albuterol 0.083% Inhal Aury (2.5 Mg/3 Ml) Ud) 2.5 mg IH BIDRESP PRN PRN Reason: Shortness of Breath Arformoterol Tartrate (Brovana) 15 mcg IH [id number] [facility] Last Admin: 07/18/18 14:37 Dose: Not Given Aspirin (Ecotrin) 81 mg PO DAILY [facility] Last Admin: 07/19/18 10:52 Dose: 81 mg Atorvastatin Calcium (Lipitor) 20 mg PO DAILY [facility] Last Admin: 07/19/18 10:51 Dose: 20 mg Budesonide (Pulmicort Respules) 0.5 mg IH [id number] [facility] Last Admin: 07/18/18 14:38 Dose: Not Given Carvedilol (Coreg) 6.25 mg PO BID [facility] Last Admin: 07/19/18 10:53 Dose: Not Given Clopidogrel Bisulfate (Plavix) 75 mg PO DAILY [facility] Last Admin: 07/19/18 10:52 Dose: 75 mg Dextrose (Dextrose 50% Inj) 0 ml IV STAT PRN; Protocol PRN Reason: Hypoglycemia Protocol Ergocalciferol (Drisdol 50,000 Intl Units Cap) 1 cap PO Q7D [facility] Last Admin: 07/18/18 01:00 Dose: 1 cap Ferrous Sulfate (Feosol) 324 mg PO TID [facility] Last Admin: 07/19/18 10:52 Dose: 324 mg Heparin Sodium (Porcine) (Heparin) 5,000 units SC Q8 [facility]; Protocol Last Admin: 07/19/18 05:27 Dose: 5,000 units Dextrose (Dextrose 5% In Water 1000 Ml) 1,000 mls @ 0 mls/hr IV .Q0M PRN; Protocol PRN Reason: Hypoglycemia Protocol Insulin Human Regular (Humulin R) 0 units SC ACHS [facility]; Protocol Last Admin: 07/19/18 08:00 Dose: Not Given Lisinopril (Zestril) 5 mg PO DAILY [facility] Last Admin: 07/19/18 10:51 Dose: 5 mg Pantoprazole Sodium (Protonix Ec Tab) 40 mg PO 0600,1600 [facility] Last Admin: 07/19/18 05:26 Dose: 40 mg Tamsulosin HCl (Flomax) 0.4 mg PO HS [facility] Last Admin: 07/18/18 21:26 Dose: 0.4 mg - Labs Labs: 07/19/18 06:00 07/19/18 06:00 PT 13.3 SECONDS (9.4-12.5) H 07/17/18 17:30 INR 1.20 07/17/18 17:30 APTT 27.2 Seconds (26.9-38.3) 07/17/18 17:30 Attending/Attestation - Attestation I have personally seen and examined this patient.: Yes I have fully participated in the care of the patient.: Yes I have reviewed all pertinent clinical information, including history, physical exam and plan: Yes
--- NOTE | 2018-07-19 11:53 | CP.PCM.CON ---
<Chad Juarez - Last Filed: 07/19/18 11:49> History of Present Illness - History of Present Illness History of Present Illness: Podiatry consult note - Drs. Zuniga/Lorena 72M seen and evaluated at bedside with Dr. Zuniga this AM for right foot wound. Patient is known to podiatry service. Laceration site at right fifth digit healed. Patient denies pain to b/l LE. States that he ran out of bandages and has not been wrapping or cleaning his feet. Daughter is present at bedside. States he was at another hospital but does not recall which. Denies n/v/f/c/sob today and has no other acute complaints. PMHx: COPD, HTN, Chronic b/l plantar fascitis, and homelessness PSHx: Cardiac valve replacement, CABG, Appendectomy All: NKDA Past Patient History - Infectious Disease Hx of Infectious Diseases: None - Past Social History Smoking Status: Heavy Smoker > 10 Cigarettes Daily - CARDIAC Hx Cardiac Disorders: Yes (CAD s/p CABG and stents, valve replacement,) Hx Hypertension: Yes - PULMONARY Hx Chronic Obstructive Pulmonary Disease (COPD): Yes - NEUROLOGICAL Hx Neurological Disorder: No - HEENT Hx HEENT Problems: No - RENAL Hx Chronic Kidney Disease: No - ENDOCRINE/METABOLIC Hx Endocrine Disorders: No - HEMATOLOGICAL/ONCOLOGICAL Hx Blood Disorders: No - INTEGUMENTARY Hx Dermatological Problems: Yes Other/Comment: rash/reaction from bed bugs - MUSCULOSKELETAL/RHEUMATOLOGICAL Hx Musculoskeletal Disorders: Yes Other/Comment: uses cane for ambulation. plantar faciitis - GASTROINTESTINAL Hx Gastrointestinal Disorders: No - GENITOURINARY/GYNECOLOGICAL Hx Genitourinary Disorders: Yes Other/Comment: Hx prostate ca with radiation therapy - PSYCHIATRIC Hx Psychophysiologic Disorder: No Hx Substance Use: No - SURGICAL HISTORY Hx Appendectomy: Yes (at age 17) - ANESTHESIA Hx Anesthesia: Yes Hx Anesthesia Reactions: No Hx Malignant Hyperthermia: No Meds Allergies/Adverse Reactions: Allergies Allergy/AdvReac Type Severity Reaction Status Date / Time No Known Allergies Allergy Verified 05/12/18 08:59 - Medications Medications: Current Medications Albuterol Sulfate (Albuterol 0.083% Inhal Aury (2.5 Mg/3 Ml) Ud) 2.5 mg IH BIDRESP PRN PRN Reason: Shortness of Breath Arformoterol Tartrate (Brovana) 15 mcg IH [id number] [facility] Last Admin: 07/18/18 14:37 Dose: Not Given Aspirin (Ecotrin) 81 mg PO DAILY [facility] Last Admin: 07/19/18 10:52 Dose: 81 mg Atorvastatin Calcium (Lipitor) 20 mg PO DAILY [facility] Last Admin: 07/19/18 10:51 Dose: 20 mg Budesonide (Pulmicort Respules) 0.5 mg IH [id number] [facility] Last Admin: 07/18/18 14:38 Dose: Not Given Carvedilol (Coreg) 6.25 mg PO BID [facility] Last Admin: 07/19/18 10:53 Dose: Not Given Clopidogrel Bisulfate (Plavix) 75 mg PO DAILY [facility] Last Admin: 07/19/18 10:52 Dose: 75 mg Dextrose (Dextrose 50% Inj) 0 ml IV STAT PRN; Protocol PRN Reason: Hypoglycemia Protocol Ergocalciferol (Drisdol 50,000 Intl Units Cap) 1 cap PO Q7D [facility] Last Admin: 07/18/18 01:00 Dose: 1 cap Ferrous Sulfate (Feosol) 324 mg PO TID [facility] Last Admin: 07/19/18 10:52 Dose: 324 mg Heparin Sodium (Porcine) (Heparin) 5,000 units SC Q8 [facility]; Protocol Last Admin: 07/19/18 05:27 Dose: 5,000 units Dextrose (Dextrose 5% In Water 1000 Ml) 1,000 mls @ 0 mls/hr IV .Q0M PRN; Protocol PRN Reason: Hypoglycemia Protocol Insulin Human Regular (Humulin R) 0 units SC ACHS [facility]; Protocol Last Admin: 07/19/18 08:00 Dose: Not Given Lisinopril (Zestril) 5 mg PO DAILY [facility] Last Admin: 07/19/18 10:51 Dose: 5 mg Pantoprazole Sodium (Protonix Ec Tab) 40 mg PO 0600,1600 [facility] Last Admin: 07/19/18 05:26 Dose: 40 mg Tamsulosin HCl (Flomax) 0.4 mg PO HS [facility] Last Admin: 07/18/18 21:26 Dose: 0.4 mg Physical Exam - Constitutional Appears: Non-toxic - Head Exam Head Exam: ATRAUMATIC - Extremities Exam Additional comments: RLE focused exam VASC: DP and PT pulses dopplerable; CFT <3 seconds to digits x5 b/l; pedal hair growth absent NEURO: Light touch and protective sensation diminished bilaterally. DERM: ulceration noted to medial aspect of 1st MPJ measuring approximately 1 x 1 x 0.2cm -wound noted to have a fibrotic base and hyperkeratotic rim; no drainage present; no purulence; no fluctuance; no probe to bone. ORTHO: No pain on palpation noted to wounds. - Neurological Exam Neurological exam: Alert, Oriented x3 - Psychiatric Exam Psychiatric exam: Normal Affect Results - Vital Signs Recent Vital Signs: Last Vital Signs Temp 98.2 F 07/19/18 05:52 Pulse 60 07/19/18 10:51 Resp 19 07/19/18 05:52 BP 112/56 L 07/19/18 10:51 Pulse Ox 96 07/19/18 05:52 - Labs Result Diagrams: 07/19/18 06:00 07/19/18 06:00 Labs: Laboratory Results - last 24 hr 07/18/18 07/18/18 07/19/18 11:00 11:00 06:00 WBC 7.1 RBC 4.14 Hgb 11.0 L Hct 35.3 L MCV 85.3 MCH 26.6 MCHC 31.2 RDW 16.5 H Plt Count 171 MPV 8.9 Neut % (Auto) 69.8 H Lymph % (Auto) 19.0 L Braxton % (Auto) 6.2 H Eos % (Auto) 4.7 Baso % (Auto) 0.3 Lymph # (Auto) 1.3 Braxton # (Auto) 0.4 Eos # (Auto) 0.3 Baso # (Auto) 0.02 Absolute Neuts (auto) 4.94 ESR 29 H Sodium Potassium Chloride Carbon Dioxide Anion Gap BUN Creatinine Est GFR ( Amer) Est GFR (Non-Af Amer) Random Glucose Calcium Total Bilirubin AST ALT Alkaline Phosphatase C-React Prot High Sens 4.81 H Total Protein Albumin Globulin Albumin/Globulin Ratio 07/19/18 06:00 WBC RBC Hgb Hct MCV MCH MCHC RDW Plt Count MPV Neut % (Auto) Lymph % (Auto) Braxton % (Auto) Eos % (Auto) Baso % (Auto) Lymph # (Auto) Braxton # (Auto) Eos # (Auto) Baso # (Auto) Absolute Neuts (auto) ESR Sodium 139 Potassium 4.0 Chloride 106 Carbon Dioxide 28 Anion Gap 9 L BUN 21 Creatinine 1.1 Est GFR ( Amer) > 60 Est GFR (Non-Af Amer) > 60 Random Glucose 92 Calcium 8.6 Total Bilirubin 0.3 AST 16 L ALT 16 Alkaline Phosphatase 65 C-React Prot High Sens Total Protein 6.0 Albumin 3.3 Globulin 2.8 Albumin/Globulin Ratio 1.2 Assessment & Plan - Assessment and Plan (Free Text) Assessment: 72M with right foot chronic ulceration Plan: Patient seen and evaluated with Dr. Zuniga VSS, absent leukocytosis RLE cleansed with soap and saline Wound culture taken - pending Wound dressed with mepilex pad, bactroban ordered Continue abx per medicine Upon discharge can follow with Dr. Carrillo/Efrain as outpatient Thank you for the consult, will continue to follow - Date & Time Date: 07/19/18 Time: 11:55 <Travis Zuniga - Last Filed: 07/19/18 13:41> Meds - Medications Medications: Current Medications Albuterol Sulfate (Albuterol 0.083% Inhal Aury (2.5 Mg/3 Ml) Ud) 2.5 mg IH BIDRESP PRN PRN Reason: Shortness of Breath Arformoterol Tartrate (Brovana) 15 mcg IH [id number] [facility] Last Admin: 07/18/18 14:37 Dose: Not Given Aspirin (Ecotrin) 81 mg PO DAILY [facility] Last Admin: 07/19/18 10:52 Dose: 81 mg Atorvastatin Calcium (Lipitor) 20 mg PO DAILY [facility] Last Admin: 07/19/18 10:51 Dose: 20 mg Budesonide (Pulmicort Respules) 0.5 mg IH [id number] [facility] Last Admin: 07/18/18 14:38 Dose: Not Given Carvedilol (Coreg) 6.25 mg PO BID [facility] Last Admin: 07/19/18 10:53 Dose: Not Given Clopidogrel Bisulfate (Plavix) 75 mg PO DAILY [facility] Last Admin: 07/19/18 10:52 Dose: 75 mg Dextrose (Dextrose 50% Inj) 0 ml IV STAT PRN; Protocol PRN Reason: Hypoglycemia Protocol Ergocalciferol (Drisdol 50,000 Intl Units Cap) 1 cap PO Q7D [facility] Last Admin: 07/18/18 01:00 Dose: 1 cap Ferrous Sulfate (Feosol) 324 mg PO TID [facility] Last Admin: 07/19/18 10:52 Dose: 324 mg Heparin Sodium (Porcine) (Heparin) 5,000 units SC Q8 [facility]; Protocol Last Admin: 07/19/18 05:27 Dose: 5,000 units Dextrose (Dextrose 5% In Water 1000 Ml) 1,000 mls @ 0 mls/hr IV .Q0M PRN; Protocol PRN Reason: Hypoglycemia Protocol Insulin Human Regular (Humulin R) 0 units SC ACHS [facility]; Protocol Last Admin: 07/19/18 08:00 Dose: Not Given Lisinopril (Zestril) 5 mg PO DAILY [facility] Last Admin: 07/19/18 10:51 Dose: 5 mg Mupirocin (Bactroban Ointment) 10 gm TOP BID [facility] Pantoprazole Sodium (Protonix Ec Tab) 40 mg PO 0600,1600 [facility] Last Admin: 07/19/18 05:26 Dose: 40 mg Tamsulosin HCl (Flomax) 0.4 mg PO HS [facility] Last Admin: 07/18/18 21:26 Dose: 0.4 mg Results - Vital Signs Recent Vital Signs: Last Vital Signs Temp 98.0 F 07/19/18 12:00 Pulse 58 L 07/19/18 12:00 Resp 18 07/19/18 12:00 BP 104/52 L 07/19/18 12:00 Pulse Ox 96 07/19/18 05:52 - Labs Result Diagrams: 07/19/18 06:00 07/19/18 06:00 Labs: Laboratory Results - last 24 hr 07/18/18 07/19/18 07/19/18 11:00 06:00 06:00 WBC 7.1 RBC 4.14 Hgb 11.0 L Hct 35.3 L MCV 85.3 MCH 26.6 MCHC 31.2 RDW 16.5 H Plt Count 171 MPV 8.9 Neut % (Auto) 69.8 H Lymph % (Auto) 19.0 L Braxton % (Auto) 6.2 H Eos % (Auto) 4.7 Baso % (Auto) 0.3 Lymph # (Auto) 1.3 Braxton # (Auto) 0.4 Eos # (Auto) 0.3 Baso # (Auto) 0.02 Absolute Neuts (auto) 4.94 Sodium 139 Potassium 4.0 Chloride 106 Carbon Dioxide 28 Anion Gap 9 L BUN 21 Creatinine 1.1 Est GFR ( Amer) > 60 Est GFR (Non-Af Amer) > 60 Random Glucose 92 Calcium 8.6 Total Bilirubin 0.3 AST 16 L ALT 16 Alkaline Phosphatase 65 C-React Prot High Sens 4.81 H Total Protein 6.0 Albumin 3.3 Globulin 2.8 Albumin/Globulin Ratio 1.2 Attending/Attestation - Attestation I have personally seen and examined this patient.: Yes I have fully participated in the care of the patient.: Yes I have reviewed all pertinent clinical information: Yes
[2018-07-19 17:35] VITALS: PULSE 65
[2018-07-19] MEDS ORDERED: Mupirocin 2% Ointment 15 GM TUBE TOP SCH (18:00)
[2018-07-19 18:11] VITALS: BP 138/66; RESP 20; TEMP 97.1
--- NOTE | 2018-07-19 18:23 | CP.PCM.DIS ---
<VinnieKody - Last Filed: 07/19/18 18:11> Provider - Provider Date of Admission: 07/18/18 15:52 Attending physician: Liza Martinez MD Consults: 07/17/18 21:21 Cardiology Consult Stat Comment: Consulting Provider: Asad Barnhart Consulting Physician: Asad Barnhart Reason for Consult: chest pain 07/18/18 07:37 Hematology Oncology Consult Routine Comment: Consulting Provider: Guerline Celeste Consulting Physician: Guerline Celeste Reason for Consult: Right LE DVT; hx of multiple falls not on anticoagulation 07/18/18 07:44 Infectious Disease Consult Routine Comment: Consulting Provider: Toby Martin Consulting Physician: Toby Martin Reason for Consult: recent osteomylitis in 04/201807/18/18 09:02 Physician Consult Routine Comment: Consulting Provider: Johann Posadas Consulting Physician: Johann Posadas Reason for Consult: IVC filter, subclav Vein stenosis, PAD s/p stent 07/18/18 16:19 Podiatry Consult Routine Comment: Consulting Provider: Tanvi Carrillo Consulting Physician: Tanvi Carrillo Reason for Consult: recent osteo; foot ulcer 07/19/18 09:37 Quarter Backer [Case Management Referral] Routine Comment: Physician Instructions: Reason For Exam: homeless, needs outpt stress test Reason for Referral: Quarter Backer Eugenio Time Spent in preparation of Discharge (in minutes): 35 Hospital Course - Lab Results Lab Results: Most Recent Lab Values WBC 7.1 10^3/uL (4.5-11.0) 07/19/18 06:00 RBC 4.14 10^6/uL (3.5-6.1) 07/19/18 06:00 Hgb 11.0 g/dL (14.0-18.0) L 07/19/18 06:00 Hct 35.3 % (42.0-52.0) L 07/19/18 06:00 MCV 85.3 fl (80.0-105.0) 07/19/18 06:00 MCH 26.6 pg (25.0-35.0) 07/19/18 06:00 MCHC 31.2 g/dl (31.0-37.0) 07/19/18 06:00 RDW 16.5 % (11.5-14.5) H 07/19/18 06:00 Plt Count 171 10^3/uL (120.0-450.0) 07/19/18 06:00 MPV 8.9 fl (7.0-11.0) 07/19/18 06:00 Neut % (Auto) 69.8 % (50.0-68.0) H 07/19/18 06:00 Lymph % (Auto) 19.0 % (22.0-35.0) L 07/19/18 06:00 Otoe % (Auto) 6.2 % (1.0-6.0) H 07/19/18 06:00 Eos % (Auto) 4.7 % (1.5-5.0) 07/19/18 06:00 Baso % (Auto) 0.3 % (0.0-3.0) 07/19/18 06:00 Lymph # (Auto) 1.3 (1.2-3.4) 07/19/18 06:00 Otoe # (Auto) 0.4 (0.1-0.6) 07/19/18 06:00 Eos # (Auto) 0.3 (0.0-0.7) 07/19/18 06:00 Baso # (Auto) 0.02 K/mm3 (0.0-2.0) 07/19/18 06:00 Absolute Neuts (auto) 4.94 (1.4-6.5) 07/19/18 06:00 ESR 29 mm/hr (0.00-15.0) H 07/18/18 11:00 PT 13.3 SECONDS (9.4-12.5) H 07/17/18 17:30 INR 1.20 07/17/18 17:30 APTT 27.2 Seconds (26.9-38.3) 07/17/18 17:30 D-Dimer, Quantitative 562 ng/mlDDU (0-243) H 07/17/18 17:30 Sodium 139 mmol/L (132-148) 07/19/18 06:00 Potassium 4.0 mmol/L (3.6-5.0) 07/19/18 06:00 Chloride 106 mmol/L (98-107) 07/19/18 06:00 Carbon Dioxide 28 mmol/L (21-33) 07/19/18 06:00 Anion Gap 9 (10-20) L 07/19/18 06:00 BUN 21 mg/dL (7-21) 07/19/18 06:00 Creatinine 1.1 mg/dl (0.8-1.5) 07/19/18 06:00 Est GFR ( Amer) > 60 07/19/18 06:00 Est GFR (Non-Af Amer) > 60 07/19/18 06:00 Random Glucose 92 mg/dL (70-110) 07/19/18 06:00 Calcium 8.6 mg/dL (8.4-10.5) 07/19/18 06:00 Phosphorus 2.8 mg/dL (2.5-4.5) 07/17/18 17:30 Magnesium 2.3 mg/dL (1.7-2.2) H 07/17/18 17:30 Total Bilirubin 0.3 mg/dL (0.2-1.3) 07/19/18 06:00 AST 16 U/L (17-59) L 07/19/18 06:00 ALT 16 U/L (7-56) 07/19/18 06:00 Alkaline Phosphatase 65 U/L (38-126) 07/19/18 06:00 Total Creatine Kinase 32 U/L (35-230) L 07/17/18 17:30 Troponin I 0.02 ng/mL 07/18/18 05:45 C-React Prot High Sens 4.81 mg/L (1.00-3.00) H 07/18/18 11:00 NT-Pro-B Natriuret Pep 311 pg/mL (0-450) 07/17/18 17:30 Total Protein 6.0 g/dL (5.8-8.3) 07/19/18 06:00 Albumin 3.3 g/dL (3.0-4.8) 07/19/18 06:00 Globulin 2.8 gm/dL 07/19/18 06:00 Albumin/Globulin Ratio 1.2 (1.1-1.8) 07/19/18 06:00 TSH 3rd Generation 0.91 mIU/mL (0.46-4.68) 07/17/18 17:30 Urine Opiates Screen Negative (NEGATIVE) 07/18/18 07:30 Urine Methadone Screen Negative (NEGATIVE) 07/18/18 07:30 Ur Barbiturates Screen Negative (NEGATIVE) 07/18/18 07:30 Ur Phencyclidine Scrn Negative (NEGATIVE) 07/18/18 07:30 Ur Amphetamines Screen Negative (NEGATIVE) 07/18/18 07:30 U Benzodiazepines Scrn Negative (NEGATIVE) 07/18/18 07:30 U Oth Cocaine Metabols Negative (NEGATIVE) 07/18/18 07:30 U Cannabinoids Screen Negative (NEGATIVE) 07/18/18 07:30 - Hospital Course Hospital Course: Kody [place], PGY1 Discharge Summary for Dr. Martinez Patient is a 72 year old homeless male with PMHx CAD s/p CABG and stents, valve replacement, recent DVT, recent osteomyelitis, who presented with chief complaints of sudden onset palpitations occuring earlier in the day when he waiting at a bus-stop. Patient has a hx of non-compliance to medications. He has a recent hospitalization in 04/2018-05/2018 for osteomyelitis of the right toe in which he completed 5.5 weeks of antibiotics. At one point his PICC line had come out and he refused another one, he completed the rest as PO antibiotics. Patient found to have right lower extremity ulcer - no infectious signs. EKG was NSR and trops neg x3. [facility]. 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 This is chronic in nature. LE Doppler was negative for DVT but did show chronic post-phlebitic R-popliteal vein changes. Right foot xray only showed minimally displaced fracture at 5th proximal phalanx - no osteo. Given all these findings, podiatry, IR, Cardiology, Heme/onc, and ID were on consult. ID recommended to monitor patient off antibiotics. IR did not want any intervention for the UE DVT. Palpitations also resolved during hospital course. Cardiology recommended that patient follow up for an outpatient stress test. Rhythm strip on tele did not show any abnormalities except for occasional sinus estrellita at HR 45. Heme/onc did not want any other intervention at this time. Patient has an underlying anemia for which was known in the past and he continues to refuse colonoscopy. His symptoms improved during hospital course. PT also cleared patient for home. He was given information from for [facility] placement. Patient will follow up with PMD, Agricultural Inspector, and Podiatry ([facility]ound Center) upon discharge. Upon reviewing all labs, imaging, and vitals patient is hemodynamically stable for discharge. Discharge Exam - Head Exam Head Exam: ATRAUMATIC, NORMAL INSPECTION, NORMOCEPHALIC - Eye Exam Eye Exam: EOMI, Normal appearance, PERRL Pupil Exam: NORMAL ACCOMODATION, PERRL - Respiratory Exam Respiratory Exam: Clear to PA & Lateral. absent: Accessory Muscle Use, Chest Wall Tenderness, Rales, Rhonchi, Wheezes, Respiratory Distress Additional comments: CABG scar - Cardiovascular Exam Cardiovascular Exam: RRR, +S1, +S2 - GI/Abdominal Exam GI & Abdominal Exam: Normal Bowel Sounds, Soft. absent: Guarding, Hernia, Rigid - Extremities Exam Extremities exam: normal capillary refill, normal inspection, pedal pulses present - Neurological Exam Neurological exam: Alert, CN II-XII Intact, Oriented x3, Reflexes Normal - Psychiatric Exam Psychiatric exam: Normal Affect, Normal Mood - Skin Skin Exam: Dry, Intact, Normal Color, Warm Discharge Plan - Follow Up Plan Condition: FAIR Disposition: HOME/ ROUTINE Instructions: Shortness of Breath (Dyspnea) (DC), Palpitations (DC), Chest Pain (DC), Deep Venous Thrombosis (DC) Additional Instructions: Please follow up with your Primary Care Doctor (Dr. Wesley) within 3-4 days of discharge. For your heart palpitations, you need to follow up with Agricultural Inspector (Dr. Barnhart) for within 1 week of discharge. [facility] will call you regarding scheduling and instructions of stress test. Make appointment with podiatry, Dr Carrillo, Wound center clinic at [facility]. Call the following number to make an appointment: [phone] Please resume your home medications as prescribed. Please return to the nearest emergency department if your symptoms worsen. Referrals: Tanvi Carrillo DPM [Staff Provider] - 7 Days Asad Barnhart MD [Staff Provider] - 7 Days Murali Wesley MD [Staff Provider] - 7 Days <Liza Martinez - Last Filed: 07/19/18 18:36> Provider - Provider Date of Admission: 07/18/18 15:52 Attending physician: Liza Martinez MD Consults: 07/17/18 21:21 Cardiology Consult Stat Comment: Consulting Provider: Asad Barnhart Consulting Physician: Asad Barnhart Reason for Consult: chest pain 07/18/18 07:37 Hematology Oncology Consult Routine Comment: Consulting Provider: Guerline Celeste Consulting Physician: Guerline Celeste Reason for Consult: Right LE DVT; hx of multiple falls not on anticoagulation 07/18/18 07:44 Infectious Disease Consult Routine Comment: Consulting Provider: Toby Martin Consulting Physician: Toby Martin Reason for Consult: recent osteomylitis in 04/201807/18/18 09:02 Physician Consult Routine Comment: Consulting Provider: Johann Posadas Consulting Physician: Johann Posadas Reason for Consult: IVC filter, subclav Vein stenosis, PAD s/p stent 07/18/18 16:19 Podiatry Consult Routine Comment: Consulting Provider: Tanvi Carrillo Consulting Physician: Tanvi Carrillo Reason for Consult: recent osteo; foot ulcer 07/19/18 09:37 Quarter Backer [Case Management Referral] Routine Comment: Physician Instructions: Reason For Exam: homeless, needs outpt stress test Reason for Referral: Quarter Backer [facility] Course - Lab Results Lab Results: Most Recent Lab Values WBC 7.1 10^3/uL (4.5-11.0) 07/19/18 06:00 RBC 4.14 10^6/uL (3.5-6.1) 07/19/18 06:00 Hgb 11.0 g/dL (14.0-18.0) L 07/19/18 06:00 Hct 35.3 % (42.0-52.0) L 07/19/18 06:00 MCV 85.3 fl (80.0-105.0) 07/19/18 06:00 MCH 26.6 pg (25.0-35.0) 07/19/18 06:00 MCHC 31.2 g/dl (31.0-37.0) 07/19/18 06:00 RDW 16.5 % (11.5-14.5) H 07/19/18 06:00 Plt Count 171 10^3/uL (120.0-450.0) 07/19/18 06:00 MPV 8.9 fl (7.0-11.0) 07/19/18 06:00 Neut % (Auto) 69.8 % (50.0-68.0) H 07/19/18 06:00 Lymph % (Auto) 19.0 % (22.0-35.0) L 07/19/18 06:00 Otoe % (Auto) 6.2 % (1.0-6.0) H 07/19/18 06:00 Eos % (Auto) 4.7 % (1.5-5.0) 07/19/18 06:00 Baso % (Auto) 0.3 % (0.0-3.0) 07/19/18 06:00 Lymph # (Auto) 1.3 (1.2-3.4) 07/19/18 06:00 Otoe # (Auto) 0.4 (0.1-0.6) 07/19/18 06:00 Eos # (Auto) 0.3 (0.0-0.7) 07/19/18 06:00 Baso # (Auto) 0.02 K/mm3 (0.0-2.0) 07/19/18 06:00 Absolute Neuts (auto) 4.94 (1.4-6.5) 07/19/18 06:00 ESR 29 mm/hr (0.00-15.0) H 07/18/18 11:00 PT 13.3 SECONDS (9.4-12.5) H 07/17/18 17:30 INR 1.20 07/17/18 17:30 APTT 27.2 Seconds (26.9-38.3) 07/17/18 17:30 D-Dimer, Quantitative 562 ng/mlDDU (0-243) H 07/17/18 17:30 Sodium 139 mmol/L (132-148) 07/19/18 06:00 Potassium 4.0 mmol/L (3.6-5.0) 07/19/18 06:00 Chloride 106 mmol/L (98-107) 07/19/18 06:00 Carbon Dioxide 28 mmol/L (21-33) 07/19/18 06:00 Anion Gap 9 (10-20) L 07/19/18 06:00 BUN 21 mg/dL (7-21) 07/19/18 06:00 Creatinine 1.1 mg/dl (0.8-1.5) 07/19/18 06:00 Est GFR ( Amer) > 60 07/19/18 06:00 Est GFR (Non-Af Amer) > 60 07/19/18 06:00 Random Glucose 92 mg/dL (70-110) 07/19/18 06:00 Calcium 8.6 mg/dL (8.4-10.5) 07/19/18 06:00 Phosphorus 2.8 mg/dL (2.5-4.5) 07/17/18 17:30 Magnesium 2.3 mg/dL (1.7-2.2) H 07/17/18 17:30 Total Bilirubin 0.3 mg/dL (0.2-1.3) 07/19/18 06:00 AST 16 U/L (17-59) L 07/19/18 06:00 ALT 16 U/L (7-56) 07/19/18 06:00 Alkaline Phosphatase 65 U/L (38-126) 07/19/18 06:00 Total Creatine Kinase 32 U/L (35-230) L 07/17/18 17:30 Troponin I 0.02 ng/mL 07/18/18 05:45 C-React Prot High Sens 4.81 mg/L (1.00-3.00) H 07/18/18 11:00 NT-Pro-B Natriuret Pep 311 pg/mL (0-450) 07/17/18 17:30 Total Protein 6.0 g/dL (5.8-8.3) 07/19/18 06:00 Albumin 3.3 g/dL (3.0-4.8) 07/19/18 06:00 Globulin 2.8 gm/dL 07/19/18 06:00 Albumin/Globulin Ratio 1.2 (1.1-1.8) 07/19/18 06:00 TSH 3rd Generation 0.91 mIU/mL (0.46-4.68) 07/17/18 17:30 Urine Opiates Screen Negative (NEGATIVE) 07/18/18 07:30 Urine Methadone Screen Negative (NEGATIVE) 07/18/18 07:30 Ur Barbiturates Screen Negative (NEGATIVE) 07/18/18 07:30 Ur Phencyclidine Scrn Negative (NEGATIVE) 07/18/18 07:30 Ur Amphetamines Screen Negative (NEGATIVE) 07/18/18 07:30 U Benzodiazepines Scrn Negative (NEGATIVE) 07/18/18 07:30 U Oth Cocaine Metabols Negative (NEGATIVE) 07/18/18 07:30 U Cannabinoids Screen Negative (NEGATIVE) 07/18/18 07:30 Attending/Attestation - Attestation I have personally seen and examined this patient.: Yes I have fully participated in the care of the patient.: Yes I have reviewed all pertinent clinical information, including history, physical exam and plan: Yes Notes (Text): 07/19/18 18:34 72 year old homeless male with past medical history of DVT, hypertension, COPD, CAD and recently treated right foot osteomyelitis who presented with complaint of palpitations and chest pain. Serial cardiac enzymes were negative. TSH was normal. D-dimer was elevated. LE doppler showed chronic post-phlebitic changes in the right popliteal vein; no evidence of DVT. CT angio was negative for PE but showed severe subclavian vein stenosis. No further management as per IR. He is on aspirin, plavix and statin. He was on eliquis in the past which was discontinued due to history of falls. Cardiology recommended outpatient stress test. ID recommended to monitor off medications. Patient was seen by podiatry as well who recommended outpatient follow up. Patient is discharged home to follow up with pmd. Follow up with cardiology for outpatient stress test. Follow up with podiatry. Liza Martinez MD Hospitalist.
== END 2018-07-19 18:55 | disposition home or self-care (01) | DRG 309 ==
LOC: ED 16:31 → ERH 21:20 → 2RNO 23:16 → OBSVTOIN 07-18 15:52
PROVIDERS: ADMIT Internal Medicine; ATTEND Internal Medicine
DX: R00.2 Palpitations (principal); I82.531 Chronic embolism and thrombosis of right popliteal vein; I87.1 Compression of vein; I50.30 Unspecified diastolic (congestive) heart failure; I11.0 Hypertensive heart disease with heart failure; E11.621 Type 2 diabetes mellitus with foot ulcer; L97.519 Non-pressure chronic ulcer of other part of right foot with unspecified severity; N40.0 Benign prostatic hyperplasia without lower urinary tract symptoms; I25.10 Atherosclerotic heart disease of native coronary artery without angina pectoris; J43.2 Centrilobular emphysema; I45.81 Long QT syndrome; D50.9 Iron deficiency anemia, unspecified; F17.210 Nicotine dependence, cigarettes, uncomplicated; E55.9 Vitamin D deficiency, unspecified; E78.5 Hyperlipidemia, unspecified; Z91.14 Patient's other noncompliance with medication regimen; Z85.46 Personal history of malignant neoplasm of prostate; Z92.3 Personal history of irradiation; Z79.01 Long term (current) use of anticoagulants; Z59.0 Homelessness; Z79.84 Long term (current) use of oral hypoglycemic drugs; Z95.5 Presence of coronary angioplasty implant and graft; Z95.2 Presence of prosthetic heart valve; Z95.1 Presence of aortocoronary bypass graft; Z79.02 Long term (current) use of antithrombotics/antiplatelets; Z79.51 Long term (current) use of inhaled steroids; Z79.82 Long term (current) use of aspirin; Z91.81 History of falling

== ENCOUNTER 2018-08-16 15:16 | Inpatient (IN) | payer MEDICARE, OTHER ==
[2018-08-16] MEDS ORDERED: Aspirin 325 mg EC Tablets PO STA (16:15)
[2018-08-16 16:16] VITALS: BMI 24.9
--- NOTE | 2018-08-16 16:19 | ED PDOC ---
Arrival/HPI - General Chief Complaint: Palpitations Time Seen by Provider: 08/16/18 15:29 Historian: Patient - History of Present Illness Time/Duration: 1 hour Symptom Onset: Sudden Symptom Course: Resolved Quality: Aching Severity Level: Moderate Activities at Onset: Rest Associated Symptoms (Text): 08/16/18 16:17 Well-known to the emergency department staff. Patient is homeless. He was outside when he suddenly developed chest pain and palpitations approximately 1 hour prior to arrival. No dyspnea. No nausea vomiting. No diaphoresis. Treated by medics. Symptoms have since resolved. Patient was covered in bedbugs. He was showered prior to placement in the emergency department room. His EKG had been done prior to placement in the room. Known cardiac disease with previous CABG. Patient is noncompliant with his medication regimen. Past Medical History - Infectious Disease Hx of Infectious Diseases: None - Cardiac Hx Hypertension: Yes - Pulmonary Hx Respiratory Disorders: Yes Hx Chronic Obstructive Pulmonary Disease (COPD): Yes Other/Comment: smoker 1 PPD - Neurological Hx Neurological Disorder: No - HEENT Hx HEENT Disorder: No - Renal Hx Renal Disorder: No - Endocrine/Metabolic Hx Endocrine Disorders: No - Hematological/Oncological Hx Blood Disorders: No - Integumentary Hx Dermatological Disorder: Yes Other/Comment: rash/reaction from bed bugs - Musculoskeletal/Rheumatological Hx Musculoskeletal Disorders: Yes Other/Comment: uses cane for ambulation. plantar faciitis - Gastrointestinal Hx Gastrointestinal Disorders: No - Genitourinary/Gynecological Hx Genitourinary Disorders: Yes Other/Comment: Hx prostate ca with radiation therapy - Psychiatric Hx Psychophysiologic Disorder: No Hx Substance Use: No - Surgical History Hx Appendectomy: Yes (at age 17) - Anesthesia Hx Anesthesia: Yes Hx Anesthesia Reactions: No Hx Malignant Hyperthermia: No - Suicidal Assessment Feels Threatened In Home Enviroment: No Family/Social History - Physician Review Nursing Documentation Reviewed: Yes Family/Social History: Unknown Family HX Smoking Status: Heavy Smoker > 10 Cigarettes Daily Hx Alcohol Use: Yes (stopped drinking 2-3 yrs ago) Hx Substance Use: No Hx Substance Use Treatment: No Allergies/Home Meds Allergies/Adverse Reactions: Allergies No Known Allergies Allergy (Verified 05/12/18 08:59) Home Medications: Home Meds Medication Instructions Recorded Confirmed Albuterol Sulfate [Proair Hfa] 2 puff IH BID 05/17/18 07/19/18 Atorvastatin [Lipitor] 20 mg PO DAILY 05/17/18 07/19/18 Budesonide/Formoterol Fumarate 2 puff IH BID 05/17/18 07/19/18 [Symbicort 160-4.5 Mcg Inhaler] Carvedilol [Coreg] 6.25 mg PO BID 05/17/18 07/19/18 Clopidogrel [Plavix] 75 mg PO DAILY 05/17/18 07/19/18 Lisinopril [Zestril] 5 mg PO DAILY 05/17/18 07/19/18 Pantoprazole Sodium [Protonix] 40 mg PO DAILY 05/17/18 07/19/18 metFORMIN [glucOPHAGE] 500 mg PO BID 05/17/18 07/19/18 Ergocalciferol [Drisdol 50,000 50,000 iu PO Q7D 07/19/18 07/19/18 Intl Units Cap] Review of Systems - Physician Review All systems were reviewed & negative as marked: Yes - Review of Systems Constitutional: Fatigue. absent: Fevers Respiratory: absent: SOB, Cough, Wheezing Cardiovascular: Chest Pain, Palpitations. absent: Syncope Gastrointestinal: Normal. absent: Abdominal Pain, Nausea, Vomiting Neurological: absent: Headache, Dizziness, Focal Weakness Physical Exam Temperature: Afebrile Blood Pressure: Normal Pulse: Regular Respiratory Rate: Normal Appearance: Positive for: Well-Appearing, Non-Toxic, Comfortable Pain Distress: None Mental Status: Positive for: Alert and Oriented X 3 - Systems Exam Head: Present: Atraumatic, Normocephalic Pupils: Present: PERRL Extroacular Muscles: Present: EOMI Conjunctiva: Present: Normal Mouth: Present: Moist Mucous Membranes Pharnyx: No: ERYTHEMA, EXUDATE, TONSILS ENLARGED Neck: Present: Normal Range of Motion Respiratory/Chest: Present: Clear to Auscultation, Good Air Exchange, Decreased Breath Sounds. No: Respiratory Distress, Accessory Muscle Use Cardiovascular: Present: Regular Rate and Rhythm, Normal S1, S2. No: Murmurs Abdomen: No: Tenderness, Distention, Peritoneal Signs, Rebound, Guarding Upper Extremity: Present: Normal Inspection. No: Cyanosis, Edema Lower Extremity: Present: Normal Inspection. No: Edema Neurological: Present: GCS=15, CN II-XII Intact, Speech Normal, Motor Func Grossly Intact Skin: Present: Warm, Dry, Normal Color. No: Rashes Psychiatric: Present: Alert, Oriented x 3, Normal Insight, Normal Concentration Medical Decision Making ED Course and Treatment: 08/16/18 16:19 EKG shows normal sinus rhythm rate approximately [address] or T wave changes. - RAD Interpretation Radiology Orders: 08/16/18 16:16 CHEST PORTABLE [RAD] Stat Chest one view as read by the radiology shows hardware with no infiltrate or effusion. [employer] Integration Developer: Radiologist Disposition/Present on Arrival - Present on Arrival Any Indicators Present on Arrival: No History of DVT/PE: No History of Uncontrolled Diabetes: No Urinary Catheter: No History of Decub. Ulcer: No History Surgical Site Infection Following: None - Disposition Have Diagnosis and Disposition been Completed?: Yes Diagnosis: Chest pain, Palpitations, Infestation by bed bug Disposition: HOSPITALIZED Disposition Time: 17:35 Patient Plan: Observation, Telemetry Condition: GOOD Discharge Instructions (ExitCare): Chest Pain (ED) Forms: [employer] (Yoruba)
--- NOTE | 2018-08-16 16:50 | RAD ---
HISTORY: cp COMPARISON: Chest x-ray performed 07/17/18 TECHNIQUE: Chest, one view. FINDINGS: LUNGS: No focal consolidation. Please note that chest x-ray has limited sensitivity for the detection of pulmonary masses. PLEURA: No significant pleural effusion identified. No definite pneumothorax . CARDIOVASCULAR: Median sternotomy wires with superior most wire appearing discontinuous. Heart size appears top normal. Ectatic aorta. OSSEOUS STRUCTURES: Degenerative changes. VISUALIZED UPPER ABDOMEN: Unremarkable. OTHER FINDINGS: None. IMPRESSION: No focal consolidation.
[2018-08-16 16:53] LABS: BASO # 0.01 K/mm3 (0.0-2.0); BASO % 0.1 % (0.0-3.0); EOS % 0.1 % (1.5-5.0); HEMOGLOBIN 11.3 g/dL (14.0-18.0); LYMPH # 0.6 (1.2-3.4); LYMPH % 4.1 % (22.0-35.0); MEAN CORPUSCULAR HEMOGLOBIN 27.2 pg (25.0-35.0); MEAN CORPUSCULAR HGB CONC 31.7 g/dl (31.0-37.0); MEAN PLATELET VOLUME 8.6 fl (7.0-11.0); MONO # 0.7 (0.1-0.6); PLATELET COUNT 187 10^3/uL (120.0-450.0); RBC 4.15 10^6/uL (3.5-6.1); RED CELL DISTRIBUTION WIDTH 15.3 % (11.5-14.5); WHITE BLOOD COUNT 13.7 10^3/uL (4.5-11.0)
[2018-08-16 17:12] LABS: ALB/GLOB RATIO 1.3 (1.1-1.8); ALT/SGPT 7 U/L (7-56); AST/SGOT 18 U/L (17-59); BLOOD UREA NITROGEN 30 mg/dL (7-21); GFR NON-AFRICAN AMERICAN > 60; TROPONIN I < 0.01 ng/mL
[2018-08-16 17:20] LABS: LYMPHOCYTE 7 % (22.0-35.0); MONOCYTE 3 % (1.0-6.0); NEUTROPHIL 90 % (50.0-70.0)
[2018-08-16 17:21] LABS: PLATELET ESTIMATE NORMAL (NORMAL)
--- NOTE | 2018-08-16 18:15 | CP.PCM.HP ---
<Kody Birmingham - Last Filed: 08/16/18 19:40> History of Present Illness - History of Present Illness History of Present Illness: Kody Birmingham, PGY1 Medicine H&P for Dr. Langley cc: "cp and palpitations x1 hour" Patient is a 72 y/o homeless male with PMHx CAD s/p CABG and stents, DM II, HTN, HLD, GERD, COPD, valve replacement, recent DVT, recent osteomyelitis, medication non-compliance who presents to the ED for chest pain that started 1 hour ago. Patient has been recently admitted to [facility] for chest pain and palpitations. Upon discharge, patient was recommended for an outpatient stress test. Subjectively, patient says he followed up with the mastic worker and had a stress test done which was normal. He endorses chest pain and chills at this time. He denies sob, abdominal pain, diaphoresis, n/v/d, fever. Patient denies recent alcohol or drug use. He says pain is right sided and pressure like with no radiation to arm or jaw. Chest pain [place] As per ED, bed bugs were visualized and patient was in isolation during time of interview. A full 12 point ROS was conducted and unremarkable except as stated above. PMD: Dr. Wesley Planner Intern: Dr. Barnhart Medical Hx: CAD s/p CABG and stents, DM II, HTN, HLD, GERD, COPD, valve replacement, recent DVT, recent osteomyelitis, medication non-compliance Surgical Hx: CABG, PCI, Appendectomy Allergies: NKDA Social Hx: 1ppd X 50 years; Denies EtOH, Illicits Home Meds: see MAR Family Hx: Non-contributory Present on Admission - Present on Admission Any Indicators Present on Admission: No Review of Systems - Review of Systems All systems: reviewed and no additional remarkable complaints except (as per HPI) Past Patient History - Infectious Disease Hx of Infectious Diseases: None - Past Social History Smoking Status: Heavy Smoker > 10 Cigarettes Daily - CARDIAC Hx Hypertension: Yes - PULMONARY Hx Respiratory Disorders: Yes Hx Chronic Obstructive Pulmonary Disease (COPD): Yes Other/Comment: smoker 1 PPD - NEUROLOGICAL Hx Neurological Disorder: No - HEENT Hx HEENT Problems: No - RENAL Hx Chronic Kidney Disease: No - ENDOCRINE/METABOLIC Hx Endocrine Disorders: No - HEMATOLOGICAL/ONCOLOGICAL Hx Blood Disorders: No - INTEGUMENTARY Hx Dermatological Problems: Yes Other/Comment: rash/reaction from bed bugs - MUSCULOSKELETAL/RHEUMATOLOGICAL Hx Musculoskeletal Disorders: Yes Other/Comment: uses cane for ambulation. plantar faciitis - GASTROINTESTINAL Hx Gastrointestinal Disorders: No - GENITOURINARY/GYNECOLOGICAL Hx Genitourinary Disorders: Yes Other/Comment: Hx prostate ca with radiation therapy - PSYCHIATRIC Hx Psychophysiologic Disorder: No Hx Substance Use: No - SURGICAL HISTORY Hx Appendectomy: Yes (at age 17) - ANESTHESIA Hx Anesthesia: Yes Hx Anesthesia Reactions: No Hx Malignant Hyperthermia: No Meds Allergies/Adverse Reactions: Allergies Allergy/AdvReac Type Severity Reaction Status Date / Time No Known Allergies Allergy Verified 05/12/18 08:59 Physical Exam - Constitutional Appears: No Acute Distress - Head Exam Head Exam: ATRAUMATIC, NORMAL INSPECTION, NORMOCEPHALIC - Eye Exam Eye Exam: EOMI, Normal appearance - ENT Exam ENT Exam: Mucous Membranes Moist - Respiratory Exam Respiratory Exam: Clear to Auscultation Bilateral. absent: Chest Wall Tenderness, Rales, Rhonchi, Wheezes Additional comments: CABG scar. - Cardiovascular Exam Cardiovascular Exam: RRR, +S1, +S2 - GI/Abdominal Exam GI & Abdominal Exam: Normal Bowel Sounds, Soft. absent: Firm, Guarding, Rebound, Rigid, Tenderness - Extremities Exam Extremities exam: Positive for: full ROM, normal capillary refill, normal inspection, pedal pulses present. Negative for: calf tenderness, pedal edema - Neurological Exam Neurological exam: Alert, CN II-XII Intact, Normal Gait, Oriented x3 - Psychiatric Exam Psychiatric exam: Normal Affect, Normal Mood - Skin Skin Exam: Dry, Intact, Normal Color, Warm Results - Labs Result Diagrams: 08/16/18 16:40 08/16/18 16:40 Labs: Laboratory Results - last 24 hr 08/16/18 08/16/18 16:40 16:40 WBC 13.7 H D RBC 4.15 Hgb 11.3 L Hct 35.7 L MCV 86.0 MCH 27.2 MCHC 31.7 RDW 15.3 H Plt Count 187 MPV 8.6 Neut % (Auto) 90.7 H Lymph % (Auto) 4.1 L Cataño % (Auto) 5.0 Eos % (Auto) 0.1 L Baso % (Auto) 0.1 Lymph # (Auto) 0.6 L Cataño # (Auto) 0.7 H Eos # (Auto) 0.0 Baso # (Auto) 0.01 Absolute Neuts (auto) 12.40 H Neutrophils % (Manual) 90 H Lymphocytes % (Manual) 7 L Monocytes % (Manual) 3 Platelet Evaluation Normal Sodium 138 Potassium 4.3 Chloride 103 Carbon Dioxide 24 Anion Gap 15 BUN 30 H Creatinine 1.0 Est GFR ( Amer) > 60 Est GFR (Non-Af Amer) > 60 Random Glucose 118 H Calcium 9.0 Magnesium 2.1 Total Bilirubin 0.4 AST 18 ALT 7 Alkaline Phosphatase 100 Lactate Dehydrogenase 477 Total Creatine Kinase 74 Troponin I < 0.01 D Total Protein 7.0 Albumin 4.0 Globulin 3.1 Albumin/Globulin Ratio 1.3 Assessment & Plan - Assessment and Plan (Free Text) Assessment: Patient is a 72 y/o homeless male with PMHx CAD s/p CABG and stents, DM II, HTN, HLD, GERD, COPD, valve replacement, recent DVT, recent osteomyelitis, medication non-compliance who presents to the ED for chest pain that started 1 hour ago. Patient will be admitted for chest pain - r/o ACS. Plan: Chest Pain - r/o ACS - trend trops x3 - ASA 81mg daily - Hgb A1c - Lipid panel - Cardio on consult (Dr. Barnhart) - Utox - EtoH - EKG: NSR, [address] or T wave changes. Leukocytosis - mildly elevated 13.7 with left shift - CXR: no consolidation - UA, UCx - blood cx - will repeat labs in morning - SIRS criteria met in ED, HR 117, wbc 13.7 CAD s/p CABG - resume home med ASA 81mg daily - resume home med plavix 75mg daily - Cardio on consult HTN - resume home med coreg 6.25mg PO BID - resume home med lisinopril 5mg PO daily - monitor HLD - resume home med lipitor 20mg PO daily COPD - resume home med symbicort - resume home med albuterol - duonebs prn DVT - resume home med Eliquis 5mg daily - Patient has Hx DVT GERD - resume home med protonix 40mg daily DM II - f/u Hgb A1c - ISS - Accuchecks ppx: - scd - ptx Diet: HHD Dispo: Will admit patient to telemetry. Follow up serial trops. Further recs from cardio. Case was discussed and reviewed with Attending Physician, Dr. Langley <Alan Langley - Last Filed: 08/16/18 22:22> Results - Vital Signs Recent Vital Signs: Last Vital Signs Temp 98.9 F 08/16/18 15:17 Pulse 103 H 08/16/18 20:25 Resp 18 08/16/18 20:25 BP 158/80 H 08/16/18 20:25 Pulse Ox 95 08/16/18 20:25 - Labs Result Diagrams: 08/16/18 16:40 08/16/18 16:40 Labs: Laboratory Results - last 24 hr 08/16/18 08/16/18 08/16/18 16:40 16:40 16:40 WBC 13.7 H D RBC 4.15 Hgb 11.3 L Hct 35.7 L MCV 86.0 MCH 27.2 MCHC 31.7 RDW 15.3 H Plt Count 187 MPV 8.6 Neut % (Auto) 90.7 H Lymph % (Auto) 4.1 L Cata[place] % (Auto) 5.0 Eos % (Auto) 0.1 L Baso % (Auto) 0.1 Lymph # (Auto) 0.6 L Cata[place] # (Auto) 0.7 H Eos # (Auto) 0.0 Baso # (Auto) 0.01 Absolute Neuts (auto) 12.40 H Neutrophils % (Manual) 90 H Lymphocytes % (Manual) 7 L Monocytes % (Manual) 3 Platelet Evaluation Normal Sodium 138 Potassium 4.3 Chloride 103 Carbon Dioxide 24 Anion Gap 15 BUN 30 H Creatinine 1.0 Est GFR ( Amer) > 60 Est GFR (Non-Af Amer) > 60 Random Glucose 118 H Calcium 9.0 Magnesium 2.1 Total Bilirubin 0.4 AST 18 ALT 7 Alkaline Phosphatase 100 Lactate Dehydrogenase 477 Total Creatine Kinase 74 Troponin I < 0.01 D Total Protein 7.0 Albumin 4.0 Globulin 3.1 Albumin/Globulin Ratio 1.3 Triglycerides 64 Cholesterol 134 LDL Cholesterol Direct 91 HDL Cholesterol 29 Alcohol, Quantitative 08/16/18 16:40 WBC RBC Hgb Hct MCV MCH MCHC RDW Plt Count MPV Neut % (Auto) Lymph % (Auto) Cataño % (Auto) Eos % (Auto) Baso % (Auto) Lymph # (Auto) Cataño # (Auto) Eos # (Auto) Baso # (Auto) Absolute Neuts (auto) Neutrophils % (Manual) Lymphocytes % (Manual) Monocytes % (Manual) Platelet Evaluation Sodium Potassium Chloride Carbon Dioxide Anion Gap BUN Creatinine Est GFR ( Amer) Est GFR (Non-Af Amer) Random Glucose Calcium Magnesium Total Bilirubin AST ALT Alkaline Phosphatase Lactate Dehydrogenase Total Creatine Kinase Troponin I Total Protein Albumin Globulin Albumin/Globulin Ratio Triglycerides Cholesterol LDL Cholesterol Direct HDL Cholesterol Alcohol, Quantitative < 10 Attending/Attestation - Attestation I have personally seen and examined this patient.: Yes I have fully participated in the care of the patient.: Yes I have reviewed all pertinent clinical information: Yes Notes (Text): 08/16/18 22:21 Patient was seen when he was in bed # [id number]. Medical record was reviewed. Agree with history, physical examination, assessment and plan.
[2018-08-16] MEDS ORDERED: Albuterol-Ipratrop 3 mg / 0.5 (3 ml) UD IH PRN (19:54)
[2018-08-16 19:56] LABS: HDL CHOLESTEROL 29 mg/dL (29-60)
[2018-08-16 20:06] LABS: LDL CHOLESTEROL 91 mg/dL (0-129)
[2018-08-16] MEDS: Albuterol 0.083% Inhal Sol (2.5 mg/3 mL) UD IH SCH (20:15)
[2018-08-16 23:20] LABS: PH,URINE 7.5 (4.7-8.0); URINE APPEARANCE CLEAR (CLEAR); URINE BILIRUBIN NEGATIVE (NEGATIVE); URINE BLOOD TRACE-INTACT (NEGATIVE); URINE COLOR LIGHT YELLOW (YELLOW); URINE GLUCOSE (UA) NEGATIVE (NEGATIVE); URINE LEUKOCYTE ESTERASE NEGATIVE Leu/uL (NEGATIVE); URINE PROTEIN 30 mg/dL (<30 mg/dL); URINE UROBILINOGEN 0.2 E.U./dL (<1 E.U./dL)
[2018-08-17 00:35] LABS: BARBITURATES, UR NEGATIVE (NEGATIVE); BENZODIAZEPINES, UR NEGATIVE (NEGATIVE); OPIATES, UR NEGATIVE (NEGATIVE); PHENCYCLIDINE, UR NEGATIVE (NEGATIVE)
[2018-08-17] MEDS: Albuterol 0.083% Inhal Sol (2.5 mg/3 mL) UD IH SCH ×2 (08:02→20:03)
[2018-08-17 08:52] LABS: ALB/GLOB RATIO 1.2 (1.1-1.8); ALBUMIN 3.4 g/dL (3.0-4.8); ALT/SGPT 13 U/L (7-56); AST/SGOT 20 U/L (17-59); BLOOD UREA NITROGEN 28 mg/dL (7-21); CALCIUM 8.7 mg/dL (8.4-10.5); GFR NON-AFRICAN AMERICAN > 60
[2018-08-17 09:09] LABS: HEMOGLOBIN 10.7 g/dL (14.0-18.0); MEAN CELL VOLUME 86.3 fl (80.0-105.0); MEAN CORPUSCULAR HEMOGLOBIN 26.8 pg (25.0-35.0); MEAN PLATELET VOLUME 8.9 fl (7.0-11.0); RED CELL DISTRIBUTION WIDTH 15.2 % (11.5-14.5); WHITE BLOOD COUNT 19.3 10^3/uL (4.5-11.0)
[2018-08-17 09:38] LABS: TROPONIN I 0.14 ng/mL
[2018-08-17] MEDS ORDERED: Albuterol HFA 90 mcg/actuation (8 g) IH SCH (10:00)
[2018-08-17] MEDS: Pantoprazole 40 mg EC Tab PO SCH (10:50)
--- NOTE | 2018-08-17 11:11 | CP.PCM.PN ---
<Daryn Mcneil - Last Filed: 08/17/18 12:38> Subjective - Date & Time of Evaluation Date of Evaluation: 08/17/18 Time of Evaluation: 11:39 - Subjective Subjective: Daryn Mcneil DO PGY1 - Internal Medicine Industrial Maintenance Electrician - Hospitalist Progress Note Pt. seen and examined this AM at bedside; Does voice complaints of RLE pain/ RLE "blister" No complaints of chest pain, sob, palpitations, fevers, chills, abd pain, n/v/d/c, Objective - Vital Signs/Intake and Output Vital Signs (last 24 hours): Temp Pulse Resp BP Pulse Ox 98 F 86 14 106/60 95 08/17/18 06:00 08/17/18 10:00 08/17/18 06:00 08/17/18 06:00 08/17/18 06:00 - Medications Medications: Current Medications Albuterol Sulfate (Albuterol 0.083% Inhal Aury (2.5 Mg/3 Ml) Ud) 2.5 mg IH BIDRESP [facility] Last Admin: 08/17/18 08:02 Dose: Not Given Albuterol/Ipratropium (Duoneb 3 Mg/0.5 Mg (3 Ml) Ud) 3 ml IH Q4H PRN PRN Reason: Shortness of Breath Apixaban (Eliquis) 5 mg PO BID [facility]; Protocol Aspirin (Ecotrin) 81 mg PO DAILY [facility] Aspirin (Aspirin Chewable) 243 mg PO DAILY [facility] Atorvastatin Calcium (Lipitor) 20 mg PO DAILY [facility] Carvedilol (Coreg) 6.25 mg PO BID [facility] Insulin Human Lispro (Humalog Low) 0 units SC [facility]; Protocol Lisinopril (Zestril) 5 mg PO DAILY [facility] (Budesonide/Formoterol Fumarate [Symbicort 160-4.5 Mcg Inhaler] 2 2 puff IH BID [facility] Pantoprazole Sodium (Protonix Ec Tab) 40 mg PO DAILY [facility] - Labs Labs: 08/17/18 08:27 08/17/18 08:27 - Constitutional Appears: Well, Non-toxic, No Acute Distress - Head Exam Head Exam: ATRAUMATIC, NORMOCEPHALIC - Eye Exam Eye Exam: EOMI, Normal appearance, PERRL - Respiratory Exam Respiratory Exam: Clear to Ausculation Bilateral, NORMAL BREATHING PATTERN - Cardiovascular Exam Cardiovascular Exam: REGULAR RHYTHM, RRR, Murmur. absent: Bradycardia, Tachycardia - GI/Abdominal Exam GI & Abdominal Exam: Soft. absent: Guarding, Tenderness - Extremities Exam Additional comments: 1cm x 1cm ulceration of lateral aspect of R great toe w/ discharge and edema. Tender to palpation; no erythema. BL Feet are warm to touch; Distal pulses intact bilaterally; - Neurological Exam Neurological Exam: Alert, Awake, Oriented x3 Assessment and Plan - Assessment and Plan (Free Text) Assessment: 72M PMH CAD s/p CABG + Stenting, PVD s/p stent, DM2, HTN, HLD, GERD, COPD, Valve Replacement, DVT, Osteomyelitis, Non compliance presented w/ complaints of chest pain on 08/17 Plan: Chest Pain: Initial trop negative; Repeat Trop 0.14 Loaded 325mg ASA today Cardiology contacted, Dr. Barnhart, Will repeat trop Repeat EKG ordered; Prominent T wave inversions noted in V1-2-3; Avr, AVl Will repeat trop Lipid panel wnl; Hb A1c Pending Patient stated he was unable to complete previous stress test; Prior ECHO 05/17 - Grade 1 diastolic dysfunction; EF 57.9% Chronic RLE Ulcer in setting of severe PVD S/p Stenting of R external iliac; Right Common femmoral on 05/21/18 Will start vanc/zosyn once Wound Cx collected BCx pending ESR/CRP pending R Foot XR pending POD consulted, appreciate reccs ID Consulted, Appreciate reccs Hx CAD/PVD/ HTN / HLD C/w ASA Plavix held as per cardio C/w Coreg C/w Lisinopril C/w Lipitor Hx DVT C/w Eliquis 5mg Daily Hx COPD C/w symbicort, albuterol Duonebs PRN Hx DM2 A1C pending; Prior A1c 5 Will PPX: SCD, Protonix Dispo: Admit from obs to inpatient for continued management of ACS and Chronic RLE Ulcer on telemetry Patient was seen, examined, discussed w/ attending Dr. Juan Mcneil DO PGY1 - Internal Medicine Industrial Maintenance Electrician <Liza Martinez - Last Filed: 08/17/18 15:31> Objective - Vital Signs/Intake and Output Vital Signs (last 24 hours): Temp Pulse Resp BP Pulse Ox 98.8 F 88 21 138/74 97 08/17/18 12:00 08/17/18 12:00 08/17/18 12:00 08/17/18 12:00 08/17/18 12:00 - Medications Medications: Current Medications Albuterol Sulfate (Albuterol 0.083% Inhal Aury (2.5 Mg/3 Ml) Ud) 2.5 mg IH BIDRESP [facility] Last Admin: 08/17/18 08:02 Dose: Not Given Albuterol/Ipratropium (Duoneb 3 Mg/0.5 Mg (3 Ml) Ud) 3 ml IH Q4H PRN PRN Reason: Shortness of Breath Apixaban (Eliquis) 5 mg PO BID [facility]; Protocol Last Admin: 08/17/18 10:50 Dose: 5 mg Aspirin (Ecotrin) 81 mg PO DAILY [facility] Last Admin: 08/17/18 10:50 Dose: 81 mg Atorvastatin Calcium (Lipitor) 20 mg PO DAILY [facility] Last Admin: 08/17/18 10:50 Dose: 20 mg Carvedilol (Coreg) 6.25 mg PO BID [facility] Last Admin: 08/17/18 10:50 Dose: 6.25 mg Vancomycin HCl (Vancomycin 1gm) 1 gm in 250 mls @ 167 mls/hr IVPB Q12H [facility]; Protocol Piperacillin Sod/Tazobactam Sod (Zosyn 3.375 In Ns 100ml) 100 mls @ 25 mls/hr IVPB Q8 [facility]; Protocol Stop: 08/18/18 01:59 Insulin Human Lispro (Humalog Low) 0 units SC ACHS [facility]; Protocol Last Admin: 08/17/18 11:25 Dose: Not Given Lisinopril (Zestril) 5 mg PO DAILY [facility] Last Admin: 08/17/18 10:50 Dose: 5 mg (Budesonide/Formoterol Fumarate [Symbicort 160-4.5 Mcg Inhaler] 2 2 puff IH BID [facility] Last Admin: 08/17/18 11:24 Dose: Not Given Pantoprazole Sodium (Protonix Ec Tab) 40 mg PO DAILY [facility] Last Admin: 08/17/18 10:50 Dose: 40 mg - Labs Labs: 08/17/18 08:27 08/17/18 08:27 Attending/Attestation - Attestation I have personally seen and examined this patient.: Yes I have fully participated in the care of the patient.: Yes I have reviewed all pertinent clinical information, including history, physical exam and plan: Yes Notes (Text): 08/17/18 15:24 72 year old male with past medical history of CAD s/p CABG s/p stent, PVD s/p stent, diabetes, hypertension, DVT and osteomyelitis who presented with complaint of chest pain. Was recently discharged with similar presentation with outpatient follow up referral for outpatient stress test which he failed to comply. Chest pain has resolved. Initial troponin was negative however repeat troponin this morning is 0.14. Will trend troponins. He is on aspirin, coreg and statin. He is on eliquis. Cardiology is following; will follow up with recommendations. He also has leukocytosis today. RLE wound and discharge noted. He has history of RLE ulcer and osteomyelitis. Will obtain wound culture, ESR, and CRP. ID/podiatry evaluations are requested. Start on iv antibiotics while awaiting cultures. Medication and outpatient compliance was discussed with patient. Liza Martinez MD Hospitalist.
[2018-08-17] MEDS: BUDESONIDE IH SCH ×2 (11:24→17:53)
[2018-08-17] MEDS: FORMOTEROL FUMARATE IH SCH ×2 (11:24→17:53)
[2018-08-17] MEDS: Insulin Lispro (humaLOG) LOW Coverage SC SCH ×4 (11:24→23:07)
--- NOTE | 2018-08-17 13:22 | CON ---
DATE: 08/17/2018 REQUESTING PHYSICIAN: Dr. Martinez. REASON FOR CONSULTATION: Chest pain, palpitations. HISTORY OF PRESENT ILLNESS: This is a 72-year-old man, well-known to me, with a history of coronary artery disease status post prior bypass surgery as well as bilateral carotid endarterectomy, admitted with complaints of chest pain and palpitations. He has had several admissions for this in the recent past. He has been advised stress testing and claims that he did have a stress test done recently as an outpatient; however, there is no documentation of this. He was not seen in my office for followup or stress testing. He has been incredibly noncompliant with the medical regimen and the medical recommendations in the past. He has recently been homeless and also is currently isolated due to a bed bug infestation. He is seen lying in bed on telemetry. He denies any chest pain at the present time. He answers questions in his usual sarcastic manner. He does admit to continued tobacco abuse. He states that his chest pain is no longer present and he would like to go home. He states that he had palpitations yesterday; however, these were not bothersome. He denied any lightheadedness or syncope. 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 PAST MEDICAL HISTORY: His past history is noted for the problems mentioned above. He underwent prior PCI followed by a bypass surgery and bilateral carotid endarterectomy. He does have a history of prostate cancer treated with radiation therapy. He has had a prior appendectomy as well. He has a longstanding history of COPD; he does have hypertension, hyperlipidemia, and diabetes. MEDICATIONS: His current medications include Symbicort, albuterol, carvedilol 6.25 mg b.i.d., DuoNeb, Ecotrin, Eliquis 5 mg b.i.d., insulin coverage, Lipitor 20 mg daily, Plavix 75 mg daily, Protonix, and Zestril 5 mg daily. ALLERGIES: NONE. SOCIAL HISTORY: He continues to smoke at least a pack per day. He denies alcohol use at present. FAMILY HISTORY: Both parents are from age-related illness. There is no family history of premature heart disease. REVIEW OF SYSTEMS: A 12-point review of systems is notable for intermittent cough and palpitations and negative for syncope. Review of systems is, otherwise, unremarkable. PHYSICAL EXAMINATION: GENERAL: He is a tall, thin, middle-aged man. VITAL SIGNS: His blood pressure is 106/60, with a pulse of 86 and sinus, respirations are 16. He is afebrile. HEENT: Normocephalic, atraumatic. NECK: No JVD or bruits. CHEST: Few scattered rhonchi heard. No rales are present. HEART: PMI in normal position. Soft systolic murmur is noted at the lower left sternal border. ABDOMEN: Soft, nontender with normoactive bowel sounds. EXTREMITIES: No clubbing, cyanosis, or edema. SKIN: Warm and dry. PSYCHIATRIC: Normal mood and affect. NEUROLOGIC: Alert and oriented x3. No gross motor or sensory deficits notable. DIAGNOSTIC DATA: White count is 13.7, hemoglobin and hematocrit of 11.3 and 35.7, with a platelet count of 187,000, potassium is 4.3, BUN and creatinine were 14 and 1, glucose is 118. Troponin is negative. Cholesterol 134 with a HDL of 29, LDL 91, triglycerides of 64. Toxicology screen was negative. The electrocardiogram reveals sinus rhythm with nonspecific ST-T abnormalities. Chest x-ray reveals post sternotomy changes, borderline cardiac silhouette enlargement with clear lung zepeda. IMPRESSION: 1. Chest pain, possibly anginal in nature, although he is very vague in providing description of his symptoms; prior recommendations for stress testing were never followed through. 2. Coronary artery disease status post prior bypass surgery. 3. Bilateral carotid disease status post carotid endarterectomy. 4. Persistent tobacco abuse. 5. History of hypertension and diabetes. 6. Bed bug infestation. 7. Rest of the problems as noted. RECOMMENDATIONS: 1. Followup cardiac enzymes are advised. 2. A repeat stress test would be appropriate. 3. A 24-hour observation on telemetry to screen for dysrhythmias can continue. 4. Smoking abstinence was again encouraged; however, with his history of noncompliance in the past, it is unlikely that he will follow these recommendations. 5. With respect to his antithrombotic and anticoagulant therapy, the use of aspirin, Plavix, and Eliquis would likely increase the risk of bleeding. At this time, Plavix will be discontinued and he will be maintained on low-dose aspirin and Eliquis for his DVT; once he has completed appropriate length of therapy for that, Eliquis can be discontinued and Plavix resumed. Thank you for this consultation. I will be happy to follow along as needed. Asad Barnhart MD ANTHONY
[2018-08-17] MEDS ORDERED: Piperacillin/Tazobact 3.375 gm 100 ML IVPB SCH (15:00)
--- NOTE | 2018-08-17 15:01 | CARD ---
APPROVED REPORT Date of service: 08/17/2018 EKG Measurement Heart [id number] <Conclusion> Unusual P axis, possible ectopic atrial bradycardia with premature atrial complexes Moderate voltage criteria for LVH, may be normal variant Marked T wave abnormality, consider anterior ischemia Prolonged QT Abnormal ECG
[2018-08-17] MEDS: Vancomycin 1gm in NS 250ml 1 GM/250 ML BAG IVPB SCH (16:30)
[2018-08-17] MEDS: Cefepime 1gm in NS 100ml 1 GM/100 ML BAG IVPB SCH (23:03)
[2018-08-17] MEDS: metroNIDAZOLE IV 500 mg/100 ml 500 MG/100 ML BAG IVPB SCH (23:03)
[2018-08-18] MEDS: Vancomycin 1gm in NS 250ml 1 GM/250 ML BAG IVPB SCH ×2 (02:45→16:00)
[2018-08-18] MEDS: metroNIDAZOLE IV 500 mg/100 ml 500 MG/100 ML BAG IVPB SCH ×3 (05:22→21:19)
[2018-08-18] MEDS: Cefepime 1gm in NS 100ml 1 GM/100 ML BAG IVPB SCH ×3 (05:23→22:07)
[2018-08-18] MEDS: Albuterol 0.083% Inhal Sol (2.5 mg/3 mL) UD IH SCH ×2 (08:36→19:37)
[2018-08-18 10:03] LABS: ALB/GLOB RATIO 1.2 (1.1-1.8); ALBUMIN 3.2 g/dL (3.0-4.8); ALT/SGPT 12 U/L (7-56); AST/SGOT 16 U/L (17-59); BLOOD UREA NITROGEN 29 mg/dL (7-21); CALCIUM 8.4 mg/dL (8.4-10.5); GFR NON-AFRICAN AMERICAN > 60
--- NOTE | 2018-08-18 10:04 | PN ---
DATE: 08/18/2018 SUBJECTIVE: The patient is seen lying in bed on telemetry. He denies any chest pain today. He has had no evidence of dysrhythmias. Troponin yesterday tristan to 0.14 with a repeat of 0.08. His EKG showed new anterior T-wave inversions. CURRENT MEDICATIONS: Include Symbicort, albuterol, carvedilol 6.25 mg b.i.d., DuoNeb inhalers, Ecotrin, Eliquis 5 mg b.i.d., Flagyl, Lipitor 20 mg daily, Protonix, vancomycin and Zestril 5 mg daily. OBJECTIVE: GENERAL: He is a disheveled-appearing middle-aged man. VITAL SIGNS: His blood pressure is 104/50 with pulse of 80 and sinus, respirations are 16. He is afebrile. HEENT: No JVD. CHEST: Bilateral scattered rhonchi. HEART: PMI normal position. Soft systolic murmur is present at the lower left sternal border. ABDOMEN: Soft, nontender with normoactive bowel sounds. EXTREMITIES: No edema. DIAGNOSTIC DATA: Morning blood work and electrocardiogram are pending. IMPRESSION: 1. Chest pain with mild chart troponin elevation and EKG changes suggestive of acute coronary artery syndrome. 2. Known coronary disease, status post prior bypass surgery. 3. Bilateral carotid disease with prior endarterectomies. 4. History of tobacco abuse. 5. History of hypertension, diabetes. RECOMMENDATIONS: Given his presentation and known coronary artery disease, repeat cardiac catheterization at this time would be advisable. This was discussed with them and he became belligerent and appeared resistant to that concept. It is difficult to determine his seriousness in that regard or if this is usual manner of interacting. If he is agreeable, cardiac catheterization will be arranged in the next 24-48 hours. His Eliquis will be placed on hold. If he has recurrent chest pain, intensification of his antianginal therapy will be planned as well. Smoking abstinence was strongly encouraged and I will follow along through this hospital course as needed. Asad Barnhart MD
[2018-08-18 10:06] LABS: HEMOGLOBIN 10.2 g/dL (14.0-18.0); MEAN CELL VOLUME 85.9 fl (80.0-105.0); MEAN CORPUSCULAR HEMOGLOBIN 26.7 pg (25.0-35.0); MEAN CORPUSCULAR HGB CONC 31.1 g/dl (31.0-37.0); MEAN PLATELET VOLUME 8.7 fl (7.0-11.0); RBC 3.82 10^6/uL (3.5-6.1); RED CELL DISTRIBUTION WIDTH 15.3 % (11.5-14.5); WHITE BLOOD COUNT 11.4 10^3/uL (4.5-11.0)
[2018-08-18 10:14] LABS: TROPONIN I 0.03 ng/mL
--- NOTE | 2018-08-18 10:14 | CP.PCM.CON ---
<DanaSonali - Last Filed: 08/18/18 10:21> History of Present Illness - History of Present Illness History of Present Illness: Podiatry Consult Note: Dr. Carrillo/Efrain 72M patient with PMHx, seen and examined at bedside for right foot ulceration. Patient is well known to podiatry service. He states that he has had the right foot ulcer for several months and his daughter gave him an antibiotic ointment to put on the area. He denies any pain to the ulceration site. Denies nausea/vomiting/fever/chills. PMHx: COPD, HTN, Chronic b/l plantar fascitis, and homelessness PSHx: Cardiac valve replacement, CABG, Appendectomy All: NKDA Review of Systems - Constitutional Constitutional: As Per HPI Past Patient History - Infectious Disease Hx of Infectious Diseases: None - Past Social History Smoking Status: Heavy Smoker > 10 Cigarettes Daily - CARDIAC Hx Hypertension: Yes - PULMONARY Hx Respiratory Disorders: Yes Hx Chronic Obstructive Pulmonary Disease (COPD): Yes Other/Comment: smoker 1 PPD - NEUROLOGICAL Hx Neurological Disorder: No - HEENT Hx HEENT Problems: No - RENAL Hx Chronic Kidney Disease: No - ENDOCRINE/METABOLIC Hx Endocrine Disorders: No - HEMATOLOGICAL/ONCOLOGICAL Hx Blood Disorders: No - INTEGUMENTARY Hx Dermatological Problems: Yes Other/Comment: rash/reaction from bed bugs - MUSCULOSKELETAL/RHEUMATOLOGICAL Hx Musculoskeletal Disorders: Yes Hx Falls: No Other/Comment: uses cane for ambulation. plantar faciitis - GASTROINTESTINAL Hx Gastrointestinal Disorders: No - GENITOURINARY/GYNECOLOGICAL Hx Genitourinary Disorders: Yes Other/Comment: Hx prostate ca with radiation therapy - PSYCHIATRIC Hx Psychophysiologic Disorder: No - SURGICAL HISTORY Hx Appendectomy: Yes (at age 17) - ANESTHESIA Hx Anesthesia: Yes Hx Anesthesia Reactions: No Hx Malignant Hyperthermia: No Meds Allergies/Adverse Reactions: Allergies Allergy/AdvReac Type Severity Reaction Status Date / Time No Known Allergies Allergy Verified 05/12/18 08:59 - Medications Medications: Current Medications Albuterol Sulfate (Albuterol 0.083% Inhal Aury (2.5 Mg/3 Ml) Ud) 2.5 mg IH BID RESP [facility] Last Admin: 08/18/18 08:36 Dose: Not Given Albuterol/Ipratropium (Duoneb 3 Mg/0.5 Mg (3 Ml) Ud) 3 ml IH Q4H PRN PRN Reason: Shortness of Breath Apixaban (Eliquis) 5 mg PO BID [facility]; Protocol Last Admin: 08/17/18 17:54 Dose: 5 mg Aspirin (Ecotrin) 81 mg PO DAILY [facility] Last Admin: 08/17/18 10:50 Dose: 81 mg Atorvastatin Calcium (Lipitor) 20 mg PO DAILY [facility] Last Admin: 08/17/18 10:50 Dose: 20 mg Carvedilol (Coreg) 6.25 mg PO BID [facility] Last Admin: 08/17/18 17:53 Dose: 6.25 mg Vancomycin HCl (Vancomycin 1gm) 1 gm in 250 mls @ 167 mls/hr IVPB Q12H [facility]; Protocol Last Admin: 08/18/18 02:45 Dose: 167 mls/hr Cefepime HCl (Maxipime 1gm) 1 gm in 100 mls @ 100 mls/hr IVPB Q8 [facility]; Protocol Stop: 08/25/18 22:01 Last Admin: 08/18/18 05:23 Dose: 100 mls/hr Metronidazole (Flagyl) 500 mg in 100 mls @ 100 mls/hr IVPB Q8 [facility]; Protocol Stop: 08/25/18 22:01 Last Admin: 08/18/18 05:22 Dose: 100 mls/hr Insulin Human Lispro (Humalog Low) 0 units SC ACHS [facility]; Protocol Last Admin: 08/17/18 23:07 Dose: Not Given Lisinopril (Zestril) 5 mg PO DAILY [facility] Last Admin: 08/17/18 10:50 Dose: 5 mg (Budesonide/Formoterol Fumarate [Symbicort 160-4.5 Mcg Inhaler] 2 2 puff IH BID [facility] Last Admin: 08/17/18 17:53 Dose: Not Given Pantoprazole Sodium (Protonix Ec Tab) 40 mg PO DAILY [facility] Last Admin: 08/17/18 10:50 Dose: 40 mg Physical Exam - Constitutional Appears: Non-toxic, No Acute Distress - Head Exam Head Exam: ATRAUMATIC, NORMOCEPHALIC - Extremities Exam Additional comments: RLE focused exam VASC: DP and PT pulses dopplerable; CFT <3 seconds to digits x5 b/l; pedal hair growth absent NEURO: Light touch and protective sensation diminished bilaterally. DERM: ulceration noted to medial aspect of 1st MPJ measuring approximately 1 x 1 x 0.3cm -wound noted to have a fibrotic base and hyperkeratotic rim; 1cc of purulence expressed; no fluctuance ORTHO: No pain on palpation noted to wounds, MMT 5/5 - Neurological Exam Neurological exam: Alert, Oriented x3 - Psychiatric Exam Psychiatric exam: Normal Affect, Normal Mood Results - Vital Signs Recent Vital Signs: Last Vital Signs Temp 98.4 F 08/18/18 06:00 Pulse 57 L 08/18/18 06:00 Resp 19 08/18/18 06:00 BP 104/53 L 08/18/18 06:00 Pulse Ox 93 L 08/18/18 06:00 - Labs Result Diagrams: 08/18/18 09:45 08/18/18 09:45 Labs: Laboratory Results - last 24 hr 08/16/18 08/17/18 08/17/18 16:40 11:18 12:00 ESR 84 H Sodium Potassium Chloride Carbon Dioxide Anion Gap BUN Creatinine Est GFR ( Amer) Est GFR (Non-Af Amer) POC Glucose (mg/dL) 119 H Random Glucose Hemoglobin A1c 5.6 Calcium Total Bilirubin AST ALT Alkaline Phosphatase Troponin I C-Reactive Protein Total Protein Albumin Globulin Albumin/Globulin Ratio 08/17/18 08/17/18 08/17/18 12:00 14:00 16:57 ESR Sodium Potassium Chloride Carbon Dioxide Anion Gap BUN Creatinine Est GFR ( Amer) Est GFR (Non-Af Amer) POC Glucose (mg/dL) 124 H Random Glucose Hemoglobin A1c Calcium Total Bilirubin AST ALT Alkaline Phosphatase Troponin I 0.08 D C-Reactive Protein 51.60 H Total Protein Albumin Globulin Albumin/Globulin Ratio 08/17/18 08/18/18 21:31 09:45 ESR Sodium 137 Potassium 4.0 Chloride 105 Carbon Dioxide 25 Anion Gap 11 BUN 29 H Creatinine 1.1 Est GFR ( Amer) > 60 Est GFR (Non-Af Amer) > 60 POC Glucose (mg/dL) 114 H Random Glucose 150 H Hemoglobin A1c Calcium 8.4 Total Bilirubin 0.3 AST 16 L ALT 12 Alkaline Phosphatase 69 Troponin I C-Reactive Protein Total Protein 6.0 Albumin 3.2 Globulin 2.8 Albumin/Globulin Ratio 1.2 Assessment & Plan - Assessment and Plan (Free Text) Assessment: 72M with right foot chronic ulceration Plan: Patient seen and evaluated Discussed with Dr. Efrain VALDES, WBC 11.4 C/w IV abx RLE cleansed with saline, wound dressed with betadine/Optifoam F/U R foot x-ray F/U Wound culture Bactroban ordered Thank you for the consult - Date & Time Date: 08/18/18 Time: 10:13 <Travis Zuniga - Last Filed: 08/20/18 12:40> Meds - Medications Medications: Current Medications Albuterol Sulfate (Albuterol 0.083% Inhal Aury (2.5 Mg/3 Ml) Ud) 2.5 mg IH BIDRESP [facility] Last Admin: 08/20/18 08:01 Dose: Not Given Albuterol/Ipratropium (Duoneb 3 Mg/0.5 Mg (3 Ml) Ud) 3 ml IH Q4H PRN PRN Reason: Shortness of Breath Apixaban (Eliquis) 5 mg PO BID [facility]; Protocol Last Admin: 08/20/18 09:14 Dose: 5 mg Aspirin (Ecotrin) 81 mg PO DAILY [facility] Last Admin: 08/20/18 09:14 Dose: 81 mg Atorvastatin Calcium (Lipitor) 40 mg PO HS [facility] Carvedilol (Coreg) 12.5 mg PO BID [facility] Last Admin: 08/20/18 09:14 Dose: 12.5 mg Cefepime HCl (Maxipime 1gm) 1 gm in 100 mls @ 100 mls/hr IVPB Q8 [facility]; Protocol Stop: 08/25/18 22:01 Last Admin: 08/20/18 05:15 Dose: 100 mls/hr Vancomycin HCl (Vancomycin 1gm) 1 gm in 250 mls @ 167 mls/hr IVPB 0600,1800 [facility]; Protocol Last Admin: 08/20/18 05:14 Dose: 167 mls/hr Insulin Human Lispro (Humalog Low) 0 units SC ACHS [facility]; Protocol Last Admin: 08/20/18 07:44 Dose: Not Given Isosorbide Mononitrate (Imdur) 60 mg PO DAILY [facility] Last Admin: 08/20/18 09:14 Dose: 60 mg Lisinopril (Zestril) 5 mg PO DAILY [facility] Last Admin: 08/20/18 09:14 Dose: 5 mg Metronidazole (Flagyl) 500 mg PO Q8 [facility]; Protocol Stop: 08/28/18 22:01 Last Admin: 08/20/18 05:14 Dose: 500 mg Mupirocin (Bactroban Ointment) 0 gm TOP BID [facility] Last Admin: 08/20/18 09:16 Dose: 1 applic (Budesonide/Formoterol Fumarate [Symbicort 160-4.5 Mcg Inhaler] 2 2 puff IH BID [facility] Last Admin: 08/20/18 09:13 Dose: Not Given Pantoprazole Sodium (Protonix Ec Tab) 40 mg PO DAILY [facility] Last Admin: 08/20/18 09:14 Dose: 40 mg Results - Vital Signs Recent Vital Signs: Last Vital Signs Temp 97.7 F 08/20/18 12:00 Pulse 66 08/20/18 12:00 Resp 19 08/20/18 12:00 BP 120/52 L 08/20/18 12:00 Pulse Ox 94 L 08/19/18 23:25 - Labs Result Diagrams: 08/20/18 06:10 08/20/18 06:10 Labs: Laboratory Results - last 24 hr 08/19/18 08/19/18 08/20/18 16:08 21:03 06:10 WBC 9.7 RBC 3.75 Hgb 10.2 L Hct 31.6 L MCV 84.3 MCH 27.2 MCHC 32.3 RDW 14.8 H Plt Count 222 MPV 9.2 Sodium Potassium Chloride Carbon Dioxide Anion Gap BUN Creatinine Est GFR ( Amer) Est GFR (Non-Af Amer) POC Glucose (mg/dL) 135 H 142 H Random Glucose Calcium Total Bilirubin AST ALT Alkaline Phosphatase Total Protein Albumin Globulin Albumin/Globulin Ratio 08/20/18 08/20/18 08/20/18 06:10 07:17 11:35 WBC RBC Hgb Hct MCV MCH MCHC RDW Plt Count MPV Sodium 137 Potassium 4.1 Chloride 104 Carbon Dioxide 28 Anion Gap 9 L BUN 22 H Creatinine 1.0 Est GFR ( Amer) > 60 Est GFR (Non-Af Amer) > 60 POC Glucose (mg/dL) 108 126 H Random Glucose 93 Calcium 8.4 Total Bilirubin 0.2 AST 18 ALT 14 Alkaline Phosphatase 69 Total Protein 5.8 Albumin 3.0 Globulin 2.8 Albumin/Globulin Ratio 1.1 Attending/Attestation - Attestation I have personally seen and examined this patient.: Yes I have fully participated in the care of the patient.: Yes I have reviewed all pertinent clinical information: Yes
[2018-08-18] MEDS: Pantoprazole 40 mg EC Tab PO SCH (11:29)
[2018-08-18] MEDS: Insulin Lispro (humaLOG) LOW Coverage SC SCH ×2 (11:29→12:00)
--- NOTE | 2018-08-18 11:44 | CP.PCM.PN ---
<Daryn Mcneil - Last Filed: 08/18/18 11:09> Subjective - Date & Time of Evaluation Date of Evaluation: 08/18/18 Time of Evaluation: 11:10 - Subjective Subjective: Daryn Mcneil DO PGY1 - Internal Medicine Commercial Portfolio Manager - Hospitalist Progress Note Patient was seen and examined this morning at bedside; does not voice complaints of chest pain, sob, diarrhea, fevers, chills. Objective - Vital Signs/Intake and Output Vital Signs (last 24 hours): Temp Pulse Resp BP Pulse Ox 98.4 F 57 L 19 104/53 L 93 L 08/18/18 06:00 08/18/18 06:00 08/18/18 06:00 08/18/18 06:00 08/18/18 06:00 Intake and Output: 08/18/18 08/18/18 06:59 18:59 Intake Total 1115 Output Total 1380 Balance -265 - Medications Medications: Current Medications Albuterol Sulfate (Albuterol 0.083% Inhal Aury (2.5 Mg/3 Ml) Ud) 2.5 mg IH BIDRESP [facility] Last Admin: 08/18/18 08:36 Dose: Not Given Albuterol/Ipratropium (Duoneb 3 Mg/0.5 Mg (3 Ml) Ud) 3 ml IH Q4H PRN PRN Reason: Shortness of Breath Apixaban (Eliquis) 5 mg PO BID [facility]; Protocol Last Admin: 08/17/18 17:54 Dose: 5 mg Aspirin (Ecotrin) 81 mg PO DAILY [facility] Last Admin: 08/17/18 10:50 Dose: 81 mg Atorvastatin Calcium (Lipitor) 20 mg PO DAILY [facility] Last Admin: 08/17/18 10:50 Dose: 20 mg Carvedilol (Coreg) 6.25 mg PO BID [facility] Last Admin: 08/17/18 17:53 Dose: 6.25 mg Vancomycin HCl (Vancomycin 1gm) 1 gm in 250 mls @ 167 mls/hr IVPB Q12H [facility]; Protocol Last Admin: 08/18/18 02:45 Dose: 167 mls/hr Cefepime HCl (Maxipime 1gm) 1 gm in 100 mls @ 100 mls/hr IVPB Q8 [facility]; Protocol Stop: 08/25/18 22:01 Last Admin: 08/18/18 05:23 Dose: 100 mls/hr Metronidazole (Flagyl) 500 mg in 100 mls @ 100 mls/hr IVPB Q8 [facility]; Protocol Stop: 08/25/18 22:01 Last Admin: 08/18/18 05:22 Dose: 100 mls/hr Insulin Human Lispro (Humalog Low) 0 units SC ACHS [facility]; Protocol Last Admin: 08/17/18 23:07 Dose: Not Given Lisinopril (Zestril) 5 mg PO DAILY [facility] Last Admin: 08/17/18 10:50 Dose: 5 mg Mupirocin (Bactroban Ointment) 0 gm TOP BID [facility] (Budesonide/Formoterol Fumarate [Symbicort 160-4.5 Mcg Inhaler] 2 2 puff IH BID [facility] Last Admin: 08/17/18 17:53 Dose: Not Given Pantoprazole Sodium (Protonix Ec Tab) 40 mg PO DAILY [facility] Last Admin: 08/17/18 10:50 Dose: 40 mg - Labs Labs: 08/18/18 09:45 08/18/18 09:45 - Constitutional Appears: Well, Non-toxic, No Acute Distress - Head Exam Head Exam: ATRAUMATIC, NORMOCEPHALIC - Eye Exam Eye Exam: EOMI, Normal appearance, PERRL - Respiratory Exam Respiratory Exam: Clear to Ausculation Bilateral, NORMAL BREATHING PATTERN - Cardiovascular Exam Cardiovascular Exam: REGULAR RHYTHM, RRR, Murmur. absent: Bradycardia, Tachycardia - GI/Abdominal Exam GI & Abdominal Exam: Soft. absent: Guarding, Tenderness - Extremities Exam Additional comments: 1cm x 1cm ulceration of lateral aspect of R great toe w/ discharge and edema. Tender to palpation; no erythema. Dressing CDI BL Feet are warm to touch; Distal pulses intact bilaterally; - Neurological Exam Neurological Exam: Alert, Awake, Oriented x3 Assessment and Plan - Assessment and Plan (Free Text) Assessment: 72M PMH CAD s/p CABG + Stenting, PVD s/p stent, DM2, HTN, HLD, GERD, COPD, Valve Replacement, DVT, Osteomyelitis, Non compliance presented w/ complaints of chest pain on 08/17 Plan: Chest Pain: Initial trop negative; Repeat Trop 0.14; Troponin this AM 0.03 EKG from 08/18 showed new onset TWaves; Plans for Cardiac Cath if patient is agreeable as per cardiology Eliquis increased to 5mg BID as per cardiology; however it is currently held due to possiblity of cath Lipid panel wnl; Hb A1c 5.6 Patient stated he was unable to complete previous stress test; Prior ECHO 05/17 - Grade 1 diastolic dysfunction; EF 57.9% Cardiology following, appreciate recommendations Leukocytosis in setting of Chronic RLE Ulcer in setting of severe PVD; Will continue to eval for other etiologies of leukocytosis Leukocytosis is trending down today Vanc/Zosyn changed to Flagyl/ Cefepime Will get CTAP r/o intraabdominal source of infection Patient is S/p Stenting of R external iliac; Right Common femmoral on 05/21/18 Wound Cx pending/ BCx pending ESR/CRP elevated from baseline R Foot XR pending POD Following, appreciate reccs ID Following, Appreciate reccs Hx CAD/PVD/ HTN / HLD C/w ASA Plavix held as per cardio C/w Coreg C/w Lisinopril C/w Lipitor Hx DVT C/w Eliquis as above Hx COPD C/w symbicort, albuterol Duonebs PRN Hx DM2 Repeat A1C 5.6 Bed Bugs - Resolved PPX: SCD, Protonix Dispo: Continued inpatient management of ACS and Chronic RLE Ulcer on telemetry; No longer on isolation for bed bugs Patient was seen, examined, discussed w/ attending Dr. Juan Mcneil DO PGY1 - Internal Medicine Commercial Portfolio Manager <Liza Martinez - Last Filed: 08/18/18 12:13> Objective - Vital Signs/Intake and Output Vital Signs (last 24 hours): Temp Pulse Resp BP Pulse Ox 98 F 55 L 18 114/57 L 93 L 08/18/18 12:00 08/18/18 12:00 08/18/18 12:00 08/18/18 12:00 08/18/18 06:00 Intake and Output: 08/18/18 08/18/18 06:59 18:59 Intake Total 1115 Output Total 1380 Balance -265 - Medications Medications: Current Medications Albuterol Sulfate (Albuterol 0.083% Inhal Aury (2.5 Mg/3 Ml) Ud) 2.5 mg IH BIDRESP [facility] Last Admin: 08/18/18 08:36 Dose: Not Given Albuterol/Ipratropium (Duoneb 3 Mg/0.5 Mg (3 Ml) Ud) 3 ml IH Q4H PRN PRN Reason: Shortness of Breath Apixaban (Eliquis) 5 mg PO BID [facility]; Protocol Last Admin: 08/17/18 17:54 Dose: 5 mg Aspirin (Ecotrin) 81 mg PO DAILY [facility] Last Admin: 08/18/18 11:29 Dose: 81 mg Atorvastatin Calcium (Lipitor) 20 mg PO DAILY [facility] Last Admin: 08/18/18 11:28 Dose: 20 mg Carvedilol (Coreg) 6.25 mg PO BID [facility] Last Admin: 08/18/18 11:29 Dose: 6.25 mg Vancomycin HCl (Vancomycin 1gm) 1 gm in 250 mls @ 167 mls/hr IVPB Q12H [facility]; Protocol Last Admin: 08/18/18 02:45 Dose: 167 mls/hr Cefepime HCl (Maxipime 1gm) 1 gm in 100 mls @ 100 mls/hr IVPB Q8 [facility]; Protocol Stop: 08/25/18 22:01 Last Admin: 08/18/18 05:23 Dose: 100 mls/hr Metronidazole (Flagyl) 500 mg in 100 mls @ 100 mls/hr IVPB Q8 [facility]; Protocol Stop: 08/25/18 22:01 Last Admin: 08/18/18 05:22 Dose: 100 mls/hr Insulin Human Lispro (Humalog Low) 0 units SC ACHS [facility]; Protocol Last Admin: 08/18/18 11:29 Dose: Not Given Lisinopril (Zestril) 5 mg PO DAILY [facility] Last Admin: 08/18/18 11:29 Dose: 5 mg Mupirocin (Bactroban Ointment) 0 gm TOP BID [facility] (Budesonide/Formoterol Fumarate [Symbicort 160-4.5 Mcg Inhaler] 2 2 puff IH BID [facility] Last Admin: 08/17/18 17:53 Dose: Not Given Pantoprazole Sodium (Protonix Ec Tab) 40 mg PO DAILY [facility] Last Admin: 08/18/18 11:29 Dose: 40 mg - Labs Labs: 08/18/18 09:45 08/18/18 09:45 Attending/Attestation - Attestation I have personally seen and examined this patient.: Yes I have fully participated in the care of the patient.: Yes I have reviewed all pertinent clinical information, including history, physical exam and plan: Yes Notes (Text): 08/18/18 12:10 72 year old male with past medical history of CAD s/p CABG s/p stent, PVD s/p stent, diabetes, hypertension, DVT and osteomyelitis who presented with complaint of chest pain. Was recently discharged with similar presentation with outpatient follow up referral for outpatient stress test which he failed to comply. Chest pain has resolved. Initial troponin was negative however repeat troponin bumped up to 0.14. Troponins are now trending down. He is on aspirin, coreg and statin. He was on eliquis, currently on hold for possible plan for cardiac cath (if patient is agreeable). Cardiology is following; will follow up with recommendations. Leukocytosis today is improving. Patient has chronic RLE wound and history of osteomyelitis. Pending wound culture and xray. ESR/CRP are elevated. Continue with iv antibiotics. Follow up with ID/podiatry recommendations. Medication and outpatient compliance was discussed with patient. Liza Martinez MD Hospitalist.
--- NOTE | 2018-08-18 22:44 | CON ---
DATE OF CONSULTATION: 08/18/2018 LOCATION: The patient is in Room 260, Bed 1. CHIEF COMPLAINT: Chest pain x1 day duration. HISTORY OF PRESENT ILLNESS: The patient is a 72-year-old male with hypertension, diabetes, hyperlipidemia, prostate cancer, congestive heart failure with preserved ejection fraction, chronic obstructive lung disease, GERD, tobacco use, DVT, COPD and history of right foot osteomyelitis. The patient with diabetes mellitus, hyperlipidemia and status post stent of the right external iliac and right common femoral artery on 05/21/2018, now admitted with diagnosis of chest pain and palpitations. Infectious disease consultation requested because of elevated white count. The patient denies any fevers, any chills. No chest pain at this time. No abdominal pain, diarrhea or constipation. REVIEW OF SYSTEMS: A 12-point review of systems is performed. PAST MEDICAL HISTORY: Significant for hypertension, diabetes, congestive heart failure, COPD, DVT, GERD, peripheral arterial disease, prostate cancer with radiation. PAST SURGICAL HISTORY: Significant for sternotomy, valve repair, appendectomy at the age of 17, and bilateral carotid endarterectomy. ALLERGIES: THE PATIENT HAS NO KNOWN ALLERGIES. MEDICATIONS AT HOME: Eliquis, Lipitor, aspirin, albuterol, lisinopril, carvedilol, metformin. PHYSICAL EXAMINATION: GENERAL: The patient is in bed in no acute distress. VITAL SIGNS: Temperature of 98; blood pressure is 104/50; respiratory rate of 19, up to 21; heart rate was up to 107, up to 117 in the emergency room. HEENT: Unremarkable. NECK: Supple. LUNGS: Have decreased breath sounds. HEART: Normal S1, S2. ABDOMEN: Soft, nontender. No organomegaly, no rebound, no guarding. EXTREMITIES: On examination of the heel, the patient's foot has an ulcer, appears to be chronic with no evidence of an active infection, no discharge, no erythema. ASSESSMENT AND PLAN: The patient is a 72-year-old male with: 1. SIRS (systemic inflammatory response syndrome). Source of the leukocytosis is not clear and certainly the foot does not appear on exam to have any significant findings and rule out GI pathology. Recommended CT scan of the foot also and CT scan of the abdomen and pelvis. Case discussed with Dr. Mcneil, an sports broadcasting internship caring for this patient, who will put the orders in and will empirically start the patient on vancomycin, Maxipime and Flagyl pending pancultures, CT imaging, wound cultures of the right foot. We will follow closely with you pending imaging and findings. Toby Martin MD
[2018-08-19] MEDS ORDERED: Barium Sulfate Susp 2.1% w/v, 2.0% w/w 450 mL Bottle PO ONE (03:03)
[2018-08-19] MEDS: Vancomycin 1gm in NS 250ml 1 GM/250 ML BAG IVPB SCH ×2 (03:25→16:00)
[2018-08-19] MEDS: metroNIDAZOLE IV 500 mg/100 ml 500 MG/100 ML BAG IVPB SCH ×2 (05:21→13:42)
[2018-08-19] MEDS: Cefepime 1gm in NS 100ml 1 GM/100 ML BAG IVPB SCH ×3 (06:27→21:55)
[2018-08-19] MEDS: Albuterol 0.083% Inhal Sol (2.5 mg/3 mL) UD IH SCH ×2 (07:43→19:42)
--- NOTE | 2018-08-19 09:03 | RAD ---
Date of service: 08/18/2018 PROCEDURE: Right Foot Radiographs. HISTORY: R/o RLE osteo COMPARISON: 07/18/2018 TECHNIQUE: 3 views obtained. FINDINGS: BONES: No acute fracture. Previously identified fracture of 5th proximal phalanx is identified, likely with some interval healing though no montez callus is appreciated. Follow-up advised. No other fracture identified. JOINTS: Hallux valgus. No evidence of arthritis. SOFT TISSUES: Normal. OTHER FINDINGS: None. IMPRESSION: Hallux valgus. Questionably healing fracture 5th proximal phalanx. No additional abnormality.
--- NOTE | 2018-08-19 09:39 | CARD ---
APPROVED REPORT Date of service: 08/16/2018 EKG Measurement Heart [id number] <Conclusion> Sinus tachycardia Otherwise normal ECG
--- NOTE | 2018-08-19 09:53 | CP.PCM.PN ---
Subjective - Date & Time of Evaluation Date of Evaluation: 08/19/18 Time of Evaluation: 09:49 - Subjective Subjective: Podiatry progress note - Drs. Zuniga/Lorena 72M seen and evaluated at bedside this AM with Dr. Carrillo. Resting comfortably. Denies pain to right foot wound. Denies n/v/f/c/sob and reports no acute events overnight. Objective - Vital Signs/Intake and Output Vital Signs (last 24 hours): Temp Pulse Resp BP Pulse Ox 98.5 F 71 18 163/71 H 97 08/19/18 05:54 08/19/18 06:00 08/19/18 05:54 08/19/18 05:54 08/19/18 05:54 Intake and Output: 08/19/18 08/19/18 06:59 18:59 Output Total 1500 Balance -1500 - Medications Medications: Current Medications Albuterol Sulfate (Albuterol 0.083% Inhal Aury (2.5 Mg/3 Ml) Ud) 2.5 mg IH BIDRESP [facility] Last Admin: 08/19/18 07:43 Dose: Not Given Albuterol/Ipratropium (Duoneb 3 Mg/0.5 Mg (3 Ml) Ud) 3 ml IH Q4H PRN PRN Reason: Shortness of Breath Apixaban (Eliquis) 5 mg PO BID [facility]; Protocol Last Admin: 08/17/18 17:54 Dose: 5 mg Aspirin (Ecotrin) 81 mg PO DAILY [facility] Last Admin: 08/18/18 11:29 Dose: 81 mg Atorvastatin Calcium (Lipitor) 20 mg PO DAILY [facility] Last Admin: 08/18/18 11:28 Dose: 20 mg Carvedilol (Coreg) 12.5 mg PO BID [facility] Vancomycin HCl (Vancomycin 1gm) 1 gm in 250 mls @ 167 mls/hr IVPB Q12H [facility]; Protocol Last Admin: 08/19/18 03:25 Dose: 167 mls/hr Cefepime HCl (Maxipime 1gm) 1 gm in 100 mls @ 100 mls/hr IVPB Q8 [facility]; Protocol Stop: 08/25/18 22:01 Last Admin: 08/19/18 06:27 Dose: 100 mls/hr Metronidazole (Flagyl) 500 mg in 100 mls @ 100 mls/hr IVPB Q8 [facility]; Protocol Stop: 08/25/18 22:01 Last Admin: 08/19/18 05:21 Dose: 100 mls/hr Insulin Human Lispro (Humalog Low) 0 units SC ACHS [facility]; Protocol Last Admin: 08/18/18 12:00 Dose: Not Given Isosorbide Mononitrate (Imdur) 60 mg PO DAILY [facility] Lisinopril (Zestril) 5 mg PO DAILY [facility] Last Admin: 08/18/18 11:29 Dose: 5 mg Mupirocin (Bactroban Ointment) 0 gm TOP BID [facility] (Budesonide/Formoterol Fumarate [Symbicort 160-4.5 Mcg Inhaler] 2 2 puff IH BID [facility] Last Admin: 08/17/18 17:53 Dose: Not Given Pantoprazole Sodium (Protonix Ec Tab) 40 mg PO DAILY [facility] Last Admin: 08/18/18 11:29 Dose: 40 mg - Labs Labs: 08/18/18 09:45 08/18/18 09:45 - Constitutional Appears: Non-toxic - Head Exam Head Exam: ATRAUMATIC - Extremities Exam Additional comments: RLE focused exam VASC: DP and PT pulses dopplerable; CFT <3 seconds to digits x5 b/l; pedal hair growth absent NEURO: Light touch and protective sensation diminished bilaterally. DERM: ulceration noted to medial aspect of 1st MPJ measuring approximately 1 x 1 x 0.3cm -wound noted to have a fibrotic base and hyperkeratotic rim; 1cc of purulence expressed; no fluctuance ORTHO: No pain on palpation noted to wounds, MMT 5/5 - Neurological Exam Neurological Exam: Alert, Awake, Oriented x3 - Psychiatric Exam Psychiatric exam: Normal Affect Assessment and Plan - Assessment and Plan (Free Text) Assessment: 72M with right foot chronic ulceration Plan: Patient seen and evaluated with Dr. Lorena VALDES, WBC 11.4 (08/18) C/w IV abx RLE cleansed with saline, wound dressed with betadine/Optifoam R ft x-ray - healing chronic fracture of fifth proximal phalanx, no other pathology R ft MRI ordered Wound culture - corynebacterium species Will continue to follow No plan for podiatric surgical intervention at this time F/u at wound center as outpatient upon d/c
--- NOTE | 2018-08-19 11:19 | PN ---
DATE: 08/19/2018 SUBJECTIVE: The patient is seen lying in bed on telemetry. He denies any chest pain overnight. He has been advised to undergo cardiac catheterization given his recent chest pain and elevated troponin; however, he adamantly refuses. He states that he plans on leaving [place] and moving to [place]. We will follow up with medical care there. He was also offered the option of a nuclear stress testing and he refuses this as well. CURRENT MEDICATIONS: Include Symbicort, albuterol, carvedilol 6.25 mg twice a day, DuoNeb inhaler, Ecotrin, Eliquis 5 mg twice a day, Flagyl, Lipitor, Maxipime, Protonix, vancomycin and Zestril. OBJECTIVE: GENERAL: He is a middle-aged man who appears comfortable at the present time. VITAL SIGNS: His blood pressure 160/70 with a pulse of 70 and sinus, respirations of 14. He is afebrile. HEENT: No JVD. CHEST: Bilateral scattered rhonchi. HEART: PMI displaced laterally with systolic murmur left sternal border. ABDOMEN: Soft, nontender with normoactive bowel sounds. EXTREMITIES: No edema. DIAGNOSTIC DATA: No blood work pending from this morning. IMPRESSION: 1. Recent small non-ST segment elevation myocardial fraction, stable at the present time. 2. Known coronary artery disease status post prior bypass surgery. 3. Bilateral carotid disease status post bilateral endarterectomies. 4. History of persistent tobacco abuse. 5. History of hypertension and diabetes. RECOMMENDATIONS: Given his refusal to undergo any further cardiac testing at the present time, intensification of medical therapy is advised. Nitrates will be added to his regimen and his beta-geni dose will be increased for now. Eliquis can be resumed as he has refused cardiac catheterization at this time. Continue risk factor control and smoking abstinence were strongly encouraged. I will be happy to see as needed. Asad Barnhart MD MTDD
[2018-08-19] MEDS: BUDESONIDE IH SCH ×2 (11:44→19:14)
[2018-08-19] MEDS: FORMOTEROL FUMARATE IH SCH ×2 (11:44→19:14)
[2018-08-19] MEDS: Pantoprazole 40 mg EC Tab PO SCH (11:47)
[2018-08-19] MEDS: Insulin Lispro (humaLOG) LOW Coverage SC SCH ×3 (11:51→21:54)
[2018-08-19] MEDS: Mupirocin 2% Ointment 15 GM TUBE TOP SCH ×2 (11:54→17:29)
--- NOTE | 2018-08-19 15:20 | CP.PCM.APN ---
Subjective - Date & Time of Evaluation Date of Evaluation: 08/19/18 Time of Evaluation: 10:00 - Subjective Subjective: pt seen and examined at bedside . pt with no c/o cp or sob RN at bedside Review of Systems - Review of Systems All systems: reviewed and no additional remarkable complaints except Objective - Vital Signs/Intake and Output Vital Signs (last 24 hours): Temp Pulse Resp BP Pulse Ox 97.9 F 47 L 18 149/74 97 08/19/18 12:00 08/19/18 14:00 08/19/18 12:00 08/19/18 12:00 08/19/18 05:54 Intake and Output: 08/19/18 08/19/18 06:59 18:59 Output Total 1500 Balance -1500 - Medications Medications: Current Medications Albuterol Sulfate (Albuterol 0.083% Inhal Aury (2.5 Mg/3 Ml) Ud) 2.5 mg IH BIDRESP [facility] Last Admin: 08/19/18 07:43 Dose: Not Given Albuterol/Ipratropium (Duoneb 3 Mg/0.5 Mg (3 Ml) Ud) 3 ml IH Q4H PRN PRN Reason: Shortness of Breath Apixaban (Eliquis) 5 mg PO BID [facility]; Protocol Last Admin: 08/19/18 11:49 Dose: 5 mg Aspirin (Ecotrin) 81 mg PO DAILY [facility] Last Admin: 08/19/18 11:51 Dose: 81 mg Atorvastatin Calcium (Lipitor) 20 mg PO DAILY [facility] Last Admin: 08/19/18 11:50 Dose: 20 mg Carvedilol (Coreg) 12.5 mg PO BID [facility] Last Admin: 08/19/18 11:51 Dose: 12.5 mg Vancomycin HCl (Vancomycin 1gm) 1 gm in 250 mls @ 167 mls/hr IVPB Q12H [facility]; Protocol Last Admin: 08/19/18 13:46 Dose: 167 mls/hr Cefepime HCl (Maxipime 1gm) 1 gm in 100 mls @ 100 mls/hr IVPB Q8 [facility]; Protocol Stop: 08/25/18 22:01 Last Admin: 08/19/18 14:51 Dose: 100 mls/hr Metronidazole (Flagyl) 500 mg in 100 mls @ 100 mls/hr IVPB Q8 [facility]; Protocol Stop: 08/25/18 22:01 Last Admin: 08/19/18 13:42 Dose: 100 mls/hr Insulin Human Lispro (Humalog Low) 0 units SC ACHS [facility]; Protocol Last Admin: 08/19/18 11:51 Dose: Not Given Isosorbide Mononitrate (Imdur) 60 mg PO DAILY [facility] Last Admin: 08/19/18 11:50 Dose: 60 mg Lisinopril (Zestril) 5 mg PO DAILY [facility] Last Admin: 08/19/18 11:52 Dose: 5 mg Mupirocin (Bactroban Ointment) 0 gm TOP BID [facility] Last Admin: 08/19/18 11:54 Dose: 1 applic (Budesonide/Formoterol Fumarate [Symbicort 160-4.5 Mcg Inhaler] 2 2 puff IH BID [facility] Last Admin: 08/19/18 11:44 Dose: Not Given Pantoprazole Sodium (Protonix Ec Tab) 40 mg PO DAILY [facility] Last Admin: 08/19/18 11:47 Dose: 40 mg - Labs Labs: 08/18/18 09:45 08/18/18 09:45 - Constitutional Appears: Non-toxic, No Acute Distress - Head Exam Head Exam: NORMAL INSPECTION Additional comments: desheveled - Eye Exam Eye Exam: Normal appearance Pupil Exam: NORMAL ACCOMODATION - ENT Exam ENT Exam: Mucous Membranes Moist Additional comments: poor dentition - Neck Exam Neck Exam: Full ROM - Respiratory Exam Respiratory Exam: Clear to Ausculation Bilateral, NORMAL BREATHING PATTERN - Cardiovascular Exam Cardiovascular Exam: +S1, +S2 - GI/Abdominal Exam GI & Abdominal Exam: Soft, Normal Bowel Sounds - Rectal Exam Rectal Exam: Deferred - Extremities Exam Extremities Exam: Normal Capillary Refill - Neurological Exam Neurological Exam: Alert, Awake, Oriented x3 Additional comments: Moves all extremities - Skin Skin Exam: Dry Additional comments: right foot ulcer with dressing intact Assessment and Plan - Assessment and Plan (Free Text) Plan: ITS Impressions Chest X-Ray 08/16/18 16:16 IMPRESSION: No focal consolidation. Foot X-Ray 08/18/18 13:14 IMPRESSION: Hallux valgus. Questionably healing fracture 5th proximal phalanx. No additional abnormality. A/P 72 yr old homeless man with pmh sig for valve replacement , cad s/p cabg, copd, smoking, prostate ca with radiation, htn, hld, dvt, osteomyelitis,jerome cea, right foot ulceration who presented with chest pain now admitted for further evaluation and workup. pt with cardiology , ID and podiatry consultation undergoing workup for positive troponins, leukocytosis with left shift ( SIRS) and right foot ulveration. labs and diagnositcs rev'd per discussion with nursing staff pt refused cath and refused ct scan pt continue with IV antibiotics and workup in progress right foot culture noted will continue to follow clinical course BPCI/TIC - BPCIA/TIC Flyers given, including CMS Beneficiary letter: Yes Pt/family verbalized understanding & agreed to program: Yes (discuss with [facility] CLINICAL SYSTEMS ANALYST)
--- NOTE | 2018-08-19 16:40 | CP.PCM.PN ---
<Kody Birmingham - Last Filed: 08/19/18 16:37> Subjective - Date & Time of Evaluation Date of Evaluation: 08/19/18 Time of Evaluation: 08:00 - Subjective Subjective: Kody Birmingham PGY1 Medicine Progress Note for Dr. Salazar Patient was seen at bedside this morning. He refuses cardiac cath and was explained the consequences. He is at full capacity to make a decision. Currently patient denies cp, sob, n/v/d, f/c. A full 12 point ROS was conducted and unremarkable except as stated above. Objective - Vital Signs/Intake and Output Vital Signs (last 24 hours): Temp Pulse Resp BP Pulse Ox 97.9 F 47 L 18 149/74 97 08/19/18 12:00 08/19/18 14:00 08/19/18 12:00 08/19/18 12:00 08/19/18 05:54 Intake and Output: 08/19/18 08/19/18 06:59 18:59 Output Total 1500 Balance -1500 - Medications Medications: Current Medications Albuterol Sulfate (Albuterol 0.083% Inhal Aury (2.5 Mg/3 Ml) Ud) 2.5 mg IH BIDRESP [facility] Last Admin: 08/19/18 07:43 Dose: Not Given Albuterol/Ipratropium (Duoneb 3 Mg/0.5 Mg (3 Ml) Ud) 3 ml IH Q4H PRN PRN Reason: Shortness of Breath Apixaban (Eliquis) 5 mg PO BID [facility]; Protocol Last Admin: 08/19/18 11:49 Dose: 5 mg Aspirin (Ecotrin) 81 mg PO DAILY [facility] Last Admin: 08/19/18 11:51 Dose: 81 mg Atorvastatin Calcium (Lipitor) 20 mg PO DAILY [facility] Last Admin: 08/19/18 11:50 Dose: 20 mg Carvedilol (Coreg) 12.5 mg PO BID [facility] Last Admin: 08/19/18 11:51 Dose: 12.5 mg Vancomycin HCl (Vancomycin 1gm) 1 gm in 250 mls @ 167 mls/hr IVPB Q12H [facility]; Protocol Last Admin: 08/19/18 13:46 Dose: 167 mls/hr Cefepime HCl (Maxipime 1gm) 1 gm in 100 mls @ 100 mls/hr IVPB Q8 [facility]; Protocol Stop: 08/25/18 22:01 Last Admin: 08/19/18 14:51 Dose: 100 mls/hr Metronidazole (Flagyl) 500 mg in 100 mls @ 100 mls/hr IVPB Q8 [facility]; Protocol Stop: 08/25/18 22:01 Last Admin: 08/19/18 13:42 Dose: 100 mls/hr Insulin Human Lispro (Humalog Low) 0 units SC ACHS [facility]; Protocol Last Admin: 08/19/18 11:51 Dose: Not Given Isosorbide Mononitrate (Imdur) 60 mg PO DAILY [facility] Last Admin: 08/19/18 11:50 Dose: 60 mg Lisinopril (Zestril) 5 mg PO DAILY [facility] Last Admin: 08/19/18 11:52 Dose: 5 mg Mupirocin (Bactroban Ointment) 0 gm TOP BID [facility] Last Admin: 08/19/18 11:54 Dose: 1 applic (Budesonide/Formoterol Fumarate [Symbicort 160-4.5 Mcg Inhaler] 2 2 puff IH BID [facility] Last Admin: 08/19/18 11:44 Dose: Not Given Pantoprazole Sodium (Protonix Ec Tab) 40 mg PO DAILY [facility] Last Admin: 08/19/18 11:47 Dose: 40 mg - Labs Labs: 08/18/18 09:45 08/18/18 09:45 - Constitutional Appears: Well, Non-toxic, No Acute Distress - Head Exam Head Exam: ATRAUMATIC, NORMOCEPHALIC - Eye Exam Eye Exam: EOMI, Normal appearance, PERRL - Respiratory Exam Respiratory Exam: Clear to Ausculation Bilateral, NORMAL BREATHING PATTERN - Cardiovascular Exam Cardiovascular Exam: REGULAR RHYTHM, RRR, Murmur. absent: Bradycardia, Tachycardia - GI/Abdominal Exam GI & Abdominal Exam: Soft. absent: Guarding, Tenderness - Extremities Exam Additional comments: 1cm x 1cm ulceration of lateral aspect of R great toe w/ discharge and edema. Tender to palpation; no erythema. Dressing CDI BL Feet are warm to touch; Distal pulses intact bilaterally; - Neurological Exam Neurological Exam: Alert, Awake, Oriented x3 Assessment and Plan - Assessment and Plan (Free Text) Assessment: 72M PMH CAD s/p CABG + Stenting, PVD s/p stent, DM2, HTN, HLD, GERD, COPD, Valve Replacement, DVT, Osteomyelitis, Non compliance presented w/ complaints of chest pain on 08/17. Plan: Chest Pain 2/2 NSTEMI - trops trended upwards, .01 - 0.14 - .08 - .03 - Repeat EKG: new T wave inversions V1-V3 - Initially planned for cardiac cath but patient is not agreeable. Will optimize the patient medically as alternative. - Cardio on consult (Dr. Barnhart). Recs appreciated. - Eliquis held at this time - Prior ECHO 05/17 - Grade 1 diastolic dysfunction; EF 57.9% - Cardiology following, appreciate recommendations Leukocytosis 2/2 RLE Ulcer in setting of severe PVD - Leukocytosis has been downtrending - c/w cefepime and flagyl at this time - MRI right foot ordered to r/o osteo - patient refused CTAP to r/o intraabdominal cause of infection - Hx recent stenting of R external iliac; Right Common femoral on 05/21/18 - Wound Cx pending/ BCx pending - ESR/CRP elevated from baseline - R Foot XR: no evidence of osteo - podiatry following, recs appreciated - ID Following, recs appreciated Hx CAD/PVD/ HTN / HLD - c/w ASA - Plavix held as per cardio - C/w Coreg - C/w Lisinopril - C/w Lipitor Hx DVT - C/w Eliquis as above Hx COPD - C/w symbicort, albuterol - Duonebs PRN Hx DM2 - Repeat A1C 5.6 - ISS - Accuchecks PPX: SCD Protonix Dispo: Continue to manage patient on tele at this time. Patient refusing cardiac cath, optimize medically instead. Podiatry ordered MRI to r/o osteo. Case was discussed and reviewed with Attending Physician, Dr. Salazar <Camron Salazar - Last Filed: 08/24/18 11:20> Objective - Vital Signs/Intake and Output Vital Signs (last 24 hours): Temp Pulse Resp BP Pulse Ox 98.6 F 56 L 18 127/66 93 L 08/24/18 08:21 08/24/18 08:21 08/24/18 08:21 08/24/18 08:21 08/24/18 08:21 Intake and Output: 08/24/18 08/24/18 06:59 18:59 Intake Total 240 Output Total 1150 Balance -910 - Medications Medications: Current Medications Acetaminophen (Tylenol 325mg Tab) 650 mg PO Q4H PRN PRN Reason: Pain, moderate (4-7) Albuterol Sulfate (Albuterol 0.083% Inhal Aury (2.5 Mg/3 Ml) Ud) 2.5 mg IH BIDRESP [facility] Last Admin: 08/24/18 07:40 Dose: Not Given Albuterol/Ipratropium (Duoneb 3 Mg/0.5 Mg (3 Ml) Ud) 3 ml IH Q4H PRN PRN Reason: Shortness of Breath Apixaban (Eliquis) 5 mg PO BID [facility]; Protocol Last Admin: 08/20/18 09:14 Dose: 5 mg Aspirin (Ecotrin) 81 mg PO DAILY [facility] Last Admin: 08/23/18 13:04 Dose: Not Given Atorvastatin Calcium (Lipitor) 40 mg PO HS [facility] Last Admin: 08/22/18 21:54 Dose: 40 mg Carvedilol (Coreg) 12.5 mg PO BID [facility] Last Admin: 08/23/18 18:00 Dose: 12.5 mg Insulin Human Lispro (Humalog Low) 0 units SC [facility]; Protocol Last Admin: 08/23/18 21:42 Dose: Not Given Isosorbide Mononitrate (Imdur) 60 mg PO DAILY [facility] Last Admin: 08/23/18 09:20 Dose: 60 mg Lisinopril (Zestril) 5 mg PO DAILY [facility] Last Admin: 08/23/18 09:20 Dose: 5 mg Mupirocin (Bactroban Ointment) 0 gm TOP BID [facility] Last Admin: 08/23/18 17:57 Dose: Not Given (Budesonide/Formoterol Fumarate [Symbicort 160-4.5 Mcg Inhaler] 2 2 puff IH BID [facility] Last Admin: 08/23/18 17:58 Dose: Not Given Pantoprazole Sodium (Protonix Ec Tab) 40 mg PO DAILY [facility] Last Admin: 08/23/18 09:20 Dose: 40 mg - Labs Labs: 08/21/18 07:00 08/21/18 07:00 Attending/Attestation - Attestation I have personally seen and examined this patient.: Yes I have fully participated in the care of the patient.: Yes I have reviewed all pertinent clinical information, including history, physical exam and plan: Yes Notes (Text): 08/24/18 11:20 Medical record note made by the resident after discussion with my direction and input after the patient was personally seen and examined by me. I have reviewed the chart and agree that the record accurately reflects by personal performance of the history, physical exam, data review, and medical decision-making, in the course for the patient. I have also personally directed the plan of care.
--- NOTE | 2018-08-19 22:16 | PN ---
DATE: 08/19/2018 SUBJECTIVE: The patient is in bed, in no acute distress. The patient was seen earlier this morning in room 260. PHYSICAL EXAMINATION: VITAL SIGNS: Temperature is 98, blood pressure is 120/70, respiratory rate of 16. HEENT: Unremarkable. NECK: Supple. LUNGS: Decreased breath sounds. HEART: Normal S1 and S2. ABDOMEN: Soft. LABORATORY EXAMINATION: Reveals a white count of 11,400 and hemoglobin of 10. Chemistries are noted. Urinalysis is noted. Toxicology is reviewed. Microbiology reveals corynebacterium species from the right foot. Review of orders revealed the patient to be on Flagyl IV, cefepime, and vancomycin. note is reviewed. The patient refused cardiac cath. He also refused the CAT scan of the abdomen and pelvis. He was admitted with chest pain. The patient had an x-ray of the foot. note is reviewed. The x-ray of the foot is noted. ASSESSMENT AND PLAN: This is a 72-year-old male who was admitted with systemic inflammatory response syndrome and leukocytosis. The foot does not appear to have significant of pathology explained the leukocytosis. The patient is refusing CAT scan of the abdomen. Change the Flagyl to oral. Currently on vancomycin and cefepime. We will check on the MRI of the foot if the patient allows the testing. We will follow with you. Toby Martin MD
[2018-08-20] MEDS ORDERED: Vancomycin 1gm in NS 250ml 1 GM/250 ML BAG IVPB SCH (04:42)
[2018-08-20] MEDS: Cefepime 1gm in NS 100ml 1 GM/100 ML BAG IVPB SCH ×2 (05:15→13:03)
[2018-08-20 06:33] LABS: HEMOGLOBIN 10.2 g/dL (14.0-18.0); MEAN CELL VOLUME 84.3 fl (80.0-105.0); MEAN CORPUSCULAR HEMOGLOBIN 27.2 pg (25.0-35.0); MEAN CORPUSCULAR HGB CONC 32.3 g/dl (31.0-37.0); MEAN PLATELET VOLUME 9.2 fl (7.0-11.0); RBC 3.75 10^6/uL (3.5-6.1); RED CELL DISTRIBUTION WIDTH 14.8 % (11.5-14.5); WHITE BLOOD COUNT 9.7 10^3/uL (4.5-11.0)
[2018-08-20 07:26] LABS: ALB/GLOB RATIO 1.1 (1.1-1.8); ALT/SGPT 14 U/L (7-56); AST/SGOT 18 U/L (17-59); BLOOD UREA NITROGEN 22 mg/dL (7-21); CALCIUM 8.4 mg/dL (8.4-10.5); GFR NON-AFRICAN AMERICAN > 60
[2018-08-20] MEDS: Insulin Lispro (humaLOG) LOW Coverage SC SCH ×4 (07:44→21:45)
[2018-08-20] MEDS: Albuterol 0.083% Inhal Sol (2.5 mg/3 mL) UD IH SCH ×2 (08:01→19:01)
[2018-08-20] MEDS: FORMOTEROL FUMARATE IH SCH ×2 (09:13→17:42)
[2018-08-20] MEDS: BUDESONIDE IH SCH ×2 (09:13→17:42)
[2018-08-20] MEDS: Pantoprazole 40 mg EC Tab PO SCH (09:14)
[2018-08-20] MEDS: Mupirocin 2% Ointment 15 GM TUBE TOP SCH ×2 (09:16→17:42)
--- NOTE | 2018-08-20 09:51 | CP.PCM.PCO ---
Physician Communication Note - Physician Communication Note Physician Communication Note: pt at MRI foot- will follow
--- NOTE | 2018-08-20 10:36 | PN ---
DATE: 08/20/2018 SUBJECTIVE: The patient is seen lying in bed on telemetry. He is comfortable at the present time. He has had no recurrent chest pain or palpitations. MEDICATIONS: Current medications include Symbicort, albuterol, carvedilol 12.5 mg twice a day, DuoNeb inhaler, Ecotrin, Eliquis, Flagyl, Imdur 60 mg daily, Lipitor 20 mg daily, Maxipime, Protonix, vancomycin and Zestril 5 mg daily. OBJECTIVE: GENERAL: He is a disheveled appearing middle-aged man. VITAL SIGNS: Blood pressure is 150/70 with a pulse of 60 in sinus, respirations are 14. He is afebrile. HEENT: No JVD. CHEST: Few scattered rhonchi. HEART: Systolic murmur left sternal border. ABDOMEN: Soft and nontender with normoactive bowel sounds. EXTREMITIES: No edema. Foot is wrapped. DIAGNOSTIC DATA: Potassium 4.1, BUN and creatinine 22 and 1.0. White count 9.7, hemoglobin and hematocrit 10.2 and 31.6 with a platelet count 222,000. IMPRESSION: 1. Recent non-ST segment elevation myocardial infraction appears fairly small and stable at the present time. Refused invasive cardiac evaluation repeatedly and continued to do so. 2. Known coronary artery disease status post prior percutaneous coronary intervention bypass surgery. 3. Carotid disease status post bilateral carotid endarterectomy. 4. History of persistent tobacco abuse. 5. Hypertension and diabetes. 6. Foot infection. RECOMMENDATIONS: His current cardiac medications will continue for now. Conservative management will continue as well. If he has recurrent chest pain, repeat evaluation with either stress testing or catheterization will be advised. I will continue to follow along as needed and he states that he will come for outpatient to office followup as well. Smoking abstinence was encouraged again. Asad Barnhart MD MTDD
--- NOTE | 2018-08-20 11:28 | CP.PCM.PN ---
Subjective - Date & Time of Evaluation Date of Evaluation: 08/20/18 Time of Evaluation: 11:25 - Subjective Subjective: Podiatry progress note - Drs. Zuniga/Lorena 72M seen and evaluated at bedside this AM with Dr. Carrillo. Resting comfortably. Denies pain to right foot wound. Denies n/v/f/c/sob and reports no acute events overnight. Had MRI performed on right foot today. Objective - Vital Signs/Intake and Output Vital Signs (last 24 hours): Temp Pulse Resp BP Pulse Ox 98.4 F 56 L 20 132/61 94 L 08/20/18 05:50 08/20/18 09:14 08/20/18 05:50 08/20/18 09:14 08/19/18 23:25 Intake and Output: 08/20/18 08/20/18 06:59 18:59 Intake Total 1950 Output Total 1875 Balance 75 - Medications Medications: Current Medications Albuterol Sulfate (Albuterol 0.083% Inhal Aury (2.5 Mg/3 Ml) Ud) 2.5 mg IH BIDRESP [facility] Last Admin: 08/20/18 08:01 Dose: Not Given Albuterol/Ipratropium (Duoneb 3 Mg/0.5 Mg (3 Ml) Ud) 3 ml IH Q4H PRN PRN Reason: Shortness of Breath Apixaban (Eliquis) 5 mg PO BID [facility]; Protocol Last Admin: 08/20/18 09:14 Dose: 5 mg Aspirin (Ecotrin) 81 mg PO DAILY [facility] Last Admin: 08/20/18 09:14 Dose: 81 mg Atorvastatin Calcium (Lipitor) 40 mg PO HS [facility] Carvedilol (Coreg) 12.5 mg PO BID [facility] Last Admin: 08/20/18 09:14 Dose: 12.5 mg Cefepime HCl (Maxipime 1gm) 1 gm in 100 mls @ 100 mls/hr IVPB Q8 [facility]; Protocol Stop: 08/25/18 22:01 Last Admin: 08/20/18 05:15 Dose: 100 mls/hr Vancomycin HCl (Vancomycin 1gm) 1 gm in 250 mls @ 167 mls/hr IVPB 0600,1800 S ; Protocol Last Admin: 08/20/18 05:14 Dose: 167 mls/hr Insulin Human Lispro (Humalog Low) 0 units SC ACHS [facility]; Protocol Last Admin: 08/20/18 07:44 Dose: Not Given Isosorbide Mononitrate (Imdur) 60 mg PO DAILY [facility] Last Admin: 08/20/18 09:14 Dose: 60 mg Lisinopril (Zestril) 5 mg PO DAILY [facility] Last Admin: 08/20/18 09:14 Dose: 5 mg Metronidazole (Flagyl) 500 mg PO Q8 [facility]; Protocol Stop: 08/28/18 22:01 Last Admin: 08/20/18 05:14 Dose: 500 mg Mupirocin (Bactroban Ointment) 0 gm TOP BID [facility] Last Admin: 08/20/18 09:16 Dose: 1 applic (Budesonide/Formoterol Fumarate [Symbicort 160-4.5 Mcg Inhaler] 2 2 puff IH BID [facility] Last Admin: 08/20/18 09:13 Dose: Not Given Pantoprazole Sodium (Protonix Ec Tab) 40 mg PO DAILY [facility] Last Admin: 08/20/18 09:14 Dose: 40 mg - Labs Labs: 08/20/18 06:10 08/20/18 06:10 - Constitutional Appears: Non-toxic - Head Exam Head Exam: ATRAUMATIC - Extremities Exam Additional comments: RLE focused exam VASC: DP and PT pulses dopplerable; CFT <3 seconds to digits x5 b/l; pedal hair growth absent NEURO: Light touch and protective sensation diminished bilaterally. DERM: ulceration noted to medial aspect of 1st MPJ measuring approximately 1 x 1 x 0.3cm -wound noted to have a fibrotic base and hyperkeratotic rim; 1cc of puru lence expressed; no fluctuance ORTHO: No pain on palpation noted to wounds, MMT 5/5 - Neurological Exam Neurological Exam: Alert, Awake, Oriented x3 - Psychiatric Exam Psychiatric exam: Normal Affect Assessment and Plan - Assessment and Plan (Free Text) Assessment: 72M with right foot chronic ulceration Plan: Patient seen and evaluated with Dr. Lorena VALDES, WBC 9.7 C/w IV abx RLE cleansed with saline, wound dressed with betadine/Optifoam R ft x-ray - healing chronic fracture of fifth proximal phalanx, no other pathology R ft MRI taken - read pending If MRI positive for OM in right foot would recommend 4-6 weeks IV abx Wound culture - corynebacterium species Will continue to follow No plan for podiatric surgical intervention at this time F/u at wound center as outpatient upon d/c
--- NOTE | 2018-08-20 13:02 | MRI ---
Date of service: 08/20/2018 PROCEDURE: MRI of the right foot without contrast HISTORY: right foot chronic ulceration COMPARISON: TECHNIQUE: MRI of the right foot was performed in multiple planes using multiple pulse sequences. FINDINGS: There is a large amount of marrow edema in the head of the 1st metatarsal adjacent to the skin ulcer on the medial side of the metatarsal head. This is suspicious for osteomyelitis. Severe degenerative changes are also seen in the 1st MTP joint. There is lateral subluxation of the proximal phalanx relative to the metatarsal head. There is a small amount of marrow edema at the base of the proximal phalanx IMPRESSION: Marrow edema in the head of the 1st metatarsal suspicious for osteomyelitis
--- NOTE | 2018-08-20 14:10 | CP.PCM.PCO ---
Physician Communication Note - Physician Communication Note Physician Communication Note: pt foot MRI susp for osteo, spoke to resident- awaiting ID Additional Comments - Additional Comments Additional Comments: contacted ID regarding findings, will await recs of Antibiotics ...PICC spoke to podiatry Dr Duncan who recommends antibiotics and picc as well.. will follow up on orders and discuss with primary team.
--- NOTE | 2018-08-20 14:39 | CP.PCM.PN ---
<Kody Birmingham - Last Filed: 08/20/18 14:36> Subjective - Date & Time of Evaluation Date of Evaluation: 08/20/18 Time of Evaluation: 08:00 - Subjective Subjective: Kody Birmingham PGY1 Medicine Progress Note for Dr. Salazar Patient seen at bedside this morning. Denies cp, sob, n/v/d, f/c. He is agreeable to MRI of the foot today and went for it after interview. Otherwise, vital signs stable. A full 12 point ROS was conducted and unremarkable except as stated above. Objective - Vital Signs/Intake and Output Vital Signs (last 24 hours): Temp Pulse Resp BP Pulse Ox 97.7 F 52 L 19 120/52 L 94 L 08/20/18 12:00 08/20/18 14:00 08/20/18 12:00 08/20/18 12:00 08/19/18 23:25 Intake and Output: 08/20/18 08/20/18 06:59 18:59 Intake Total 1950 Output Total 1875 Balance 75 - Medications Medications: Current Medications Albuterol Sulfate (Albuterol 0.083% Inhal Aury (2.5 Mg/3 Ml) Ud) 2.5 mg IH BIDRESP [facility] Last Admin: 08/20/18 08:01 Dose: Not Given Albuterol/Ipratropium (Duoneb 3 Mg/0.5 Mg (3 Ml) Ud) 3 ml IH Q4H PRN PRN Reason: Shortness of Breath Apixaban (Eliquis) 5 mg PO BID [facility]; Protocol Last Admin: 08/20/18 09:14 Dose: 5 mg Aspirin (Ecotrin) 81 mg PO DAILY [facility] Last Admin: 08/20/18 09:14 Dose: 81 mg Atorvastatin Calcium (Lipitor) 40 mg PO HS [facility] Carvedilol (Coreg) 12.5 mg PO BID [facility] Last Admin: 08/20/18 09:14 Dose: 12.5 mg Cefepime HCl (Maxipime 1gm) 1 gm in 100 mls @ 100 mls/hr IVPB Q8 [facility]; Protocol Stop: 08/25/18 22:01 Last Admin: 08/20/18 13:03 Dose: 100 mls/hr Vancomycin HCl (Vancomycin 1gm) 1 gm in 250 mls @ 167 mls/hr IVPB 0600,1800 [facility]; Protocol Last Admin: 08/20/18 05:14 Dose: 167 mls/hr Insulin Human Lispro (Humalog Low) 0 units SC ACHS [facility]; Protocol Last Admin: 08/20/18 07:44 Dose: Not Given Isosorbide Mononitrate (Imdur) 60 mg PO DAILY [facility] Last Admin: 08/20/18 09:14 Dose: 60 mg Lisinopril (Zestril) 5 mg PO DAILY [facility] Last Admin: 08/20/18 09:14 Dose: 5 mg Metronidazole (Flagyl) 500 mg PO Q8 [facility]; Protocol Stop: 08/28/18 22:01 Last Admin: 08/20/18 13:03 Dose: 500 mg Mupirocin (Bactroban Ointment) 0 gm TOP BID [facility] Last Admin: 08/20/18 09:16 Dose: 1 applic (Budesonide/Formoterol Fumarate [Symbicort 160-4.5 Mcg Inhaler] 2 2 puff IH BID [facility] Last Admin: 08/20/18 09:13 Dose: Not Given Pantoprazole Sodium (Protonix Ec Tab) 40 mg PO DAILY [facility] Last Admin: 08/20/18 09:14 Dose: 40 mg - Labs Labs: 08/20/18 06:10 08/20/18 06:10 - Constitutional Appears: Well, Non-toxic, No Acute Distress - Head Exam Head Exam: ATRAUMATIC, NORMOCEPHALIC - Eye Exam Eye Exam: EOMI, Normal appearance, PERRL - Respiratory Exam Respiratory Exam: Clear to Ausculation Bilateral, NORMAL BREATHING PATTERN - Cardiovascular Exam Cardiovascular Exam: REGULAR RHYTHM, RRR, Murmur. absent: Bradycardia, Tachycardia - GI/Abdominal Exam GI & Abdominal Exam: Soft. absent: Guarding, Tenderness - Extremities Exam Additional comments: 1cm x 1cm ulceration of lateral aspect of R great toe. Dressing in place. Non-tender to palpation; no erythema. Dressing CDI BL Feet are warm to touch; Distal pulses intact bilaterally; - Neurological Exam Neurological Exam: Alert, Awake, Oriented x3 Assessment and Plan - Assessment and Plan (Free Text) Assessment: 72M PMH CAD s/p CABG + Stenting, PVD s/p stent, DM2, HTN, HLD, GERD, COPD, V alve Replacement, DVT, Osteomyelitis, Medication non-compliance presented w/ complaints of chest pain on 08/17. Patient admitted for NSTEMI. Patient refused cardiac cath and is being managed medically. He also presented with leukocytosis 2/2 R foot ulcer. Plan: Chest Pain 2/2 NSTEMI - Patient refused cardiac cath; being managed medically - trops trended upwards then downwards, .01 - 0.14 - .08 - .03 - Repeat EKG: new T wave inversions V1-V3 - Cardio on consult (Dr. Barnhart). Recs appreciated. - Prior ECHO 05/17 - Grade 1 diastolic dysfunction; EF 57.9% - Cardiology following (Dr. Barnhart). Recs appreciated. Leukocytosis 2/2 Osteomyelitis from Right Foot Ulcer in setting of severe PVD - Leukocytosis resolved - Right Foot MRI (08/20): suggests osteo - ID on consult. Will discuss with ID about duration of antibiotics. - c/w cefepime, flagyl, and vanco at this time - Hx recent stenting of R external iliac; Right Common femoral on 05/21/18 - WCx: +corynebacterium - BCx negative x2 (prelim) after 3 days - ESR/CRP elevated from baseline; further suggestive of osteo - Podiatry following, recs appreciated - ID Following, recs appreciated Hx CAD/PVD/ HTN / HLD - c/w home med ASA - c/w home med Coreg - c/w home med Lisinopril - adjusted home med dosage to Lipitor 40mg given risk factors Hx DVT - c/w Eliquis Hx COPD - c/w symbicort, albuterol - Duonebs PRN Hx DM2 - Repeat A1C 5.6 - ISS - Accuchecks PPX: SCD Protonix Diet: HHD Dispo: Continue to manage patient on tele at this time. NSTEMI being managed medically. Based on MRI, patient has new right foot osteo. Will d/w ID about antibiotics. Case was discussed and reviewed with Attending Physician, Dr. Salazar <Camron Salazar - Last Filed: 08/24/18 11:20> Objective - Vital Signs/Intake and Output Vital Signs (last 24 hours): Temp Pulse Resp BP Pulse Ox 98.6 F 56 L 18 127/66 93 L 08/24/18 08:21 08/24/18 08:21 08/24/18 08:21 08/24/18 08:21 08/24/18 08:21 Intake and Output: 08/24/18 08/24/18 06:59 18:59 Intake Total 240 Output Total 1150 Balance -910 - Medications Medications: Current Medications Acetaminophen (Tylenol 325mg Tab) 650 mg PO Q4H PRN PRN Reason: Pain, moderate (4-7) Albuterol Sulfate (Albuterol 0.083% Inhal Aury (2.5 Mg/3 Ml) Ud) 2.5 mg IH BIDRESP [facility] Last Admin: 08/24/18 07:40 Dose: Not Given Albuterol/Ipratropium (Duoneb 3 Mg/0.5 Mg (3 Ml) Ud) 3 ml IH Q4H PRN PRN Reason: Shortness of Breath Apixaban (Eliquis) 5 mg PO BID [facility]; Protocol Last Admin: 08/20/18 09:14 Dose: 5 mg Aspirin (Ecotrin) 81 mg PO DAILY [facility] Last Admin: 08/23/18 13:04 Dose: Not Given Atorvastatin Calcium (Lipitor) 40 mg PO HS [facility] Last Admin: 08/22/18 21:54 Dose: 40 mg Carvedilol (Coreg) 12.5 mg PO BID [facility] Last Admin: 08/23/18 18:00 Dose: 12.5 mg Insulin Human Lispro (Humalog Low) 0 units SC [facility]; Protocol Last Admin: 08/23/18 21:42 Dose: Not Given Isosorbide Mononitrate (Imdur) 60 mg PO DAILY [facility] Last Admin: 08/23/18 09:20 Dose: 60 mg Lisinopril (Zestril) 5 mg PO DAILY [facility] Last Admin: 08/23/18 09:20 Dose: 5 mg Mupirocin (Bactroban Ointment) 0 gm TOP BID [facility] Last Admin: 08/23/18 17:57 Dose: Not Given (Budesonide/Formoterol Fumarate [Symbicort 160-4.5 Mcg Inhaler] 2 2 puff IH BID [facility] Last Admin: 08/23/18 17:58 Dose: Not Given Pantoprazole Sodium (Protonix Ec Tab) 40 mg PO DAILY [facility] Last Admin: 08/23/18 09:20 Dose: 40 mg - Labs Labs: 08/21/18 07:00 08/21/18 07:00 Attending/Attestation - Attestation I have personally seen and examined this patient.: Yes I have fully participated in the care of the patient.: Yes I have reviewed all pertinent clinical information, including history, physical exam and plan: Yes Notes (Text): 08/24/18 11:20 Medical record note made by the resident after discussion with my direction and input after the patient was personally seen and examined by me. I have reviewed the chart and agree that the record accurately reflects by personal performance of the history, physical exam, data review, and medical decision-making, in the course for the patient. I have also personally directed the plan of care.
--- NOTE | 2018-08-21 00:03 | PN ---
DATE: 08/20/2018 SUBJECTIVE: The patient is seen in bed, in no acute distress, and nontoxic. PHYSICAL EXAMINATION: VITAL SIGNS: Temperature is 98, blood pressure is 127/60, and respiratory rate of 20. HEENT: Unremarkable. NECK: Supple. LUNGS: Decreased breath sounds. HEART: Normal S1 and S2. ABDOMEN: Soft. LABORATORY DATA: Reveals white count of 9.7 and hemoglobin 10. BUN of 22 and creatinine of 1. Serology is noted. Toxicology is noted. Microbiology reveals Corynebacterium species. MRI of the foot, edema in the head of the first metatarsal suspicious for osteomyelitis. ASSESSMENT AND PLAN: A 72-year-old male who was admitted with systemic inflammatory response syndrome, leukocytosis, and appears to have an osteomyelitis of the foot. Chronic osteomyelitis. The patient refused CAT scan of the abdomen and pelvis. The patient's white count has resolved with white count of 9.7 and sed rate of 84. We will hold off on antibiotics. We will discontinue antibiotics, pending bone biopsy and bone culture until determine the duration and choice of antibiotics. Case discussed with Belinda Cates. We will follow with you. Toby Martin MD
[2018-08-21 07:21] LABS: HEMOGLOBIN 10.8 g/dL (14.0-18.0); MEAN CORPUSCULAR HEMOGLOBIN 26.9 pg (25.0-35.0); MEAN CORPUSCULAR HGB CONC 31.7 g/dl (31.0-37.0); MEAN PLATELET VOLUME 8.9 fl (7.0-11.0); RBC 4.01 10^6/uL (3.5-6.1); RED CELL DISTRIBUTION WIDTH 14.8 % (11.5-14.5); WHITE BLOOD COUNT 9.4 10^3/uL (4.5-11.0)
[2018-08-21 07:32] LABS: ALB/GLOB RATIO 1.1 (1.1-1.8); ALBUMIN 3.2 g/dL (3.0-4.8); ALT/SGPT 12 U/L (7-56); AST/SGOT 17 U/L (17-59); BLOOD UREA NITROGEN 26 mg/dL (7-21); CALCIUM 8.6 mg/dL (8.4-10.5); GFR NON-AFRICAN AMERICAN 60
[2018-08-21] MEDS: Albuterol 0.083% Inhal Sol (2.5 mg/3 mL) UD IH SCH ×2 (07:39→20:29)
[2018-08-21] MEDS: Insulin Lispro (humaLOG) LOW Coverage SC SCH ×4 (08:02→22:58)
[2018-08-21] MEDS: FORMOTEROL FUMARATE IH SCH ×2 (10:15→17:56)
[2018-08-21] MEDS: BUDESONIDE IH SCH ×2 (10:15→17:56)
[2018-08-21] MEDS: Mupirocin 2% Ointment 15 GM TUBE TOP SCH ×2 (10:20→17:57)
[2018-08-21] MEDS: Pantoprazole 40 mg EC Tab PO SCH (10:20)
--- NOTE | 2018-08-21 10:40 | CP.PCM.PCO ---
Physician Communication Note - Physician Communication Note Physician Communication Note: pt seen and examined, aware of plan for bone biopsy Additional Comments - Additional Comments Additional Comments: pt off antibiotics per ID recs discussed with Dr Martin pt raul held p.t ordered yesterday, will follow recs spoke to OR re : bone biopsy, will follow with podiatry re:timing.
--- NOTE | 2018-08-21 11:37 | CP.PCM.PN ---
<Chad Juarez - Last Filed: 08/21/18 11:27> Subjective - Date & Time of Evaluation Date of Evaluation: 08/21/18 Time of Evaluation: 11:27 - Subjective Subjective: Podiatry progress note - Drs. Zuniga/Lorena 72M seen and evaluated at bedside this AM with Dr. Zuniga. Resting comfortably. Denies pain to right foot wound. Denies n/v/f/c/sob and reports no acute events overnight. Objective - Vital Signs/Intake and Output Vital Signs (last 24 hours): Temp Pulse Resp BP Pulse Ox 98.3 F 54 L 16 143/63 94 L 08/21/18 07:57 08/21/18 10:21 08/21/18 07:57 08/21/18 10:21 08/21/18 07:57 Intake and Output: 08/21/18 08/21/18 06:59 18:59 Intake Total 120 Output Total 600 Balance -480 - Medications Medications: Current Medications Albuterol Sulfate (Albuterol 0.083% Inhal Aury (2.5 Mg/3 Ml) Ud) 2.5 mg IH BIDRESP [facility] Last Admin: 08/21/18 07:39 Dose: Not Given Albuterol/Ipratropium (Duoneb 3 Mg/0.5 Mg (3 Ml) Ud) 3 ml IH Q4H PRN PRN Reason: Shortness of Breath Apixaban (Eliquis) 5 mg PO BID [facility]; Protocol Last Admin: 08/20/18 09:14 Dose: 5 mg Aspirin (Ecotrin) 81 mg PO DAILY [facility] Last Admin: 08/21/18 10:20 Dose: 81 mg Atorvastatin Calcium (Lipitor) 40 mg PO HS [facility] Last Admin: 08/20/18 21:48 Dose: 40 mg Carvedilol (Coreg) 12.5 mg PO BID [facility] Last Admin: 08/21/18 10:20 Dose: 12.5 mg Insulin Human Lispro (Humalog Low) 0 units SC [facility]; Protocol Last Admin: 08/21/18 08:02 Dose: Not Given Isosorbide Mononitrate (Imdur) 60 mg PO DAILY [facility] Last Admin: 08/21/18 10:20 Dose: 60 mg Lisinopril (Zestril) 5 mg PO DAILY [facility] Last Admin: 08/21/18 10:21 Dose: 5 mg Mupirocin (Bactroban Ointment) 0 gm TOP BID [facility] Last Admin: 08/21/18 10:20 Dose: 1 applic (Budesonide/Formoterol Fumarate [Symbicort 160-4.5 Mcg Inhaler] 2 2 puff IH BID [facility] Last Admin: 08/21/18 10:15 Dose: Not Given Pantoprazole Sodium (Protonix Ec Tab) 40 mg PO DAILY [facility] Last Admin: 08/21/18 10:20 Dose: 40 mg - Labs Labs: 08/21/18 07:00 08/21/18 07:00 - Constitutional Appears: Non-toxic - Head Exam Head Exam: ATRAUMATIC - Extremities Exam Additional comments: RLE focused exam VASC: DP and PT pulses dopplerable; CFT <3 seconds to digits x5 b/l; pedal hair growth absent NEURO: Light touch and protective sensation diminished bilaterally. DERM: ulceration noted to medial aspect of 1st MPJ measuring approximately 1 x 1 x 0.3cm -wound noted to have a fibrotic base and hyperkeratotic rim; 1cc of purulence expressed; no fluctuance ORTHO: No pain on palpation noted to wounds, MMT 5/5 - Neurological Exam Neurological Exam: Alert, Awake, Oriented x3 - Psychiatric Exam Psychiatric exam: Normal Affect Assessment and Plan - Assessment and Plan (Free Text) Assessment: 72M with right foot chronic ulceration Plan: Patient seen and evaluated with Dr. Efrain VALDES, WBC 9.4 C/w IV abx RLE cleansed with saline, wound dressed with betadine/Optifoam R ft x-ray - healing chronic fracture of fifth proximal phalanx, no other pathology R ft MRI taken - marrow edema at head of 1st met suspicious for OM Recommend 4-6 weeks IV abx Bone biopsy scheduled for 1:00 PM Sunday Clearance appreciated Recommend 4-6 weeks IV abx, discussed with ID, patient willing to go to [facility] for IV treatment Wound culture - corynebacterium species Will continue to follow <Travis Zuniga - Last Filed: 08/21/18 14:45> Objective - Vital Signs/Intake and Output Vital Signs (last 24 hours): Temp Pulse Resp BP Pulse Ox 98.3 F 54 L 16 143/63 94 L 08/21/18 07:57 08/21/18 10:21 08/21/18 07:57 08/21/18 10:21 08/21/18 07:57 Intake and Output: 08/21/18 08/21/18 06:59 18:59 Intake Total 120 Output Total 600 Balance -480 - Medications Medications: Current Medications Albuterol Sulfate (Albuterol 0.083% Inhal Aury (2.5 Mg/3 Ml) Ud) 2.5 mg IH BIDRESP [facility] Last Admin: 08/21/18 07:39 Dose: Not Given Albuterol/Ipratropium (Duoneb 3 Mg/0.5 Mg (3 Ml) Ud) 3 ml IH Q4H PRN PRN Reason: Shortness of Breath Apixaban (Eliquis) 5 mg PO BID [facility]; Protocol Last Admin: 08/20/18 09:14 Dose: 5 mg Aspirin (Ecotrin) 81 mg PO DAILY [facility] Last Admin: 08/21/18 10:20 Dose: 81 mg Atorvastatin Calcium (Lipitor) 40 mg PO HS [facility] Last Admin: 08/20/18 21:48 Dose: 40 mg Carvedilol (Coreg) 12.5 mg PO BID [facility] Last Admin: 08/21/18 10:20 Dose: 12.5 mg Insulin Human Lispro (Humalog Low) 0 units SC [facility]; Protocol Last Admin: 08/21/18 11:39 Dose: Not Given Isosorbide Mononitrate (Imdur) 60 mg PO DAILY [facility] Last Admin: 08/21/18 10:20 Dose: 60 mg Lisinopril (Zestril) 5 mg PO DAILY [facility] Last Admin: 08/21/18 10:21 Dose: 5 mg Mupirocin (Bactroban Ointment) 0 gm TOP BID [facility] Last Admin: 08/21/18 10:20 Dose: 1 applic (Budesonide/Formoterol Fumarate [Symbicort 160-4.5 Mcg Inhaler] 2 2 puff IH BID [facility] Last Admin: 08/21/18 10:15 Dose: Not Given Pantoprazole Sodium (Protonix Ec Tab) 40 mg PO DAILY [facility] Last Admin: 08/21/18 10:20 Dose: 40 mg - Labs Labs: 08/21/18 07:00 08/21/18 07:00 Attending/Attestation - Attestation I have personally seen and examined this patient.: Yes I have fully participated in the care of the patient.: Yes I have reviewed all pertinent clinical information, including history, physical exam and plan: Yes
--- NOTE | 2018-08-21 14:28 | CP.PCM.PN ---
<Kody Birmingham - Last Filed: 08/21/18 14:20> Subjective - Date & Time of Evaluation Date of Evaluation: 08/21/18 Time of Evaluation: 08:00 - Subjective Subjective: Kody Birmingham PGY1 Medicine Progress Note for Dr. Salazar Patient seen at bedside this morning. Patient was verbally aggressive this morning during time of interview. Denies cp, sob, n/v/d, f/c. He is agreeable to bone marrow biopsy for . Otherwise, vital signs stable. A full 12 point ROS was conducted and unremarkable except as stated above. Objective - Vital Signs/Intake and Output Vital Signs (last 24 hours): Temp Pulse Resp BP Pulse Ox 98.3 F 54 L 16 143/63 94 L 08/21/18 07:57 08/21/18 10:21 08/21/18 07:57 08/21/18 10:21 08/21/18 07:57 Intake and Output: 08/21/18 08/21/18 06:59 18:59 Intake Total 120 Output Total 600 Balance -480 - Medications Medications: Current Medications Albuterol Sulfate (Albuterol 0.083% Inhal Aury (2.5 Mg/3 Ml) Ud) 2.5 mg IH BIDRESP [facility] Last Admin: 08/21/18 07:39 Dose: Not Given Albuterol/Ipratropium (Duoneb 3 Mg/0.5 Mg (3 Ml) Ud) 3 ml IH Q4H PRN PRN Reason: Shortness of Breath Apixaban (Eliquis) 5 mg PO BID [facility]; Protocol Last Admin: 08/20/18 09:14 Dose: 5 mg Aspirin (Ecotrin) 81 mg PO DAILY [facility] Last Admin: 08/21/18 10:20 Dose: 81 mg Atorvastatin Calcium (Lipitor) 40 mg PO HS [facility] Last Admin: 08/20/18 21:48 Dose: 40 mg Carvedilol (Coreg) 12.5 mg PO BID [facility] Last Admin: 08/21/18 10:20 Dose: 12.5 mg Insulin Human Lispro (Humalog Low) 0 units SC [facility]; Protocol Last Admin: 08/21/18 11:39 Dose: Not Given Isosorbide Mononitrate (Imdur) 60 mg PO DAILY [facility] Last Admin: 08/21/18 10:20 Dose: 60 mg Lisinopril (Zestril) 5 mg PO DAILY [facility] Last Admin: 08/21/18 10:21 Dose: 5 mg Mupirocin (Bactroban Ointment) 0 gm TOP BID [facility] Last Admin: 08/21/18 10:20 Dose: 1 applic (Budesonide/Formoterol Fumarate [Symbicort 160-4.5 Mcg Inhaler] 2 2 puff IH BID [facility] Last Admin: 08/21/18 10:15 Dose: Not Given Pantoprazole Sodium (Protonix Ec Tab) 40 mg PO DAILY [facility] Last Admin: 08/21/18 10:20 Dose: 40 mg - Labs Labs: 08/21/18 07:00 08/21/18 07:00 - Constitutional Appears: Well, Non-toxic, No Acute Distress - Head Exam Head Exam: ATRAUMATIC, NORMOCEPHALIC - Eye Exam Eye Exam: EOMI, Normal appearance, PERRL - Respiratory Exam Respiratory Exam: Clear to Ausculation Bilateral, NORMAL BREATHING PATTERN - Cardiovascular Exam Cardiovascular Exam: REGULAR RHYTHM, RRR, Murmur. absent: Bradycardia, Tachycardia - GI/Abdominal Exam GI & Abdominal Exam: Soft. absent: Guarding, Tenderness - Extremities Exam Additional comments: 1cm x 1cm ulceration of lateral aspect of R great toe. Dressing in place. Non-tender to palpation; no erythema. Dressing CDI BL Feet are warm to touch; Distal pulses intact bilaterally; - Neurological Exam Neurological Exam: Alert, Awake, Oriented x3 Assessment and Plan - Assessment and Plan (Free Text) Assessment: 72M PMH CAD s/p CABG + Stenting, PVD s/p stent, DM2, HTN, HLD, GERD, COPD, Valve Replacement, DVT, Osteomyelitis, Medication non-compliance presented w/ complaints of chest pain on 08/17. Patient admitted for NSTEMI. Patient refused cardiac cath and is being managed medically. During hospital course, he was found to have osteomyelitis of the right foot, however this may be chronic in n ature. Patient pending bone marrow biopsy. Plan: Chest Pain 2/2 NSTEMI - Patient refused cardiac cath; being managed medically - trops trended upwards then downwards, .01 - 0.14 - .08 - .03 - Repeat EKG: new T wave inversions V1-V3 - Cardio on consult (Dr. Barnhart). Recs appreciated. - Prior ECHO 1/25 - Grade 1 diastolic dysfunction; EF 57.9% - Cardiology following (Dr. Barnhart). Recs appreciated. Osteomyelitis from Right Foot Ulcer in setting of severe PVD - Antibiotics discontinued by ID at this time; planning for Bone Marrow Biopsy by Podiatry on , 08/22 - Right Foot MRI (08/20): suggests osteo - ID on consult. Recs appreciated. - Leukocytosis on admission - resolved - Hx recent stenting of R external iliac; Right Common femoral on 05/21/18 - WCx: +corynebacterium - BCx negative x2 (prelim) after 4 days - ESR/CRP elevated from baseline; further suggestive of osteo - Podiatry following, recs appreciated - ID Following, recs appreciated Aggressive Behavior and Non-compliance to meds - Psych consulted (Dr. Chun). Will follow up recs. Hx CAD/PVD/ HTN / HLD - c/w home med ASA - c/w home med Coreg - c/w home med Lisinopril - adjusted home med dosage to Lipitor 40mg given risk factors Hx DVT - As per pharmacy and prior records, patient is on chronic eliquis however reason is unknown, may be 2/2 DVT versus Paroxysmal Afib. Patient is a poor historian and non-compliant with meds. - Eliquis home med held at this time. Hx COPD - c/w symbicort, albuterol - Duonebs PRN Hx DM2 - Repeat A1C 5.6 - ISS - Accuchecks PPX: SCD Protonix Diet: HHD Dispo: Continue to manage patient on remote tele at this time. NSTEMI being managed medically. He will be going for bone marrow biopsy tomorrow with podiatry. Will follow up results. Case was discussed and reviewed with Attending Physician, Dr. Salazar <Camron Salazar - Last Filed: 08/24/18 11:19> Objective - Vital Signs/Intake and Output Vital Signs (last 24 hours): Temp Pulse Resp BP Pulse Ox 98.6 F 56 L 18 127/66 93 L 08/24/18 08:21 08/24/18 08:21 08/24/18 08:21 08/24/18 08:21 08/24/18 08:21 Intake and Output: 08/24/18 08/24/18 06:59 18:59 Intake Total 240 Output Total 1150 Balance -910 - Medications Medications: Current Medications Acetaminophen (Tylenol 325mg Tab) 650 mg PO Q4H PRN PRN Reason: Pain, moderate (4-7) Albuterol Sulfate (Albuterol 0.083% Inhal Aury (2.5 Mg/3 Ml) Ud) 2.5 mg IH BIDRESP [facility] Last Admin: 08/24/18 07:40 Dose: Not Given Albuterol/Ipratropium (Duoneb 3 Mg/0.5 Mg (3 Ml) Ud) 3 ml IH Q4H PRN PRN Reason: Shortness of Breath Apixaban (Eliquis) 5 mg PO BID [facility]; Protocol Last Admin: 08/20/18 09:14 Dose: 5 mg Aspirin (Ecotrin) 81 mg PO DAILY [facility] Last Admin: 08/23/18 13:04 Dose: Not Given Atorvastatin Calcium (Lipitor) 40 mg PO HS [facility] Last Admin: 08/22/18 21:54 Dose: 40 mg Carvedilol (Coreg) 12.5 mg PO BID [facility] Last Admin: 08/23/18 18:00 Dose: 12.5 mg Insulin Human Lispro (Humalog Low) 0 units SC [facility]; Protocol Last Admin: 08/23/18 21:42 Dose: Not Given Isosorbide Mononitrate (Imdur) 60 mg PO DAILY [facility] Last Admin: 08/23/18 09:20 Dose: 60 mg Lisinopril (Zestril) 5 mg PO DAILY [facility] Last Admin: 08/23/18 09:20 Dose: 5 mg Mupirocin (Bactroban Ointment) 0 gm TOP BID [facility] Last Admin: 08/23/18 17:57 Dose: Not Given (Budesonide/Formoterol Fumarate [Symbicort 160-4.5 Mcg Inhaler] 2 2 puff IH BID [facility] Last Admin: 08/23/18 17:58 Dose: Not Given Pantoprazole Sodium (Protonix Ec Tab) 40 mg PO DAILY [facility] Last Admin: 08/23/18 09:20 Dose: 40 mg - Labs Labs: 08/21/18 07:00 08/21/18 07:00 Attending/Attestation - Attestation I have personally seen and examined this patient.: Yes I have fully participated in the care of the patient.: Yes I have reviewed all pertinent clinical information, including history, physical exam and plan: Yes Notes (Text): 08/24/18 11:18 Medical record note made by the resident after discussion with my direction and input after the patient was personally seen and examined by me. I have reviewed the chart and agree that the record accurately reflects by personal performance of the history, physical exam, data review, and medical decision-making, in the course for the patient. I have also personally directed the plan of care.
--- NOTE | 2018-08-22 02:59 | PN ---
DATE: 08/21/2018 SUBJECTIVE: The patient is in bed, seen early this morning in room 369. No fevers. No chills. PHYSICAL EXAMINATION: VITAL SIGNS: Temperature is 98, blood pressure is 110/70, respirations 16. HEENT: Unremarkable. NECK: Supple. LUNGS: Have decreased breath sounds. HEART: Normal S1, S2. ABDOMEN: Soft. LABORATORY DATA: Reveals a white count of 9.4 with hemoglobin of 10. Chemistry reveals a BUN of 26, creatinine of 1.2. Microbiology is noted. Review of orders reveals no antibiotics on board. ASSESSMENT AND PLAN: This is a 72-year-old male who was admitted with systemic inflammatory response syndrome, leukocytosis and chronic osteomyelitis. The patient had refused a CAT scan of the abdomen and pelvis. The patient is scheduled for biopsy of the bone. Currently, off of antibiotics, afebrile. bone for routine gram-stain and cultures and pathology and atypical stains. The patient's bone biopsy is scheduled for Sunday at 1 o'clock. Toby Martin MD
[2018-08-22] MEDS: Albuterol 0.083% Inhal Sol (2.5 mg/3 mL) UD IH SCH ×3 (08:11→20:46)
--- NOTE | 2018-08-22 09:11 | CP.PCM.PN ---
Subjective - Date & Time of Evaluation Date of Evaluation: 08/22/18 Time of Evaluation: 09:09 - Subjective Subjective: Podiatry progress note - Drs. Zuniga/Lorena 72M seen and evaluated at bedside this AM with Dr. Carrillo. Resting comfortably. Denies pain to right foot wound. Denies n/v/f/c/sob and reports no acute events overnight. Understands he will be having bone biopsy tomorrow and that he will not be able to eat or drink past midnight tonight. Objective - Vital Signs/Intake and Output Vital Signs (last 24 hours): Temp Pulse Resp BP Pulse Ox 98.8 F 58 L 20 141/64 94 L 08/22/18 08:05 08/22/18 08:05 08/22/18 08:05 08/22/18 08:05 08/22/18 08:05 Intake and Output: 08/22/18 08/22/18 06:59 18:59 Intake Total 0 Output Total 875 Balance -875 - Medications Medications: Current Medications Albuterol Sulfate (Albuterol 0.083% Inhal Aury (2.5 Mg/3 Ml) Ud) 2.5 mg IH BID RESP [facility] Last Admin: 08/22/18 08:12 Dose: Not Given Albuterol/Ipratropium (Duoneb 3 Mg/0.5 Mg (3 Ml) Ud) 3 ml IH Q4H PRN PRN Reason: Shortness of Breath Apixaban (Eliquis) 5 mg PO BID [facility]; Protocol Last Admin: 08/20/18 09:14 Dose: 5 mg Aspirin (Ecotrin) 81 mg PO DAILY [facility] Last Admin: 08/21/18 10:20 Dose: 81 mg Atorvastatin Calcium (Lipitor) 40 mg PO HS [facility] Last Admin: 08/21/18 21:35 Dose: 40 mg Carvedilol (Coreg) 12.5 mg PO BID [facility] Last Admin: 08/21/18 17:56 Dose: 12.5 mg Insulin Human Lispro (Humalog Low) 0 units SC [facility]; Protocol Last Admin: 08/21/18 22:58 Dose: Not Given Isosorbide Mononitrate (Imdur) 60 mg PO DAILY [facility] Last Admin: 08/21/18 10:20 Dose: 60 mg Lisinopril (Zestril) 5 mg PO DAILY [facility] Last Admin: 08/21/18 10:21 Dose: 5 mg Mupirocin (Bactroban Ointment) 0 gm TOP BID [facility] Last Admin: 08/21/18 17:57 Dose: 1 applic (Budesonide/Formoterol Fumarate [Symbicort 160-4.5 Mcg Inhaler] 2 2 puff IH BID [facility] Last Admin: 08/21/18 17:56 Dose: Not Given Pantoprazole Sodium (Protonix Ec Tab) 40 mg PO DAILY [facility] Last Admin: 08/21/18 10:20 Dose: 40 mg - Labs Labs: 08/21/18 07:00 08/21/18 07:00 - Constitutional Appears: Non-toxic - Head Exam Head Exam: ATRAUMATIC - Extremities Exam Additional comments: RLE focused exam VASC: DP and PT pulses dopplerable; CFT <3 seconds to digits x5 b/l; pedal hair growth absent NEURO: Light touch and protective sensation diminished bilaterally. DERM: ulceration noted to medial aspect of 1st MPJ measuring approximately 1 x 1 x 0.3cm -wound noted to have a fibrotic base and hyperkeratotic rim; 1cc of purulence expressed; no fluctuance ORTHO: No pain on palpation noted to wounds, MMT 5/5 - Neurological Exam Neurological Exam: Alert, Awake, Oriented x3 - Psychiatric Exam Psychiatric exam: Normal Affect Assessment and Plan - Assessment and Plan (Free Text) Assessment: 72M with right foot chronic ulceration Plan: Patient seen and evaluated with Dr. Lorena VALDES C/w IV abx RLE cleansed with saline, wound dressed with betadine/Optifoam R ft x-ray - healing chronic fracture of fifth proximal phalanx, no other pathology R ft MRI taken - marrow edema at head of 1st met suspicious for OM Recommend 4-6 weeks IV abx Bone biopsy scheduled for 1:00 PM Sunday NPO order in Clearance appreciated Recommend 4-6 weeks IV abx, discussed with ID, patient willing to go to [facility] for IV treatment Wound culture - corynebacterium species Will continue to follow
[2018-08-22] MEDS: Mupirocin 2% Ointment 15 GM TUBE TOP SCH (10:29)
[2018-08-22] MEDS: BUDESONIDE IH SCH (10:30)
[2018-08-22] MEDS: Insulin Lispro (humaLOG) LOW Coverage SC SCH ×4 (10:30→21:17)
[2018-08-22] MEDS: FORMOTEROL FUMARATE IH SCH (10:30)
[2018-08-22] MEDS: Pantoprazole 40 mg EC Tab PO SCH (10:47)
--- NOTE | 2018-08-22 13:23 | CP.PCM.PCO ---
Physician Communication Note - Physician Communication Note Physician Communication Note: pt seen and examined -NAD, for bone biopsy tomorrow. will follow
--- NOTE | 2018-08-22 14:07 | CP.PCM.PN ---
<Kody Birmingham - Last Filed: 08/22/18 14:01> Subjective - Date & Time of Evaluation Date of Evaluation: 08/22/18 Time of Evaluation: 08:00 - Subjective Subjective: Kody Birmingahm PGY1 Medicine Progress Note for Dr. Salazar Patient seen at bedside this morning. Vital signs stable. Denies cp, sob, n/v/d, f/c. He was explained that he will be going for bone biopsy on Sunday. A full 12 point ROS was conducted and unremarkable except as stated above. Objective - Vital Signs/Intake and Output Vital Signs (last 24 hours): Temp Pulse Resp BP Pulse Ox 98.8 F 58 L 20 141/64 94 L 08/22/18 08:05 08/22/18 08:05 08/22/18 08:05 08/22/18 08:05 08/22/18 08:05 Intake and Output: 08/22/18 08/22/18 06:59 18:59 Intake Total 0 Output Total 875 Balance -875 - Medications Medications: Current Medications Albuterol Sulfate (Albuterol 0.083% Inhal Aury (2.5 Mg/3 Ml) Ud) 2.5 mg IH BIDRESP [facility] Last Admin: 08/22/18 08:12 Dose: Not Given Albuterol/Ipratropium (Duoneb 3 Mg/0.5 Mg (3 Ml) Ud) 3 ml IH Q4H PRN PRN Reason: Shortness of Breath Apixaban (Eliquis) 5 mg PO BID [facility]; Protocol Last Admin: 08/20/18 09:14 Dose: 5 mg Aspirin (Ecotrin) 81 mg PO DAILY [facility] Last Admin: 08/22/18 10:48 Dose: 81 mg Atorvastatin Calcium (Lipitor) 40 mg PO HS [facility] Last Admin: 08/21/18 21:35 Dose: 40 mg Carvedilol (Coreg) 12.5 mg PO BID [facility] Last Admin: 08/22/18 10:47 Dose: 12.5 mg Insulin Human Lispro (Humalog Low) 0 units SC [facility]; Protocol Last Admin: 08/22/18 10:30 Dose: Not Given Isosorbide Mononitrate (Imdur) 60 mg PO DAILY [facility] Last Admin: 08/22/18 10:47 Dose: 60 mg Lisinopril (Zestril) 5 mg PO DAILY [facility] Last Admin: 08/22/18 10:47 Dose: 5 mg Mupirocin (Bactroban Ointment) 0 gm TOP BID [facility] Last Admin: 08/22/18 10:29 Dose: Not Given (Budesonide/Formoterol Fumarate [Symbicort 160-4.5 Mcg Inhaler] 2 2 puff IH BID [facility] Last Admin: 08/22/18 10:30 Dose: Not Given Pantoprazole Sodium (Protonix Ec Tab) 40 mg PO DAILY [facility] Last Admin: 08/22/18 10:47 Dose: 40 mg - Labs Labs: 08/21/18 07:00 08/21/18 07:00 - Constitutional Appears: Well, Non-toxic, No Acute Distress - Head Exam Head Exam: ATRAUMATIC, NORMOCEPHALIC - Eye Exam Eye Exam: EOMI, Normal appearance, PERRL - Respiratory Exam Respiratory Exam: Clear to Ausculation Bilateral, NORMAL BREATHING PATTERN - Cardiovascular Exam Cardiovascular Exam: REGULAR RHYTHM, RRR, Murmur. absent: Bradycardia, Tachycardia - GI/Abdominal Exam GI & Abdominal Exam: Soft. absent: Guarding, Tenderness - Extremities Exam Additional comments: 1cm x 1cm ulceration of lateral aspect of R great toe. Dressing in place. Non-tender to palpation; no erythema. Dressing CDI BL Feet are warm to touch; Distal pulses intact bilaterally; - Neurological Exam Neurological Exam: Alert, Awake, Oriented x3 Assessment and Plan - Assessment and Plan (Free Text) Assessment: 72M PMH CAD s/p CABG + Stenting, PVD s/p stent, DM2, HTN, HLD, GERD, COPD, Valve Replacement, DVT, Osteomyelitis, Medication non-compliance presented w/ complaints of chest pain on 08/17. Patient admitted for NSTEMI. Patient refused cardiac cath and is being managed medically. During hospital course, he was found to have osteomyelitis of the right foot, however this may be chronic in nature. Patient pending bone biopsy on Sunday. Plan: Chest Pain 2/2 NSTEMI - Patient refused cardiac cath; c/w medical management - trops trended upwards then downwards, .01 - 0.14 - .08 - .03 - Repeat EKG: new T wave inversions V1-V3 - Cardio on consult (Dr. Barnhart). Recs appreciated. - Prior ECHO 05/17 - Grade 1 diastolic dysfunction; EF 57.9% - Cardiology following (Dr. Barnhart). Recs appreciated. Osteomyelitis from Right Foot Ulcer in setting of severe PVD - Pending bone biopsy for Sunday (08/23) at 1pm - Right Foot MRI (08/20): suggests osteo - ID on consult. Recs appreciated. - Leukocytosis on admission - resolved - WCx: +corynebacterium - BCx negative x2 - ESR/CRP elevated from baseline; further suggestive of osteo - Podiatry following, recs appreciated - ID Following, recs appreciated - Hx recent stenting of R external iliac; Right Common femoral on 05/21/18 Aggressive Behavior and Non-compliance to meds - Psych consulted (Dr. Chun). Will follow up recs. Hx CAD/PVD/ HTN / HLD - c/w home med ASA - c/w home med Coreg - c/w home med Lisinopril - c/w Lipitor 40mg Hx DVT - As per pharmacy and prior records, patient is on chronic eliquis however reason is unknown, may be 2/2 DVT versus Paroxysmal Afib. Patient is a poor historian and non-compliant with meds. - Eliquis home med held at this time. Hx COPD - c/w symbicort, albuterol - Duonebs PRN Hx DM2 - Repeat A1C 5.6 - ISS - Accuchecks PPX: SCD Protonix Diet: HHD Dispo: Continue to manage patient on remote tele at this time. NSTEMI being managed medically. He will be going for bone biopsy tomorrow (08/23) at 1pm. NPO after midnight. Case was discussed and reviewed with Attending Physician, Dr. Salazar <Camron Salazar - Last Filed: 08/24/18 11:17> Objective - Vital Signs/Intake and Output Vital Signs (last 24 hours): Temp Pulse Resp BP Pulse Ox 98.6 F 56 L 18 127/66 93 L 08/24/18 08:21 08/24/18 08:21 08/24/18 08:21 08/24/18 08:21 08/24/18 08:21 Intake and Output: 08/24/18 08/24/18 06:59 18:59 Intake Total 240 Output Total 1150 Balance -910 - Medications Medications: Current Medications Acetaminophen (Tylenol 325mg Tab) 650 mg PO Q4H PRN PRN Reason: Pain, moderate (4-7) Albuterol Sulfate (Albuterol 0.083% Inhal Aury (2.5 Mg/3 Ml) Ud) 2.5 mg IH BIDRESP [facility] Last Admin: 08/24/18 07:40 Dose: Not Given Albuterol/Ipratropium (Duoneb 3 Mg/0.5 Mg (3 Ml) Ud) 3 ml IH Q4H PRN PRN Reason: Shortness of Breath Apixaban (Eliquis) 5 mg PO BID [facility]; Protocol Last Admin: 08/20/18 09:14 Dose: 5 mg Aspirin (Ecotrin) 81 mg PO DAILY [facility] Last Admin: 08/23/18 13:04 Dose: Not Given Atorvastatin Calcium (Lipitor) 40 mg PO HS [facility] Last Admin: 08/22/18 21:54 Dose: 40 mg Carvedilol (Coreg) 12.5 mg PO BID [facility] Last Admin: 08/23/18 18:00 Dose: 12.5 mg Insulin Human Lispro (Humalog Low) [address] [facility]; Protocol Last Admin: 08/23/18 21:42 Dose: Not Given Isosorbide Mononitrate (Imdur) 60 mg PO DAILY [facility] Last Admin: 08/23/18 09:20 Dose: 60 mg Lisinopril (Zestril) 5 mg PO DAILY [facility] Last Admin: 08/23/18 09:20 Dose: 5 mg Mupirocin (Bactroban Ointment) 0 gm TOP BID [facility] Last Admin: 08/23/18 17:57 Dose: Not Given (Budesonide/Formoterol Fumarate [Symbicort 160-4.5 Mcg Inhaler] 2 2 puff IH BID [facility] Last Admin: 08/23/18 17:58 Dose: Not Given Pantoprazole Sodium (Protonix Ec Tab) 40 mg PO DAILY [facility] Last Admin: 08/23/18 09:20 Dose: 40 mg - Labs Labs: 08/21/18 07:00 08/21/18 07:00 Attending/Attestation - Attestation I have personally seen and examined this patient.: Yes I have fully participated in the care of the patient.: Yes I have reviewed all pertinent clinical information, including history, physical exam and plan: Yes Notes (Text): 08/24/18 11:17 Medical record note made by the resident after discussion with my direction and input after the patient was personally seen and examined by me. I have reviewed the chart and agree that the record accurately reflects by personal performance of the history, physical exam, data review, and medical decision-making, in the course for the patient. I have also personally directed the plan of care.
--- NOTE | 2018-08-22 23:25 | PN ---
DATE: 08/22/2018 SUBJECTIVE: The patient is seen in bed, in no acute distress, and nontoxic. OBJECTIVE: VITAL SIGNS: Temperature is 97, blood pressure is 91/50, respiratory rate is 20, and heart rate is 58. HEENT: Unremarkable. NECK: Supple. LUNGS: Have decreased breath sounds. HEART: Normal S1 and S2. ABDOMEN: Soft. LABORATORY EXAMINATION: Reveals a white count of 9.4 and hemoglobin of 10. Chemistries are noted. Microbiology is noted. ASSESSMENT AND PLAN: This is a 72-year-old male who was admitted with systemic inflammatory response syndrome, leukocytosis, and chronic osteomyelitis. The patient was scheduled for biopsy of the bone tomorrow, was sent for AFB smears and cultures, fungal smears and cultures and Gram-stain and routine cultures in addition to pathology. Currently, the patient is off of antibiotics. Toby Martin MD
--- NOTE | 2018-08-23 00:48 | CON ---
DATE: 08/22/2018 CONSULTATION NOTE HISTORY OF PRESENT ILLNESS: The patient is a 72-year-old male with an unknown previous psychiatric history. The patient reported being homeless. The patient was admitted on the medical side for evaluation of chest pain and palpitations. The patient was admitted on the medical side on 08/16. During this hospitalization, our medical team was raising concerns about the patient's noncompliance with the treatment offered and the patient has history of aggressive behavior. The patient was seen and examined today. The patient presented to be alert. The patient knows that he is in the hospital. The patient is aware of the circumstances of his admission on the medical side. The patient seems to be calm and superficially cooperative. The patient has strong antisocial traits, for example, when this service writer advisor asked the patient where his home is and where he lives, the patient replied by the same question with this service writer advisor asking her where her home was and where she lived. The patient reported that he does not feel depressed, denied any thoughts of harming himself or others. The patient reported that he is participating in treatment. The patient denied any psychotic symptoms. The patient denied history of being admitted to the psychiatric inpatient unit and the patient denied history of being evaluated by a psychiatrist. PAST MEDICAL HISTORY: Previous history reviewed. The patient was admitted on the medical side on multiple occasions in 2017, 2014, 2012, 2011, and 2010. Never been evaluated by a psychiatrist in the past. Never been admitted to the psychiatric inpatient unit at least at this facility. VITAL SIGNS: Vital signs were reviewed. Temperature 97.9, pulse is 51, blood pressure 91/55, oxygen saturation is 94. MEDICATIONS: Medications are reviewed; albuterol, but it is not given because the patient refused. The patient is on Eliquis, aspirin, Lipitor, Coreg, Humalog, Imdur, Zestril, Bactroban single course, and Protonix. The only medication which the patient is refusing is Humalog, but majority of the time the patient's blood sugar parameters are not met. The patient also was refusing albuterol. The rest of the medication and treatment plan the patient was participating in and the patient is compliant. LABORATORY DATA: Bloods were reviewed. Most recent was from yesterday. Urinalysis reviewed and toxicology reviewed. Microbiology reviewed. Wound culture reveals corynebacterium species and the patient has possible osteomyelitis and the patient is waiting for bone biopsy on Sunday. MENTAL STATUS EXAMINATION: The patient presented to be alert, superficially cooperative, intermittent eye contact, poor hygiene. Mood described as "annoyed", affect was constricted. Thought process concrete. Thought content: The patient denied any psychotic symptoms. The patient does not present to be psychotic. The patient denied any thoughts of harming himself or others, denied intent or plan. Insight and judgment seem to be limited. Impulses are unpredictable, but the patient did not have any physical aggression. IMPRESSION: Most likely, the patient has personality disorder, rule out mood disorder due to general medical condition. PLAN: There is no need for any antipsychotic medication or a mood stabilizer medication recommended. The patient is not aggressive, not agitated. The patient is non compliant with only one medication Albuterol. The rest of the medications, the patient was compliant with. There is no need for psychiatry to follow up on the patient, because pt pose no imminent danger to self or others. Should you have any questions, give me a call back. Lay Eason MD ANTHONY
[2018-08-23] MEDS: Albuterol 0.083% Inhal Sol (2.5 mg/3 mL) UD IH SCH ×2 (07:41→20:07)
[2018-08-23] MEDS: Pantoprazole 40 mg EC Tab PO SCH (09:20)
[2018-08-23] MEDS: Insulin Lispro (humaLOG) LOW Coverage SC SCH ×4 (09:21→21:42)
[2018-08-23] MEDS ORDERED: Lidocaine 2% Inj (20ml) ONE (10:18)
[2018-08-23] MEDS ORDERED: Lidocaine 1% Inj (20ml) IJ ONE (10:30)
--- NOTE | 2018-08-23 10:32 | CP.PCM.PCO ---
Physician Communication Note - Physician Communication Note Physician Communication Note: pt in OR for bone biopsy, pt eval noted for efrem, will follow
--- NOTE | 2018-08-23 10:50 | PCM.SURG1 ---
Surgeon's Initial Post Op Note - Surgeon's Notes Surgeon: Dr. Carrillo DPM Print Inspector: Dr. Juarez PGY1 Type of Anesthesia: Local Pre-Operative Diagnosis: Right first metatarsal osteomyelitis Operative Findings: see dictation. I 13cc 2% lidocaine plain. xeroform DSD WILLY. 3-0 nylon Post-Operative Diagnosis: same Operation Performed: Right first metatarsal bone biopsy and deep culture Specimen/Specimens Removed: Right first metatarsal bone Estimated Blood Loss: EBL {In ML}: 0 Blood Products Given: N/A Drains Used: No Drains Post-Op Condition: Good Date of Surgery/Procedure: 08/23/18 Time of Surgery/Procedure: 10:50
--- NOTE | 2018-08-23 12:51 | CP.PCM.PN ---
<Kody Birmingham - Last Filed: 08/23/18 12:45> Subjective - Date & Time of Evaluation Date of Evaluation: 08/23/18 Time of Evaluation: 08:00 - Subjective Subjective: Kody Birmingham PGY1 Medicine Progress Note for Dr. Salazar Patient seen at bedside this morning. Vital signs stable. Denies cp, sob, n/v/d, f/c. He is going for bone biopsy this afternoon. A full 12 point ROS was conducted and unremarkable except as stated above. Objective - Vital Signs/Intake and Output Vital Signs (last 24 hours): Temp Pulse Resp BP Pulse Ox 97.8 F 51 L 20 128/61 94 L 08/23/18 11:00 08/23/18 11:00 08/23/18 11:00 08/23/18 11:00 08/23/18 11:00 Intake and Output: 08/23/18 08/23/18 06:59 18:59 Intake Total 0 Balance 0 - Medications Medications: Current Medications Acetaminophen (Tylenol 325mg Tab) 650 mg PO Q4H PRN PRN Reason: Pain, moderate (4-7) Albuterol Sulfate (Albuterol 0.083% Inhal Aury (2.5 Mg/3 Ml) Ud) 2.5 mg IH BIDRESP [facility] Last Admin: 08/23/18 07:41 Dose: Not Given Albuterol/Ipratropium (Duoneb 3 Mg/0.5 Mg (3 Ml) Ud) 3 ml IH Q4H PRN PRN Reason: Shortness of Breath Apixaban (Eliquis) 5 mg PO BID [facility]; Protocol Last Admin: 08/20/18 09:14 Dose: 5 mg Aspirin (Ecotrin) 81 mg PO DAILY [facility] Last Admin: 08/22/18 10:48 Dose: 81 mg Atorvastatin Calcium (Lipitor) 40 mg PO HS [facility] Last Admin: 08/22/18 21:54 Dose: 40 mg Carvedilol (Coreg) 12.5 mg PO BID [facility] Last Admin: 08/23/18 09:20 Dose: 12.5 mg Insulin Human Lispro (Humalog Low) 0 units SC ACHS [facility]; Protocol Last Admin: 08/23/18 09:21 Dose: Not Given Isosorbide Mononitrate (Imdur) 60 mg PO DAILY [facility] Last Admin: 08/23/18 09:20 Dose: 60 mg Lisinopril (Zestril) 5 mg PO DAILY [facility] Last Admin: 08/23/18 09:20 Dose: 5 mg Mupirocin (Bactroban Ointment) 0 gm TOP BID [facility] Last Admin: 08/22/18 10:29 Dose: Not Given (Budesonide/Formoterol Fumarate [Symbicort 160-4.5 Mcg Inhaler] 2 2 puff IH BID [facility] Last Admin: 08/22/18 10:30 Dose: Not Given Pantoprazole Sodium (Protonix Ec Tab) 40 mg PO DAILY [facility] Last Admin: 08/23/18 09:20 Dose: 40 mg - Labs Labs: 08/21/18 07:00 08/21/18 07:00 - Constitutional Appears: Well, Non-toxic, No Acute Distress - Head Exam Head Exam: ATRAUMATIC, NORMOCEPHALIC - Eye Exam Eye Exam: EOMI, Normal appearance, PERRL - Respiratory Exam Respiratory Exam: Clear to Ausculation Bilateral, NORMAL BREATHING PATTERN - Cardiovascular Exam Cardiovascular Exam: REGULAR RHYTHM, RRR, Murmur. absent: Bradycardia, Tachycardia - GI/Abdominal Exam GI & Abdominal Exam: Soft. absent: Guarding, Tenderness - Extremities Exam Additional comments: 1cm x 1cm ulceration of lateral aspect of R great toe. Dressing in place. Non-tender to palpation; no erythema. Dressing CDI BL Feet are warm to touch; Distal pulses intact bilaterally - Neurological Exam Neurological Exam: Alert, Awake, Oriented x3 Assessment and Plan - Assessment and Plan (Free Text) Assessment: 72M PMH CAD s/p CABG + Stenting, PVD s/p stent, DM2, HTN, HLD, GERD, COPD, Valve Replacement, DVT, Osteomyelitis, Medication non-compliance presented w/ complaints of chest pain on 08/17. Patient admitted for NSTEMI. Patient refused cardiac cath and is being managed medically. During hospital course, he was found to have osteomyelitis of the right foot, however this may be chronic in nature. Patient is going for bone biopsy. Plan: Osteomyelitis from Right Foot Ulcer in setting of severe PVD - Bone biopsy this afternoon; will f/u pathology results - Right Foot MRI (08/20): suggests osteo - ID on consult. Recs appreciated. - Leukocytosis on admission - resolved - WCx: +corynebacterium - BCx negative x2 - ESR/CRP elevated from baseline; further suggestive of osteo - Podiatry following, recs appreciated - ID Following, recs appreciated - Hx recent stenting of R external iliac; Right Common femoral on 05/21/18 Chest Pain 2/2 NSTEMI - Patient refused cardiac cath; c/w medical management - elevated trops on admission with new T wave inversions V1-V3 on ekg - Cardio on consult (Dr. Barnhart). Recs appreciated. - Prior ECHO 05/17 - Grade 1 diastolic dysfunction; EF 57.9% - Cardiology following (Dr. Barnhart). Recs appreciated. Aggressive Behavior and Non-compliance to meds - Psych on consult (Dr. Chun), recs appreciated. Psych signed off. - Patient encouraged to be cooperative with medical staff and to be compliant with meds Hx CAD/PVD/ HTN / HLD - c/w home med ASA - c/w home med Coreg - c/w home med Lisinopril - c/w Lipitor 40mg Hx DVT - Eliquis home med held for bone biopsy. Resume after procedure. - As per pharmacy and prior records, patient is on chronic eliquis however reason is unknown, may be 2/2 DVT versus Paroxysmal Afib. Patient is a poor historian and non-compliant with meds. Hx COPD - c/w symbicort, albuterol - c/w Duonebs PRN Hx DM2 - Repeat A1C 5.6 - ISS - Accuchecks PPX: SCD Protonix Diet: NPO for procedure (resume after bone biopsy) Dispo: Continue to manage patient on remote tele at this time. NSTEMI being managed medically. Pending bone biopsy this afternoon. Will follow up pathology results and choice/duration of antibiotics after results. Case was discussed and reviewed with Attending Physician, Dr. Salazar <Camron Salazar - Last Filed: 08/24/18 11:17> Objective - Vital Signs/Intake and Output Vital Signs (last 24 hours): Temp Pulse Resp BP Pulse Ox 98.6 F 56 L 18 127/66 93 L 08/24/18 08:21 08/24/18 08:21 08/24/18 08:21 08/24/18 08:21 08/24/18 08:21 Intake and Output: 08/24/18 08/24/18 06:59 18:59 Intake Total 240 Output Total 1150 Balance -910 - Medications Medications: Current Medications Acetaminophen (Tylenol 325mg Tab) 650 mg PO Q4H PRN PRN Reason: Pain, moderate (4-7) Albuterol Sulfate (Albuterol 0.083% Inhal Aury (2.5 Mg/3 Ml) Ud) 2.5 mg IH BIDRESP [facility] Last Admin: 08/24/18 07:40 Dose: Not Given Albuterol/Ipratropium (Duoneb 3 Mg/0.5 Mg (3 Ml) Ud) 3 ml IH Q4H PRN PRN Reason: Shortness of Breath Apixaban (Eliquis) 5 mg PO BID [facility]; Protocol Last Admin: 08/20/18 09:14 Dose: 5 mg Aspirin (Ecotrin) 81 mg PO DAILY [facility] Last Admin: 08/23/18 13:04 Dose: Not Given Atorvastatin Calcium (Lipitor) 40 mg PO HS [facility] Last Admin: 08/22/18 21:54 Dose: 40 mg Carvedilol (Coreg) 12.5 mg PO BID [facility] Last Admin: 08/23/18 18:00 Dose: 12.5 mg Insulin Human Lispro (Humalog Low) 0 units SC [facility]; Protocol Last Admin: 08/23/18 21:42 Dose: Not Given Isosorbide Mononitrate (Imdur) 60 mg PO DAILY [facility] Last Admin: 08/23/18 09:20 Dose: 60 mg Lisinopril (Zestril) 5 mg PO DAILY [facility] Last Admin: 08/23/18 09:20 Dose: 5 mg Mupirocin (Bactroban Ointment) 0 gm TOP BID [facility] Last Admin: 08/23/18 17:57 Dose: Not Given (Budesonide/Formoterol Fumarate [Symbicort 160-4.5 Mcg Inhaler] 2 2 puff IH BID [facility] Last Admin: 08/23/18 17:58 Dose: Not Given Pantoprazole Sodium (Protonix Ec Tab) 40 mg PO DAILY [facility] Last Admin: 08/23/18 09:20 Dose: 40 mg - Labs Labs: 08/21/18 07:00 08/21/18 07:00 Attending/Attestation - Attestation I have personally seen and examined this patient.: Yes I have fully participated in the care of the patient.: Yes I have reviewed all pertinent clinical information, including history, physical exam and plan: Yes Notes (Text): 08/24/18 11:17 Medical record note made by the resident after discussion with my direction and input after the patient was personally seen and examined by me. I have reviewed the chart and agree that the record accurately reflects by personal performance of the history, physical exam, data review, and medical decision-making, in the course for the patient. I have also personally directed the plan of care. 72 year old male with past medical history of CAD s/p CABG s/p stent, PVD s/p stent, diabetes, hypertension, DVT .PVD,on anticoagulation with Apixiban reason unknown and noncompliance with medication was admitted 08/17/18 with chest pain,NSEMI, was managed medically as patient refused cardiac cath. Patient has chronic RLE wound and history of osteomyelitis. ESR/CRP were elevated. Right Foot MRI (08/20): suggests osteomyelitis.As per ID recommendation, patient underwent bone biopsy 08/23/18 .Antibiotics are on hold. We will follow up biopsy report.
[2018-08-23] MEDS: Mupirocin 2% Ointment 15 GM TUBE TOP SCH ×2 (13:04→17:57)
--- NOTE | 2018-08-23 17:43 | PN ---
DATE: 08/23/2018 SUBJECTIVE: The patient is seen earlier today, no acute distress, nontoxic. PHYSICAL EXAMINATION: VITAL SIGNS: Temperature is 97, blood pressure is 128/60, respiratory 20, heart rate of 51. HEENT: Unremarkable. NECK: Supple. LUNGS: Decreased breath sounds. HEART: Normal S1, S2. ABDOMEN: Soft. LABORATORY DATA: Laboratory examination reveals a white count of 9.4. Chemistries are noted. Urinalysis is noted. ASSESSMENT AND PLAN: This is a 72-year-old male admitted with systemic inflammatory response syndrome, leukocytosis, chronic osteomyelitis. The patient is scheduled for bone biopsy today. Would recommend in addition to routine gram-stain and cultures and pathology sent for AFB smears and cultures and fungal smears. Currently off of antibiotics. Awaiting for surgery for bone biopsy and for pathology and cultures. Toby Martin MD
[2018-08-23] MEDS: BUDESONIDE IH SCH (17:58)
[2018-08-23] MEDS: FORMOTEROL FUMARATE IH SCH (17:58)
[2018-08-24] MEDS: Insulin Lispro (humaLOG) LOW Coverage SC SCH ×4 (07:00→22:00)
[2018-08-24] MEDS: Albuterol 0.083% Inhal Sol (2.5 mg/3 mL) UD IH SCH ×2 (07:40→19:52)
--- NOTE | 2018-08-24 10:20 | CP.PCM.PN ---
<Parvin Grullon - Last Filed: 08/24/18 10:16> Subjective - Date & Time of Evaluation Date of Evaluation: 08/24/18 Time of Evaluation: 10:16 - Subjective Subjective: Podiatry progress note - Drs. Zuniga/Lorena 72M seen and evaluated at bedside this AM with Dr. Zuniga. Patient is POD#1 bone biopsy fo the right foot. Resting comfortably. Denies pain to right foot wound. Denies n/v/f/c/sob and reports no acute events overnight. Objective - Vital Signs/Intake and Output Vital Signs (last 24 hours): Temp Pulse Resp BP Pulse Ox 98.6 F 56 L 18 127/66 93 L 08/24/18 08:21 08/24/18 08:21 08/24/18 08:21 08/24/18 08:21 08/24/18 08:21 Intake and Output: 08/24/18 08/24/18 06:59 18:59 Intake Total 240 Output Total 1150 Balance -910 - Medications Medications: Current Medications Acetaminophen (Tylenol 325mg Tab) 650 mg PO Q4H PRN PRN Reason: Pain, moderate (4-7) Albuterol Sulfate (Albuterol 0.083% Inhal Aury (2.5 Mg/3 Ml) Ud) 2.5 mg IH BIDRESP [facility] Last Admin: 08/24/18 07:40 Dose: Not Given Albuterol/Ipratropium (Duoneb 3 Mg/0.5 Mg (3 Ml) Ud) 3 ml IH Q4H PRN PRN Reason: Shortness of Breath Apixaban (Eliquis) 5 mg PO BID [facility]; Protocol Last Admin: 08/20/18 09:14 Dose: 5 mg Aspirin (Ecotrin) 81 mg PO DAILY [facility] Last Admin: 08/23/18 13:04 Dose: Not Given Atorvastatin Calcium (Lipitor) 40 mg PO HS [facility] Last Admin: 08/22/18 21:54 Dose: 40 mg Carvedilol (Coreg) 12.5 mg PO BID [facility] Last Admin: 08/23/18 18:00 Dose: 12.5 mg Insulin Human Lispro (Humalog Low) 0 units SC [facility]; Protocol Last Admin: 08/23/18 21:42 Dose: Not Given Isosorbide Mononitrate (Imdur) 60 mg PO DAILY [facility] Last Admin: 08/23/18 09:20 Dose: 60 mg Lisinopril (Zestril) 5 mg PO DAILY [facility] Last Admin: 08/23/18 09:20 Dose: 5 mg Mupirocin (Bactroban Ointment) 0 gm TOP BID [facility] Last Admin: 08/23/18 17:57 Dose: Not Given (Budesonide/Formoterol Fumarate [Symbicort 160-4.5 Mcg Inhaler] 2 2 puff IH BID [facility] Last Admin: 08/23/18 17:58 Dose: Not Given Pantoprazole Sodium (Protonix Ec Tab) 40 mg PO DAILY [facility] Last Admin: 08/23/18 09:20 Dose: 40 mg - Labs Labs: 08/21/18 07:00 08/21/18 07:00 - Constitutional Appears: Well, Non-toxic - Head Exam Head Exam: ATRAUMATIC, NORMOCEPHALIC - Eye Exam Eye Exam: Normal appearance - ENT Exam ENT Exam: Mucous Membranes Moist - Respiratory Exam Respiratory Exam: Clear to Ausculation Bilateral, NORMAL BREATHING PATTERN - Cardiovascular Exam Cardiovascular Exam: REGULAR RHYTHM, +S1, +S2 - Extremities Exam Additional comments: RLE focused exam VASC: DP and PT pulses dopplerable; CFT <3 seconds to digits x5 b/l; pedal hair growth absent NEURO: Light touch and protective sensation diminished bilaterally. DERM: biopsy noted adjacent to the wound site, sutures intact no wound dehiscence no active drainage. Ulceration noted to medial aspect of 1st MPJ measuring approximately 1 x 1 x 0.3cm -wound noted to have a granular base and hyperkeratotic rim; no purulence expressed; no fluctuance ORTHO: No pain on palpation noted to wounds, MMT 5/5 - Neurological Exam Neurological Exam: Alert, Awake, Oriented x3 Assessment and Plan - Assessment and Plan (Free Text) Assessment: 72M with right foot chronic ulceration and POD#1 right foot bone biopsy Plan: Patient seen and evaluated with Dr. Efrain VALDES C/w IV abx RLE cleansed with saline, wound dressed with betadine/Optifoam R foot x-ray - healing chronic fracture of fifth proximal phalanx, no other pathology R foot MRI taken - marrow edema at head of 1st met suspicious for OM Recommend 4-6 weeks IV abx, discussed with ID, patient willing to go to [facility] for IV treatment bone pathology pending intra-op wound cultures pending Wound culture - corynebacterium species Will continue to follow <Travis Zuniga - Last Filed: 08/24/18 13:54> Objective - Vital Signs/Intake and Output Vital Signs (last 24 hours): Temp Pulse Resp BP Pulse Ox 98.6 F 56 L 18 127/66 93 L 08/24/18 08:21 08/24/18 11:31 08/24/18 08:21 08/24/18 11:31 08/24/18 08:21 Intake and Output: 08/24/18 08/24/18 06:59 18:59 Intake Total 240 Output Total 1150 Balance -910 - Medications Medications: Current Medications Acetaminophen (Tylenol 325mg Tab) 650 mg PO Q4H PRN PRN Reason: Pain, moderate (4-7) Albuterol Sulfate (Albuterol 0.083% Inhal Aury (2.5 Mg/3 Ml) Ud) [facility] Last Admin: 08/24/18 07:40 Dose: Not Given Albuterol/Ipratropium (Duoneb 3 Mg/0.5 Mg (3 Ml) Ud) 3 ml IH Q4H PRN PRN Reason: Shortness of Breath Apixaban (Eliquis) 5 mg PO BID [facility]; Protocol Last Admin: 08/24/18 11:31 Dose: 5 mg Aspirin (Ecotrin) 81 mg PO DAILY [facility] Last Admin: 08/24/18 11:31 Dose: 81 mg Atorvastatin Calcium (Lipitor) 40 mg PO HS [facility] Last Admin: 08/22/18 21:54 Dose: 40 mg Carvedilol (Coreg) 12.5 mg PO BID [facility] Last Admin: 08/24/18 11:30 Dose: 12.5 mg Insulin Human Lispro (Humalog Low) 0 units SC [facility]; Protocol Last Admin: 08/23/18 21:42 Dose: Not Given Isosorbide Mononitrate (Imdur) 60 mg PO DAILY [facility] Last Admin: 08/24/18 11:31 Dose: 60 mg Lisinopril (Zestril) 5 mg PO DAILY [facility] Last Admin: 08/24/18 11:31 Dose: 5 mg Mupirocin (Bactroban Ointment) 0 gm TOP BID [facility] Last Admin: 08/23/18 17:57 Dose: Not Given (Budesonide/Formoterol Fumarate [Symbicort 160-4.5 Mcg Inhaler] 2 2 puff IH BID [facility] Last Admin: 08/24/18 11:30 Dose: Not Given Pantoprazole Sodium (Protonix Ec Tab) 40 mg PO DAILY [facility] Last Admin: 08/24/18 11:31 Dose: 40 mg - Labs Labs: 08/21/18 07:00 08/21/18 07:00 Attending/Attestation - Attestation I have personally seen and examined this patient.: Yes I have fully participated in the care of the patient.: Yes I have reviewed all pertinent clinical information, including history, physical exam and plan: Yes
[2018-08-24] MEDS: BUDESONIDE IH SCH ×2 (11:30→18:25)
[2018-08-24] MEDS: FORMOTEROL FUMARATE IH SCH ×2 (11:30→18:25)
[2018-08-24] MEDS: Pantoprazole 40 mg EC Tab PO SCH (11:31)
--- NOTE | 2018-08-24 13:17 | CP.PCM.PN ---
<Kody Birmingham - Last Filed: 08/24/18 13:12> Subjective - Date & Time of Evaluation Date of Evaluation: 08/24/18 Time of Evaluation: 08:00 - Subjective Subjective: Kody Birmingham PGY1 Medicine Progress Note for Dr. Salazar Patient seen at bedside this morning. Vital signs stable. Denies cp, sob, n/v/d, f/c. A full 12 point ROS was conducted and unremarkable except as stated above. Objective - Vital Signs/Intake and Output Vital Signs (last 24 hours): Temp Pulse Resp BP Pulse Ox 98.6 F 56 L 18 127/66 93 L 08/24/18 08:21 08/24/18 11:31 08/24/18 08:21 08/24/18 11:31 08/24/18 08:21 Intake and Output: 08/24/18 08/24/18 06:59 18:59 Intake Total 240 Output Total 1150 Balance -910 - Medications Medications: Current Medications Acetaminophen (Tylenol 325mg Tab) 650 mg PO Q4H PRN PRN Reason: Pain, moderate (4-7) Albuterol Sulfate (Albuterol 0.083% Inhal Aury (2.5 Mg/3 Ml) Ud) 2.5 mg IH BIDRESP [facility] Last Admin: 08/24/18 07:40 Dose: Not Given Albuterol/Ipratropium (Duoneb 3 Mg/0.5 Mg (3 Ml) Ud) 3 ml IH Q4H PRN PRN Reason: Shortness of Breath Apixaban (Eliquis) 5 mg PO BID [facility]; Protocol Last Admin: 08/24/18 11:31 Dose: 5 mg Aspirin (Ecotrin) 81 mg PO DAILY [facility] Last Admin: 08/24/18 11:31 Dose: 81 mg Atorvastatin Calcium (Lipitor) 40 mg PO HS [facility] Last Admin: 08/22/18 21:54 Dose: 40 mg Carvedilol (Coreg) 12.5 mg PO BID [facility] Last Admin: 08/24/18 11:30 Dose: 12.5 mg Insulin Human Lispro (Humalog Low) 0 units SC ACHS [facility]; Protocol Last Admin: 08/23/18 21:42 Dose: Not Given Isosorbide Mononitrate (Imdur) 60 mg PO DAILY [facility] Last Admin: 08/24/18 11:31 Dose: 60 mg Lisinopril (Zestril) 5 mg PO DAILY [facility] Last Admin: 08/24/18 11:31 Dose: 5 mg Mupirocin (Bactroban Ointment) 0 gm TOP BID [facility] Last Admin: 08/23/18 17:57 Dose: Not Given (Budesonide/Formoterol Fumarate [Symbicort 160-4.5 Mcg Inhaler] 2 2 puff IH BID [facility] Last Admin: 08/24/18 11:30 Dose: Not Given Pantoprazole Sodium (Protonix Ec Tab) 40 mg PO DAILY [facility] Last Admin: 08/24/18 11:31 Dose: 40 mg - Labs Labs: 08/21/18 07:00 08/21/18 07:00 - Constitutional Appears: Well, Non-toxic, No Acute Distress - Head Exam Head Exam: ATRAUMATIC, NORMOCEPHALIC - Eye Exam Eye Exam: EOMI, Normal appearance, PERRL - Respiratory Exam Respiratory Exam: Clear to Ausculation Bilateral, NORMAL BREATHING PATTERN - Cardiovascular Exam Cardiovascular Exam: REGULAR RHYTHM, RRR, Murmur. absent: Bradycardia, Tachycardia - GI/Abdominal Exam GI & Abdominal Exam: Soft. absent: Guarding, Tenderness - Extremities Exam Additional comments: 1cm x 1cm ulceration of lateral aspect of R great toe. Dressing in place. Non-tender to palpation; no erythema. Dressing CDI BL Feet are warm to touch; Distal pulses intact bilaterally - Neurological Exam Neurological Exam: Alert, Awake, Oriented x3 Assessment and Plan - Assessment and Plan (Free Text) Assessment: 72M PMH CAD s/p CABG + Stenting, PVD s/p stent, DM2, HTN, HLD, GERD, COPD, Valve Replacement, DVT, Osteomyelitis, Medication non-compliance presented w/ complaints of chest pain on 08/17. Patient admitted for NSTEMI. Patient refused cardiac cath and is being managed medically. During hospital course, he was found to have osteomyelitis of the right foot, however this may be chronic in nature. Patient is s/p bone biopsy. Plan: Osteomyelitis from Right Foot Ulcer in setting of severe PVD - s/p Bone biopsy (08/23); pending pathology results - Right Foot MRI (08/20): suggests osteo - ID on consult. Recs appreciated. Continue off antibiotics at this time. - Leukocytosis on admission - resolved - WCx: +corynebacterium - BCx negative x2 - ESR/CRP elevated from baseline; further suggestive of osteo - Podiatry following, recs appreciated - ID Following, recs appreciated - Hx recent stenting of R external iliac; Right Common femoral on 05/21/18 Chest Pain 2/2 NSTEMI - Patient refused cardiac cath; c/w medical management - elevated trops on admission with new T wave inversions V1-V3 on ekg - Cardio on consult (Dr. Barnhart). Recs appreciated. - Prior ECHO 05/17 - Grade 1 diastolic dysfunction; EF 57.9% - Cardiology following (Dr. Barnhart). Recs appreciated. Aggressive Behavior and Non-compliance to meds - Psych on consult (Dr. Chun), recs appreciated. Psych signed off. - Patient encouraged to be cooperative with medical staff and to be compliant with meds Hx CAD/PVD/ HTN / HLD - c/w home med ASA - c/w home med Coreg - c/w home med Lisinopril - c/w Lipitor 40mg Hx DVT - c/w Eliquis home med - As per pharmacy and prior records, patient is on chronic eliquis however reason is unknown, may be 2/2 DVT versus Paroxysmal Afib. Patient is a poor his shaggy and non-compliant with meds. Hx COPD - c/w symbicort, albuterol - c/w Duonebs PRN Hx DM2 - Repeat A1C 5.6 - ISS - Accuchecks PPX: SCD Protonix Diet: HHD Dispo: Continue to manage patient on remote tele at this time. NSTEMI being managed medically. Patient is s/p bone biospy, pending pathology results. Case was discussed and reviewed with Attending Physician, Dr. Salazar <Camron Salazar - Last Filed: 08/24/18 14:16> Objective - Vital Signs/Intake and Output Vital Signs (last 24 hours): Temp Pulse Resp BP Pulse Ox 98.6 F 56 L 18 127/66 93 L 08/24/18 08:21 08/24/18 11:31 08/24/18 08:21 08/24/18 11:31 08/24/18 08:21 Intake and Output: 08/24/18 08/24/18 06:59 18:59 Intake Total 240 Output Total 1150 Balance -910 - Medications Medications: Current Medications Acetaminophen (Tylenol 325mg Tab) 650 mg PO Q4H PRN PRN Reason: Pain, moderate (4-7) Albuterol Sulfate (Albuterol 0.083% Inhal Aury (2.5 Mg/3 Ml) Ud) 2.5 mg IH BIDRESP [facility] Last Admin: 08/24/18 07:40 Dose: Not Given Albuterol/Ipratropium (Duoneb 3 Mg/0.5 Mg (3 Ml) Ud) 3 ml IH Q4H PRN PRN Reason: Shortness of Breath Apixaban (Eliquis) 5 mg PO BID [facility]; Protocol Last Admin: 08/24/18 11:31 Dose: 5 mg Aspirin (Ecotrin) 81 mg PO DAILY [facility] Last Admin: 08/24/18 11:31 Dose: 81 mg Atorvastatin Calcium (Lipitor) 40 mg PO HS [facility] Last Admin: 08/22/18 21:54 Dose: 40 mg Carvedilol (Coreg) 12.5 mg PO BID [facility] Last Admin: 08/24/18 11:30 Dose: 12.5 mg Insulin Human Lispro (Humalog Low) 0 units SC [facility]; Protocol Last Admin: 08/23/18 21:42 Dose: Not Given Isosorbide Mononitrate (Imdur) 60 mg PO DAILY [facility] Last Admin: 08/24/18 11:31 Dose: 60 mg Lisinopril (Zestril) 5 mg PO DAILY [facility] Last Admin: 08/24/18 11:31 Dose: 5 mg Mupirocin (Bactroban Ointment) 0 gm TOP BID [facility] Last Admin: 08/23/18 17:57 Dose: Not Given (Budesonide/Formoterol Fumarate [Symbicort 160-4.5 Mcg Inhaler] 2 2 puff IH BID [facility] Last Admin: 08/24/18 11:30 Dose: Not Given Pantoprazole Sodium (Protonix Ec Tab) 40 mg PO DAILY [facility] Last Admin: 08/24/18 11:31 Dose: 40 mg - Labs Labs: 08/21/18 07:00 08/21/18 07:00 Attending/Attestation - Attestation I have personally seen and examined this patient.: Yes I have fully participated in the care of the patient.: Yes I have reviewed all pertinent clinical information, including history, physical exam and plan: Yes Notes (Text): 08/24/18 14:14 Medical record note made by the resident after discussion with my direction and input after the patient was personally seen and examined by me. I have reviewed the chart and agree that the record accurately reflects by personal performance of the history, physical exam, data review, and medical decision-making, in the course for the patient. I have also personally directed the plan of care. Patient is not cooperating with examination today . Charts and overnight events were reviewed. Psychiatry evaluation is noted. 72 year old male with past medical history of CAD s/p CABG s/p stent, PVD s/p stent, diabetes, hypertension, DVT .PVD,on anticoagulation with Apixiban reason unknown and noncompliance with medication was admitted 08/17/18 with chest pain,NSEMI, was managed medically as patient refused cardiac cath. Patient has chronic RLE wound and history of osteomyelitis. ESR/CRP were elevated. Right Foot MRI (08/20): suggests osteomyelitis.As per ID recommendation, patient underwent bone biopsy 08/23/18 .Antibiotics are on hold. We will follow up biopsy report. Prognosis is guarded.
[2018-08-25] MEDS: Albuterol 0.083% Inhal Sol (2.5 mg/3 mL) UD IH SCH ×2 (07:27→19:18)
[2018-08-25] MEDS: Insulin Lispro (humaLOG) LOW Coverage SC SCH ×4 (08:24→22:11)
[2018-08-25] MEDS: BUDESONIDE IH SCH (10:21)
[2018-08-25] MEDS: FORMOTEROL FUMARATE IH SCH (10:21)
[2018-08-25] MEDS: Pantoprazole 40 mg EC Tab PO SCH (10:22)
[2018-08-25] MEDS: Mupirocin 2% Ointment 15 GM TUBE TOP SCH ×2 (11:00→18:15)
--- NOTE | 2018-08-25 12:20 | CP.PCM.PN ---
<Kody Birmingham - Last Filed: 08/25/18 12:17> Subjective - Date & Time of Evaluation Date of Evaluation: 08/25/18 Time of Evaluation: 08:00 - Subjective Subjective: Kody Birmingham PGY1 Medicine Progress Note for Dr. Salazar Patient seen at bedside this morning. Vital signs stable. Denies cp, sob, n/v/d, f/c. A full 12 point ROS was conducted and unremarkable except as stated above. Objective - Vital Signs/Intake and Output Vital Signs (last 24 hours): Temp Pulse Resp BP Pulse Ox 98.5 F 61 18 109/59 L 94 L 08/25/18 08:38 08/25/18 10:23 08/25/18 08:38 08/25/18 10:23 08/25/18 08:38 Intake and Output: 08/25/18 08/25/18 06:59 18:59 Intake Total 0 Output Total 100 Balance -100 - Medications Medications: Current Medications Acetaminophen (Tylenol 325mg Tab) 650 mg PO Q4H PRN PRN Reason: Pain, moderate (4-7) Albuterol Sulfate (Albuterol 0.083% Inhal Aury (2.5 Mg/3 Ml) Ud) 2.5 mg IH BIDRESP [facility] Last Admin: 08/25/18 07:27 Dose: Not Given Albuterol/Ipratropium (Duoneb 3 Mg/0.5 Mg (3 Ml) Ud) 3 ml IH Q4H PRN PRN Reason: Shortness of Breath Apixaban (Eliquis) 5 mg PO BID [facility]; Protocol Last Admin: 08/25/18 10:22 Dose: 5 mg Aspirin (Ecotrin) 81 mg PO DAILY [facility] Last Admin: 08/25/18 10:23 Dose: 81 mg Atorvastatin Calcium (Lipitor) 40 mg PO HS [facility] Last Admin: 08/24/18 22:35 Dose: 40 mg Carvedilol (Coreg) 12.5 mg PO BID [facility] Last Admin: 08/25/18 10:23 Dose: 12.5 mg Insulin Human Lispro (Humalog Low) 0 units SC [facility]; Protocol Last Admin: 08/25/18 11:20 Dose: Not Given Isosorbide Mononitrate (Imdur) 60 mg PO DAILY [facility] Last Admin: 08/25/18 10:22 Dose: 60 mg Lisinopril (Zestril) 5 mg PO DAILY [facility] Last Admin: 08/25/18 10:23 Dose: 5 mg Mupirocin (Bactroban Ointment) 0 gm TOP BID [facility] Last Admin: 08/23/18 17:57 Dose: Not Given (Budesonide/Formoterol Fumarate [Symbicort 160-4.5 Mcg Inhaler] 2 2 puff IH BID [facility] Last Admin: 08/25/18 10:21 Dose: Not Given Pantoprazole Sodium (Protonix Ec Tab) 40 mg PO DAILY [facility] Last Admin: 08/25/18 10:22 Dose: 40 mg - Labs Labs: 08/21/18 07:00 08/21/18 07:00 - Constitutional Appears: Well, Non-toxic, No Acute Distress - Head Exam Head Exam: ATRAUMATIC, NORMOCEPHALIC - Eye Exam Eye Exam: EOMI, Normal appearance, PERRL - Respiratory Exam Respiratory Exam: Clear to Ausculation Bilateral, NORMAL BREATHING PATTERN - Cardiovascular Exam Cardiovascular Exam: REGULAR RHYTHM, RRR, Murmur. absent: Bradycardia, Tachycardia - GI/Abdominal Exam GI & Abdominal Exam: Soft. absent: Guarding, Tenderness - Extremities Exam Additional comments: 1cm x 1cm ulceration of lateral aspect of R great toe. Dressing in place. Non-tender to palpation; no erythema. Dressing CDI BL Feet are warm to touch; Distal pulses intact bilaterally - Neurological Exam Neurological Exam: Alert, Awake, Oriented x3 Assessment and Plan - Assessment and Plan (Free Text) Assessment: 72M PMH CAD s/p CABG + Stenting, PVD s/p stent, DM2, HTN, HLD, GERD, COPD, Valve Replacement, DVT, Osteomyelitis, Medication non-compliance presented w/ complaints of chest pain on 08/17. Patient admitted for NSTEMI. Patient refused cardiac cath and is being managed medically. During hospital course, he was found to have osteomyelitis of the right foot, however this may be chronic in nature. Patient is s/p bone biopsy, pending results. Plan: Osteomyelitis from Right Foot Ulcer in setting of severe PVD - s/p Bone biopsy (08/23); pending pathology results - Right Foot MRI (08/20): suggests osteo - ID on consult. Recs appreciated. Continue off antibiotics at this time. - Leukocytosis on admission - resolved - WCx: +corynebacterium - BCx negative x2 - ESR/CRP elevated from baseline; further suggestive of osteo - Podiatry following, recs appreciated - ID Following, recs appreciated - Hx recent stenting of R external iliac; Right Common femoral on 05/21/18 Chest Pain 2/2 NSTEMI - Patient refused cardiac cath; c/w medical management - elevated trops on admission with new T wave inversions V1-V3 on ekg - Cardio on consult (Dr. Barnhart). Recs appreciated. - Prior ECHO 05/17 - Grade 1 diastolic dysfunction; EF 57.9% - Cardiology following (Dr. Barnhart). Recs appreciated. Aggressive Behavior and Non-compliance to meds - Psych on consult (Dr. Chun), recs appreciated. Psych signed off. Hx CAD/PVD/ HTN / HLD - c/w home med ASA - c/w home med Coreg - c/w home med Lisinopril - c/w Lipitor 40mg Hx DVT - c/w Eliquis home med - As per pharmacy and prior records, patient is on chronic eliquis however reason is unknown, may be 2/2 DVT versus Paroxysmal Afib. Patient is a poor historian and non-compliant with meds. Hx COPD - c/w symbicort, albuterol - c/w Duonebs PRN Hx DM2 - Repeat A1C 5.6 - ISS - Accuchecks PPX: SCD Protonix Diet: HHD Dispo: Continue to manage patient on remote tele at this time. NSTEMI being managed medically. Patient is s/p bone biospy, pending pathology results. Will obtain labs tomorrow. Case was discussed and reviewed with Attending Physician, Dr. Salazar <Camron Salazar - Last Filed: 08/25/18 12:28> Objective - Vital Signs/Intake and Output Vital Signs (last 24 hours): Temp Pulse Resp BP Pulse Ox 98.5 F 61 18 109/59 L 94 L 08/25/18 08:38 08/25/18 10:23 08/25/18 08:38 08/25/18 10:23 08/25/18 08:38 Intake and Output: 08/25/18 08/25/18 06:59 18:59 Intake Total 0 Output Total 100 Balance -100 - Medications Medications: Current Medications Acetaminophen (Tylenol 325mg Tab) 650 mg PO Q4H PRN PRN Reason: Pain, moderate (4-7) Albuterol Sulfate (Albuterol 0.083% Inhal Aury (2.5 Mg/3 Ml) Ud) 2.5 mg IH BIDRESP [facility] Last Admin: 08/25/18 07:27 Dose: Not Given Albuterol/Ipratropium (Duoneb 3 Mg/0.5 Mg (3 Ml) Ud) 3 ml IH Q4H PRN PRN Reason: Shortness of Breath Apixaban (Eliquis) 5 mg PO BID [facility]; Protocol Last Admin: 08/25/18 10:22 Dose: 5 mg Aspirin (Ecotrin) 81 mg PO DAILY [facility] Last Admin: 08/25/18 10:23 Dose: 81 mg Atorvastatin Calcium (Lipitor) 40 mg PO HS [facility] Last Admin: 08/24/18 22:35 Dose: 40 mg Carvedilol (Coreg) 12.5 mg PO BID [facility] Last Admin: 08/25/18 10:23 Dose: 12.5 mg Insulin Human Lispro (Humalog Low) 0 units SC [facility]; Protocol Last Admin: 08/25/18 11:20 Dose: Not Given Isosorbide Mononitrate (Imdur) 60 mg PO DAILY [facility] Last Admin: 08/25/18 10:22 Dose: 60 mg Lisinopril (Zestril) 5 mg PO DAILY [facility] Last Admin: 08/25/18 10:23 Dose: 5 mg Mupirocin (Bactroban Ointment) 0 gm TOP BID [facility] Last Admin: 08/23/18 17:57 Dose: Not Given (Budesonide/Formoterol Fumarate [Symbicort 160-4.5 Mcg Inhaler] 2 2 puff IH BID [facility] Last Admin: 08/25/18 10:21 Dose: Not Given Pantoprazole Sodium (Protonix Ec Tab) 40 mg PO DAILY [facility] Last Admin: 08/25/18 10:22 Dose: 40 mg - Labs Labs: 08/21/18 07:00 08/21/18 07:00 Attending/Attestation - Attestation I have personally seen and examined this patient.: Yes I have fully participated in the care of the patient.: Yes I have reviewed all pertinent clinical information, including history, physical exam and plan: Yes Notes (Text): 08/25/18 12:26 Medical record note made by the resident after discussion with my direction and input after the patient was personally seen and examined by me. I have reviewed the chart and agree that the record accurately reflects by personal performance of the history, physical exam, data review, and medical decision-making, in the course for the patient. I have also personally directed the plan of care. Patient is refusing examination today and is not cooperative. There is no overnight event. Charts and overnight events were reviewed. 72 year old male with past medical history of CAD s/p CABG s/p stent, PVD s/p stent, diabetes, hypertension, DVT .PVD,on anticoagulation with Apixiban reason unknown and noncompliance with medication was admitted 08/17/18 with chest pain,NSEMI, was managed medically as patient refused cardiac cath. Patient has chronic RLE wound and history of osteomyelitis. ESR/CRP were elevated. Right Foot MRI (08/20): suggests osteomyelitis.As per ID recommendation, patient unde rwent bone biopsy 08/23/18 .Antibiotics are on hold. We will follow up biopsy report. Case was discussed with Podiatry. Prognosis is guarded.
--- NOTE | 2018-08-25 21:21 | PN ---
DATE: 08/25/2018 SUBJECTIVE: The patient is in bed, in no acute distress, nontoxic. PHYSICAL EXAMINATION: VITAL SIGNS: Temperature is 98, blood pressure is 109/50, respiratory rate of 18. HEENT: Unremarkable. NECK: Supple. LUNGS: Decreased breath sounds. HEART: Normal S1, S2. ABDOMEN: Soft, nontender. LABORATORY EXAMINATION: Reveals a white count of 9.4, hemoglobin of 10, platelets of 237. Creatinine is 1.2. Urinalysis is noted. Right foot cultures corynebacterium, another culture is pending from the 08/23. Blood cultures are negative. Currently off of antibiotics. Dr. Cavazos's note is reviewed from yesterday. The patient had a bone biopsy, pathology is pending. ASSESSMENT AND PLAN: This is a 72-year-old male admitted with systemic inflammatory response, leukocytosis, chronic osteomyelitis. He had a bone biopsy, awaiting for culture and pathology of the bone biopsy. Currently off of antibiotics. We will follow with you. Toby Martin MD
[2018-08-26 06:37] LABS: HEMOGLOBIN 10.6 g/dL (14.0-18.0); MEAN CELL VOLUME 85.4 fl (80.0-105.0); MEAN CORPUSCULAR HEMOGLOBIN 26.2 pg (25.0-35.0); MEAN CORPUSCULAR HGB CONC 30.7 g/dl (31.0-37.0); MEAN PLATELET VOLUME 8.8 fl (7.0-11.0); RBC 4.04 10^6/uL (3.5-6.1); RED CELL DISTRIBUTION WIDTH 14.6 % (11.5-14.5); WHITE BLOOD COUNT 6.8 10^3/uL (4.5-11.0)
[2018-08-26] MEDS: Albuterol 0.083% Inhal Sol (2.5 mg/3 mL) UD IH SCH ×2 (07:19→19:10)
[2018-08-26 07:21] LABS: ALB/GLOB RATIO 1.1 (1.1-1.8); ALBUMIN 3.2 g/dL (3.0-4.8); ALT/SGPT 10 U/L (7-56); AST/SGOT 19 U/L (17-59); BLOOD UREA NITROGEN 34 mg/dL (7-21); CALCIUM 8.5 mg/dL (8.4-10.5); GFR NON-AFRICAN AMERICAN > 60
[2018-08-26 08:12] VITALS: RESP 20
[2018-08-26] MEDS: Insulin Lispro (humaLOG) LOW Coverage SC SCH ×4 (08:41→21:52)
--- NOTE | 2018-08-26 09:15 | PN ---
DATE: 08/24/2018 SUBJECTIVE: The patient is in bed, in no acute distress, nontoxic. PHYSICAL EXAMINATION: VITAL SIGNS: Temperature is 98, blood pressure is 130/70, respiratory rate of 18. HEENT: Unremarkable. NECK: Supple. LUNGS: Decreased breath sounds. HEART: Normal S1 and S2. ABDOMEN: Soft. LABORATORY DATA: Reveals the patient's white count is 9.4, hemoglobin 10, BUN of 26, and creatinine of 1.4. Microbiology reveals the foot culture is pending from the OR. ASSESSMENT AND PLAN: A 72-year-old male admitted with systemic inflammatory response syndrome, leukocytosis, chronic osteomyelitis, status post biopsy, awaiting for pathology and cultures to determine duration and choice of antibiotics. Toby Martin MD
[2018-08-26] MEDS: FORMOTEROL FUMARATE IH SCH (09:17)
[2018-08-26] MEDS: BUDESONIDE IH SCH (09:17)
--- NOTE | 2018-08-26 09:44 | CP.PCM.PCO ---
Physician Communication Note - Physician Communication Note Physician Communication Note: spoke to pathology dept-results pending, may be avail by 1:30pm will follow Additional Comments - Additional Comments Additional Comments: pt currently refusing rehab, will follow path and discuss plan of care with medical team.
[2018-08-26] MEDS: Multivitamin With Minerals Tab PO SCH (09:50)
[2018-08-26] MEDS: Pantoprazole 40 mg EC Tab PO SCH (09:51)
--- NOTE | 2018-08-26 09:59 | CP.PCM.PN ---
Subjective - Date & Time of Evaluation Date of Evaluation: 08/26/18 Time of Evaluation: 09:55 - Subjective Subjective: Podiatry progress note - Drs. Zuniga/Lorena 72M seen and evaluated at bedside this AM with Dr. Carrillo. Patient is POD#3 bone biopsy of the right foot. Resting comfortably. Denies pain to right foot wound. Denies n/v/f/c/sob and reports no acute events overnight. Patient reporting he will no longer agree to go to rehab for abx even if his pathology shows bone infection. Objective - Vital Signs/Intake and Output Vital Signs (last 24 hours): Temp Pulse Resp BP Pulse Ox 97.6 F 50 L 20 145/60 94 L 08/26/18 08:12 08/26/18 08:12 08/26/18 08:12 08/26/18 08:12 08/26/18 08:12 Intake and Output: 08/26/18 08/26/18 06:59 18:59 Intake Total 1080 Output Total 2200 Balance -1120 - Medications Medications: Current Medications Acetaminophen (Tylenol 325mg Tab) 650 mg PO Q4H PRN PRN Reason: Pain, moderate (4-7) Albuterol Sulfate (Albuterol 0.083% Inhal Aury (2.5 Mg/3 Ml) Ud) 2.5 mg IH BIDRESP [facility] Last Admin: 08/26/18 07:19 Dose: Not Given Albuterol/Ipratropium (Duoneb 3 Mg/0.5 Mg (3 Ml) Ud) 3 ml IH Q4H PRN PRN Reason: Shortness of Breath Apixaban (Eliquis) 5 mg PO BID [facility]; Protocol Last Admin: 08/26/18 09:51 Dose: 5 mg Aspirin (Ecotrin) 81 mg PO DAILY [facility] Last Admin: 08/26/18 09:50 Dose: 81 mg Atorvastatin Calcium (Lipitor) 40 mg PO HS [facility] Last Admin: 08/25/18 22:08 Dose: 40 mg Carvedilol (Coreg) 12.5 mg PO BID [facility] Last Admin: 08/26/18 09:51 Dose: 12.5 mg Insulin Human Lispro (Humalog Low) 0 units SC ACHS [facility]; Protocol Last Admin: 08/26/18 08:41 Dose: Not Given Isosorbide Mononitrate (Imdur) 60 mg PO DAILY [facility] Last Admin: 08/26/18 09:50 Dose: 60 mg Lisinopril (Zestril) 5 mg PO DAILY [facility] Last Admin: 08/26/18 09:51 Dose: 5 mg Multivitamins/Minerals (Therapeutic-M Tab) 1 tab PO 0800 [facility] Last Admin: 08/26/18 09:50 Dose: 1 tab Mupirocin (Bactroban Ointment) 0 gm TOP BID [facility] Last Admin: 08/25/18 18:15 Dose: Not Given (Budesonide/Formoterol Fumarate [Symbicort 160-4.5 Mcg Inhaler] 2 2 puff IH BID [facility] Last Admin: 08/26/18 09:17 Dose: Not Given Pantoprazole Sodium (Protonix Ec Tab) 40 mg PO DAILY [facility] Last Admin: 08/26/18 09:51 Dose: 40 mg - Labs Labs: 08/26/18 06:00 08/26/18 06:00 - Constitutional Appears: Non-toxic - Head Exam Head Exam: ATRAUMATIC - Extremities Exam Additional comments: RLE focused exam VASC: DP and PT pulses dopplerable; CFT <3 seconds to digits x5 b/l; pedal hair growth absent NEURO: Light touch and protective sensation diminished bilaterally. DERM: biopsy noted adjacent to the wound site, sutures intact no wound dehiscence no active drainage. Ulceration noted to medial aspect of 1st MPJ measuring approximately 1 x 1 x 0.3cm -wound noted to have a granular base and hyperkeratotic rim; no purulence expressed; no fluctuance ORTHO: No pain on palpation noted to wounds, MMT 5/5 - Neurological Exam Neurological Exam: Alert, Awake, Oriented x3 - Psychiatric Exam Psychiatric exam: Normal Affect Assessment and Plan - Assessment and Plan (Free Text) Assessment: 72M with right foot chronic ulceration and POD#3 right foot bone biopsy Plan: Patient seen and evaluated with Dr. Lorena VALDES C/w IV abx RLE cleansed with saline, wound dressed with xeroform and dry sterile dressing R foot x-ray - healing chronic fracture of fifth proximal phalanx, no other pathology R foot MRI taken - marrow edema at head of 1st met suspicious for OM Recommend 4-6 weeks IV abx, discussed with ID intra-op wound cultures pending Patient is refusing to go to [facility] upon d/c even after discussing plan with him prior to bone biopsy last week and him stating he is willing to go to [facility] Wound culture - corynebacterium species Will continue to follow
--- NOTE | 2018-08-26 11:55 | CP.PCM.PN ---
<Yasemin Fuentes - Last Filed: 08/26/18 11:52> Subjective - Date & Time of Evaluation Date of Evaluation: 08/26/18 Time of Evaluation: 11:52 - Subjective Subjective: Yasemin Fuentes, PGY-1, Internal Medicine Progress Note for Dr. Martinez Patient seen and evaluated at bedside. Patient had no acute overnight events. Patient reports right throbbing foot pain but denies any other symptoms including fever, chills, chest pain, heart palpitations, shortness of breath, nausea, vomiting, constipation, diarrhea, dysuria, hematuria. 12-point ROS was unremarkable except for what was mentioned above. Objective - Vital Signs/Intake and Output Vital Signs (last 24 hours): Temp Pulse Resp BP Pulse Ox 97.6 F 50 L 20 145/60 94 L 08/26/18 08:12 08/26/18 08:12 08/26/18 08:12 08/26/18 08:12 08/26/18 08:12 Intake and Output: 08/26/18 08/26/18 06:59 18:59 Intake Total 1080 Output Total 2200 Balance -1120 - Medications Medications: Current Medications Acetaminophen (Tylenol 325mg Tab) 650 mg PO Q4H PRN PRN Reason: Pain, moderate (4-7) Albuterol Sulfate (Albuterol 0.083% Inhal Aury (2.5 Mg/3 Ml) Ud) 2.5 mg IH BIDRESP [facility] Last Admin: 08/26/18 07:19 Dose: Not Given Albuterol/Ipratropium (Duoneb 3 Mg/0.5 Mg (3 Ml) Ud) 3 ml IH Q4H PRN PRN Reason: Shortness of Breath Apixaban (Eliquis) 5 mg PO BID [facility]; Protocol Last Admin: 08/26/18 09:51 Dose: 5 mg Aspirin (Ecotrin) 81 mg PO DAILY [facility] Last Admin: 08/26/18 09:50 Dose: 81 mg Atorvastatin Calcium (Lipitor) 40 mg PO HS [facility] Last Admin: 08/25/18 22:08 Dose: 40 mg Carvedilol (Coreg) 12.5 mg PO BID [facility] Last Admin: 08/26/18 09:51 Dose: 12.5 mg Insulin Human Lispro (Humalog Low) 0 units SC [facility]; Protocol Last Admin: 08/26/18 08:41 Dose: Not Given Isosorbide Mononitrate (Imdur) 60 mg PO DAILY [facility] Last Admin: 08/26/18 09:50 Dose: 60 mg Lisinopril (Zestril) 5 mg PO DAILY [facility] Last Admin: 08/26/18 09:51 Dose: 5 mg Multivitamins/Minerals (Therapeutic-M Tab) 1 tab PO 0800 [facility] Last Admin: 08/26/18 09:50 Dose: 1 tab Mupirocin (Bactroban Ointment) 0 gm TOP BID [facility] Last Admin: 08/25/18 18:15 Dose: Not Given (Budesonide/Formoterol Fumarate [Symbicort 160-4.5 Mcg Inhaler] 2 2 puff IH BID [facility] Last Admin: 08/26/18 09:17 Dose: Not Given Pantoprazole Sodium (Protonix Ec Tab) 40 mg PO DAILY [facility] Last Admin: 08/26/18 09:51 Dose: 40 mg - Labs Labs: 08/26/18 06:00 08/26/18 06:00 - Constitutional Appears: Well, Non-toxic, No Acute Distress - Head Exam Head Exam: ATRAUMATIC, NORMAL INSPECTION, NORMOCEPHALIC - Eye Exam Eye Exam: EOMI Pupil Exam: NORMAL ACCOMODATION, PERRL - ENT Exam ENT Exam: Mucous Membranes Moist, Normal Exam - Respiratory Exam Respiratory Exam: Clear to Ausculation Bilateral, NORMAL BREATHING PATTERN. absent: Rales, Rhonchi, Wheezes - Cardiovascular Exam Cardiovascular Exam: RRR, +S1, +S2. absent: Clicks, Gallop, Rubs, Murmur - Extremities Exam Extremities Exam: Full ROM, Normal Capillary Refill Additional comments: no pain on palpation of wound - Neurological Exam Neurological Exam: Alert, Awake, CN II-XII Intact, Oriented x3 Additional comments: Light touch and protective sensation diminished bilaterally - Psychiatric Exam Psychiatric exam: Normal Affect, Normal Mood - Skin Additional comments: biopsy noted adjacent to the wound site of right foot, sutures intact no wound dehiscence no active drainage. Ulceration noted to medial aspect of 1st MPJ measuring approximately 1 x 1 x 0.3cm -wound noted to have a granular base and hyperkeratotic rim; no purulence expressed; no fluctuance Assessment and Plan - Assessment and Plan (Free Text) Assessment: 72 male with past medical history of CAD s/p CABG + Stenting, PVD s/p stent, DM2, HTN, HLD, GERD, COPD, Valve Replacement, DVT, Osteomyelitis, Medication non-compliance presented w/ complaints of chest pain on 08/17. Patient was admitted for NSTEMI. Patient refused cardiac cath and was being managed medically. During hospital course, he was found to have osteomyelitis of the right foot, however this may be chronic in nature. Patient is status post bone biopsy. Plan: Osteomyelitis from Right Foot Ulcer in setting of severe PVD - Status post Bone biopsy (08/23): pending pathology results - Right Foot MRI (08/20): marrow edema in the head of the 1st metatarsal suspicious for osteomyelitis - No leukocytosis, afebrile - ESR/CRP elevated from baseline; further suggestive of osteo - WCx: +corynebacterium - BCx negative x2 for 5 days - Currently off of antibiotics at this time. Will follow up bone biopsy results prior to determining whether patient needs antibiotics. - Podiatry following, recs appreciated. - ID Following, recs appreciated Chest Pain 2/2 NSTEMI - EKG 08/17: ectopic atrial bradycardia with PACs. LVH, prolonged QT with HR: 59 - Prior ECHO 05/17 - Grade 1 diastolic dysfunction; EF 57.9% - Troponinx4: 0.03, 0.08, 0.14, <0.01 - Patient refused cardiac cath - Continue with aspirin, lipitor, imdur, coreg, and zestril. - Cardiology following (Dr. Barnhart). Recs appreciated. Aggressive Behavior and Non-compliance to meds -As per Dr. Eason, patient is not aggressive and does not need mood stabilizer medication. -Psychiatry has signed off at this time. Hx CAD/PVD/ HTN / HLD - Hx recent stenting of R external iliac; Right Common femoral on 05/21/18 - Continue home med aspirin, lipitor, coreg, lisinopril Hx DVT - Continue Eliquis 5 mg BID - As per pharmacy and prior records, patient is on chronic eliquis however reason is unknown, may be 2/2 DVT versus Paroxysmal Afib. Patient is a poor historian and non-compliant with meds. Hx COPD - Continue symbicort, albuterol - Continue Duonebs PRN Hx DM2 - Repeat A1C 5.6 - Continue low SSI - Accuchecks ACHS PPX: Eliquis 5 mg BID Protonix 40 mg daily Disposition: Patient is refusing [facility]UEL at this time Case was discussed with Dr. Martinez <Liza Martinez - Last Filed: 08/26/18 12:25> Objective - Vital Signs/Intake and Output Vital Signs (last 24 hours): Temp Pulse Resp BP Pulse Ox 97.6 F 50 L 20 145/60 94 L 08/26/18 08:12 08/26/18 08:12 08/26/18 08:12 08/26/18 08:12 08/26/18 08:12 Intake and Output: 08/26/18 08/26/18 06:59 18:59 Intake Total 1080 Output Total 2200 Balance -1120 - Medications Medications: Current Medications Acetaminophen (Tylenol 325mg Tab) 650 mg PO Q4H PRN PRN Reason: Pain, moderate (4-7) Albuterol Sulfate (Albuterol 0.083% Inhal Aury (2.5 Mg/3 Ml) Ud) 2.5 mg IH BIDRESP [facility] Last Admin: 08/26/18 07:19 Dose: Not Given Albuterol/Ipratropium (Duoneb 3 Mg/0.5 Mg (3 Ml) Ud) 3 ml IH Q4H PRN PRN Reason: Shortness of Breath Apixaban (Eliquis) 5 mg PO BID [facility]; Protocol Last Admin: 08/26/18 09:51 Dose: 5 mg Aspirin (Ecotrin) 81 mg PO DAILY [facility] Last Admin: 08/26/18 09:50 Dose: 81 mg Atorvastatin Calcium (Lipitor) 40 mg PO [facility] Last Admin: 08/25/18 22:08 Dose: 40 mg Carvedilol (Coreg) 12.5 mg PO BID [facility] Last Admin: 08/26/18 09:51 Dose: 12.5 mg Insulin Human Lispro (Humalog Low) 0 units SC [facility]; Protocol Last Admin: 08/26/18 08:41 Dose: Not Given Isosorbide Mononitrate (Imdur) 60 mg PO DAILY [facility] Last Admin: 08/26/18 09:50 Dose: 60 mg Lisinopril (Zestril) 5 mg PO DAILY [facility] Last Admin: 08/26/18 09:51 Dose: 5 mg Multivitamins/Minerals (Therapeutic-M Tab) 1 tab PO 0800 [facility] Last Admin: 08/26/18 09:50 Dose: 1 tab Mupirocin (Bactroban Ointment) 0 gm TOP BID [facility] Last Admin: 08/25/18 18:15 Dose: Not Given (Budesonide/Formoterol Fumarate [Symbicort 160-4.5 Mcg Inhaler] 2 2 puff IH BID [facility] Last Admin: 08/26/18 09:17 Dose: Not Given Pantoprazole Sodium (Protonix Ec Tab) 40 mg PO DAILY [facility] Last Admin: 08/26/18 09:51 Dose: 40 mg - Labs Labs: 08/26/18 06:00 08/26/18 06:00 Attending/Attestation - Attestation I have personally seen and examined this patient.: Yes I have fully participated in the care of the patient.: Yes I have reviewed all pertinent clinical information, including history, physical exam and plan: Yes Notes (Text): 08/26/18 12:20 72 year old male with past medical history of CAD s/p CABG s/p stent, PVD s/p stent, DVT, hypertension, diabetes and chronic RLE wound who presented with chest pain. Found to have NSTEMI. Patient refused cardiac cath. Continue with medical management as per cardiology. He is on aspirin, eliquis, coreg, statin and lisinopril. ID/podiatry are following him for his chronic RLE wound / OM. ESR/CRP were elevated. MRI was suggestive of osteomyelitis. Monitor off antibiotics for now as per ID while awaiting bone biopsy results. Overall prognosis is guarded given history of noncompliance. Liza Martinez MD Hospitalist.
[2018-08-26] MEDS: Mupirocin 2% Ointment 15 GM TUBE TOP SCH (13:39)
--- NOTE | 2018-08-27 01:28 | PN ---
DATE: 08/26/2018 SUBJECTIVE: The patient is in bed, in no acute distress, was seen earlier today. PHYSICAL EXAMINATION: VITAL SIGNS: Temperature is 98, blood pressure is 110/50, and respiratory rate of 18. HEENT: Unremarkable. NECK: Supple. ABDOMEN: Soft, nontender. LABORATORY DATA: Examination reveals the white count of 6.8 and sed rate of 84. Chemistries reveal a BUN of 34 and creatinine of 1.1 with a C-reactive protein of 51.6. Urinalysis is noted. Microbiology reveals the culture from 08/23/2018 of the bone is a light growth of corynebacterium and on the gram stain, no organism is seen. There is no polys or wbc's observed on a gram stain. The patient's pathology from 08/23/2018 of the bone biopsy, no acute osteomyelitis identified, benign bone tissue, and intramedullary hemorrhage. ASSESSMENT AND PLAN: A 72-year-old, who was admitted with systemic inflammatory response syndrome with leukocytosis, possible osteomyelitis, had a bone biopsy, off antibiotics. The bone biopsy shows no osteomyelitis and cultures have corynebacterium, light growth with negative gram stain, and no evidence of infection. From this point of view, we will hold off any antibiotics. No antibiotics at this time. Currently off antibiotics. Toby Martin MD
[2018-08-27] MEDS: Albuterol 0.083% Inhal Sol (2.5 mg/3 mL) UD IH SCH (07:41)
[2018-08-27 08:17] VITALS: BP 108/70; PULSE 58; TEMP 98.1; O2SAT 97
[2018-08-27] MEDS: Pantoprazole 40 mg EC Tab PO SCH (09:18)
[2018-08-27] MEDS: Insulin Lispro (humaLOG) LOW Coverage SC SCH ×2 (09:18→12:10)
[2018-08-27] MEDS: Multivitamin With Minerals Tab PO SCH (09:18)
[2018-08-27] MEDS: Mupirocin 2% Ointment 15 GM TUBE TOP SCH (09:19)
[2018-08-27] MEDS: BUDESONIDE IH SCH (09:19)
[2018-08-27] MEDS: FORMOTEROL FUMARATE IH SCH (09:19)
[2018-08-27 09:32] LABS: BASO # 0.03 K/mm3 (0.0-2.0); BASO % 0.4 % (0.0-3.0); EOS # 0.3 (0.0-0.7); EOS % 3.3 % (1.5-5.0); HEMOGLOBIN 10.7 g/dL (14.0-18.0); LYMPH # 1.3 (1.2-3.4); LYMPH % 15.4 % (22.0-35.0); MEAN CELL VOLUME 85.4 fl (80.0-105.0); MEAN CORPUSCULAR HEMOGLOBIN 26.6 pg (25.0-35.0); MEAN CORPUSCULAR HGB CONC 31.1 g/dl (31.0-37.0); MEAN PLATELET VOLUME 8.9 fl (7.0-11.0); MONO # 0.4 (0.1-0.6); MONO % 4.1 % (1.0-6.0); RBC 4.03 10^6/uL (3.5-6.1); RED CELL DISTRIBUTION WIDTH 14.6 % (11.5-14.5); WHITE BLOOD COUNT 8.5 10^3/uL (4.5-11.0)
--- NOTE | 2018-08-27 09:48 | CP.PCM.PCO ---
Physician Communication Note - Physician Communication Note Physician Communication Note: path reports with no osteo, ID recs noted-will discuss plans with pmd.
--- NOTE | 2018-08-27 10:44 | CP.PCM.PN ---
Subjective - Date & Time of Evaluation Date of Evaluation: 08/27/18 Time of Evaluation: 10:41 - Subjective Subjective: Podiatry progress note - Drs. Zuniga/Lorena 72M seen and evaluated at bedside this AM with Dr. Carrillo. Patient is POD#4 bone biopsy of the right foot. Resting comfortably. Denies pain to right foot wound. Denies n/v/f/c/sob and reports no acute events overnight. Objective - Vital Signs/Intake and Output Vital Signs (last 24 hours): Temp Pulse Resp BP Pulse Ox 98.1 F 58 L 20 108/70 97 08/27/18 08:16 08/27/18 08:16 08/27/18 08:16 08/27/18 08:16 08/27/18 08:16 Intake and Output: 08/27/18 08/27/18 06:59 18:59 Intake Total 1300 Output Total 1025 Balance 275 - Medications Medications: Current Medications Acetaminophen (Tylenol 325mg Tab) 650 mg PO Q4H PRN PRN Reason: Pain, moderate (4-7) Albuterol Sulfate (Albuterol 0.083% Inhal Aury (2.5 Mg/3 Ml) Ud) 2.5 mg IH BIDRESP [facility] Last Admin: 08/27/18 07:41 Dose: Not Given Albuterol/Ipratropium (Duoneb 3 Mg/0.5 Mg (3 Ml) Ud) 3 ml IH Q4H PRN PRN Reason: Shortness of Breath Apixaban (Eliquis) 5 mg PO BID [facility]; Protocol Last Admin: 08/27/18 09:18 Dose: 5 mg Aspirin (Ecotrin) 81 mg PO DAILY [facility] Last Admin: 08/27/18 09:18 Dose: 81 mg Atorvastatin Calcium (Lipitor) 40 mg PO HS [facility] Last Admin: 08/26/18 21:55 Dose: 40 mg Carvedilol (Coreg) 12.5 mg PO BID [facility] Last Admin: 08/27/18 09:17 Dose: 12.5 mg Insulin Human Lispro (Humalog Low) 0 units SC [facility]; Protocol Last Admin: 08/27/18 09:18 Dose: Not Given Isosorbide Mononitrate (Imdur) 60 mg PO DAILY [facility] Last Admin: 08/27/18 09:18 Dose: 60 mg Lisinopril (Zestril) 5 mg PO DAILY [facility] Last Admin: 08/27/18 09:18 Dose: 5 mg Multivitamins/Minerals (Therapeutic-M Tab) 1 tab PO 0800 [facility] Last Admin: 08/27/18 09:18 Dose: 1 tab Mupirocin (Bactroban Ointment) 0 gm TOP BID [facility] Last Admin: 08/27/18 09:19 Dose: Not Given (Budesonide/Formoterol Fumarate [Symbicort 160-4.5 Mcg Inhaler] 2 2 puff IH BID [facility] Last Admin: 08/27/18 09:19 Dose: Not Given Pantoprazole Sodium (Protonix Ec Tab) 40 mg PO DAILY [facility] Last Admin: 08/27/18 09:18 Dose: 40 mg - Labs Labs: 08/27/18 09:00 08/26/18 06:00 - Constitutional Appears: Non-toxic - Head Exam Head Exam: ATRAUMATIC - Extremities Exam Additional comments: RLE focused exam VASC: DP and PT pulses dopplerable; CFT <3 seconds to digits x5 b/l; pedal hair growth absent NEURO: Light touch and protective sensation diminished bilaterally. DERM: biopsy noted adjacent to the wound site, sutures intact no wound dehiscence no active drainage. Ulceration noted to medial aspect of 1st MPJ measuring approximately 1 x 1 x 0.3cm -wound noted to have a granular base; no purulence expressed; no fluctuance ORTHO: No pain on palpation noted to wounds, MMT 5/5 - Neurological Exam Neurological Exam: Alert, Awake, Oriented x3 - Psychiatric Exam Psychiatric exam: Normal Affect Assessment and Plan - Assessment and Plan (Free Text) Assessment: 72M with right foot chronic ulceration and POD#4 right foot bone biopsy Plan: Patient seen and evaluated with Dr. Carrillo VSS C/w IV abx RLE cleansed with saline, wound dressed with xeroform and dry sterile dressing R foot x-ray - healing chronic fracture of fifth proximal phalanx, no other pathology R foot MRI taken - marrow edema at head of 1st met suspicious for OM Intra op bone biopsy reveals no OM - can be d/c on PO abx F/u in clinic with Dr. Carrillo upon d/c - phone number, address, and instructions given to patient Instructed to leave dressing clean and intact until f/u appt Surgical shoe ordered Wound culture - corynebacterium species Will continue to follow
--- NOTE | 2018-08-27 12:41 | CP.PCM.DIS ---
<Bienvenido Proctor - Last Filed: 08/28/18 08:18> Provider - Provider Date of Admission: 08/17/18 13:15 Attending physician: Liza Martinez MD Primary care physician: NO PRIMARY CARE PROVIDER Consults: 08/16/18 19:44 Physician Consult Routine Comment: Consulting Provider: Asad Barnhart Consulting Physician: Asad Barnhart Reason for Consult: chest pain 08/17/18 11:12 Infectious Disease Consult Routine Comment: Consulting Provider: Toby Martin Consulting Physician: Toby Martin Reason for Consult: Chronic R Foot Ulcer; Leukocytosis Podiatry Consult Routine Comment: Consulting Provider: Travis Zuniga Consulting Physician: Travis Zuniga Reason for Consult: Chronic R Foot Ulcer; 08/21/18 13:47 Physician Consult Routine Comment: Consulting Provider: Lay Eason Consulting Physician: Lay Eason Reason for Consult: Aggressive behavior, non-compliant Time Spent in preparation of Discharge (in minutes): 40 Diagnosis - Discharge Diagnosis (1) NSTEMI (non-ST elevated myocardial infarction) Status: Resolved (2) Foot ulcer Status: Chronic (3) HTN (hypertension) Status: Chronic Hospital Course - Lab Results Lab Results: Micro Results 08/23/18 11:02 Foot - Right Gram Stain - Final 08/23/18 11:02 Foot - Right Wound Culture - Final Corynebacterium Species 08/17/18 08:30 Blood Blood Culture - Final NO GROWTH AFTER 5 DAYS 08/17/18 08:30 Blood Gram Stain - Final TEST NOT PERFORMED 08/17/18 08:00 Blood Blood Culture - Final NO GROWTH AFTER 5 DAYS 08/17/18 08:00 Blood Gram Stain - Final TEST NOT PERFORMED 08/17/18 14:00 Foot - Right Gram Stain - Final 08/17/18 14:00 Foot - Right Wound Culture - Final Corynebacterium Species Most Recent Lab Values WBC 8.5 10^3/uL (4.5-11.0) D 08/27/18 09:00 RBC 4.03 10^6/uL (3.5-6.1) 08/27/18 09:00 Hgb 10.7 g/dL (14.0-18.0) L 08/27/18 09:00 Hct 34.4 % (42.0-52.0) L 08/27/18 09:00 MCV 85.4 fl (80.0-105.0) 08/27/18 09:00 MCH 26.6 pg (25.0-35.0) 08/27/18 09:00 MCHC 31.1 g/dl (31.0-37.0) 08/27/18 09:00 RDW 14.6 % (11.5-14.5) H 08/27/18 09:00 Plt Count 241 10^3/uL (120.0-450.0) 08/27/18 09:00 MPV 8.9 fl (7.0-11.0) 08/27/18 09:00 Neut % (Auto) 76.8 % (50.0-68.0) H 08/27/18 09:00 Lymph % (Auto) 15.4 % (22.0-35.0) L 08/27/18 09:00 [place]ois % (Auto) 4.1 % (1.0-6.0) 08/27/18 09:00 Eos % (Auto) 3.3 % (1.5-5.0) 08/27/18 09:00 Baso % (Auto) 0.4 % (0.0-3.0) 08/27/18 09:00 Lymph # (Auto) 1.3 (1.2-3.4) 08/27/18 09:00 [place] # (Auto) 0.4 (0.1-0.6) 08/27/18 09:00 Eos # (Auto) 0.3 (0.0-0.7) 08/27/18 09:00 Baso # (Auto) 0.03 K/mm3 (0.0-2.0) 08/27/18 09:00 Absolute Neuts (auto) 6.53 (1.4-6.5) H 08/27/18 09:00 Neutrophils % (Manual) 90 % (50.0-70.0) H 08/16/18 16:40 Lymphocytes % (Manual) 7 % (22.0-35.0) L 08/16/18 16:40 Monocytes % (Manual) 3 % (1.0-6.0) 08/16/18 16:40 Platelet Evaluation Normal (NORMAL) 08/16/18 16:40 ESR 84 mm/hr (0.00-15.0) H 08/17/18 12:00 Sodium 139 mmol/L (132-148) 08/26/18 06:00 Potassium 4.3 mmol/L (3.6-5.0) 08/26/18 06:00 Chloride 103 mmol/L (98-107) 08/26/18 06:00 Carbon Dioxide 31 mmol/L (21-33) 08/26/18 06:00 Anion Gap 9 (10-20) L 08/26/18 06:00 BUN 34 mg/dL (7-21) H 08/26/18 06:00 Creatinine 1.1 mg/dl (0.8-1.5) 08/26/18 06:00 Est GFR ( Amer) > 60 08/26/18 06:00 Est GFR (Non-Af Amer) > 60 08/26/18 06:00 POC Glucose (mg/dL) 129 mg/dL (65-110) H 08/27/18 11:20 Random Glucose 93 mg/dL (70-110) 08/26/18 06:00 Hemoglobin A1c 5.6 % (4.2-6.5) 08/16/18 16:40 Calcium 8.5 mg/dL (8.4-10.5) 08/26/18 06:00 Magnesium 2.1 mg/dL (1.7-2.2) 08/16/18 16:40 Total Bilirubin 0.2 mg/dL (0.2-1.3) 08/26/18 06:00 AST 19 U/L (17-59) 08/26/18 06:00 ALT 10 U/L (7-56) 08/26/18 06:00 Alkaline Phosphatase 65 U/L (38-126) 08/26/18 06:00 Lactate Dehydrogenase 477 U/L (333-699) 08/16/18 16:40 Total Creatine Kinase 74 U/L (35-230) 08/16/18 16:40 Troponin I 0.03 ng/mL D 08/18/18 09:45 C-Reactive Protein 51.60 mg/L (0.0-9.9) H 08/17/18 12:00 Total Protein 6.2 g/dL (5.8-8.3) 08/26/18 06:00 Albumin 3.2 g/dL (3.0-4.8) 08/26/18 06:00 Globulin 2.9 gm/dL 08/26/18 06:00 Albumin/Globulin Ratio 1.1 (1.1-1.8) 08/26/18 06:00 Triglycerides 64 mg/dL (35-160) 08/16/18 16:40 Cholesterol 134 mg/dL (130-200) 08/16/18 16:40 LDL Cholesterol Direct 91 mg/dL (0-129) 08/16/18 16:40 HDL Cholesterol 29 mg/dL (29-60) 08/16/18 16:40 Urine Color Light yellow (YELLOW) 08/16/18 23:16 Urine Appearance Clear (CLEAR) 08/16/18 23:16 Urine pH 7.5 (4.7-8.0) 08/16/18 23:16 Ur Specific [place] 1.015 (1.005-1.035) 08/16/18 23:16 Urine Protein 30 mg/dL (<30 mg/dL) H 08/16/18 23:16 Urine Glucose (UA) Negative mg/dL (NEGATIVE) 08/16/18 23:16 Urine Ketones 15 mg/dL (NEGATIVE) H 08/16/18 23:16 Urine Blood Trace-intact (NEGATIVE) H 08/16/18 23:16 Urine Nitrate Negative (NEGATIVE) 08/16/18 23:16 Urine Bilirubin Negative (NEGATIVE) 08/16/18 23:16 Urine Urobilinogen 0.2 E.U./dL (<1 E.U./dL) 08/16/18 23:16 Ur Leukocyte Esterase Negative Allyson/uL (NEGATIVE) 08/16/18 23:16 Urine RBC 1 - 3 /hpf (0-2) H 08/16/18 23:16 Urine WBC None /hpf (0-6) 08/16/18 23:16 Ur Epithelial Cells None /hpf (0-5) 08/16/18 23:16 Urine Opiates Screen Negative (NEGATIVE) 08/16/18 23:16 Urine Methadone Screen Negative (NEGATIVE) 08/16/18 23:16 Ur Barbiturates Screen Negative (NEGATIVE) 08/16/18 23:16 Ur Phencyclidine Scrn Negative (NEGATIVE) 08/16/18 23:16 Ur Amphetamines Screen Negative (NEGATIVE) 08/16/18 23:16 U Benzodiazepines Scrn Negative (NEGATIVE) 08/16/18 23:16 U Oth Cocaine Metabols Negative (NEGATIVE) 08/16/18 23:16 U Cannabinoids Screen Negative (NEGATIVE) 08/16/18 23:16 Alcohol, Quantitative < 10 mg/dL (0-10) 08/16/18 16:40 - Hospital Course Hospital Course: Hospital Course Patient is a 72 year old male with past medical history of CAD s/p CABG s/p stents, DM II, HTN, HLD, GERD, COPD, valve replacement, recent DVT, recent osteomyelitis, medication non-compliance who presented to [facility] complaining of chest discomfort. Patient was admitted for chest pain rule out ACS. Troponins were collected and noted to be elevated at 0.14 and then trended to be indeterminate at 0.08. EKG was done and showed sinus tachycardia. Cardiology with Dr. Pierre was consulted with recommendations to discontinue Eliquis and continue plavix in light of increased bleeding risk. Patient was recommended to have invasive cardiac cath for further investigation of NSTEMI. Patient refused cardiac cath and opted for medical management. Psychiatry was consulted for aggressive behavior and non-compliance with recommended therapy. Dr. Eason recommended against antipsychotic medication or mood stabilizer as patientis compliant iwth Albuterol. Patient was assessed to not be an imminent danger to himself or others. Patient was noted to have elevated white blood cell count and right foot ulceration. Podiatry was consulted for concern for possible osteomyelitis. Patient wound was dressed and antibiotics administered. Wound culture was taken showin corynebacterium species. Right foot xray was taken showing healing chronic fracture of the fifth proximal phalanx. Right foot MRI was conducted which showed marrow edema at head of 1st metatarsal suspicious for osteomyelitis. Patient was taken to OR for bone biopsy which showed no evidence of acute osteomyelitis. Podiatry recommended routine wound dressing changes and follow up with them upon discharge. ID was consulted on case for possible osteomyelitis. Blood cultures and wound cultures only showed cornebacterium. ID recommended against treating current medical condition with antibiotics. Patient was medically optimized and hemodynamically stable. Discharge planning including medication reconciliation, outpatient follow up, wound care, and signs and symptoms to be concerned for return to hospital were discussed with patient. Patient was in understanding and agreeable. Medication was delivered to bedside prior to patient leaving hospital. This is a brief summary of patient stay, please see chart for full detail. Discharge Exam - Head Exam Head Exam: ATRAUMATIC, NORMOCEPHALIC - Eye Exam Eye Exam: EOMI, PERRL - ENT Exam ENT Exam: Mucous Membranes Moist - Respiratory Exam Respiratory Exam: Clear to PA & Lateral, NORMAL BREATHING PATTERN - Cardiovascular Exam Cardiovascular Exam: REGULAR RHYTHM, +S1, +S2 - GI/Abdominal Exam GI & Abdominal Exam: Normal Bowel Sounds, Unremarkable. absent: Firm, Guarding - Extremities Exam Additional comments: right lower foot with bandage, dry, clean, intact - Neurological Exam Neurological exam: Alert, CN II-XII Intact, Normal Gait, Oriented x3 Additional comments: patient ambulates with walking cane - Psychiatric Exam Psychiatric exam: Normal Affect, Normal Mood - Skin Skin Exam: Dry, Intact Discharge Plan - Discharge Medications Prescriptions: Apixaban [Eliquis] 5 mg PO BID #28 tablet - Follow Up Plan Condition: GOOD Disposition: HOME/ ROUTINE Instructions: Chest Pain (DC), Osteomyelitis (DC) Additional Instructions: - Please follow up with your Primary Care Doctor (Dr. Wesley) within 3-4 days of discharge. - Please follow up with your [facility] within 1 week of discharge. - Please keep dressing for duration of the week and keep clean and dry for the next week and follow up with Dr. Carrillo next Sunday. - It is important that you take your medications regularly. - Please return to the nearest emergency department if your symptoms worsen or reoccur. Referrals: Asad Barnhart MD [Staff Provider] - Murali Wesley MD [Staff Provider] - <Liza Martinez - Last Filed: 08/28/18 08:59> Provider - Provider Date of Admission: 08/17/18 13:15 Attending physician: Liza Martinez MD Primary care physician: NO PRIMARY CARE PROVIDER Consults: 08/16/18 19:44 Physician Consult Routine Comment: Consulting Provider: Asad Barnhart Consulting Physician: Asad Barnhart Reason for Consult: chest pain 08/17/18 11:12 Infectious Disease Consult Routine Comment: Consulting Provider: Toby Martin Consulting Physician: Toby Martin Reason for Consult: Chronic R Foot Ulcer; Leukocytosis Podiatry Consult Routine Comment: Consulting Provider: Travis Zuniga Consulting Physician: Travis Zuniga Reason for Consult: Chronic R Foot Ulcer; 08/21/18 13:47 Physician Consult Routine Comment: Consulting Provider: Lay Eason Consulting Physician: Lay Eason Reason for Consult: Aggressive behavior, non-compliant Hospital Course - Lab Results Lab Results: Micro Results 08/23/18 11:02 Foot - Right Gram Stain - Final 08/23/18 11:02 Foot - Right Wound Culture - Final Corynebacterium Species 08/17/18 08:30 Blood Blood Culture - Final NO GROWTH AFTER 5 DAYS 08/17/18 08:30 Blood Gram Stain - Final TEST NOT PERFORMED 08/17/18 08:00 Blood Blood Culture - Final NO GROWTH AFTER 5 DAYS 08/17/18 08:00 Blood Gram Stain - Final TEST NOT PERFORMED 08/17/18 14:00 Foot - Right Gram Stain - Final 08/17/18 14:00 Foot - Right Wound Culture - Final Corynebacterium Species Most Recent Lab Values WBC 8.5 10^3/uL (4.5-11.0) D 08/27/18 09:00 RBC 4.03 10^6/uL (3.5-6.1) 08/27/18 09:00 Hgb 10.7 g/dL (14.0-18.0) L 08/27/18 09:00 Hct 34.4 % (42.0-52.0) L 08/27/18 09:00 MCV 85.4 fl (80.0-105.0) 08/27/18 09:00 MCH 26.6 pg (25.0-35.0) 08/27/18 09:00 MCHC 31.1 g/dl (31.0-37.0) 08/27/18 09:00 RDW 14.6 % (11.5-14.5) H 08/27/18 09:00 Plt Count 241 10^3/uL (120.0-450.0) 08/27/18 09:00 MPV 8.9 fl (7.0-11.0) 08/27/18 09:00 Neut % (Auto) 76.8 % (50.0-68.0) H 08/27/18 09:00 Lymph % (Auto) 15.4 % (22.0-35.0) L 08/27/18 09:00 [place] % (Auto) 4.1 % (1.0-6.0) 08/27/18 09:00 Eos % (Auto) 3.3 % (1.5-5.0) 08/27/18 09:00 Baso % (Auto) 0.4 % (0.0-3.0) 08/27/18 09:00 Lymph # (Auto) 1.3 (1.2-3.4) 08/27/18 09:00 [place] # (Auto) 0.4 (0.1-0.6) 08/27/18 09:00 Eos # (Auto) 0.3 (0.0-0.7) 08/27/18 09:00 Baso # (Auto) 0.03 K/mm3 (0.0-2.0) 08/27/18 09:00 Absolute Neuts (auto) 6.53 (1.4-6.5) H 08/27/18 09:00 Neutrophils % (Manual) 90 % (50.0-70.0) H 08/16/18 16:40 Lymphocytes % (Manual) 7 % (22.0-35.0) L 08/16/18 16:40 Monocytes % (Manual) 3 % (1.0-6.0) 08/16/18 16:40 Platelet Evaluation Normal (NORMAL) 08/16/18 16:40 ESR 84 mm/hr (0.00-15.0) H 08/17/18 12:00 Sodium 139 mmol/L (132-148) 08/26/18 06:00 Potassium 4.3 mmol/L (3.6-5.0) 08/26/18 06:00 Chloride 103 mmol/L (98-107) 08/26/18 06:00 Carbon Dioxide 31 mmol/L (21-33) 08/26/18 06:00 Anion Gap 9 (10-20) L 08/26/18 06:00 BUN 34 mg/dL (7-21) H 08/26/18 06:00 Creatinine 1.1 mg/dl (0.8-1.5) 08/26/18 06:00 Est GFR ( Amer) > 60 08/26/18 06:00 Est GFR (Non-Af Amer) > 60 08/26/18 06:00 POC Glucose (mg/dL) 129 mg/dL (65-110) H 08/27/18 11:20 Random Glucose 93 mg/dL (70-110) 08/26/18 06:00 Hemoglobin A1c 5.6 % (4.2-6.5) 08/16/18 16:40 Calcium 8.5 mg/dL (8.4-10.5) 08/26/18 06:00 Magnesium 2.1 mg/dL (1.7-2.2) 08/16/18 16:40 Total Bilirubin 0.2 mg/dL (0.2-1.3) 08/26/18 06:00 AST 19 U/L (17-59) 08/26/18 06:00 ALT 10 U/L (7-56) 08/26/18 06:00 Alkaline Phosphatase 65 U/L (38-126) 08/26/18 06:00 Lactate Dehydrogenase 477 U/L (333-699) 08/16/18 16:40 Total Creatine Kinase 74 U/L (35-230) 08/16/18 16:40 Troponin I 0.03 ng/mL D 08/18/18 09:45 C-Reactive Protein 51.60 mg/L (0.0-9.9) H 08/17/18 12:00 Total Protein 6.2 g/dL (5.8-8.3) 08/26/18 06:00 Albumin 3.2 g/dL (3.0-4.8) 08/26/18 06:00 Globulin 2.9 gm/dL 08/26/18 06:00 Albumin/Globulin Ratio 1.1 (1.1-1.8) 08/26/18 06:00 Triglycerides 64 mg/dL (35-160) 08/16/18 16:40 Cholesterol 134 mg/dL (130-200) 08/16/18 16:40 LDL Cholesterol Direct 91 mg/dL (0-129) 08/16/18 16:40 HDL Cholesterol 29 mg/dL (29-60) 08/16/18 16:40 Urine Color Light yellow (YELLOW) 08/16/18 23:16 Urine Appearance Clear (CLEAR) 08/16/18 23:16 Urine pH 7.5 (4.7-8.0) 08/16/18 23:16 Ur Specific [place] 1.015 (1.005-1.035) 08/16/18 23:16 Urine Protein 30 mg/dL (<30 mg/dL) H 08/16/18 23:16 Urine Glucose (UA) Negative mg/dL (NEGATIVE) 08/16/18 23:16 Urine Ketones 15 mg/dL (NEGATIVE) H 08/16/18 23:16 Urine Blood Trace-intact (NEGATIVE) H 08/16/18 23:16 Urine Nitrate Negative (NEGATIVE) 08/16/18 23:16 Urine Bilirubin Negative (NEGATIVE) 08/16/18 23:16 Urine Urobilinogen 0.2 E.U./dL (<1 E.U./dL) 08/16/18 23:16 Ur Leukocyte Esterase Negative Allyson/uL (NEGATIVE) 08/16/18 23:16 Urine RBC 1 - 3 /hpf (0-2) H 08/16/18 23:16 Urine WBC None /hpf (0-6) 08/16/18 23:16 Ur Epithelial Cells None /hpf (0-5) 08/16/18 23:16 Urine Opiates Screen Negative (NEGATIVE) 08/16/18 23:16 Urine Methadone Screen Negative (NEGATIVE) 08/16/18 23:16 Ur Barbiturates Screen Negative (NEGATIVE) 08/16/18 23:16 Ur Phencyclidine Scrn Negative (NEGATIVE) 08/16/18 23:16 Ur Amphetamines Screen Negative (NEGATIVE) 08/16/18 23:16 U Benzodiazepines Scrn Negative (NEGATIVE) 08/16/18 23:16 U Oth Cocaine Metabols Negative (NEGATIVE) 08/16/18 23:16 U Cannabinoids Screen Negative (NEGATIVE) 08/16/18 23:16 Alcohol, Quantitative < 10 mg/dL (0-10) 08/16/18 16:40 Attending/Attestation - Attestation I have personally seen and examined this patient.: Yes I have fully participated in the care of the patient.: Yes I have reviewed all pertinent clinical information, including history, physical exam and plan: Yes Notes (Text): 08/27/18 72 year old male with past medical history of CAD s/p CABG s/p stent, PVD s/p stent, DVT, hypertension, diabetes and chronic RLE wound who presented with chest pain. Found to have NSTEMI. He was offered cardiac cath by cardiology but he refused. He was on medical management with aspirin, eliquis, coreg, statin and lisinopril as per cardiology. He was being followed by ID and podiatry for management of chronic RLE wound. ESR/CRP were elevated and MRI was suggestive of possible OM. However bone biopsy was obtained which was negative for acute osteomyelitis. ID recommended to monitor off antibiotics. Patient is discharged to follow up with pmd. Follow up with cardiology. Follow up with podiatry. Counselled on medication and outpatient follow up compliance. Overall prognosis is guarded given history of noncompliance. Liza Martinez MD Hospitalist.
--- NOTE | 2018-08-27 22:12 | PN ---
DATE: 08/27/2018 SUBJECTIVE: The patient is seen in bed, in no acute distress, nontoxic. PHYSICAL EXAMINATION: VITAL SIGNS: Temperature is 98, blood pressure is 130/70, and respiratory rate is 20. HEENT: Unremarkable. NECK: Supple. LUNGS: Decreased breath sounds. HEART: Normal S1 and S2. ABDOMEN: Soft. LABORATORY EXAMINATION: Reveals a white count of 8.5, hemoglobin of 10, and platelets of 241. Chemistries are noted. Creatinine is 1.1. Urinalysis is noted. Toxicology is noted and microbiology is reviewed. ASSESSMENT AND PLAN: This is a 72-year-old male, admitted with systemic inflammatory response syndrome, leukocytosis and had a biopsy, which showed no osteomyelitis. Cultures are negative. Gram stain is negative. Light growth of Corynebacterium. This case was discussed with Dr. Carrillo who feels osteomyelitis. I agree with her not to treat with antibiotics. We will follow closely as outpatient. Toby Martin MD
== END 2018-08-27 14:46 | disposition home or self-care (01) | DRG 988 ==
LOC: ED 15:16 → ERH 17:31 → 2RNO 23:27 → OBSVTOIN 08-17 13:15 → 3RNO 08-21 01:57
PROVIDERS: ADMIT Internal Medicine; ATTEND Internal Medicine
PROC: 0QBQ3ZX Excision of Right Toe Phalanx, Percutaneous Approach, Diagnostic (ICD-10-PCS; principal; 2018-08-23 13:00)
DX: I21.4 Non-ST elevation (NSTEMI) myocardial infarction (principal); R65.10 Systemic inflammatory response syndrome (SIRS) of non-infectious origin without acute organ dysfunction; M86.671 Other chronic osteomyelitis, right ankle and foot; I50.30 Unspecified diastolic (congestive) heart failure; M86.60 Other chronic osteomyelitis, unspecified site; I25.110 Atherosclerotic heart disease of native coronary artery with unstable angina pectoris; E11.51 Type 2 diabetes mellitus with diabetic peripheral angiopathy without gangrene; E11.621 Type 2 diabetes mellitus with foot ulcer; L97.519 Non-pressure chronic ulcer of other part of right foot with unspecified severity; I11.0 Hypertensive heart disease with heart failure; J44.9 Chronic obstructive pulmonary disease, unspecified; R21 Rash and other nonspecific skin eruption; B88.8 Other specified infestations; R00.2 Palpitations; D72.829 Elevated white blood cell count, unspecified; F17.210 Nicotine dependence, cigarettes, uncomplicated; Z79.01 Long term (current) use of anticoagulants; Z91.19 Patient's noncompliance with other medical treatment and regimen; Z91.14 Patient's other noncompliance with medication regimen; Z85.46 Personal history of malignant neoplasm of prostate; Z92.3 Personal history of irradiation; Z59.0 Homelessness; Z86.718 Personal history of other venous thrombosis and embolism; Z95.1 Presence of aortocoronary bypass graft; Z95.2 Presence of prosthetic heart valve; M84.477D Pathological fracture, right toe(s), subsequent encounter for fracture with routine healing; E11.69 Type 2 diabetes mellitus with other specified complication; L08.9 Local infection of the skin and subcutaneous tissue, unspecified; F60.9 Personality disorder, unspecified; E78.5 Hyperlipidemia, unspecified; I25.10 Atherosclerotic heart disease of native coronary artery without angina pectoris; K21.9 Gastro-esophageal reflux disease without esophagitis; Z79.02 Long term (current) use of antithrombotics/antiplatelets; Z79.51 Long term (current) use of inhaled steroids; Z79.82 Long term (current) use of aspirin; Z90.49 Acquired absence of other specified parts of digestive tract; Z95.5 Presence of coronary angioplasty implant and graft; Z95.820 Peripheral vascular angioplasty status with implants and grafts

== ENCOUNTER 2018-09-02 11:50 | Observation (INO) | payer MEDICARE, OTHER ==
[2018-09-02 12:08] VITALS: BMI 23.7
--- NOTE | 2018-09-02 12:33 | ED PDOC ---
Arrival/HPI - General Chief Complaint: Shortness Of Breath Historian: Patient - History of Present Illness Narrative History of Present Illness (Text): 09/02/18 12:33 Bruce Riggins is a 72 year old male, with a past medical history of CAD s/p CABG s/p stents, DM II, HTN, HLD, GERD, COPD, valve replacement, recent DVT, and recent osteomyelitis, who presents to the emergency department complaining of shortness of breath since this morning. Patient also notes associated non- productive cough and chest tightness. Patient admitted on 08/17/18 for complaints of chest pain and was recommended for cardiac cath; patient denied catheterization. Patient was also unable to follow up with PMD. Patient denies fevers, chills, headache, dizziness, abdominal pain, nausea, vomiting, diarrhea, dysuria, hematuria, or any other complaints. PMD: Dr. Wesley Time/Duration: Prior to Arrival Symptom Onset: Sudden Symptom Course: Unchanged Quality: Tightness (chest pain described as tightness) Activities at Onset: Light Context: Home Past Medical History - Provider Review Nursing Documentation Reviewed: Yes Primary Care Provider: Murali Wesley - Infectious Disease Hx of Infectious Diseases: None - Cardiac Hx Pacemaker: No - Pulmonary Hx Chronic Obstructive Pulmonary Disease (COPD): Yes - Neurological Hx Neurological Disorder: No - HEENT Hx HEENT Disorder: No - Renal Hx Renal Disorder: No - Endocrine/Metabolic Hx Endocrine Disorders: No - Hematological/Oncological Hx Blood Transfusions: No Hx Blood Transfusion Reaction: No - Integumentary Hx Dermatological Disorder: Yes Other/Comment: rash/reaction from bed bugs - Musculoskeletal/Rheumatological Hx Musculoskeletal Disorders: Yes - Gastrointestinal Hx Gastrointestinal Disorders: No - Genitourinary/Gynecological Hx Genitourinary Disorders: Yes Other/Comment: Hx prostate ca with radiation therapy - Psychiatric Hx Emotional Abuse: No Hx Physical Abuse: No Hx Substance Use: No - Surgical History Hx Appendectomy: Yes (at age 17) - Anesthesia Hx Anesthesia Reactions: No Hx Malignant Hyperthermia: No - Suicidal Assessment Feels Threatened In Home Enviroment: No Family/Social History - Physician Review Nursing Documentation Reviewed: Yes Family/Social History: Unknown Family HX Smoking Status: Heavy Smoker > 10 Cigarettes Daily Hx Alcohol Use: Yes (stopped drinking 2-3 yrs ago) Hx Substance Use: No Hx Substance Use Treatment: No Allergies/Home Meds Allergies/Adverse Reactions: Allergies No Known Allergies Allergy (Verified 09/02/18 12:08) Home Medications: Home Meds Medication Instructions Recorded Confirmed Albuterol Sulfate [Proair Hfa] 2 puff IH BID 05/17/18 09/02/18 Atorvastatin [Lipitor] 20 mg PO DAILY 05/17/18 09/02/18 Budesonide/Formoterol Fumarate 2 puff IH BID 05/17/18 09/02/18 [Symbicort 160-4.5 Mcg Inhaler] Carvedilol [Coreg] 6.25 mg PO BID 05/17/18 09/02/18 Lisinopril [Zestril] 5 mg PO DAILY 05/17/18 09/02/18 Pantoprazole Sodium [Protonix] 40 mg PO DAILY 05/17/18 09/02/18 metFORMIN [glucOPHAGE] 500 mg PO BID 05/17/18 09/02/18 Clopidogrel Bisulfate [Plavix] 75 mg PO DAILY 09/02/18 09/02/18 Ibuprofen [Motrin] 600 mg PO Q6 PRN 09/02/18 09/02/18 Review of Systems - Physician Review All systems were reviewed & negative as marked: Yes - Review of Systems Constitutional: absent: Fevers, Other (chills) Respiratory: SOB, Cough. absent: Sputum Cardiovascular: Chest Pain (tightness) Gastrointestinal: absent: Abdominal Pain, Diarrhea, Nausea, Vomiting Genitourinary Male: absent: Dysuria, Hematuria Neurological: absent: Headache, Dizziness Physical Exam Vital Signs Reviewed: Yes Vital Signs Temp Pulse Resp BP Pulse Ox 09/02/18 11:51 97.5 F L 102 H 18 169/85 H 99 Temperature: Afebrile Blood Pressure: Hypertensive Pulse: Tachycardic Respiratory Rate: Normal Appearance: Positive for: Well-Appearing, Non-Toxic, Comfortable Pain Distress: None Mental Status: Positive for: Alert and Oriented X 3 - Systems Exam Head: Present: Atraumatic, Normocephalic Pupils: Present: PERRL Extroacular Muscles: Present: EOMI Conjunctiva: Present: Normal Mouth: Present: Moist Mucous Membranes Neck: Present: Normal Range of Motion Respiratory/Chest: Present: Clear to Auscultation, Good Air Exchange, Other (healed surgical scar). No: Respiratory Distress, Accessory Muscle Use, Wheezes, Rales, Rhonchi Cardiovascular: Present: Regular Rate and Rhythm, Normal S1, S2. No: Murmurs, Rub, Gallop Abdomen: Present: Normal Bowel Sounds. No: Tenderness, Distention, Peritoneal Signs, Rebound, Guarding Back: Present: Normal Inspection Upper Extremity: Present: Normal Inspection. No: Cyanosis, Edema Lower Extremity: Present: Normal Inspection. No: Edema Neurological: Present: GCS=15, CN II-XII Intact, Speech Normal Skin: Present: Warm, Dry, Normal Color. No: Rashes Psychiatric: Present: Alert, Oriented x 3, Normal Insight, Normal Concentration Medical Decision Making ED Course and Treatment: 09/02/18 12:33 Impression: Pt is a 72 year old male, with a past medical history of CAD s/p CABG s/p stents, DM II, HTN, HLD, GERD, COPD, valve replacement, recent DVT, and recent osteomyelitis, who presents to the emergency department complaining of shortness of breath since this morning. Plan: -- EKG -- Labs -- Chest X-Ray -- Reassess and disposition Prior Visits: Notes and results from previous visits were reviewed. Progress Notes: - RAD Interpretation Narrative RAD Interpretations (Text): 09/02/18 13:12 Chest X-Ray shows: IMPRESSION: No active pulmonary disease. Radiology Orders: 09/02/18 12:22 CHEST PORTABLE [RAD] Stat [employer] Contract[employer] Administrator: Radiologist - EKG Interpretation EKG Interpretation (Text): 09/02/18 12:29 Reviewed EKG, shows: Sinus Tachycardia at 104 BPM. Interpreted by ED Physician: Yes Type: 12 lead EKG - Scribe Statement The provider has reviewed the documentation as recorded by the Scribmike Perdomo All medical record entries made by the Susanibmike were at my direction and personally dictated by me. I have reviewed the chart and agree that the record accurately reflects my personal performance of the history, physical exam, medical decision making, and the department course for this patient. I have also personally directed, reviewed, and agree with the discharge instructions and disposition. Disposition/Present on Arrival - Present on Arrival Any Indicators Present on Arrival: No History of DVT/PE: No History of Uncontrolled Diabetes: No Urinary Catheter: No History of Decub. Ulcer: No History Surgical Site Infection Following: None - Disposition Have Diagnosis and Disposition been Completed?: Yes Diagnosis: Chest pain Disposition: HOSPITALIZED Disposition Time: 13:00 Condition: STABLE
[2018-09-02 12:44] LABS: BASO # 0.04 K/mm3 (0.0-2.0); BASO % 0.3 % (0.0-3.0); EOS # 0.1 (0.0-0.7); HEMOGLOBIN 12.4 g/dL (14.0-18.0); LYMPH # 1.3 (1.2-3.4); LYMPH % 10.1 % (22.0-35.0); MEAN CELL VOLUME 84.3 fl (80.0-105.0); MEAN CORPUSCULAR HEMOGLOBIN 27.1 pg (25.0-35.0); MEAN CORPUSCULAR HGB CONC 32.1 g/dl (31.0-37.0); MEAN PLATELET VOLUME 8.9 fl (7.0-11.0); MONO # 0.5 (0.1-0.6); MONO % 4.1 % (1.0-6.0); RBC 4.58 10^6/uL (3.5-6.1); RED CELL DISTRIBUTION WIDTH 15.6 % (11.5-14.5); WHITE BLOOD COUNT 12.5 10^3/uL (4.5-11.0)
[2018-09-02 12:55] LABS: ALB/GLOB RATIO 1.3 (1.1-1.8); ALBUMIN 4.3 g/dL (3.0-4.8); ALT/SGPT 8 U/L (7-56); AST/SGOT 26 U/L (17-59); BLOOD UREA NITROGEN 37 mg/dL (7-21); CALCIUM 9.2 mg/dL (8.4-10.5); GFR NON-AFRICAN AMERICAN > 60
[2018-09-02 13:04] LABS: B-TYPE NATRIURETIC PEPTIDE 794 pg/mL (0-450); TROPONIN I < 0.01 ng/mL
--- NOTE | 2018-09-02 13:16 | RAD ---
Date of service: 09/02/2018 HISTORY: r/o infiltrate COMPARISON: 08/16/2018. FINDINGS: LUNGS: The lungs are well inflated and clear. PLEURA: No pleural effusions or pneumothorax. CARDIOVASCULAR: The heart is normal in size. Status post median sternotomy. No aortic atherosclerotic calcifications present. OSSEOUS STRUCTURES: Within normal limits for the patient's age. VISUALIZED UPPER ABDOMEN: Normal. OTHER FINDINGS: None. IMPRESSION: No active pulmonary disease.
[2018-09-02] MEDS ORDERED: Enoxaparin 80 mg Syringe SC ONE (14:24)
--- NOTE | 2018-09-02 14:27 | CP.PCM.HP ---
<Uri Cody - Last Filed: 09/02/18 14:41> History of Present Illness - History of Present Illness History of Present Illness: Hospitalist Service H&P Uri Cody , PGY-3 CC: Chest pain/short of breath This is a 72 yo M with PMH of CAD s/p CABG and stents, DM II, HTN, HLD, GERD, COPD, valve replacement, recent DVT, recent osteomyelitis, homelessness, and frequent medication/follow-up non-compliance who presents to the ED for shortness of breath and chest pain that began today. Of note, [place] was [place] [facility] [place] complaint [place]16-[place]27; he claims that after that discharge, he was sent home with no medications, and so hasn't been taking anything since discharge. He is still smoking 1/2ppd cigarettes, and remains homeless (staying at senior care). Has not yet followed up with Dr. Barnhart, Dr. Wesley, or Dr. Carrillo. ED reports that on presentation, patient reported that he was having CP again, and is now amenable to cardio procedure for eval (had previously been refusing stress test and cardiac cath). Initially described pain as chest tightness, but now describes as left-sided chest pain. Shortness of breath is at "baseline" worsened status, where it is harder to breath and he feels like he more easily gets short of breath, but denies inability to breath, sensation of choking/suffocating, wheezing, gasping for air, or palpitations. Denies illicits or alcohol. Denies productive cough, fevers, chills, radiation of chest pain to jaw/neck/shoulder/back, worsening of chest pain with deep breathing, hemoptysis, abdominal pain, nausea, emesis, diarrhea, focal weakness, dysuria, hematuria. 12-point ROS reviewed and negative, except as above. PMH: as above PSH: CABG, PCI, Appendectomy, Bone Bx of Right foot Social Hx: current smoker (1ppd X 50 years, now down to 1/2 ppd); Denies EtOH, Illicits Fam Hx: pt unaware of family hx PMD: Dr. Wesley [employer] Attendant: Dr. Barnhart Present on Admission - Present on Admission Any Indicators Present on Admission: No History of DVT/PE: No History of Uncontrolled Diabetes: No Urinary Catheter: No Review of Systems - Review of Systems All systems: reviewed and no additional remarkable complaints except (as per HPI) Past Patient History - Infectious Disease Hx of Infectious Diseases: None - Past Social History Smoking Status: Heavy Smoker > 10 Cigarettes Daily - CARDIAC Hx Pacemaker: No - PULMONARY Hx Chronic Obstructive Pulmonary Disease (COPD): Yes - NEUROLOGICAL Hx Neurological Disorder: No - HEENT Hx HEENT Problems: No - RENAL Hx Chronic Kidney Disease: No - ENDOCRINE/METABOLIC Hx Endocrine Disorders: No - HEMATOLOGICAL/ONCOLOGICAL Hx Blood Transfusions: No Hx Blood Transfusion Reaction: No - INTEGUMENTARY Hx Dermatological Problems: Yes Other/Comment: rash/reaction from bed bugs - MUSCULOSKELETAL/RHEUMATOLOGICAL Hx Musculoskeletal Disorders: Yes - GASTROINTESTINAL Hx Gastrointestinal Disorders: No - GENITOURINARY/GYNECOLOGICAL Hx Genitourinary Disorders: Yes Other/Comment: Hx prostate ca with radiation therapy - PSYCHIATRIC Hx Emotional Abuse: No Hx Physical Abuse: No Hx Substance Use: No - SURGICAL HISTORY Hx Appendectomy: Yes (at age 17) - ANESTHESIA Hx Anesthesia Reactions: No Hx Malignant Hyperthermia: No Meds Allergies/Adverse Reactions: Allergies Allergy/AdvReac Type Severity Reaction Status Date / Time No Known Allergies Allergy Verified 09/02/18 12:08 Physical Exam - Constitutional Appears: Non-toxic, No Acute Distress, Unkempt (dirty, unwashed, malodorous), Older Than Stated Age, Chronically Ill - Head Exam Head Exam: ATRAUMATIC, NORMAL INSPECTION, NORMOCEPHALIC - Eye Exam Eye Exam: EOMI. absent: Conjunctival injection, Scleral icterus Pupil Exam: absent: Irregular, Unequal Additional comments: Dirty sclera bilaterally, but non-icteric - ENT Exam ENT Exam: Mucous Membranes Moist - Neck Exam Neck exam: Positive for: Normal Inspection - Respiratory Exam Respiratory Exam: Decreased Breath Sounds (moderately decreased breath sounds in all zepeda), NORMAL BREATHING PATTERN. absent: Accessory Muscle Use, Chest Wall Tenderness (no reproducible chest pain), Rales, Rhonchi, Wheezes, Respiratory Distress - Cardiovascular Exam Cardiovascular Exam: Tachycardia, REGULAR RHYTHM, +S1, +S2. absent: Marcin ycardia, Irregular Rhythm, JVD, +S4 - GI/Abdominal Exam GI & Abdominal Exam: Normal Bowel Sounds, Soft. absent: Diminished Bowel Sounds, Distended, Firm, Hyperactive Bowel Sounds, Hypoactive Bowel Sounds, Rigid, Tenderness - Extremities Exam Extremities exam: Negative for: calf tenderness, pedal edema Additional comments: minimally palpable bilateral dorsalis pedis pulses R foot wound site with sutures on medial aspect of foot, covered with 2 wet/dirty bandaids small scattered healing scabs along bilateral anterior shins - Neurological Exam Additional comments: awake and alert, oriented to self/location follows commands appropriately, moves all extremities on command motor appears grossly intact and equal bilaterally, no gross deficits apprec iated - Psychiatric Exam Additional comments: flat affect and mood (baseline for this pt), extremely poor insight into condition vs apathy - Skin Additional comments: dirty/unwashed skin diffusely, some scabbing/wounds as documented in extremities exam Results - Vital Signs Recent Vital Signs: Last Vital Signs Temp 97.5 F L 09/02/18 11:51 Pulse 102 H 09/02/18 11:51 Resp 18 09/02/18 12:15 BP 169/85 H 09/02/18 11:51 Pulse Ox 100 09/02/18 12:15 - Labs Result Diagrams: 09/02/18 12:22 09/02/18 12:22 Labs: Laboratory Results - last 24 hr 09/02/18 09/02/18 12:22 12:22 WBC 12.5 H D RBC 4.58 Hgb 12.4 L Hct 38.6 L MCV 84.3 MCH 27.1 MCHC 32.1 RDW 15.6 H Plt Count 248 MPV 8.9 Neut % (Auto) 84.5 H Lymph % (Auto) 10.1 L Kinney % (Auto) 4.1 Eos % (Auto) 1.0 L Baso % (Auto) 0.3 Lymph # (Auto) 1.3 Kinney # (Auto) 0.5 Eos # (Auto) 0.1 Baso # (Auto) 0.04 Absolute Neuts (auto) 10.58 H Sodium 140 Potassium 4.1 Chloride 103 Carbon Dioxide 25 Anion Gap 16 BUN 37 H Creatinine 1.1 Est GFR ( Amer) > 60 Est GFR (Non-Af Amer) > 60 Random Glucose 133 H Calcium 9.2 Magnesium 2.4 H Total Bilirubin 0.6 AST 26 ALT 8 Alkaline Phosphatase 100 Lactate Dehydrogenase 514 Total Creatine Kinase 134 Troponin I < 0.01 D NT-Pro-B Natriuret Pep 794 H Total Protein 7.5 Albumin 4.3 Globulin 3.2 Albumin/Globulin Ratio 1.3 Assessment & Plan - Assessment and Plan (Free Text) Assessment: This is a 72 yo M with PMH of CAD s/p CABG and stents, DM II, HTN, HLD, GERD, COPD, valve replacement, recent DVT, recent osteomyelitis, homelessness, and frequent medication/follow-up non-compliance who represents to the ED for shortness of breath and chest pain that began today, after recent discharge and non-compliance with medications since that time. Plan: 1) Chest pain/tightness with worsening shortness of breath ddx: ACS vs COPD exacerbation vs new onset CHF 2/2 CAD and med-noncompliance 2) CAD s/p CABG and stents 3) DMII 4) HTN 5) HLD 6) Med noncompliance and continued tobacco use 7) hx DVTs on Eliquis 8) hx valve replacement 9) Recent osteomyelitis, discharged off antibiotics 10) Homelessness -Suspect chest pain/shortness of breath likely exacerbation of COPD in setting of continued smoking and med noncompliance, however will need to r/o ACS Last admission, was recommended for stress test, cardiac cath, pt refused both, but now amenable, Cardio notified Cardio (Dr. Barnhart) consulted, appreciate all recs Continue home statin, B-geni, and Watson-inhibitor given CAD and DM Loaded with ASA 325mg in ED, will continue with home 81mg starting tomorrow Initial EKG in ED notable for sinus tachy, pending repeat tomorrow AM Initial trop negative, cycling 2 more q8h -Home COPD meds non-formulary, transitioned to on-formulary equivalents as per Pharmacy Given persistent tachy, use Xopenex rather than albuterol for PRN shortness of breath coverage Again reinforced need to quit ALL tobacco use, reinforced that "cutting-back" is not sufficient given underlying conditions -RLE medial foot wound covered with dirty/wet bandaids, pt never followed up with podiatry No active purulence or erythema at site, but sutures still present and site wet Podiatry consulted, as per their recs R foot x-ray and wound culture ordered; appreciate all recs -Heart-healthy/consistent carb diet, NPO after midnight for possible cath Holding home Eliquis for possible cath, will cover overnight with Lovenox 1mg/kg (~80mg) x1 Holding home metformin given possible cath, cover with sliding scale and hypoglycemic protocol -Mild Leukocytosis on admission (12.5) CXR on admission negative for acute process Foot source vs reactive, no appreciable systemic symptoms Procal ordered, will f/u, but will defer on abx at this time -CM/SW consulted given persistent homelessness, discharge planning PT/OT consulted Patient seen, reviewed, and discussed with attending, Dr. Mcrae <Jessica Mcrae - Last Filed: 09/04/18 13:34> Results - Vital Signs Recent Vital Signs: Last Vital Signs Temp 97.7 F 09/04/18 11:52 Pulse 69 09/04/18 11:52 Resp 18 09/04/18 11:52 BP 143/61 09/04/18 11:52 Pulse Ox 99 09/04/18 06:00 - Labs Result Diagrams: 09/04/18 06:40 09/04/18 06:40 Labs: Laboratory Results - last 24 hr 09/03/18 09/03/18 09/04/18 16:51 21:11 06:40 WBC 6.6 RBC 3.77 Hgb 10.2 L Hct 32.6 L MCV 86.5 MCH 27.1 MCHC 31.3 RDW 15.3 H Plt Count 153 MPV 8.5 Neut % (Auto) 65.1 Lymph % (Auto) 23.4 Kinney % (Auto) 7.6 H Eos % (Auto) 3.3 Baso % (Auto) 0.6 Lymph # (Auto) 1.5 Kinney # (Auto) 0.5 Eos # (Auto) 0.2 Baso # (Auto) 0.04 Absolute Neuts (auto) 4.28 Sodium Potassium Chloride Carbon Dioxide Anion Gap BUN Creatinine Est GFR ( Amer) Est GFR (Non-Af Amer) POC Glucose (mg/dL) 121 H 106 Random Glucose Calcium Phosphorus Magnesium Total Bilirubin AST ALT Alkaline Phosphatase Total Protein Albumin Globulin Albumin/Globulin Ratio 09/04/18 09/04/18 09/04/18 06:40 07:12 11:53 WBC RBC Hgb Hct MCV MCH MCHC RDW Plt Count MPV Neut % (Auto) Lymph % (Auto) Kinney % (Auto) Eos % (Auto) Baso % (Auto) Lymph # (Auto) Kinney # (Auto) Eos # (Auto) Baso # (Auto) Absolute Neuts (auto) Sodium 139 Potassium 4.1 Chloride 105 Carbon Dioxide 31 Anion Gap 7 L BUN 34 H Creatinine 1.2 Est GFR ( Amer) > 60 Est GFR (Non-Af Amer) 60 POC Glucose (mg/dL) 134 H 157 H Random Glucose 96 Calcium 8.2 L Phosphorus 3.1 Magnesium 2.6 H Total Bilirubin 0.2 AST 18 ALT 24 Alkaline Phosphatase 69 Total Protein 5.9 Albumin 3.3 Globulin 2.6 Albumin/Globulin Ratio 1.2 Attending/Attestation - Attestation I have personally seen and examined this patient.: Yes I have fully participated in the care of the patient.: Yes I have reviewed all pertinent clinical information: Yes Notes (Text): 09/04/18 13:25 Attending note; Patient seen and examined resident in the ER. Patient is alert and awake. Not in any acute distress. Patient is a poor historian and noncompliant patient. He has multiple admissions to different hospitals. Currently homeless living in shelters. Patient is a 72 year old male with PMH of CAD s/p CABG and stents, DM II, HTN, HLD, GERD, COPD, recent DVT, homelessness, medication/follow-up non-compliance who presents to the ED for shortness of breath and chest pain that began today. 1. Chest pain; patient is currently stable. EKG showed no acute ST-T changes . Cardiac enzymes x1 negative. Continue aspirin, Lipitor and lisinopril. Will get cardiology evaluation. Patient refused cardiac cath during last admission. Currently willing to get the test done. 2. History of DVT; started on subcu Lovenox. Patient takes Eliquis at home. 3. Diabetes; continue regular insulin sliding scale . Hold metformin for the possibility of cardiac cath . 4. Smoking; smoking cessation is strongly advised. Patient is not interested in stopping. 5. COPD; continue duo nebs as needed . 6. Podiatry requested for foot care. Patient had a recent bone biopsy done. Negative for osteo-myelitis. 7. Non- Compliance with follow-up. Medication compliance insisted in detail. 8. Homelessness; home health care social worker evaluation requested. Admit the patient to telemetry and monitor closely. Upon discharge the patient will follow up with PMD . Patient usually does not follow-up with medical doctors as outpatient.
[2018-09-02] MEDS ORDERED: Levalbuterol 0.63 MG/3 ML Inhal Soln UD IH PRN (14:35)
[2018-09-02] MEDS ORDERED: Dextrose 50% SYRINGE Inj (50 ml) IV PRN (15:02)
[2018-09-02] MEDS ORDERED: Pneumococcal 23-Valent Vaccine IM ONE (15:52)
[2018-09-02] MEDS ORDERED: Sodium Chloride 0.9% 1,000 ML IV SCH (16:00)
[2018-09-02] MEDS: Insulin Lispro (humaLOG) LOW Coverage SC SCH ×2 (17:32→23:03)
--- NOTE | 2018-09-02 19:34 | CARD ---
APPROVED REPORT Date of service: 09/02/2018 EKG Measurement Heart [id number] <Conclusion> Sinus tachycardia NDSTT abnormalities Prolonged QTc Abnormal ECG
[2018-09-02] MEDS: Budesonide 0.5 mg/2 ml Inhal Susp UD IH SCH (19:37)
[2018-09-02] MEDS: Arformoterol 15 mcg/2 ml Inh Sol IH SCH (19:37)
[2018-09-03 04:33] LABS: BASO # 0.03 K/mm3 (0.0-2.0); BASO % 0.4 % (0.0-3.0); EOS # 0.3 (0.0-0.7); EOS % 3.7 % (1.5-5.0); LYMPH # 1.6 (1.2-3.4); LYMPH % 20.3 % (22.0-35.0); MEAN CELL VOLUME 85.2 fl (80.0-105.0); MEAN CORPUSCULAR HEMOGLOBIN 26.9 pg (25.0-35.0); MEAN CORPUSCULAR HGB CONC 31.6 g/dl (31.0-37.0); MEAN PLATELET VOLUME 8.8 fl (7.0-11.0); MONO # 0.7 (0.1-0.6); MONO % 8.5 % (1.0-6.0); RBC 3.79 10^6/uL (3.5-6.1); RED CELL DISTRIBUTION WIDTH 15.3 % (11.5-14.5); WHITE BLOOD COUNT 7.9 10^3/uL (4.5-11.0)
[2018-09-03 04:35] LABS: HEMOGLOBIN 10.2 g/dL (14.0-18.0)
[2018-09-03 04:51] LABS: LDL CHOLESTEROL 67 mg/dL (0-129)
[2018-09-03 04:53] LABS: TROPONIN I < 0.01 ng/mL
[2018-09-03 05:31] LABS: ALB/GLOB RATIO 1.2 (1.1-1.8); ALBUMIN 3.3 g/dL (3.0-4.8); ALT/SGPT 15 U/L (7-56); AST/SGOT 18 U/L (17-59); BLOOD UREA NITROGEN 32 mg/dL (7-21); CALCIUM 8.4 mg/dL (8.4-10.5); GFR NON-AFRICAN AMERICAN 54; HDL CHOLESTEROL 24 mg/dL (29-60)
[2018-09-03] MEDS: Budesonide 0.5 mg/2 ml Inhal Susp UD IH SCH ×2 (07:49→20:51)
[2018-09-03] MEDS: Arformoterol 15 mcg/2 ml Inh Sol IH SCH ×2 (07:49→20:51)
[2018-09-03] MEDS: Insulin Lispro (humaLOG) LOW Coverage SC SCH ×3 (07:53→17:37)
[2018-09-03] MEDS: Pantoprazole 40 mg EC Tab PO SCH (09:58)
--- NOTE | 2018-09-03 10:26 | CP.PCM.CON ---
History of Present Illness - History of Present Illness History of Present Illness: Podiatry consult - Drs. Zuniga/Lorena 72M seen and evaluated at bedside this AM with Dr. Carrillo for right foot wound. On last admission patient was taken to the OR for bone biopsy of right first metatarsal and was found to have no acute OM. Patient returns for shortness of breath due to heart condition. Patient states that he was cleaning the found wound site while he was in a retirement but has been walking around a lot on his feet. Denies n/v/f/c and has no other acute pedal complaints. PMHx: CAD s/p CABG and stents, DM II, HTN, HLD, GERD, COPD, valve replacement, recent DVT PSHx: CABG, PCI, Appendectomy, Bone Bx of Right foot All: NKDA Past Patient History - Infectious Disease Hx of Infectious Diseases: None - Past Social History Smoking Status: Heavy Smoker > 10 Cigarettes Daily - CARDIAC Hx Pacemaker: No - PULMONARY Hx Chronic Obstructive Pulmonary Disease (COPD): Yes - NEUROLOGICAL Hx Neurological Disorder: No - HEENT Hx HEENT Problems: No - RENAL Hx Chronic Kidney Disease: No - ENDOCRINE/METABOLIC Hx Endocrine Disorders: No - HEMATOLOGICAL/ONCOLOGICAL Hx Blood Transfusions: No Hx Blood Transfusion Reaction: No - INTEGUMENTARY Hx Dermatological Problems: Yes Other/Comment: rash/reaction from bed bugs - MUSCULOSKELETAL/RHEUMATOLOGICAL Hx Musculoskeletal Disorders: Yes - GASTROINTESTINAL Hx Gastrointestinal Disorders: No - GENITOURINARY/GYNECOLOGICAL Hx Genitourinary Disorders: Yes Other/Comment: Hx prostate ca with radiation therapy - PSYCHIATRIC Hx Emotional Abuse: No Hx Physical Abuse: No Hx Substance Use: No - SURGICAL HISTORY Hx Appendectomy: Yes (at age 17) - ANESTHESIA Hx Anesthesia Reactions: No Hx Malignant Hyperthermia: No Meds Allergies/Adverse Reactions: Allergies Allergy/AdvReac Type Severity Reaction Status Date / Time No Known Allergies Allergy Verified 09/02/18 12:08 - Medications Medications: Current Medications Arformoterol Tartrate (Brovana) 15 mcg IH [id number] [facility] Last Admin: 09/03/18 07:49 Dose: Not Given Aspirin (Ecotrin) 81 mg PO DAILY [facility] Last Admin: 09/03/18 09:57 Dose: 81 mg Atorvastatin Calcium (Lipitor) 20 mg PO DAILY [facility] Last Admin: 09/03/18 09:57 Dose: 20 mg Budesonide (Pulmicort Respules) 0.5 mg IH [id number] [facility] Last Admin: 09/03/18 07:49 Dose: Not Given Carvedilol (Coreg) 6.25 mg PO BID [facility] Last Admin: 09/03/18 09:56 Dose: 6.25 mg Dextrose (Dextrose 50% Inj) 0 ml IV STAT PRN; Protocol PRN Reason: Hypoglycemia Protocol Dextrose (Dextrose 5% In Water 1000 Ml) 1,000 mls @ 0 mls/hr IV .Q0M PRN; Protocol PRN Reason: Hypoglycemia Protocol Sodium Chloride (Sodium Chloride 0.9%) 1,000 mls @ 50 mls/hr IV .Q20H [facility] Stop: 09/03/18 11:59 Last Admin: 09/02/18 17:24 Dose: 50 mls/hr Insulin Human Lispro (Humalog Low) 0 units SC ACHS [facility]; Protocol Last Admin: 09/03/18 07:53 Dose: Not Given Levalbuterol HCl (Xopenex) 0.63 mg IH [id number] PRN PRN Reason: Shortness of Breath Lisinopril (Zestril) 5 mg PO DAILY [facility] Last Admin: 09/03/18 10:00 Dose: 5 mg Pantoprazole Sodium (Protonix Ec Tab) 40 mg PO DAILY [facility] Last Admin: 09/03/18 09:58 Dose: 40 mg Physical Exam - Constitutional Appears: Non-toxic - Head Exam Head Exam: ATRAUMATIC - Extremities Exam Additional comments: RLE focused exam VASC: DP and PT pulses dopplerable; CFT <3 seconds to digits x5 b/l; pedal hair growth absent NEURO: Light touch and protective sensation diminished bilaterally. DERM: sutures intact no wound dehiscence no active drainage. Ulceration noted to medial aspect of 1st MPJ measuring approximately 1 x 1 x 0.1cm -wound noted to have a granular base; no purulence expressed; no fluctuance ORTHO: No pain on palpation noted to wounds, MMT 5/5 - Neurological Exam Neurological exam: Alert, Oriented x3 - Psychiatric Exam Psychiatric exam: Normal Affect Results - Vital Signs Recent Vital Signs: Last Vital Signs Temp 98.1 F 09/03/18 06:00 Pulse 92 H 09/03/18 06:00 Resp 20 09/03/18 06:00 BP 129/56 L 09/03/18 06:00 Pulse Ox 99 09/03/18 06:00 - Labs Result Diagrams: 09/03/18 04:00 09/03/18 04:00 Labs: Laboratory Results - last 24 hr 09/02/18 09/02/18 09/02/18 12:22 12:22 16:19 WBC 12.5 H D RBC 4.58 Hgb 12.4 L Hct 38.6 L MCV 84.3 MCH 27.1 MCHC 32.1 RDW 15.6 H Plt Count 248 MPV 8.9 Neut % (Auto) 84.5 H Lymph % (Auto) 10.1 L [place] % (Auto) 4.1 Eos % (Auto) 1.0 L Baso % (Auto) 0.3 Lymph # (Auto) 1.3 [place] # (Auto) 0.5 Eos # (Auto) 0.1 Baso # (Auto) 0.04 Absolute Neuts (auto) 10.58 H Sodium 140 Potassium 4.1 Chloride 103 Carbon Dioxide 25 Anion Gap 16 BUN 37 H Creatinine 1.1 Est GFR ( Amer) > 60 Est GFR (Non-Af Amer) > 60 POC Glucose (mg/dL) 79 Random Glucose 133 H Calcium 9.2 Phosphorus Magnesium 2.4 H Total Bilirubin 0.6 AST 26 ALT 8 Alkaline Phosphatase 100 Lactate Dehydrogenase 514 Total Creatine Kinase 134 Troponin I < 0.01 D NT-Pro-B Natriuret Pep 794 H Total Protein 7.5 Albumin 4.3 Globulin 3.2 Albumin/Globulin Ratio 1.3 Triglycerides Cholesterol LDL Cholesterol Direct HDL Cholesterol Procalcitonin 09/02/18 09/02/18 09/02/18 16:50 19:21 21:20 WBC RBC Hgb Hct MCV MCH MCHC RDW Plt Count MPV Neut % (Auto) Lymph % (Auto) [place] % (Auto) Eos % (Auto) Baso % (Auto) Lymph # (Auto) [place] # (Auto) Eos # (Auto) Baso # (Auto) Absolute Neuts (auto) Sodium Potassium Chloride Carbon Dioxide Anion Gap BUN Creatinine Est GFR ( Amer) Est GFR (Non-Af Amer) POC Glucose (mg/dL) 129 H Random Glucose Calcium Phosphorus Magnesium Total Bilirubin AST ALT Alkaline Phosphatase Lactate Dehydrogenase Total Creatine Kinase Troponin I < 0.01 NT-Pro-B Natriuret Pep Total Protein Albumin Globulin Albumin/Globulin Ratio Triglycerides Cholesterol LDL Cholesterol Direct HDL Cholesterol Procalcitonin < 0.05 L 09/03/18 09/03/18 09/03/18 04:00 04:00 07:12 WBC 7.9 D RBC 3.79 Hgb 10.2 L D Hct 32.3 L MCV 85.2 MCH 26.9 MCHC 31.6 RDW 15.3 H Plt Count 191 MPV 8.8 Neut % (Auto) 67.1 Lymph % (Auto) 20.3 L [place] % (Auto) 8.5 H Eos % (Auto) 3.7 Baso % (Auto) 0.4 Lymph # (Auto) 1.6 [place] # (Auto) 0.7 H Eos # (Auto) 0.3 Baso # (Auto) 0.03 Absolute Neuts (auto) 5.27 Sodium 139 Potassium 4.2 Chloride 107 Carbon Dioxide 28 Anion Gap 8 L BUN 32 H Creatinine 1.3 Est GFR ( Amer) > 60 Est GFR (Non-Af Amer) 54 POC Glucose (mg/dL) 93 Random Glucose 92 Calcium 8.4 Phosphorus 3.5 Magnesium 2.5 H Total Bilirubin 0.4 AST 18 ALT 15 Alkaline Phosphatase 74 Lactate Dehydrogenase Total Creatine Kinase Troponin I < 0.01 NT-Pro-B Natriuret Pep Total Protein 6.0 Albumin 3.3 Globulin 2.7 Albumin/Globulin Ratio 1.2 Triglycerides 76 Cholesterol 104 L LDL Cholesterol Direct 67 HDL Cholesterol 24 L Procalcitonin Assessment & Plan - Assessment and Plan (Free Text) Assessment: 72M with right foot wound Plan: Patient seen and evaluated with Dr. Carrillo VSS, WBC 7.9 Wound culture taken Stitches removed without incident - patient tolerated well Site cleansed with saline and foam dressing applied Will continue to follow while in house Thank you for the consult - Date & Time Date: 09/03/18 Time: 10:28
--- NOTE | 2018-09-03 11:49 | CP.PCM.PCO ---
Physician Communication Note - Physician Communication Note Physician Communication Note: D/W Dr. Barnhart, planned cardiac cath tomorrow at 9AM.
[2018-09-03] MEDS: Enoxaparin 80 mg Syringe SC SCH ×2 (11:53→17:53)
--- NOTE | 2018-09-03 12:59 | CP.PCM.PN ---
<Lorenzo Salmon - Last Filed: 09/03/18 17:03> Subjective - Date & Time of Evaluation Date of Evaluation: 09/03/18 Time of Evaluation: 06:50 - Subjective Subjective: Lorenzo Salmon DO PGY1 Hospitalist Progress Note for Dr Mcrae Patient seen and examined at bedside. SOB is improving. Denies chest pain, palpitations, diaphoresis. He denies fever, chills. No acute events overnight. Objective - Vital Signs/Intake and Output Vital Signs (last 24 hours): Temp Pulse Resp BP Pulse Ox 98.5 F 56 L 18 97/50 L 99 09/03/18 11:47 09/03/18 11:47 09/03/18 11:47 09/03/18 11:47 09/03/18 06:00 Intake and Output: 09/03/18 09/03/18 06:59 18:59 Intake Total 180 Output Total 350 Balance -170 - Medications Medications: Current Medications Arformoterol Tartrate (Brovana) 15 mcg IH [id number] [facility] Last Admin: 09/03/18 07:49 Dose: Not Given Aspirin (Ecotrin) 81 mg PO DAILY [facility] Last Admin: 09/03/18 09:57 Dose: 81 mg Atorvastatin Calcium (Lipitor) 20 mg PO DAILY [facility] Last Admin: 09/03/18 09:57 Dose: 20 mg Budesonide (Pulmicort Respules) 0.5 mg IH [id number] [facility] Last Admin: 09/03/18 07:49 Dose: Not Given Carvedilol (Coreg) 6.25 mg PO BID [facility] Last Admin: 09/03/18 09:56 Dose: 6.25 mg Dextrose (Dextrose 50% Inj) 0 ml IV STAT PRN; Protocol PRN Reason: Hypoglycemia Protocol Enoxaparin Sodium (Lovenox) 80 mg SC BID [facility]; Protocol Stop: 09/03/18 18:01 Last Admin: 09/03/18 11:53 Dose: 80 mg Dextrose (Dextrose 5% In Water 1000 Ml) 1,000 mls @ 0 mls/hr IV .Q0M PRN; Protocol PRN Reason: Hypoglycemia Protocol Insulin Human Lispro (Humalog Low) 0 units SC ACHS [facility]; Protocol Last Admin: 09/03/18 11:52 Dose: 1 unit Levalbuterol HCl (Xopenex) 0.63 mg IH [id number] PRN PRN Reason: Shortness of Breath Lisinopril (Zestril) 5 mg PO DAILY [facility] Last Admin: 09/03/18 10:00 Dose: 5 mg Pantoprazole Sodium (Protonix Ec Tab) 40 mg PO DAILY [facility] Last Admin: 09/03/18 09:58 Dose: 40 mg - Labs Labs: 09/03/18 04:00 09/03/18 04:00 Assessment and Plan - Assessment and Plan (Free Text) Assessment: 72 male with past medical history of CAD s/p CABG + Stenting, PVD s/p stent, D M2, HTN, HLD, GERD, COPD, Valve Replacement, DVT, Osteomyelitis, Medication non- compliance admitted for chest pain r/o ACS Plan: Chest pain r/o ACS: -EKG: sinus tachy on admission. repeat this am shows sinus estrellita@ 54 no change from previous admission -Prior ECHO 05/17: Grade 1 diastolic dysfunction; EF 57.9% -CXR: NAD -trops negative x3 -continue home asa, lipitor, coreg, lisinopril -cardiac cath in am tomorrow. NPO after midnight -cardiology following: Dr. Barnhart Right foot wound: -f/u wound culture -sutures removed. continue wound care -no leukocytosis, afebrile -podiatry following, Dr. Carrillo COPD: -continue pulmicort q12 -continue xopenex prn PPX: DVT: SCD, heparin sq GI: protonix HHD conversion worker consulted: homlessness Case reviewed and plan discussed with Dr Clementina Salmon, PGY1 <Jessica Mcrae - Last Filed: 09/04/18 13:45> Objective - Vital Signs/Intake and Output Vital Signs (last 24 hours): Temp Pulse Resp BP Pulse Ox 97.7 F 69 18 143/61 99 09/04/18 11:52 09/04/18 11:52 09/04/18 11:52 09/04/18 11:52 09/04/18 06:00 Intake and Output: 09/04/18 09/04/18 06:59 18:59 Intake Total 240 Output Total 200 Balance 40 - Medications Medications: Current Medications Arformoterol Tartrate (Brovana) 15 mcg IH [id number] [facility] Last Admin: 09/04/18 08:00 Dose: Not Given Aspirin (Ecotrin) 81 mg PO DAILY [facility] Last Admin: 09/04/18 10:03 Dose: Not Given Atorvastatin Calcium (Lipitor) 20 mg PO DAILY [facility] Last Admin: 09/04/18 10:14 Dose: 20 mg Budesonide (Pulmicort Respules) 0.5 mg IH [id number] [facility] Last Admin: 09/04/18 08:00 Dose: Not Given Carvedilol (Coreg) 6.25 mg PO BID [facility] Last Admin: 09/04/18 10:13 Dose: 6.25 mg Dextrose (Dextrose 50% Inj) 0 ml IV STAT PRN; Protocol PRN Reason: Hypoglycemia Protocol Dextrose (Dextrose 5% In Water 1000 Ml) 1,000 mls @ 0 mls/hr IV .Q0M PRN; Protocol PRN Reason: Hypoglycemia Protocol Sodium Chloride (Sodium Chloride 0.9%) 1,000 mls @ 100 mls/hr IV .Q10H [facility] Stop: 09/04/18 13:46 Last Admin: 09/04/18 10:00 Dose: 100 mls/hr Insulin Human Lispro (Humalog Low) 0 units SC ACHS [facility]; Protocol Last Admin: 09/04/18 12:04 Dose: 1 unit Levalbuterol HCl (Xopenex) 0.63 mg IH [id number] PRN PRN Reason: Shortness of Breath Lisinopril (Zestril) 5 mg PO DAILY [facility] Last Admin: 09/04/18 10:15 Dose: 5 mg Pantoprazole Sodium (Protonix Ec Tab) 40 mg PO 0600 [facility] - Labs Labs: 09/04/18 06:40 09/04/18 06:40 Attending/Attestation - Attestation I have personally seen and examined this patient.: Yes I have fully participated in the care of the patient.: Yes I have reviewed all pertinent clinical information, including history, physical exam and plan: Yes Notes (Text): 09/04/18 13:43 Attending note; Patient seen and examined resident. Patient is alert and awake. Not in any acute distress. Patient is a 72 year old male with PMH of CAD s/p CABG and stents, DM II, HTN, HLD, GERD, COPD, recent DVT, homelessness, medication/follow-up non-compliance who presents to the ED for shortness of breath and chest pain that began today. 1. Chest pain; patient is currently stable. EKG showed no acute ST-T changes . Cardiac enzymes x3 negative. Continue aspirin,coreg,Lipitor and lisinopril. Cardiology evaluation appreciated. N.p.o. past midnight for cardiac cath tomorrow. 2. History of DVT; started on subcu Lovenox. Patient takes Eliquis at home. 3. Diabetes; continue regular insulin sliding scale . Hold metformin for the possibility of cardiac cath . 4. Smoking; smoking cessation is strongly advised. Patient is not interested in stopping. 5. COPD; continue duo nebs as needed . 6. Patient had a recent bone biopsy done. Negative for osteo-myelitis. Dietary evaluation appreciated. 7. Non- Compliance with follow-up. Medication compliance insisted in detail. 8. Homelessness; social work case manager evaluation appreciated. Mcfp information given . Upon discharge the patient will follow up with PMD . Patient usually does not follow-up with medical doctors as outpatient.
--- NOTE | 2018-09-03 18:26 | CARD ---
APPROVED REPORT Date of service: 09/03/2018 EKG Measurement Heart [id number] <Conclusion> Unusual P axis, possible ectopic atrial bradycardia Minimal voltage criteria for LVH, may be normal variant Abnormal ECG
[2018-09-04] MEDS: Insulin Lispro (humaLOG) LOW Coverage SC SCH ×3 (00:14→12:04)
--- NOTE | 2018-09-04 01:42 | CON ---
DATE: 09/03/2018 REQUESTING PHYSICIAN: Jessica Mcrae MD REASON FOR CONSULTATION: Chest pain. HISTORY OF PRESENT ILLNESS: This is a 72-year-old man well-known to me with a history of coronary artery disease, status post prior bypass surgery as well as prior PCI who presented to the emergency room complaining of chest discomfort. He was hospitalized several weeks ago with similar problems and refused cardiac catheterization or stress testing at that time. He now states he is willing to undergo further cardiac testing. His initial cardiac enzymes and electrocardiogram were unremarkable. PAST MEDICAL HISTORY: Notable for the problems mentioned above. He underwent prior bilateral carotid endarterectomy. He has a history of prior prostate cancer treated with radiation therapy. He also has history of hypertension, diabetes, hyperlipidemia and COPD. He has been a heavy smoker for many years. CURRENT MEDICATIONS: Include Brovana, carvedilol 6.25 mg b.i.d., aspirin daily, Lipitor 20 mg daily, Protonix 40 mg daily, Zestril 5 mg daily, Xopenex, and Pulmicort. PHYSICAL EXAMINATION: GENERAL: He is a disheveled appearing middle-aged man. VITAL SIGNS: Blood pressure is 130/56 with pulse of 56 and sinus, respirations are 16, and he is afebrile. HEENT: Normocephalic and atraumatic. NECK: Supple. No JVD noted. CHEST: Bilateral scattered rhonchi heard. HEART: PMI normal position. Systolic murmur is present at the lower left sternal border. ABDOMEN: Soft and nontender with normoactive bowel sounds. EXTREMITIES: No edema. SKIN: Warm and dry. PSYCHIATRIC: Mildly belligerent and sarcastic. DIAGNOSTIC DATA: White count of 7.9, hemoglobin and hematocrit 10.2 and 32.3 with a platelet count of 191,000. Potassium 4.2, BUN and creatinine 32 and 1.3. Troponin is negative. Electrocardiogram reveals sinus tachycardia with nonspecific ST-T abnormalities. Chest x-ray reveals post sternotomy changes, no interval tracing. Cardiac silhouette is normal. IMPRESSION: 1. Recurrent chest pain, possible or progressive coronary artery disease or graft disease. 2. Coronary artery disease, status post prior multivessel percutaneous coronary intervention and bypass surgery. 3. Carotid disease, status post bilateral endarterectomies. 4. Persistent tobacco abuse. 5. Rest of problem as noted. RECOMMENDATIONS: Now with recurrent chest pain in the setting of a recent non-ST segment elevation myocardial infraction, cardiac catheterization is recommended. The risks and benefits as well as the alternatives were discussed in detail with the patient and he is agreeable to proceed. Plans will be made to undergo cardiac catheterization in the morning. His current medications will continue for now, pending the results of his cardiac catheterization. The need for complete smoking abstinence was discussed again with him; however, he shows no inclination to stop smoking at this time. Thank you for this consultation. I will be happy to follow and make further recommendations as appropriate. Asad Barnhart MD MTDD
[2018-09-04 06:30] VITALS: O2SAT 99
[2018-09-04] MEDS ORDERED: Lidocaine PF 2% (5 ml) Inj (For Cardiac Arrhy) ONE (06:53)
[2018-09-04] MEDS ORDERED: Iodixanol 320 MG/ML 100 ML BOTTLE IV ONE (06:53)
[2018-09-04] MEDS ORDERED: Iohexol 350mgl/ml 50 ML ONE (06:53)
[2018-09-04] MEDS ORDERED: Iodixanol 320 MG/ML 200 ML BOTTLE IV ONE (06:53)
[2018-09-04 07:00] LABS: BASO # 0.04 K/mm3 (0.0-2.0); BASO % 0.6 % (0.0-3.0); EOS # 0.2 (0.0-0.7); EOS % 3.3 % (1.5-5.0); HEMOGLOBIN 10.2 g/dL (14.0-18.0); LYMPH # 1.5 (1.2-3.4); LYMPH % 23.4 % (22.0-35.0); MEAN CELL VOLUME 86.5 fl (80.0-105.0); MEAN CORPUSCULAR HEMOGLOBIN 27.1 pg (25.0-35.0); MEAN CORPUSCULAR HGB CONC 31.3 g/dl (31.0-37.0); MEAN PLATELET VOLUME 8.5 fl (7.0-11.0); MONO # 0.5 (0.1-0.6); MONO % 7.6 % (1.0-6.0); RBC 3.77 10^6/uL (3.5-6.1); RED CELL DISTRIBUTION WIDTH 15.3 % (11.5-14.5); WHITE BLOOD COUNT 6.6 10^3/uL (4.5-11.0)
[2018-09-04 07:09] LABS: ALB/GLOB RATIO 1.2 (1.1-1.8); ALBUMIN 3.3 g/dL (3.0-4.8); ALT/SGPT 24 U/L (7-56); AST/SGOT 18 U/L (17-59); BLOOD UREA NITROGEN 34 mg/dL (7-21); CALCIUM 8.2 mg/dL (8.4-10.5); GFR NON-AFRICAN AMERICAN 60
[2018-09-04] MEDS: Arformoterol 15 mcg/2 ml Inh Sol IH SCH (08:00)
[2018-09-04] MEDS: Budesonide 0.5 mg/2 ml Inhal Susp UD IH SCH (08:00)
[2018-09-04] MEDS ORDERED: Midazolam 2 MG/2 ML VIAL ONE (09:13)
[2018-09-04] MEDS ORDERED: Sodium Chloride 0.9% 1,000 ML IV SCH (09:45)
[2018-09-04] MEDS: Pantoprazole 40 mg EC Tab PO SCH (10:14)
--- NOTE | 2018-09-04 10:26 | CP.PCM.PN ---
Subjective - Date & Time of Evaluation Date of Evaluation: 09/04/18 Time of Evaluation: 10:21 - Subjective Subjective: Podiatry progress note - Drs. Zuniga/Lorena 72M seen and evaluated at bedside with Dr. Zuniga for right foot wound. Resting comfortably, denies pain to LE. For cardiac cath today. Denies n/v/f/c and has no other acute pedal complaints. Objective - Vital Signs/Intake and Output Vital Signs (last 24 hours): Temp Pulse Resp BP Pulse Ox 98.1 F 66 19 123/68 99 09/04/18 06:00 09/04/18 10:15 09/04/18 06:00 09/04/18 10:09/04/18 06:00 Intake and Output: 09/04/18 09/04/18 06:59 18:59 Intake Total 240 Output Total 200 Balance 40 - Medications Medications: Current Medications Arformoterol Tartrate (Brovana) 15 mcg IH [id number] [facility] Last Admin: 09/04/18 08:00 Dose: Not Given Aspirin (Ecotrin) 81 mg PO DAILY [facility] Last Admin: 09/04/18 10:03 Dose: Not Given Atorvastatin Calcium (Lipitor) 20 mg PO DAILY [facility] Last Admin: 09/04/18 10:14 Dose: 20 mg Budesonide (Pulmicort Respules) 0.5 mg IH [id number] [facility] Last Admin: 09/04/18 08:00 Dose: Not Given Carvedilol (Coreg) 6.25 mg PO BID [facility] Last Admin: 09/04/18 10:13 Dose: 6.25 mg Dextrose (Dextrose 50% Inj) 0 ml IV STAT PRN; Protocol PRN Reason: Hypoglycemia Protocol Dextrose (Dextrose 5% In Water 1000 Ml) 1,000 mls @ 0 mls/hr IV .Q0M PRN; Protocol PRN Reason: Hypoglycemia Protocol Sodium Chloride (Sodium Chloride 0.9%) 1,000 mls @ 100 mls/hr IV .Q10H [facility] Stop: 09/04/18 13:46 Last Admin: 09/04/18 10:00 Dose: 100 mls/hr Insulin Human Lispro (Humalog Low) 0 units SC ACHS [facility]; Protocol Last Admin: 09/04/18 07:30 Dose: Not Given Levalbuterol HCl (Xopenex) 0.63 mg IH [id number] PRN PRN Reason: Shortness of Breath Lisinopril (Zestril) 5 mg PO DAILY [facility] Last Admin: 09/04/18 10:15 Dose: 5 mg Pantoprazole Sodium (Protonix Ec Tab) 40 mg PO DAILY [facility] Last Admin: 09/04/18 10:14 Dose: 40 mg - Labs Labs: 09/04/18 06:40 09/04/18 06:40 - Constitutional Appears: Non-toxic - Head Exam Head Exam: ATRAUMATIC - Extremities Exam Additional comments: RLE focused exam VASC: DP and PT pulses dopplerable; CFT <3 seconds to digits x5 b/l; pedal hair growth absent NEURO: Light touch and protective sensation diminished bilaterally. DERM: sutures intact no wound dehiscence no active drainage. Ulceration noted to medial aspect of 1st MPJ measuring approximately 1 x 1 x 0.1cm -wound noted to have a granular base; no purulence expressed; no fluctuance ORTHO: No pain on palpation noted to wounds, MMT 5/5 - Neurological Exam Neurological Exam: Alert, Awake, Oriented x3 - Psychiatric Exam Psychiatric exam: Normal Affect Assessment and Plan - Assessment and Plan (Free Text) Assessment: 72M with right foot wound Plan: Patient seen and evaluated with Dr. Efrain VALDES, WBC 6.6 Wound culture taken Site cleansed with saline and foam dressing applied F/u with Dr. Carrillo as outpatient upon discharge for foot wound care Will continue to follow while in house
[2018-09-04 11:21] VITALS: RESP 18
[2018-09-04 11:53] VITALS: TEMP 97.7
--- NOTE | 2018-09-04 13:58 | PN ---
DATE: 09/04/2018 SUBJECTIVE: The patient is seen lying in bed on telemetry. He underwent cardiac catheterization earlier today which revealed patent bypass grafts and unchanged [place] vessel disease. His ejection fraction was normal. Continue medical therapy and tobacco abstinence were advised. CURRENT MEDICATIONS: Include Brovana, carvedilol 6.25 mg twice a day, Ecotrin, Lipitor, Protonix, Pulmicort, Xopenex, and Zestril. PHYSICAL EXAMINATION: GENERAL: He is a disheveled-appearing middle-aged man. VITAL SIGNS: Blood pressure 122/60 with pulse 66 sinus, respirations 16. He is afebrile. HEENT: No JVD. CHEST: Bilateral scattered rhonchi. HEART: PMI in normal position. No pathological murmurs noted. ABDOMEN: Soft, nontender with normoactive bowel sounds. EXTREMITIES: No edema. DIAGNOSTIC DATA: Potassium 4.1, BUN and creatinine 34 and 1.2. White count 6.6, hematocrit 10.2 and 32.6 with platelet count 153,000. IMPRESSION: 1. Coronary artery disease status post bypass surgery with fairly unchanged and stable anatomy as well as a patent bypass grafts. 2. Persistent tobacco abuse. 3. Rest of problems as noted. RECOMMENDATIONS: From a cardiac standpoint, his current medications should continue. Aspirin, statin and beta-geni therapy is advised. Smoking abstinence is strongly encouraged. From a cardiac standpoint, he is stable for discharge home later today and outpatient followup will be arranged as needed. Asad Barnhart MD MTDD
[2018-09-04 14:53] VITALS: BP 115/56; PULSE 61
--- NOTE | 2018-09-04 15:00 | CARDCATH ---
PROCEDURE DATE: 09/04/2018 PROCEDURES: 1. Selective left and right coronary angiography. 2. Saphenous venography. 3. Left internal mammary arteriography. 4. Left ventriculography. 5. Right femoral arteriography. 6. Angio-Seal deployment. HISTORY: This is a 72-year-old male with known coronary artery disease status post prior bypass surgery, continued tobacco abuse, admitted with a recent [id number] elevation myocardial infarction. He was advised catheterization, but refused at that time. He was readmitted with chest pain and grade 2 cardiac catheterization. Risks and benefits of this discussed in detail with the patient and he was agreeable to proceed. At procedure, the patient was prepped and draped in sterile fashion, and a right femoral arterial access was obtained with a 6-[place] short sheath. Angiography was performed with right and left Tyler catheters. A left ventriculogram was also performed with a right Tyler catheter. Conscious sedation was achieved with the use of 2 mg of Versed and 100 mg of fentanyl. The patient was monitored under my supervision throughout the procedure. Initial sedation began at 915 and the case was monitored until 937 a.m. FINDINGS: HEMODYNAMICS: The left ventricular pressure was 140/70, aortic pressure 140/60. CORONARY ANATOMY: 1. The left mainstem had a 50% distal tapering, it was a moderate size vessel. 2. Left anterior descending artery had a long diffuse in-stent restenosis at its proximal and mid portion of the previously placed stent. Competitive flow was noted distally. The diagonal branches were fairly small with mild to moderate diffuse disease. 3. The left circumflex artery gave rise to one small to moderate size obtuse marginal branch and had a 50% ostial stenosis. 4. The right coronary artery was large and dominant. This had a 60% stenosis in its midportion. Competitive flow was noted distally. 5. Saphenous vein graft to the RCA was widely patent. There did appear to be a mild area of stenosis at the anastomosis of approximately 30% severity. The posterolateral branch filled well as to the posterior descending artery. No significant disease was noted. 6. The left internal mammary artery to the LAD was widely patent with good distal runoff. The LAD was a small to medium size caliber vessel. LEFT VENTRICULOGRAPHY: A hand injection was performed of the left ventricle revealing normal wall motion with an ejection fraction of 60%. There was no aortic valve gradient or on catheter pullback. RIGHT FEMORAL ARTERIOGRAPHY: Right femoral arteriogram was performed in the CERNA projection. This revealed a patent right iliac stent and appropriate left arterial puncture. The puncture site was then closed with deployment of an Angio-Seal device. CONCLUSION: 1. Significant left main, severe LAD, moderate ostial circumflex, and RCA disease. 2. Preserved LV function. 3. Patent ORELLANA to LAD. 4. Patent SVG to RCA with mild to anastomotic stenosis. 5. Normal LV systolic function. RECOMMENDATIONS: Given the above findings, continue medical therapy and risk factor control is advised. Smoking abstinence was strongly encouraged. Asad Barnhart MD
--- NOTE | 2018-09-04 15:33 | CP.PCM.DIS ---
<Lorenzo Salmon - Last Filed: 09/04/18 15:29> Provider - Provider Date of Admission: 09/02/18 13:26 Attending physician: Jessica Mcrae MD Primary care physician: Murali Wesley MD Consults: 09/02/18 14:24 Cardiology Consult Routine Comment: Consulting Provider: Asad Barnhart Consulting Physician: Asad Barnhart Reason for Consult: CP/SOB, pt now amenable to stress test/cath 09/02/18 14:56 Podiatry Consult Routine Comment: Consulting Provider: Tanvi Carrillo Consulting Physician: Tanvi Carrillo Reason for Consult: chronic R foot wound, s/p bone bx last admit 09/02/18 15:41 Dairy Farm Manager [Case Management Referral] Routine Comment: Physician Instructions: Reason For Exam: homeless, may need placement Reason for Referral: Discharge Planning 09/02/18 15:52 Inpatient 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 AID 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 Core Measures Referral Routine Comment: Physician Instructions: Reason For Exam: EVALUATION Nursing Referral for Wound Care Routine Comment: RIGHT LATERAL BIG TOE WITH A STICHED WOUND Physician Instructions: Reason For Exam: EVALUATION Transition In Care/Readmission Reduction Routine Comment: Physician Instructions: Reason For Exam: EVALUATION 09/02/18 15:59 Nursing Referral for Palliative Care Routine Comment: Physician Instructions: Reason For Exam: EVALUATION Social Work Referral Routine Comment: HOMELESSNESS,NON COMPLIANCE WITH MEDS,[place] Physician Instructions: Reason For Exam: EVALUATION 09/02/18 16:07 Nursing Referral for Wound Care Routine Comment: R LATERAL SIDE OF BIG TOE STITCHED WOUND CALLOUSED Physician Instructions: Reason For Exam: EVALUATION Time Spent in preparation of Discharge (in minutes): 45 Hospital Course - Lab Results Lab Results: Micro Results 09/02/18 15:34 Foot - Right Gram Stain - Final 09/02/18 15:34 Foot - Right Wound Culture - Final Corynebacterium Species Most Recent Lab Values WBC 6.6 10^3/uL (4.5-11.0) 09/04/18 06:40 RBC 3.77 10^6/uL (3.5-6.1) 09/04/18 06:40 Hgb 10.2 g/dL (14.0-18.0) L 09/04/18 06:40 Hct 32.6 % (42.0-52.0) L 09/04/18 06:40 MCV 86.5 fl (80.0-105.0) 09/04/18 06:40 MCH 27.1 pg (25.0-35.0) 09/04/18 06:40 MCHC 31.3 g/dl (31.0-37.0) 09/04/18 06:40 RDW 15.3 % (11.5-14.5) H 09/04/18 06:40 Plt Count 153 10^3/uL (120.0-450.0) 09/04/18 06:40 MPV 8.5 fl (7.0-11.0) 09/04/18 06:40 Neut % (Auto) 65.1 % (50.0-68.0) 09/04/18 06:40 Lymph % (Auto) 23.4 % (22.0-35.0) 09/04/18 06:40 [place] % (Auto) 7.6 % (1.0-6.0) H 09/04/18 06:40 Eos % (Auto) 3.3 % (1.5-5.0) 09/04/18 06:40 Baso % (Auto) 0.6 % (0.0-3.0) 09/04/18 06:40 Lymph # (Auto) 1.5 (1.2-3.4) 09/04/18 06:40 [place] # (Auto) 0.5 (0.1-0.6) 09/04/18 06:40 Eos # (Auto) 0.2 (0.0-0.7) 09/04/18 06:40 Baso # (Auto) 0.04 K/mm3 (0.0-2.0) 09/04/18 06:40 Absolute Neuts (auto) 4.28 (1.4-6.5) 09/04/18 06:40 Sodium 139 mmol/L (132-148) 09/04/18 06:40 Potassium 4.1 mmol/L (3.6-5.0) 09/04/18 06:40 Chloride 105 mmol/L (98-107) 09/04/18 06:40 Carbon Dioxide 31 mmol/L (21-33) 09/04/18 06:40 Anion Gap 7 (10-20) L 09/04/18 06:40 BUN 34 mg/dL (7-21) H 09/04/18 06:40 Creatinine 1.2 mg/dl (0.8-1.5) 09/04/18 06:40 Est GFR ( Amer) > 60 09/04/18 06:40 Est GFR (Non-Af Amer) 60 09/04/18 06:40 POC Glucose (mg/dL) 157 mg/dL (65-110) H 09/04/18 11:53 Random Glucose 96 mg/dL (70-110) 09/04/18 06:40 Calcium 8.2 mg/dL (8.4-10.5) L 09/04/18 06:40 Phosphorus 3.1 mg/dL (2.5-4.5) 09/04/18 06:40 Magnesium 2.6 mg/dL (1.7-2.2) H 09/04/18 06:40 Total Bilirubin 0.2 mg/dL (0.2-1.3) 09/04/18 06:40 AST 18 U/L (17-59) 09/04/18 06:40 ALT 24 U/L (7-56) 09/04/18 06:40 Alkaline Phosphatase 69 U/L (38-126) 09/04/18 06:40 Lactate Dehydrogenase 514 U/L (333-699) 09/02/18 12:22 Total Creatine Kinase 134 U/L (35-230) 09/02/18 12:22 Troponin I < 0.01 ng/mL 09/03/18 04:00 NT-Pro-B Natriuret Pep 794 pg/mL (0-450) H 09/02/18 12:22 Total Protein 5.9 g/dL (5.8-8.3) 09/04/18 06:40 Albumin 3.3 g/dL (3.0-4.8) 09/04/18 06:40 Globulin 2.6 gm/dL 09/04/18 06:40 Albumin/Globulin Ratio 1.2 (1.1-1.8) 09/04/18 06:40 Triglycerides 76 mg/dL (35-160) 09/03/18 04:00 Cholesterol 104 mg/dL (130-200) L 09/03/18 04:00 LDL Cholesterol Direct 67 mg/dL (0-129) 09/03/18 04:00 HDL Cholesterol 24 mg/dL (29-60) L 09/03/18 04:00 Procalcitonin < 0.05 NG/ML (0.19-0.49) L 09/02/18 16:50 - Hospital Course Hospital Course: 72 year old male with past medical history of CAD s/p CABG s/p stents, DM II, HTN, HLD, GERD, COPD, valve replacement, recent DVT, recent osteomyelitis, medication non-compliance who presented to [facility] ED complaining of chest discomfort. Patient was admitted for chest pain rule out ACS. Troponins negative x3. EKG was done and showed sinus tachycardia with no changes from previous EKGs. Cardiology with Dr. Pierre was consulted who recommended to have invasive cardiac cath for further investigation. Cath did not show any obstructive vessels. Patient was counseled to stop smoking and offered nicotine patch on discharge but he declined. Patient wanted to sign AMA, he was aware of risks of bleeding, infections, worsening of his condition, loss of limb and also . Patient was mentally competent and wanted to leave immediately, he took off his IV line, pressure cuff and left. Discharge Exam - Head Exam Head Exam: ATRAUMATIC (Physical exam was not done. Patient signed AMA) Discharge Plan - Follow Up Plan Condition: STABLE Disposition: AGAINST MEDICAL ADVICE Additional Instructions: - Please follow up with your PMD Dr. Wesley, within 2-3 days of discharge. - Please follow up with your oyster worker Dr. Barnhart within 1 week of discharge. - Please hold your home medication for 48 hours after cardiac catheterization . You can resume it on Sunday09/06/18 - Please avoid heavy lifting for 2 weeks after discharge. Watch for any swelling or pain in right groin area - Continue taking aspirin and eliquis as prescribed - It is important that you take your medications regularly, stop smoking. - Please return to the nearest emergency department if your symptoms worsen or reoccur Referrals: Asad Barnhart MD [Staff Provider] - Murali Wesley MD [Primary Care Provider] - Follow up with primary <Jessica Mcrae - Last Filed: 09/05/18 16:52> Provider - Provider Date of Admission: 09/02/18 13:26 Attending physician: Jessica Mcrae MD Primary care physician: Murali Wesley MD Consults: 09/02/18 14:24 Cardiology Consult Routine Comment: Consulting Provider: Asad Barnhart Consulting Physician: Asad Barnhart Reason for Consult: CP/SOB, pt now amenable to stress test/cath 09/02/18 14:56 Podiatry Consult Routine Comment: Consulting Provider: Tanvi Carrillo Consulting Physician: Tanvi Carrillo Reason for Consult: chronic R foot wound, s/p bone bx last admit 09/02/18 15:41 Dairy Farm Manager [Case Management Referral] Routine Comment: Physician Instructions: Reason For Exam: homeless, may need placement Reason for Referral: Discharge Planning 09/02/18 15:52 Inpatient 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 Core Measures Referral Routine Comment: Physician Instructions: Reason For Exam: EVALUATION Nursing Referral for Wound Care Routine Comment: RIGHT LATERAL BIG TOE WITH A STICHED WOUND Physician Instructions: Reason For Exam: EVALUATION Transition In Care/Readmission Reduction Routine Comment: Physician Instructions: Reason For Exam: EVALUATION 09/02/18 15:59 Nursing Referral for Palliative Care Routine Comment: Physician Instructions: Reason For Exam: EVALUATION Social Work Referral Routine Comment: HOMELESSNESS,NON COMPLIANCE WITH MEDS,[place] Physician Instructions: Reason For Exam: EVALUATION 09/02/18 16:07 Nursing Referral for Wound Care Routine Comment: R LATERAL SIDE OF BIG TOE STITCHED WOUND CALLOUSED Physician Instructions: Reason For Exam: EVALUATION Hospital Course - Lab Results Lab Results: Micro Results 09/02/18 15:34 Foot - Right Gram Stain - Final 09/02/18 15:34 Foot - Right Wound Culture - Final Corynebacterium Species Most Recent Lab Values WBC 6.6 10^3/uL (4.5-11.0) 09/04/18 06:40 RBC 3.77 10^6/uL (3.5-6.1) 09/04/18 06:40 Hgb 10.2 g/dL (14.0-18.0) L 09/04/18 06:40 Hct 32.6 % (42.0-52.0) L 09/04/18 06:40 MCV 86.5 fl (80.0-105.0) 09/04/18 06:40 MCH 27.1 pg (25.0-35.0) 09/04/18 06:40 MCHC 31.3 g/dl (31.0-37.0) 09/04/18 06:40 RDW 15.3 % (11.5-14.5) H 09/04/18 06:40 Plt Count 153 10^3/uL (120.0-450.0) 09/04/18 06:40 MPV 8.5 fl (7.0-11.0) 09/04/18 06:40 Neut % (Auto) 65.1 % (50.0-68.0) 09/04/18 06:40 Lymph % (Auto) 23.4 % (22.0-35.0) 09/04/18 06:40 [place] % (Auto) 7.6 % (1.0-6.0) H 09/04/18 06:40 Eos % (Auto) 3.3 % (1.5-5.0) 09/04/18 06:40 Baso % (Auto) 0.6 % (0.0-3.0) 09/04/18 06:40 Lymph # (Auto) 1.5 (1.2-3.4) 09/04/18 06:40 [place] # (Auto) 0.5 (0.1-0.6) 09/04/18 06:40 Eos # (Auto) 0.2 (0.0-0.7) 09/04/18 06:40 Baso # (Auto) 0.04 K/mm3 (0.0-2.0) 09/04/18 06:40 Absolute Neuts (auto) 4.28 (1.4-6.5) 09/04/18 06:40 Sodium 139 mmol/L (132-148) 09/04/18 06:40 Potassium 4.1 mmol/L (3.6-5.0) 09/04/18 06:40 Chloride 105 mmol/L (98-107) 09/04/18 06:40 Carbon Dioxide 31 mmol/L (21-33) 09/04/18 06:40 Anion Gap 7 (10-20) L 09/04/18 06:40 BUN 34 mg/dL (7-21) H 09/04/18 06:40 Creatinine 1.2 mg/dl (0.8-1.5) 09/04/18 06:40 Est GFR ( Amer) > 60 09/04/18 06:40 Est GFR (Non-Af Amer) 60 09/04/18 06:40 POC Glucose (mg/dL) 157 mg/dL (65-110) H 09/04/18 11:53 Random Glucose 96 mg/dL (70-110) 09/04/18 06:40 Calcium 8.2 mg/dL (8.4-10.5) L 09/04/18 06:40 Phosphorus 3.1 mg/dL (2.5-4.5) 09/04/18 06:40 Magnesium 2.6 mg/dL (1.7-2.2) H 09/04/18 06:40 Total Bilirubin 0.2 mg/dL (0.2-1.3) 09/04/18 06:40 AST 18 U/L (17-59) 09/04/18 06:40 ALT 24 U/L (7-56) 09/04/18 06:40 Alkaline Phosphatase 69 U/L (38-126) 09/04/18 06:40 Lactate Dehydrogenase 514 U/L (333-699) 09/02/18 12:22 Total Creatine Kinase 134 U/L (35-230) 09/02/18 12:22 Troponin I < 0.01 ng/mL 09/03/18 04:00 NT-Pro-B Natriuret Pep 794 pg/mL (0-450) H 09/02/18 12:22 Total Protein 5.9 g/dL (5.8-8.3) 09/04/18 06:40 Albumin 3.3 g/dL (3.0-4.8) 09/04/18 06:40 Globulin 2.6 gm/dL 09/04/18 06:40 Albumin/Globulin Ratio 1.2 (1.1-1.8) 09/04/18 06:40 Triglycerides 76 mg/dL (35-160) 09/03/18 04:00 Cholesterol 104 mg/dL (130-200) L 09/03/18 04:00 LDL Cholesterol Direct 67 mg/dL (0-129) 09/03/18 04:00 HDL Cholesterol 24 mg/dL (29-60) L 09/03/18 04:00 Procalcitonin < 0.05 NG/ML (0.19-0.49) L 09/02/18 16:50 Attending/Attestation - Attestation I have personally seen and examined this patient.: Yes I have fully participated in the care of the patient.: Yes I have reviewed all pertinent clinical information, including history, physical exam and plan: Yes Notes (Text): 09/05/18 16:50 Attending note; Patient seen and examined resident. Patient is alert and awake. Not in any acute distress. s/p cardiac cath today. Patient is a 72 year old male with PMH of CAD s/p CABG and stents, DM II, HTN, HLD, GERD, COPD, recent DVT, homelessness, medication/follow-up non-compliance who presents to the ED for shortness of breath and chest pain that began today. 1. Chest pain; patient is currently stable. EKG showed no acute ST-T changes . Cardiac enzymes x3 negative. Continue aspirin,coreg,Lipitor and lisinopril. Cardiology evaluation appreciated. cardiac cath showed patent coronaries. patient Will be monitored. 2. History of DVT; continue Eliquis. 3. Diabetes; continue regular insulin sliding scale . Hold metformin for the possibility of cardiac cath . 4. Smoking; smoking cessation is strongly advised. Patient is not interested in stopping. 5. COPD; continue duo nebs as needed . 6. Patient had a recent bone biopsy done. Negative for osteo-myelitis. Dietary evaluation appreciated. 7. Non- Compliance with follow-up. Medication compliance insisted in detail. 8. Homelessness; social service worker evaluation appreciated. Halfway information given . Upon discharge the patient will follow up with PMD . Patient usually does not follow-up with medical doctors as outpatient. Addendum; Patient signed AGAINST MEDICAL ADVICE before completion of post cardiac cath monitoring.
[2018-09-05] MEDS ORDERED: Pantoprazole 40 mg EC Tab PO SCH (06:00)
== END 2018-09-04 16:12 | disposition left against medical advice (07) ==
LOC: ED 11:50 → ERH 13:26 → 2RSO 15:59
PROVIDERS: ADMIT Internal Medicine; ATTEND Internal Medicine
DX: I25.10 Atherosclerotic heart disease of native coronary artery without angina pectoris (principal); T82.855A Stenosis of coronary artery stent, initial encounter; E11.51 Type 2 diabetes mellitus with diabetic peripheral angiopathy without gangrene; E78.5 Hyperlipidemia, unspecified; I10 Essential (primary) hypertension; J44.9 Chronic obstructive pulmonary disease, unspecified; K21.9 Gastro-esophageal reflux disease without esophagitis; E11.69 Type 2 diabetes mellitus with other specified complication; M86.9 Osteomyelitis, unspecified; F17.210 Nicotine dependence, cigarettes, uncomplicated; I25.2 Old myocardial infarction; Z95.2 Presence of prosthetic heart valve; Z95.820 Peripheral vascular angioplasty status with implants and grafts; Z79.51 Long term (current) use of inhaled steroids; Z79.02 Long term (current) use of antithrombotics/antiplatelets; Z86.718 Personal history of other venous thrombosis and embolism; Z91.14 Patient's other noncompliance with medication regimen; Z91.19 Patient's noncompliance with other medical treatment and regimen; Z59.0 Homelessness; Z79.84 Long term (current) use of oral hypoglycemic drugs; Z85.46 Personal history of malignant neoplasm of prostate; Z92.3 Personal history of irradiation; Z95.1 Presence of aortocoronary bypass graft; Z95.5 Presence of coronary angioplasty implant and graft; Y83.1 Surgical operation with implant of artificial internal device as the cause of abnormal reaction of the patient, or of later complication, without mention of misadventure at the time of the procedure
CPT/HCPCS: 36415; 71045; 80053; 80061; 82550; 82948; 83615; 83735; 83880; 84100; 84145; 84484; 85025; 87070; 93005; 93459; 96372; 97161; 99152; 99283; C1760; C1769; C2629; G0378; G8978; G8979; J1644; J1650; J2250; J3010; J7030; Q9966

== ENCOUNTER 2018-09-04 20:35 | Emergency (ER) | payer MEDICARE, OTHER ==
[2018-09-04 20:36] VITALS: BMI 23.7
[2018-09-04 22:04] VITALS: RESP 18
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
[2018-09-05 06:03] VITALS: BP 161/82; PULSE 60; TEMP 97.6; O2SAT 100
== END 2018-09-05 06:27 | disposition home or self-care (01) ==
LOC: ED 20:35
DX: S89.90XA Unspecified injury of unspecified lower leg, initial encounter (principal); X58.XXXA Exposure to other specified factors, initial encounter; Z59.0 Homelessness

== ENCOUNTER 2018-09-05 20:35 | Emergency (ER) | payer MEDICARE, OTHER ==
[2018-09-05 20:40] VITALS: BMI 20.7
[2018-09-05] MEDS ORDERED: Lidocaine 5% Patch TD STA (20:42)
--- NOTE | 2018-09-05 20:42 | ED PDOC ---
Arrival/HPI - General Time Seen by Provider: 09/05/18 20:35 Historian: Patient - History of Present Illness Narrative History of Present Illness (Text): 09/05/18 20:50 72 y/o homeless male with PMH of CAD, COPD, DM presents to the ED c/o lower back pain x 1 day. Patient was helping his brother move a refrigerator when he pulled a muscle in his back, causing pain. Pt requesting to be admitted so that he has a place to stay the night. Denies fall, saddle anesthesia, leg numbness/weakness/paresthesias, abdominal pain, incontinence, urinary symptoms, or any other associated complaints. Past Medical History - Provider Review Nursing Documentation Reviewed: Yes - Infectious Disease Hx of Infectious Diseases: None - Cardiac Hx Cardiac Disorders: Yes (CAD s/p CABG, s/p stents, valve replacement) Hx Hypertension: Yes - Pulmonary Hx Chronic Obstructive Pulmonary Disease (COPD): Yes - Neurological Hx Neurological Disorder: No - HEENT Hx HEENT Disorder: No - Renal Hx Renal Disorder: No - Endocrine/Metabolic Hx Diabetes Mellitus Type 2: Yes - Hematological/Oncological Hx Blood Transfusions: No Hx Blood Transfusion Reaction: No - Integumentary Hx Dermatological Disorder: Yes Other/Comment: rash/reaction from bed bugs - Musculoskeletal/Rheumatological Hx Musculoskeletal Disorders: Yes - Gastrointestinal Hx Gastrointestinal Disorders: No - Genitourinary/Gynecological Hx Genitourinary Disorders: Yes Other/Comment: Hx prostate ca with radiation therapy - Psychiatric Hx Emotional Abuse: No Hx Physical Abuse: No Hx Substance Use: No - Surgical History Hx Appendectomy: Yes (at age 17) - Anesthesia Hx Anesthesia Reactions: No Hx Malignant Hyperthermia: No - Suicidal Assessment Feels Threatened In Home Enviroment: No Family/Social History - Physician Review Nursing Documentation Reviewed: Yes Family/Social History: No Known Family HX Smoking Status: Heavy Smoker > 10 Cigarettes Daily Hx Alcohol Use: Yes (stopped drinking 2-3 yrs ago) Hx Substance Use: No Hx Substance Use Treatment: No Allergies/Home Meds Allergies/Adverse Reactions: Allergies No Known Allergies Allergy (Verified 09/02/18 12:08) Home Medications: Home Meds Medication Instructions Recorded Confirmed Albuterol Sulfate [Proair Hfa] 2 puff IH BID 05/17/18 09/02/18 Atorvastatin [Lipitor] 20 mg PO DAILY 05/17/18 09/02/18 Budesonide/Formoterol Fumarate 2 puff IH BID 05/17/18 09/02/18 [Symbicort 160-4.5 Mcg Inhaler] Carvedilol [Coreg] 6.25 mg PO BID 05/17/18 09/02/18 Lisinopril [Zestril] 5 mg PO DAILY 05/17/18 09/02/18 Pantoprazole Sodium [Protonix] 40 mg PO DAILY 05/17/18 09/02/18 metFORMIN [glucOPHAGE] 500 mg PO BID 05/17/18 09/02/18 Review of Systems - Review of Systems Constitutional: Normal. absent: Fevers Eyes: Normal. absent: Vision Changes Respiratory: Normal. absent: SOB, Cough Cardiovascular: Normal. absent: Chest Pain, Palpitations, Syncope Gastrointestinal: Normal. absent: Abdominal Pain, Nausea, Vomiting Genitourinary Male: Normal. absent: Dysuria, Frequency Musculoskeletal: Back Pain Skin: Normal. absent: Rash Neurological: Normal. absent: Headache, Dizziness Physical Exam Vital Signs Reviewed: Yes Pulse: Regular Respiratory Rate: Normal Appearance: Positive for: Well-Appearing, Non-Toxic, Comfortable, Unkept Pain Distress: None Mental Status: Positive for: Alert and Oriented X 3 - Systems Exam Head: Present: Atraumatic, Normocephalic Pupils: Present: PERRL Extroacular Muscles: Present: EOMI Conjunctiva: Present: Normal Mouth: Present: Moist Mucous Membranes Neck: Present: Normal Range of Motion. No: Meningeal Signs Respiratory/Chest: Present: Clear to Auscultation, Good Air Exchange. No: Respiratory Distress, Accessory Muscle Use Cardiovascular: Present: Regular Rate and Rhythm, Normal S1, S2, Peripheal Pulses Present Abdomen: No: Tenderness Back: Present: Normal Inspection, Paraspinal Tenderness (lumbar, bilateral, R>L). No: CVA Tenderness Upper Extremity: Present: Normal Inspection, Normal ROM, NORMAL PULSES, Neurovascularly Intact, Capillary Refill < 2s. No: Temperature Abnormalties Lower Extremity: Present: NORMAL PULSES, Normal ROM, Neurovascularly Intact Neurological: Present: GCS=15, Speech Normal, Motor Func Grossly Intact, Normal Sensory Function, Gait Normal Skin: Present: Warm, Dry, Normal Color. No: Rashes Psychiatric: Present: Alert, Oriented x 3, Normal Insight, Normal Concentration, Normal Affect, Normal Mood Medical Decision Making ED Course and Treatment: 09/05/18 20:46 Initial Plan: * Tylenol * Lidoderm Patch * Reassess and Disposition No vitals on initial evaluation of patient. Asked nursing to obtain vitals signs. HR 88 on radial pulse assessment. Pt appears unkempt but well and comfortable. NAD. Ambulating with difficulty. No focal neurological deficits. Patient reports significant improvement of pain with medication. Will discharge, pending vitals, and advise PMD followup with return for new/worsening symptoms. Diagnostic testing results and plan of care discussed with patient. Strict instructions given regarding prescription use, importance of followup, and signs/symptoms to return to ER including fever, abdominal pain, worsening back pain, saddle anesthesia, incontinence, or any other new/worsening symptoms. Pt verbalized understanding of discussion. Patient is A&Ox3, ambulating with steady gait, with vital signs stable for discharge. Disposition/Present on Arrival - Present on Arrival Any Indicators Present on Arrival: No History of DVT/PE: No History of Uncontrolled Diabetes: No Urinary Catheter: No History Surgical Site Infection Following: None - Disposition Have Diagnosis and Disposition been Completed?: Yes Diagnosis: Low back pain Disposition: HOME/ ROUTINE Disposition Time: 22:30 Condition: IMPROVED Discharge Instructions (ExitCare): Low Back Pain in Adults Additional Instructions: Rest, no strenuous activity Lidoderm patches daily Tylenol as needed for pain Followup with primary doctor tomorrow Return to ER with any new/worsening symptoms Prescriptions: Lidocaine 5% [Lidoderm] 1 ea TD DAILY PRN #30 patch PRN Reason: Pain, Mild (1-3) Referrals: Susy Garcias MD [Staff Provider] - Follow up with primary Murali Wesley MD [Primary Care Provider] - Follow up with primary Forms: [email or web address] (Dominican), WORK NOTE
== END 2018-09-05 22:50 | disposition home or self-care (01) ==
LOC: ED 20:35
DX: M54.5 Low back pain (principal); E11.9 Type 2 diabetes mellitus without complications; I10 Essential (primary) hypertension; I25.10 Atherosclerotic heart disease of native coronary artery without angina pectoris; J44.9 Chronic obstructive pulmonary disease, unspecified; F17.210 Nicotine dependence, cigarettes, uncomplicated; Z59.0 Homelessness

== ENCOUNTER 2018-09-07 23:27 | Observation (INO) | payer MEDICARE, OTHER ==
[2018-09-07 23:27] VITALS: BMI 20.7
[2018-09-08] MEDS ORDERED: Piperacillin/Tazobact 3.375 gm 100 ML IV STA (00:06)
--- NOTE | 2018-09-08 00:06 | ED PDOC ---
Arrival/HPI - General Chief Complaint: Lower Extremity Problem/Injury Time Seen by Provider: 09/07/18 23:38 Historian: Patient - History of Present Illness Narrative History of Present Illness (Text): 09/08/18 00:03 Bruce Riggins is a 72 year old male, whose past medical history includes CAD with multiple cardiac stents, CABG, diabetes, hypertension, hyperlipidemia, GERD, COPD, valve replacement, DVT, and osteomyelitis, who presents to the ED complaining of right foot pain/wound. Patient reports he has a wound on his right foot with associated purulent discharge and pain to the area. Patient also notes redness to his right foot and ankle. Patient denies any fever, chills, chest pain, shortness of breath, nausea, headache, dizziness, or any other complaints. PMD: Dr. Wesley Symptom Onset: Gradual Symptom Course: Unchanged Activities at Onset: Light Context: Home Past Medical History - Provider Review Nursing Documentation Reviewed: Yes - Infectious Disease Hx of Infectious Diseases: None - Cardiac Hx Cardiac Disorders: Yes (CAD s/p CABG, s/p stents, valve replacement) Hx Hypertension: Yes - Pulmonary Hx Chronic Obstructive Pulmonary Disease (COPD): Yes - Neurological Hx Neurological Disorder: No - HEENT Hx HEENT Disorder: No - Renal Hx Renal Disorder: No - Endocrine/Metabolic Hx Diabetes Mellitus Type 2: Yes - Hematological/Oncological Hx Blood Transfusions: No Hx Blood Transfusion Reaction: No - Musculoskeletal/Rheumatological Hx Musculoskeletal Disorders: Yes - Gastrointestinal Hx Gastrointestinal Disorders: No - Genitourinary/Gynecological Hx Genitourinary Disorders: Yes Other/Comment: Hx prostate ca with radiation therapy - Psychiatric Hx Emotional Abuse: No Hx Physical Abuse: No Hx Substance Use: No - Surgical History Hx Appendectomy: Yes (at age 17) - Anesthesia Hx Anesthesia Reactions: No Hx Malignant Hyperthermia: No - Suicidal Assessment Feels Threatened In Home Enviroment: No Family/Social History - Physician Review Nursing Documentation Reviewed: Yes Family/Social History: Unknown Family HX Smoking Status: Heavy Smoker > 10 Cigarettes Daily Hx Alcohol Use: Yes (stopped drinking 2-3 yrs ago) Hx Substance Use: No Hx Substance Use Treatment: No Allergies/Home Meds Allergies/Adverse Reactions: Allergies No Known Allergies Allergy (Verified 09/02/18 12:08) Home Medications: Home Meds Medication Instructions Recorded Confirmed Albuterol Sulfate [Proair Hfa] 2 puff IH BID 05/17/18 09/02/18 Atorvastatin [Lipitor] 20 mg PO DAILY 05/17/18 09/02/18 Budesonide/Formoterol Fumarate 2 puff IH BID 05/17/18 09/02/18 [Symbicort 160-4.5 Mcg Inhaler] Carvedilol [Coreg] 6.25 mg PO BID 05/17/18 09/02/18 Lisinopril [Zestril] 5 mg PO DAILY 05/17/18 09/02/18 Pantoprazole Sodium [Protonix] 40 mg PO DAILY 05/17/18 09/02/18 metFORMIN [glucOPHAGE] 500 mg PO BID 05/17/18 09/02/18 Review of Systems - Physician Review All systems were reviewed & negative as marked: Yes - Review of Systems Constitutional: Normal. absent: Fevers Eyes: Normal ENT: Normal Respiratory: Normal. absent: SOB, Cough Cardiovascular: Normal. absent: Chest Pain Gastrointestinal: Normal. absent: Abdominal Pain, Diarrhea, Nausea, Vomiting Genitourinary Male: Normal. absent: Dysuria, Frequency, Hematuria, Urinary Output Changes Musculoskeletal: Normal. absent: Back Pain, Neck Pain Skin: Cellulitis (+right foot redness/pain/discharge) Neurological: Normal. absent: Headache, Dizziness Endocrine: Normal Hemo/Lymphatic: Normal Psychiatric: Normal Physical Exam Vital Signs Reviewed: Yes Vital Signs Temp Pulse Resp BP Pulse Ox 09/07/18 23:34 97.9 F 78 15 132/78 96 Temperature: Afebrile Blood Pressure: Normal Pulse: Regular Respiratory Rate: Normal Appearance: Positive for: Well-Appearing, Non-Toxic, Comfortable Pain Distress: None Mental Status: Positive for: Alert and Oriented X 3 - Systems Exam Head: Present: Atraumatic, Normocephalic Pupils: Present: PERRL Extroacular Muscles: Present: EOMI Conjunctiva: Present: Normal Mouth: Present: Moist Mucous Membranes Neck: Present: Normal Range of Motion Respiratory/Chest: Present: Clear to Auscultation, Good Air Exchange. No: Respiratory Distress, Accessory Muscle Use Cardiovascular: Present: Regular Rate and Rhythm, Normal S1, S2. No: Murmurs Abdomen: No: Tenderness, Distention, Peritoneal Signs Back: Present: Normal Inspection Upper Extremity: Present: Normal Inspection. No: Cyanosis, Edema Lower Extremity: Present: NORMAL PULSES, Normal ROM, Tenderness, Erythema (Ulcerated area to right foot, measuring 2.5cm, with purulent discharge and surrounding confluent erythema extending up the right foot and ankle with palpable tenderness to the area.), Neurovascularly Intact, Capillary Refill < 2 s. No: Edema, Cyanosis Neurological: Present: GCS=15, CN II-XII Intact, Speech Normal Skin: Present: Warm, Dry, Normal Color. No: Rashes Psychiatric: Present: Alert, Oriented x 3, Normal Insight, Normal Concentration Medical Decision Making ED Course and Treatment: 09/08/18 00:03 Impression: 72 year old male complaining of pain, redness, and purulent discharge to right foot. Plan: -- Labs, blood cultures -- Wound cultures -- Vancomycin -- Zosyn -- Reassess and disposition Prior Visits: Notes and results from previous visits were reviewed. Progress Notes: 09/08/18 01:[address] Gary, who is aware and agrees with plan. Accepts pt in to the hospitalist service. Pt will go to [facility] observation for cellulitis and infected foot ulcer. residential glazier notified. - Scribe Statement The provider has reviewed the documentation as recorded by the Dylan Trujillo Provider Scribe Attestation: All medical record entries made by the Scribmike were at my direction and personally dictated by me. I have reviewed the chart and agree that the record accurately reflects my personal performance of the history, physical exam, medical decision making, and the department course for this patient. I have also personally directed, reviewed, and agree with the discharge instructions and disposition. Disposition/Present on Arrival - Present on Arrival Any Indicators Present on Arrival: No History of DVT/PE: No History of Uncontrolled Diabetes: No Urinary Catheter: No History of Decub. Ulcer: No History Surgical Site Infection Following: None - Disposition Have Diagnosis and Disposition been Completed?: Yes Diagnosis: Cellulitis, Foot ulcer Disposition: HOSPITALIZED Disposition Time: 02:10 Patient Problems: Current Active Problems Problem Status Onset Cellulitis Acute Foot ulcer Chronic Condition: STABLE
[2018-09-08] MEDS ORDERED: Vancomycin 1gm in NS 250ml 1 GM/250 ML BAG IVPB STA (00:08)
[2018-09-08 00:54] LABS: HEMOGLOBIN 10.6 g/dL (14.0-18.0); MEAN CELL VOLUME 85.8 fl (80.0-105.0); MEAN CORPUSCULAR HEMOGLOBIN 26.8 pg (25.0-35.0); MEAN CORPUSCULAR HGB CONC 31.3 g/dl (31.0-37.0); MEAN PLATELET VOLUME 9.2 fl (7.0-11.0); RBC 3.95 10^6/uL (3.5-6.1); RED CELL DISTRIBUTION WIDTH 15.3 % (11.5-14.5); WHITE BLOOD COUNT 9.9 10^3/uL (4.5-11.0)
[2018-09-08 01:27] LABS: ALB/GLOB RATIO 1.4 (1.1-1.8); ALT/SGPT 23 U/L (7-56); AST/SGOT 23 U/L (17-59); BLOOD UREA NITROGEN 26 mg/dL (7-21); CALCIUM 8.9 mg/dL (8.4-10.5); GFR NON-AFRICAN AMERICAN 60
--- NOTE | 2018-09-08 02:57 | CP.PCM.HP ---
<Gwen Duncan - Last Filed: 09/08/18 05:11> History of Present Illness - History of Present Illness History of Present Illness: Resident History & Physical for Hospitalist Service Patient is a 72 year old male with past medical history of CAD s/p CABG s/p stents, T2DM, HTN, HLD, GERD, COPD, valve replacement, recent DVT, recent osteomyelitis presenting with chief complaint of persisting right foot pain and drainage. Patient admits to increased swelling in his right leg. In May 2018 patient was found to have right foot osteomyelitis and given 4-6 weeks IV a ntibiotics. Subsequently during hospitalization in early August 2018, patient underwent bone biopsy for workup of persisting wound which showed no evidence of acute osteomyelitis. During that admission patient signed out against medical advice. Currently denies fevers, chills, chest pain, shortness of breath, abdominal pain, diarrhea, dysuria. PMH: as above PSH: CABG, PCI, appendectomy, right foot bone biopsy SHx: current smoker (1ppd X 50 years, now down to 1/2 ppd), denies alcohol or illicit drug use FHx: denies Allergies: NKDA PMD: Dr. Wesley [employer] Coordinator: Dr. Barnhart Present on Admission - Present on Admission Any Indicators Present on Admission: No Review of Systems - Review of Systems All systems: reviewed and no additional remarkable complaints except (as per HPI) Past Patient History - Infectious Disease Hx of Infectious Diseases: None - Past Social History Smoking Status: Heavy Smoker > 10 Cigarettes Daily - CARDIAC Hx Cardiac Disorders: Yes (CAD s/p CABG, s/p stents, valve replacement) Hx Hypertension: Yes - PULMONARY Hx Chronic Obstructive Pulmonary Disease (COPD): Yes - NEUROLOGICAL Hx Neurological Disorder: No - HEENT Hx HEENT Problems: No - RENAL Hx Chronic Kidney Disease: No - ENDOCRINE/METABOLIC Hx Diabetes Mellitus Type 2: Yes - HEMATOLOGICAL/ONCOLOGICAL Hx Blood Transfusions: No Hx Blood Transfusion Reaction: No - INTEGUMENTARY Hx Dermatological Problems: Yes Other/Comment: rash/reaction from bed bugs - MUSCULOSKELETAL/RHEUMATOLOGICAL Hx Musculoskeletal Disorders: Yes - GASTROINTESTINAL Hx Gastrointestinal Disorders: No - GENITOURINARY/GYNECOLOGICAL Hx Genitourinary Disorders: Yes Other/Comment: Hx prostate ca with radiation therapy - PSYCHIATRIC Hx Emotional Abuse: No Hx Physical Abuse: No Hx Substance Use: No - SURGICAL HISTORY Hx Appendectomy: Yes (at age 17) - ANESTHESIA Hx Anesthesia Reactions: No Hx Malignant Hyperthermia: No Meds Allergies/Adverse Reactions: Allergies Allergy/AdvReac Type Severity Reaction Status Date / Time No Known Allergies Allergy Verified 09/02/18 12:08 Physical Exam - Constitutional Appears: No Acute Distress, Unkempt - Head Exam Head Exam: ATRAUMATIC, NORMOCEPHALIC - Eye Exam Eye Exam: EOMI, Normal appearance - ENT Exam ENT Exam: Mucous Membranes Moist - Respiratory Exam Respiratory Exam: Clear to Auscultation Bilateral, NORMAL BREATHING PATTERN. absent: Accessory Muscle Use, Rales, Rhonchi, Wheezes, Respiratory Distress - Cardiovascular Exam Cardiovascular Exam: REGULAR RHYTHM, +S1, +S2. absent: Tachycardia, Systolic Murmur - GI/Abdominal Exam GI & Abdominal Exam: Normal Bowel Sounds, Soft. absent: Distended, Firm, Guarding, Rebound, Rigid, Tenderness - Extremities Exam Additional comments: dorsalis pedis diminished pulses bilaterally right foot wound with purulent drainage RLE swelling - Neurological Exam Neurological exam: Alert, CN II-XII Intact, Oriented x3 - Skin Skin Exam: Dry, Normal Color, Warm Results - Vital Signs Recent Vital Signs: Last Vital Signs Temp 97.9 F 09/07/18 23:34 Pulse 78 09/07/18 23:34 Resp 15 09/07/18 23:34 BP 132/78 09/07/18 23:34 Pulse Ox 96 09/07/18 23:34 - Labs Result Diagrams: 09/08/18 00:25 09/08/18 00:25 Labs: Laboratory Results - last 24 hr 09/08/18 09/08/18 00:25 00:25 WBC 9.9 D RBC 3.95 Hgb 10.6 L Hct 33.9 L MCV 85.8 MCH 26.8 MCHC 31.3 RDW 15.3 H Plt Count 170 MPV 9.2 Sodium 140 Potassium 4.3 Chloride 104 Carbon Dioxide 23 Anion Gap 17 BUN 26 H Creatinine 1.2 Est GFR ( Amer) > 60 Est GFR (Non-Af Amer) 60 Random Glucose 101 Calcium 8.9 Total Bilirubin 0.5 AST 23 ALT 23 Alkaline Phosphatase 81 Total Protein 6.8 Albumin 4.0 Globulin 2.8 Albumin/Globulin Ratio 1.4 Assessment & Plan - Assessment and Plan (Free Text) Assessment: Patient is a 72 year old male with past medical history of CAD s/p CABG s/p stents, T2DM, HTN, HLD, GERD, COPD, valve replacement, recent DVT, recent osteomyelitis presenting with chief complaint of persisting right foot pain and drainage, admitted for workup and management of wound and possible osteomyelitis. Plan: Right foot wound - Foot MRI from 08/20/18 showed marrow edema in head of 1st metatarsal azevedo spicious for osteomyelitis - Bone biopsy from 08/23/09 was negative for acute osteomyelitis - ESR, CRP, procalcitonin - Blood culture, wound culture - Podiatry consult - PT eval - Vancomycin - Zosyn T2DM - ISS, Accuchecks COPD - Duonebs PRN Hyperlipidemia - continue Lipitor Hypertension - continue Coreg, lisinopril PPX - Lovenox SC, Protonix Case reviewed with Dr. Abdirahman Duncan PGY-1 <Buzz Gary - Last Filed: 09/08/18 19:27> Results - Vital Signs Recent Vital Signs: Last Vital Signs Temp 98.3 F 09/08/18 14:00 Pulse 74 09/08/18 18:53 Resp 18 09/08/18 14:00 BP 126/67 09/08/18 18:53 Pulse Ox 97 09/08/18 14:00 - Labs Result Diagrams: 09/08/18 00:25 09/08/18 00:25 Labs: Laboratory Results - last 24 hr 09/08/18 09/08/18 09/08/18 00:25 00:25 02:00 WBC 9.9 D RBC 3.95 Hgb 10.6 L Hct 33.9 L MCV 85.8 MCH 26.8 MCHC 31.3 RDW 15.3 H Plt Count 170 MPV 9.2 ESR Sodium 140 Potassium 4.3 Chloride 104 Carbon Dioxide 23 Anion Gap 17 BUN 26 H Creatinine 1.2 Est GFR ( Amer) > 60 Est GFR (Non-Af Amer) 60 POC Glucose (mg/dL) Random Glucose 101 Calcium 8.9 Total Bilirubin 0.5 AST 23 ALT 23 Alkaline Phosphatase 81 C-Reactive Protein Total Protein 6.8 Albumin 4.0 Globulin 2.8 Albumin/Globulin Ratio 1.4 Procalcitonin < 0.05 L 09/08/18 09/08/18 09/08/18 02:00 02:00 06:57 WBC RBC Hgb Hct MCV MCH MCHC RDW Plt Count MPV ESR 55 H Sodium Potassium Chloride Carbon Dioxide Anion Gap BUN Creatinine Est GFR ( Amer) Est GFR (Non-Af Amer) POC Glucose (mg/dL) 96 Random Glucose Calcium Total Bilirubin AST ALT Alkaline Phosphatase C-Reactive Protein 41.20 H Total Protein Albumin Globulin Albumin/Globulin Ratio Procalcitonin 09/08/18 09/08/18 11:54 16:41 WBC RBC Hgb Hct MCV MCH MCHC RDW Plt Count MPV ESR Sodium Potassium Chloride Carbon Dioxide Anion Gap BUN Creatinine Est GFR ( Amer) Est GFR (Non-Af Amer) POC Glucose (mg/dL) 125 H 151 H Random Glucose Calcium Total Bilirubin AST ALT Alkaline Phosphatase C-Reactive Protein Total Protein Albumin Globulin Albumin/Globulin Ratio Procalcitonin Attending/Attestation - Attestation I have personally seen and examined this patient.: Yes I have fully participated in the care of the patient.: Yes I have reviewed all pertinent clinical information: Yes Notes (Text): 09/08/18 19:27 seen and examined. discussed with resident. A&P as above
[2018-09-08] MEDS ORDERED: Albuterol-Ipratrop 3 mg / 0.5 (3 ml) UD IH PRN (05:32)
[2018-09-08] MEDS: Pantoprazole 40 mg EC Tab PO SCH (05:50)
[2018-09-08] MEDS: Insulin Reg-LOW-Coverage SC SCH ×4 (07:42→21:49)
[2018-09-08] MEDS ORDERED: Piperacillin/Tazobact 3.375 gm 100 ML IVPB SCH (10:00)
[2018-09-08] MEDS ORDERED: Vancomycin 1gm in NS 250ml 1 GM/250 ML BAG IVPB SCH (10:00)
[2018-09-08] MEDS: Enoxaparin 40 mg Syringe SC SCH (10:20)
--- NOTE | 2018-09-08 10:45 | CP.PCM.CON ---
<Sonali Cortez - Last Filed: 09/08/18 10:45> History of Present Illness - History of Present Illness History of Present Illness: Podiatry consult - Drs. Zuniga/Lorena 72M seen and evaluated at bedside for right foot wound. Patient is well known to podiatry service. Patient recently went to OR for R first metatarsal bone biopsy which showed no OM. Patient states that his right foot is not causing him any pain at this time. Denies nausea/vomiting/fever/shortness of breath. PMHx: CAD s/p CABG and stents, DM II, HTN, HLD, GERD, COPD, valve replacement, recent DVT PSHx: CABG, PCI, Appendectomy, Bone Bx of Right foot All: NKDA Review of Systems - Constitutional Constitutional: As Per HPI Past Patient History - Infectious Disease Hx of Infectious Diseases: None - Past Social History Smoking Status: Heavy Smoker > 10 Cigarettes Daily - CARDIAC Hx Cardiac Disorders: Yes (CAD s/p CABG, s/p stents, valve replacement) Hx Hypertension: Yes - PULMONARY Hx Chronic Obstructive Pulmonary Disease (COPD): Yes - NEUROLOGICAL Hx Neurological Disorder: No - HEENT Hx HEENT Problems: No - RENAL Hx Chronic Kidney Disease: No - ENDOCRINE/METABOLIC Hx Diabetes Mellitus Type 2: Yes - HEMATOLOGICAL/ONCOLOGICAL Hx Blood Transfusions: No Hx Blood Transfusion Reaction: No - INTEGUMENTARY Hx Dermatological Problems: Yes Other/Comment: rash/reaction from bed bugs - MUSCULOSKELETAL/RHEUMATOLOGICAL Hx Musculoskeletal Disorders: Yes - GASTROINTESTINAL Hx Gastrointestinal Disorders: No - GENITOURINARY/GYNECOLOGICAL Hx Genitourinary Disorders: Yes Other/Comment: Hx prostate ca with radiation therapy - PSYCHIATRIC Hx Emotional Abuse: No Hx Physical Abuse: No Hx Substance Use: No - SURGICAL HISTORY Hx Appendectomy: Yes (at age 17) - ANESTHESIA Hx Anesthesia Reactions: No Hx Malignant Hyperthermia: No Meds Allergies/Adverse Reactions: Allergies Allergy/AdvReac Type Severity Reaction Status Date / Time No Known Allergies Allergy Verified 09/10/18 03:16 - Medications Medications: Current Medications Acetaminophen (Tylenol 325mg Tab) 650 mg PO Q6H PRN PRN Reason: Pain, Mild (1-3) Albuterol/Ipratropium (Duoneb 3 Mg/0.5 Mg (3 Ml) Ud) 3 ml IH [id number] PRN PRN Reason: Shortness of Breath Aspirin (Ecotrin) 81 mg PO DAILY [facility] Last Admin: 09/08/18 10:22 Dose: 81 mg Atorvastatin Calcium (Lipitor) 20 mg PO DAILY [facility] Last Admin: 09/08/18 10:22 Dose: 20 mg Carvedilol (Coreg) 6.25 mg PO BID [facility] Last Admin: 09/08/18 10:21 Dose: 6.25 mg Enoxaparin Sodium (Lovenox) 40 mg SC DAILY [facility]; Protocol Last Admin: 09/08/18 10:20 Dose: 40 mg Insulin Human Regular (Humulin R Low) 0 units SC [facility]; Protocol Last Admin: 09/08/18 07:42 Dose: Not Given Lisinopril (Zestril) 5 mg PO DAILY [facility] Last Admin: 09/08/18 10:21 Dose: 5 mg Pantoprazole Sodium (Protonix Ec Tab) 40 mg PO 0600 [facility] Last Admin: 09/08/18 05:50 Dose: 40 mg Physical Exam - Constitutional Appears: No Acute Distress - Extremities Exam Additional comments: RLE focused exam VASC: DP and PT pulses diminished, CFT <3 seconds to digits x5 b/l; pedal hair growth absent NEURO: Light touch and protective sensation diminished bilaterally. DERM: Ulceration noted to medial aspect of 1st MPJ measuring approximately 1 x 1 x 0.1cm -wound noted to have a fibrotic base; no purulence, no drainage, no fluctuance ORTHO: No pain on palpation noted to wounds, MMT 5/5 - Neurological Exam Neurological exam: Alert, Oriented x3 - Psychiatric Exam Psychiatric exam: Normal Affect, Normal Mood Results - Vital Signs Recent Vital Signs: Last Vital Signs Temp 98.2 F 09/08/18 03:25 Pulse 86 09/08/18 10:21 Resp 18 09/08/18 03:57 BP 130/68 09/08/18 10:21 Pulse Ox 100 09/08/18 03:25 - Labs Result Diagrams: 09/08/18 00:25 09/08/18 00:25 Labs: Laboratory Results - last 24 hr 09/08/18 09/08/18 09/08/18 00:25 00:25 02:00 WBC 9.9 D RBC 3.95 Hgb 10.6 L Hct 33.9 L MCV 85.8 MCH 26.8 MCHC 31.3 RDW 15.3 H Plt Count 170 MPV 9.2 ESR 55 H Sodium 140 Potassium 4.3 Chloride 104 Carbon Dioxide 23 Anion Gap 17 BUN 26 H Creatinine 1.2 Est GFR ( Amer) > 60 Est GFR (Non-Af Amer) 60 POC Glucose (mg/dL) Random Glucose 101 Calcium 8.9 Total Bilirubin 0.5 AST 23 ALT 23 Alkaline Phosphatase 81 Total Protein 6.8 Albumin 4.0 Globulin 2.8 Albumin/Globulin Ratio 1.4 09/08/18 06:57 WBC RBC Hgb Hct MCV MCH MCHC RDW Plt Count MPV ESR Sodium Potassium Chloride Carbon Dioxide Anion Gap BUN Creatinine Est GFR ( Amer) Est GFR (Non-Af Amer) POC Glucose (mg/dL) 96 Random Glucose Calcium Total Bilirubin AST ALT Alkaline Phosphatase Total Protein Albumin Globulin Albumin/Globulin Ratio Assessment & Plan - Assessment and Plan (Free Text) Assessment: 72M with right foot wound; stable Plan: Patient seen and evaluated wi Discussed patient with Dr. Efrain VALDES, WBC 9.9 Bone biopsy (08/23); no OM present Wound culture (09/02); cornybacterium ID recs appreciated Site cleansed with saline and optifoam dressing applied Patient to f/u as outpatient with Dr. Carrillo/Efrain for local wound care Thank you for the consult - Date & Time Date: 09/08/18 Time: 10:45 <Travis Zuniga - Last Filed: 09/10/18 11:46> Results - Vital Signs Recent Vital Signs: Last Vital Signs Temp 98.8 F 09/08/18 21:48 Pulse 64 09/09/18 10:55 Resp 20 09/08/18 21:48 BP 118/59 L 09/09/18 10:55 Pulse Ox 94 L 09/08/18 21:48 - Labs Result Diagrams: 09/09/18 07:40 09/09/18 07:40 Attending/Attestation - Attestation I have personally seen and examined this patient.: Yes I have fully participated in the care of the patient.: Yes I have reviewed all pertinent clinical information: Yes
[2018-09-08 21:49] VITALS: RESP 20; TEMP 98.8; O2SAT 94
--- NOTE | 2018-09-08 22:40 | CON ---
DATE: 09/08/2018 The patient was seen earlier this morning, earlier today complaining of a right foot discharge since several weeks. HISTORY OF PRESENT ILLNESS: This is a 72-year-old male known to me from previous visits with hypertension and diabetes, congestive heart failure, COPD, DVT, and GERD, who has had multiple cultures from the foot, which have been consistent with Corynebacterium and had a biopsy with no osteomyelitis on biopsy, now with chronic discharge from the foot. No fevers. No chills. No chest pain. REVIEW OF SYSTEMS: Reveals a 12-point review of systems is performed. PAST MEDICAL HISTORY: Significant for a chronic foot infection, hypertension, diabetes, congestive heart failure, COPD, DVT and GERD. PAST SURGICAL HISTORY: Significant for bilateral carotid endarterectomy. The patient had also an appendectomy at the age of 17, valve repair, and sternotomy. ALLERGIES: THE PATIENT HAS NO KNOWN ALLERGIES. MEDICATIONS: Reviewed. PHYSICAL EXAMINATION: VITAL SIGNS: Temperature is 98, blood pressure is 112/60, respiratory rate of 18 and heart rate of 78. HEENT: Unremarkable. NECK: Supple. LUNGS: Decreased breath sounds. HEART: Normal, S1 and S2. ABDOMEN: Soft. EXTREMITIES: Examination of the foot, again there is a small ulcer on the medial aspect of his right big toe approximately the size of a dime with some discharge from it. LABORATORY DATA: Reveals a white count is normal. Chemistries are noted. Sed rate is 55. The patient's BUN is 26 and creatinine is 1.3. C-reactive protein is 81, and previously was . REVIEW OF RECORDS: A history and physical examination is reviewed. ASSESSMENT AND PLAN: A 72-year-old male who is hypertensive and diabetic with a chronic right foot medial ulcer with discharge, day on antibiotics and his response is that the patient has no systemic illness pending deep tissue cultures and workup for osteomyelitis again and imaging and a vascular evaluation. We will make further recommendations and repeat the blood cultures. Toby Martin MD
[2018-09-09] MEDS: Pantoprazole 40 mg EC Tab PO SCH (05:12)
[2018-09-09] MEDS: Insulin Reg-LOW-Coverage SC SCH ×2 (07:47→12:39)
[2018-09-09 08:11] LABS: BASO # 0.02 K/mm3 (0.0-2.0); BASO % 0.3 % (0.0-3.0); EOS # 0.2 (0.0-0.7); EOS % 4.1 % (1.5-5.0); HEMOGLOBIN 9.4 g/dL (14.0-18.0); LYMPH % 17.6 % (22.0-35.0); MEAN CORPUSCULAR HEMOGLOBIN 26.2 pg (25.0-35.0); MEAN CORPUSCULAR HGB CONC 30.8 g/dl (31.0-37.0); MEAN PLATELET VOLUME 9.3 fl (7.0-11.0); MONO # 0.9 (0.1-0.6); RBC 3.59 10^6/uL (3.5-6.1); RED CELL DISTRIBUTION WIDTH 15.1 % (11.5-14.5); WHITE BLOOD COUNT 5.9 10^3/uL (4.5-11.0)
[2018-09-09 08:30] LABS: ALB/GLOB RATIO 1.2 (1.1-1.8); ALBUMIN 3.1 g/dL (3.0-4.8); ALT/SGPT 25 U/L (7-56); AST/SGOT 16 U/L (17-59); BLOOD UREA NITROGEN 22 mg/dL (7-21); CALCIUM 8.1 mg/dL (8.4-10.5); GFR NON-AFRICAN AMERICAN > 60
[2018-09-09] MEDS: Enoxaparin 40 mg Syringe SC SCH (10:56)
[2018-09-09 10:57] VITALS: BP 118/59; PULSE 64
--- NOTE | 2018-09-09 11:03 | CP.PCM.PN ---
Subjective - Date & Time of Evaluation Date of Evaluation: 09/09/18 Time of Evaluation: 11:03 - Subjective Subjective: Podiatry consult - Dr. Carrillo 72M seen and evaluated at bedside with Dr. Carrillo for right foot wound this AM. Patient resting comfortably and in NAD. Patient denies any pain to his R foot this AM. Denies nausea/chills/vomiting/fever/shortness of breath. Objective - Vital Signs/Intake and Output Vital Signs (last 24 hours): Temp Pulse Resp BP Pulse Ox 98.8 F 64 20 118/59 L 94 L 09/08/18 21:48 09/09/18 10:55 09/08/18 21:48 09/09/18 10:55 09/08/18 21:48 Intake and Output: 09/09/18 09/09/18 06:59 18:59 Intake Total 480 Balance 480 - Medications Medications: Current Medications Acetaminophen (Tylenol 325mg Tab) 650 mg PO Q6H PRN PRN Reason: Pain, Mild (1-3) Albuterol/Ipratropium (Duoneb 3 Mg/0.5 Mg (3 Ml) Ud) 3 ml IH [id number] PRN PRN Reason: Shortness of Breath Aspirin (Ecotrin) 81 mg PO DAILY [facility] Last Admin: 09/09/18 10:57 Dose: 81 mg Atorvastatin Calcium (Lipitor) 20 mg PO DAILY [facility] Last Admin: 09/09/18 10:57 Dose: 20 mg Carvedilol (Coreg) 6.25 mg PO BID [facility] Last Admin: 09/09/18 10:57 Dose: 6.25 mg Enoxaparin Sodium (Lovenox) 40 mg SC DAILY [facility]; Protocol Last Admin: 09/09/18 10:56 Dose: 40 mg Insulin Human Regular (Humulin R Low) 0 units SC [facility]; Protocol Last Admin: 09/09/18 07:47 Dose: Not Given Lisinopril (Zestril) 5 mg PO DAILY [facility] Last Admin: 09/09/18 10:55 Dose: 5 mg Pantoprazole Sodium (Protonix Ec Tab) 40 mg PO 0600 [facility] Last Admin: 09/09/18 05:12 Dose: 40 mg - Labs Labs: 09/09/18 07:40 09/09/18 07:40 - Constitutional Appears: Non-toxic, No Acute Distress - Head Exam Head Exam: ATRAUMATIC, NORMOCEPHALIC - Extremities Exam Additional comments: RLE focused exam VASC: DP and PT pulses diminished, CFT <3 seconds to digits x5 b/l; pedal hair growth absent NEURO: Light touch and protective sensation diminished bilaterally. DERM: Ulceration noted to medial aspect of 1st MPJ measuring approximately 1 x 1 x 0.1cm -wound noted to have a fibrotic base; + mild purulence, no malodor, no fluctuance, no tunneling or tracking ORTHO: No pain on palpation noted to wounds, MMT 5/5 - Neurological Exam Neurological Exam: Alert, Awake - Psychiatric Exam Psychiatric exam: Normal Affect, Normal Mood - Skin Skin Exam: Warm Assessment and Plan - Assessment and Plan (Free Text) Assessment: 72M with right foot wound; stable Plan: Patient seen and evaluated with Dr. Lorena VALDES, WBC 5.9 Bone biopsy (08/23); no OM present Wound culture (09/02); cornybacterium; new culture pending ID recs per Dr. Martin Site cleansed with saline and dressed with Calcium alginate/optifoam
--- NOTE | 2018-09-09 11:08 | US ---
PROCEDURE: Right lower extremity venous US HISTORY: Leg pain and swelling. Evaluate for DVT. PHYSICIAN(S): Johann Posadas M.D. TECHNIQUE: Duplex sonography and color-flow Doppler with graded compression were used to evaluate the deep venous system of the right lower extremity. FINDINGS: The visualized deep venous system of the right lower extremity is sonographically normal and compressible. Normal waveforms and augmentation are seen. There is no sonographic evidence for deep venous thrombosis in the visualized segments of the right lower extremity. IMPRESSION: 1. No sonographic evidence for deep venous thrombosis in the visualized segments of the right lower extremity.
--- NOTE | 2018-09-09 16:40 | CP.PCM.DIS ---
Provider - Provider Date of Admission: 09/08/18 02:04 Attending physician: Jessica Mcrae MD Consults: 09/08/18 02:36 Podiatry Consult Routine Comment: Consulting Provider: Tanvi Carrillo Consulting Physician: Tanvi Carrillo Reason for Consult: foot wound 09/08/18 02:39 [employer] [Case Management Referral] Routine Comment: Physician Instructions: Reason For Exam: Reason for Referral: Discharge Planning 09/08/18 04:21 Diabetic Education Referral Routine Comment: Physician Instructions: Reason For Exam: new admit Transition In Care/Readmission Reduction Routine Comment: Physician Instructions: Reason For Exam: new admit 09/08/18 04:50 Social Work Referral Routine Comment: new admit Physician Instructions: Reason For Exam: new admit 09/08/18 09:31 Infectious Disease Consult Routine Comment: Consulting Provider: Toby Martin Consulting Physician: Toby Martin Reason for Consult: left foot ulcer- purulent drainage Time Spent in preparation of Discharge (in minutes): 45 Hospital Course - Lab Results Lab Results: Micro Results 09/08/18 00:25 Foot - Right Gram Stain - Final 09/08/18 00:25 Foot - Right Wound Culture - Preliminary Gram Negative [place] 09/08/18 10:09 Urine,Clean Catch Urine Culture - Final No Growth (<1,000 CFU/ML) 09/08/18 00:10 Blood Blood Culture - Preliminary NO GROWTH AFTER 24 HOURS 09/08/18 00:25 Blood Blood Culture - Preliminary NO GROWTH AFTER 24 HOURS Most Recent Lab Values WBC 5.9 10^3/uL (4.5-11.0) D 09/09/18 07:40 RBC 3.59 10^6/uL (3.5-6.1) 09/09/18 07:40 Hgb 9.4 g/dL (14.0-18.0) L 09/09/18 07:40 Hct 30.5 % (42.0-52.0) L 09/09/18 07:40 MCV 85.0 fl (80.0-105.0) 09/09/18 07:40 MCH 26.2 pg (25.0-35.0) 09/09/18 07:40 MCHC 30.8 g/dl (31.0-37.0) L 09/09/18 07:40 RDW 15.1 % (11.5-14.5) H 09/09/18 07:40 Plt Count 131 10^3/uL (120.0-450.0) 09/09/18 07:40 MPV 9.3 fl (7.0-11.0) 09/09/18 07:40 Neut % (Auto) 62.0 % (50.0-68.0) 09/09/18 07:40 Lymph % (Auto) 17.6 % (22.0-35.0) L 09/09/18 07:40 [place] % (Auto) 16.0 % (1.0-6.0) H 09/09/18 07:40 Eos % (Auto) 4.1 % (1.5-5.0) 09/09/18 07:40 Baso % (Auto) 0.3 % (0.0-3.0) 09/09/18 07:40 Lymph # (Auto) 1.0 (1.2-3.4) L 09/09/18 07:40 [place] # (Auto) 0.9 (0.1-0.6) H 09/09/18 07:40 Eos # (Auto) 0.2 (0.0-0.7) 09/09/18 07:40 Baso # (Auto) 0.02 K/mm3 (0.0-2.0) 09/09/18 07:40 Absolute Neuts (auto) 3.63 (1.4-6.5) 09/09/18 07:40 ESR 55 mm/hr (0.00-15.0) H 09/08/18 02:00 Sodium 138 mmol/L (132-148) 09/09/18 07:40 Potassium 4.3 mmol/L (3.6-5.0) 09/09/18 07:40 Chloride 106 mmol/L (98-107) 09/09/18 07:40 Carbon Dioxide 27 mmol/L (21-33) 09/09/18 07:40 Anion Gap 10 (10-20) 09/09/18 07:40 BUN 22 mg/dL (7-21) H 09/09/18 07:40 Creatinine 1.1 mg/dl (0.8-1.5) 09/09/18 07:40 Est GFR ( Amer) > 60 09/09/18 07:40 Est GFR (Non-Af Amer) > 60 09/09/18 07:40 POC Glucose (mg/dL) 143 mg/dL (65-110) H 09/09/18 11:24 Random Glucose 100 mg/dL (70-110) 09/09/18 07:40 Calcium 8.1 mg/dL (8.4-10.5) L 09/09/18 07:40 Total Bilirubin 0.2 mg/dL (0.2-1.3) 09/09/18 07:40 AST 16 U/L (17-59) L D 09/09/18 07:40 ALT 25 U/L (7-56) 09/09/18 07:40 Alkaline Phosphatase 60 U/L (38-126) 09/09/18 07:40 C-Reactive Protein 41.20 mg/L (0.0-9.9) H 09/08/18 02:00 Total Protein 5.6 g/dL (5.8-8.3) L 09/09/18 07:40 Albumin 3.1 g/dL (3.0-4.8) 09/09/18 07:40 Globulin 2.6 gm/dL 09/09/18 07:40 Albumin/Globulin Ratio 1.2 (1.1-1.8) 09/09/18 07:40 Procalcitonin < 0.05 NG/ML (0.19-0.49) L 09/08/18 02:00 - Hospital Course Hospital Course: 72 year old male with past medical history of CAD s/p CABG s/p stents, DM II, HTN, HLD, GERD, COPD, valve replacement, recent DVT, recent osteomyelitis, medication non-compliance who presented to [facility] [place] complaining of right foot pain and discahrge. Patient was followed by podiatry. Patient recently went to OR for R first metatarsal bone biopsy on 08/23/18 which showed no osteomyelitis. Patient states that his right foot is not causing him any pain at this time. Wound cleansed, dressing applied. LE US was negative for DVT. Wound culture was positive for gram negative rods.Patient seen by ID who recommended augmenting treatment as outpatient for 10 days. Patient is clinically stable, afebrile, no leukocytosis ready for discharge today. Additional instructions as below. Discharge Exam - Head Exam Head Exam: ATRAUMATIC, NORMOCEPHALIC - Additional Findings Additional findings: - Constitutional Appears: No Acute Distress, Unkempt - Head Exam Head Exam: ATRAUMATIC, NORMOCEPHALIC - Eye Exam Eye Exam: EOMI, Normal appearance - ENT Exam ENT Exam: Mucous Membranes Moist - Respiratory Exam Respiratory Exam: Clear to Auscultation Bilateral, NORMAL BREATHING PATTERN. absent: Accessory Muscle Use, Rales, Rhonchi, Wheezes, Respiratory Distress - Cardiovascular Exam Cardiovascular Exam: REGULAR RHYTHM, +S1, +S2. absent: Tachycardia, Systolic Murmur - GI/Abdominal Exam GI & Abdominal Exam: Normal Bowel Sounds, Soft. absent: Distended, Firm, Guarding, Rebound, Rigid, Tenderness - Extremities Exam Additional comments: dorsalis pedis diminished pulses bilaterally right foot wound with purulent drainage RLE swelling - Neurological Exam Neurological exam: Alert, CN II-XII Intact, Oriented x3 - Skin Skin Exam: Dry, Normal Color, Warm Discharge Plan - Discharge Medications Prescriptions: Amoxicillin/Clavulanate [Augmentin 875 MG-125 MG] 1 tab PO BID 5 Days #10 tab - Follow Up Plan Condition: STABLE Disposition: HOME/ ROUTINE Instructions: Heart Healthy Diet, Wound Care, Preventing Falls, Cellulitis (DC) Additional Instructions: Please follow up with Dr. Wesley within 3-5 days. Take the Augmentin 875 mg bid for 5 days. Resume the rest of your home medications. Please continue to follow up with Dr. Carrillo at the wound care center. Please return to the emergency room or call 911 if symptoms return or you experience new concerning symptoms. Referrals: Tanvi Carrillo DPM [Staff Provider] - Murali Wesley MD [Staff Provider] -
--- NOTE | 2018-09-09 22:07 | PN ---
DATE: 09/09/2018 SUBJECTIVE: The patient is in bed, in no acute distress, nontoxic. The patient is seen earlier today. PHYSICAL EXAMINATION: VITAL SIGNS: Temperature is 98, blood pressure is 118/90, respiratory 16. HEENT: Unremarkable. NECK: Supple. LUNGS: Decreased breath sounds. HEART: Normal S1, S2. ABDOMEN: Soft. LABORATORY DATA: Reveals the patient's white count is 5.9. Sed rate is 55. Hemoglobin of 9. Chemistries are noted. Microbiology reveals gram-negative reyna from superficial culture. The blood cultures are negative. Urine cultures are no growth. ASSESSMENT AND PLAN: This is a 72-year-old male with hypertension, diabetes, congestive heart failure, chronic obstructive lung disease, deep venous thrombosis, gastroesophageal reflux disease, diabetic chronic right foot medial ulcer with a gram-negative reyna, had workup for osteomyelitis which was negative, has chronic ulcer with gram-negative reyna from the wound. Toby Martin MD
== END 2018-09-09 16:35 | disposition home or self-care (01) ==
LOC: ED 23:27 → ERH 09-08 02:04 → 5RSO 09-08 03:31
PROVIDERS: ADMIT Internal Medicine; ATTEND Internal Medicine
DX: E11.621 Type 2 diabetes mellitus with foot ulcer (principal); L97.519 Non-pressure chronic ulcer of other part of right foot with unspecified severity; L03.115 Cellulitis of right lower limb; I25.10 Atherosclerotic heart disease of native coronary artery without angina pectoris; I50.9 Heart failure, unspecified; I11.0 Hypertensive heart disease with heart failure; J44.9 Chronic obstructive pulmonary disease, unspecified; K21.9 Gastro-esophageal reflux disease without esophagitis; E78.5 Hyperlipidemia, unspecified; F17.210 Nicotine dependence, cigarettes, uncomplicated; Z95.1 Presence of aortocoronary bypass graft; Z91.14 Patient's other noncompliance with medication regimen; Z85.46 Personal history of malignant neoplasm of prostate; Z86.718 Personal history of other venous thrombosis and embolism; Z95.2 Presence of prosthetic heart valve; Z95.5 Presence of coronary angioplasty implant and graft
CPT/HCPCS: 36415; 80053; 82948; 84145; 85025; 85027; 85651; 86140; 87040; 87070; 87086; 93971; 96365; 99284; G0378; J1650; J2543

== ENCOUNTER 2018-09-10 03:10 | Emergency (ER) | payer MEDICARE, OTHER ==
[2018-09-10 03:10] VITALS: BMI 20.7
[2018-09-10] MEDS ORDERED: Vancomycin 1gm in NS 250ml 1 GM/250 ML BAG IVPB STA (04:05)
[2018-09-10] MEDS ORDERED: Piperacillin/Tazobact 3.375 gm 100 ML IV STA (04:05)
--- NOTE | 2018-09-10 04:05 | ED PDOC ---
Arrival/HPI - General Chief Complaint: Lower Extremity Problem/Injury Time Seen by Provider: 09/10/18 03:49 Historian: Patient - History of Present Illness Narrative History of Present Illness (Text): 09/10/18 04:01 72 year old male, whose past medical history includes CAD with multiple cardiac stents, CABG, diabetes, hypertension, hyperlipidemia, GERD, COPD, valve replacement, DVT, and osteomyelitis, presents to the ED complaining of right foot pain/wound. Patient was originally admitted to the hospital for cellulitis and an infected ulcer. Patient was discharged with a prescription for oral antibiotics, which he states he is unable to fill because he "has no money". Patient denies fever, chills, chest pain, shortness of breath, abdominal pain, nausea, vomiting, diarrhea, or any other complaint. Time/Duration: Prior to Arrival Symptom Onset: Gradual Symptom Course: Unchanged Activities at Onset: Light Past Medical History - Provider Review Nursing Documentation Reviewed: Yes - Infectious Disease Hx of Infectious Diseases: None - Cardiac Hx Cardiac Disorders: Yes (CAD s/p CABG, s/p stents, valve replacement) Hx Hypertension: Yes - Pulmonary Hx Chronic Obstructive Pulmonary Disease (COPD): Yes - Neurological Hx Neurological Disorder: No - HEENT Hx HEENT Disorder: No - Renal Hx Renal Disorder: No - Endocrine/Metabolic Hx Diabetes Mellitus Type 2: Yes - Hematological/Oncological Hx Blood Transfusions: No Hx Blood Transfusion Reaction: No - Integumentary Hx Dermatological Disorder: Yes Other/Comment: rash/reaction from bed bugs - Musculoskeletal/Rheumatological Hx Musculoskeletal Disorders: Yes - Gastrointestinal Hx Gastrointestinal Disorders: No - Genitourinary/Gynecological Hx Genitourinary Disorders: Yes Other/Comment: Hx prostate ca with radiation therapy - Psychiatric Hx Emotional Abuse: No Hx Physical Abuse: No Hx Substance Use: No - Surgical History Hx Appendectomy: Yes (at age 17) - Anesthesia Hx Anesthesia: Yes Hx Anesthesia Reactions: No Hx Malignant Hyperthermia: No - Suicidal Assessment Feels Threatened In Home Enviroment: No Family/Social History - Physician Review Nursing Documentation Reviewed: Yes Family/Social History: No Known Family HX Smoking Status: Heavy Smoker > 10 Cigarettes Daily Hx Alcohol Use: Yes (stopped drinking 2-3 yrs ago) Hx Substance Use: No Hx Substance Use Treatment: No Allergies/Home Meds Allergies/Adverse Reactions: Allergies No Known Allergies Allergy (Verified 09/10/18 03:16) Home Medications: Home Meds Medication Instructions Recorded Confirmed Albuterol Sulfate [Proair Hfa] 2 puff IH BID 05/17/18 09/09/18 Atorvastatin [Lipitor] 20 mg PO DAILY 05/17/18 09/09/18 Budesonide/Formoterol Fumarate 2 puff IH BID 05/17/18 09/09/18 [Symbicort 160-4.5 Mcg Inhaler] Carvedilol [Coreg] 6.25 mg PO BID 05/17/18 09/09/18 Lisinopril [Zestril] 5 mg PO DAILY 05/17/18 09/09/18 Pantoprazole Sodium [Protonix] 40 mg PO DAILY 05/17/18 09/09/18 metFORMIN [glucOPHAGE] 500 mg PO BID 05/17/18 09/09/18 Review of Systems - Physician Review All systems were reviewed & negative as marked: Yes - Review of Systems Constitutional: absent: Fevers, Night Sweats Respiratory: absent: SOB Cardiovascular: absent: Chest Pain Gastrointestinal: absent: Abdominal Pain, Constipation, Diarrhea, Nausea Skin: Ulcer, Cellulitis Physical Exam Vital Signs Reviewed: Yes Vital Signs Temp Pulse Resp BP Pulse Ox 09/10/18 03:28 98.0 F 70 18 123/67 96 Temperature: Afebrile Blood Pressure: Normal Pulse: Regular Respiratory Rate: Normal Appearance: Positive for: Well-Appearing, Non-Toxic, Comfortable Pain Distress: None Mental Status: Positive for: Alert and Oriented X 3 - Systems Exam Head: Present: Atraumatic, Normocephalic Pupils: Present: PERRL Extroacular Muscles: Present: EOMI Conjunctiva: Present: Normal Mouth: Present: Moist Mucous Membranes Neck: Present: Normal Range of Motion Respiratory/Chest: Present: Clear to Auscultation, Good Air Exchange. No: Respiratory Distress, Accessory Muscle Use Cardiovascular: Present: Regular Rate and Rhythm, Normal S1, S2. No: Murmurs Abdomen: No: Tenderness, Distention, Peritoneal Signs Back: Present: Normal Inspection Upper Extremity: Present: Normal Inspection. No: Cyanosis, Edema Lower Extremity: Present: Normal Inspection, Other (Small ulcer to the right lateral foot with confluent erythema to the right lower leg). No: Edema Neurological: Present: GCS=15, CN II-XII Intact, Speech Normal Skin: Present: Warm, Dry, Normal Color. No: Rashes Psychiatric: Present: Alert, Oriented x 3, Normal Insight, Normal Concentration Medical Decision Making ED Course and Treatment: 09/10/18 04:08 Impression: 72 year old male presents with foot ulcer. Plan: -- CMP -- CBC -- Zosyn -- Vancomycin -- Reassess and disposition Prior Visits: Notes and results from previous visits were reviewed. Progress Notes: 09/10/18 04:47 Case was discussed with the medical charge entry specialist and Dr Langley who accepts to the hospitalist service. - Scribe Statement The provider has reviewed the documentation as recorded by the Scribe Johann Woods Provider Scribe Attestation: All medical record entries made by the Scribe were at my direction and personally dictated by me. I have reviewed the chart and agree that the record accurately reflects my personal performance of the history, physical exam, medical decision making, and the department course for this patient. I have also personally directed, reviewed, and agree with the discharge instructions and disposition. Disposition/Present on Arrival - Present on Arrival Any Indicators Present on Arrival: No History of DVT/PE: No History of Uncontrolled Diabetes: No Urinary Catheter: No History of Decub. Ulcer: No History Surgical Site Infection Following: None - Disposition Have Diagnosis and Disposition been Completed?: Yes Diagnosis: Cellulitis, Foot ulcer Disposition: HOSPITALIZED Disposition Time: 04:10 Patient Problems: Current Active Problems Problem Status Onset Cellulitis Acute Foot ulcer Chronic Condition: STABLE
--- NOTE | 2018-09-10 04:49 | CP.PCM.HP ---
<Kody Birmingham - Last Filed: 09/10/18 06:07> History of Present Illness - History of Present Illness History of Present Illness: Kody Birmingham, PGY1 H&P for Dr. Langley cc: "right foot pain/wound" Patient is a 72 year old male, whose past medical history includes CAD with multiple cardiac stents, CABG, diabetes, hypertension, hyperlipidemia, GERD, COPD, valve replacement, DVT, and osteomyelitis, presents to the ED complaining of right foot pain/wound. Patient was recently admitted and discharged from the hospital for cellulitis and an infected right foot ulcer. Patient was discharged with a prescription for oral antibiotics (Augmentin), which he states he is unable to afford. At this time, patient offers no complaints except for mild right foot pain. Patient denies fever, chills, chest pain, shortness of breath, abdominal pain, nausea, vomiting, diarrhea. Upon last hospital admission (09/08) patient went to OR for right 1st metatarsal bone biopsy which showed no osteo. A full 12 point ROS was conducted and unremarkable except as stated above. PMD: Dr. Wesley PMH: CAD s/p CABG s/p stents, T2DM, HTN, HLD, GERD, COPD, valve replacement, recent DVT, recent osteomyelitis PSH: CABG, PCI, appendectomy, right foot bone biopsy SHx: current smoker (1ppd X 50 years, now down to 1/2 ppd), denies alcohol or illicit drug use FHx: denies Allergies: NKDA PMD: Dr. Wesley Catering Sales Manager: Dr. Barnhart Present on Admission - Present on Admission Any Indicators Present on Admission: No Review of Systems - Review of Systems All systems: reviewed and no additional remarkable complaints except (as per HPI) Past Patient History - Infectious Disease Hx of Infectious Diseases: None - Past Social History Smoking Status: Heavy Smoker > 10 Cigarettes Daily - CARDIAC Hx Cardiac Disorders: Yes (CAD s/p CABG, s/p stents, valve replacement) Hx Hypertension: Yes - PULMONARY Hx Chronic Obstructive Pulmonary Disease (COPD): Yes - NEUROLOGICAL Hx Neurological Disorder: No - HEENT Hx HEENT Problems: No - RENAL Hx Chronic Kidney Disease: No - ENDOCRINE/METABOLIC Hx Diabetes Mellitus Type 2: Yes - HEMATOLOGICAL/ONCOLOGICAL Hx Blood Transfusions: No Hx Blood Transfusion Reaction: No - INTEGUMENTARY Hx Dermatological Problems: Yes Other/Comment: rash/reaction from bed bugs - MUSCULOSKELETAL/RHEUMATOLOGICAL Hx Musculoskeletal Disorders: Yes - GASTROINTESTINAL Hx Gastrointestinal Disorders: No - GENITOURINARY/GYNECOLOGICAL Hx Genitourinary Disorders: Yes Other/Comment: Hx prostate ca with radiation therapy - PSYCHIATRIC Hx Emotional Abuse: No Hx Physical Abuse: No Hx Substance Use: No - SURGICAL HISTORY Hx Appendectomy: Yes (at age 17) - ANESTHESIA Hx Anesthesia: Yes Hx Anesthesia Reactions: No Hx Malignant Hyperthermia: No Meds Home Medications: Home Medication List Medication Instructions Recorded Confirmed Type Amoxicillin/Clavulanate [Augmentin 1 tab PO BID 5 Days #10 tab 09/10/18 Rx 875 MG-125 MG Tab] Allergies/Adverse Reactions: Allergies Allergy/AdvReac Type Severity Reaction Status Date / Time No Known Allergies Allergy Verified 09/10/18 03:16 Physical Exam - Constitutional Appears: No Acute Distress - Head Exam Head Exam: ATRAUMATIC, NORMAL INSPECTION, NORMOCEPHALIC - Eye Exam Eye Exam: EOMI, Normal appearance, PERRL Pupil Exam: NORMAL ACCOMODATION - ENT Exam ENT Exam: Mucous Membranes Moist - Respiratory Exam Respiratory Exam: Clear to Auscultation Bilateral, NORMAL BREATHING PATTERN. absent: Accessory Muscle Use, Chest Wall Tenderness, Decreased Breath Sounds, Rales, Rhonchi, Wheezes - Cardiovascular Exam Cardiovascular Exam: RRR, +S1, +S2 - GI/Abdominal Exam GI & Abdominal Exam: Normal Bowel Sounds, Soft. absent: Rebound, Rigid, Tenderness - Extremities Exam Extremities exam: Positive for: normal capillary refill, pedal pulses present Additional comments: Right foot ulcer at 1st metatarsal. - Neurological Exam Neurological exam: Alert, CN II-XII Intact, Oriented x3, Reflexes Normal - Psychiatric Exam Psychiatric exam: Normal Affect, Normal Mood - Skin Skin Exam: Dry, Intact, Normal Color, Warm Results - Vital Signs Recent Vital Signs: Last Vital Signs Temp 98.0 F 09/10/18 03:28 Pulse 70 09/10/18 03:28 Resp 18 09/10/18 03:28 BP 123/67 09/10/18 03:28 Pulse Ox 96 09/10/18 03:28 - Labs Result Diagrams: 09/10/18 04:30 09/10/18 04:30 Assessment & Plan - Assessment and Plan (Free Text) Assessment: Patient is a 72 year old male, whose past medical history includes CAD with multiple cardiac stents, CABG, diabetes, hypertension, hyperlipidemia, GERD, COPD, valve replacement, DVT, and osteomyelitis, presents to the ED complaining of right foot pain/wound. Plan: Right foot wound - vanco - zosyn - ID consult - Podiatry Consult - Foot MRI from 08/20/18 showed marrow edema in head of 1st metatarsal suspicious for osteomyelitis - Bone biopsy from 08/23/09 was negative for acute osteomyelitis - Podiatry consulted - Elevate lower extremity - Patient was discharged on augmentin on recent discharge but has returned to [facility] T2DM - ISS, Accuchecks COPD - Duonebs PRN Hyperlipidemia - continue Lipitor Hypertension - continue Coreg, lisinopril GERD - resume home med PTX DVT - resume home med eliquis PPX - Eliquis, PTX Diet: HHD Dispo: Will admit patient. ID and podiatry on board. Case was discussed and reviewed with Attending Physician, Dr. Langley <Alan Langley - Last Filed: 09/10/18 20:37> Results - Vital Signs Recent Vital Signs: Last Vital Signs Temp 98.2 F 09/10/18 11:26 Pulse 80 09/10/18 11:26 Resp 19 09/10/18 11:26 BP 132/74 09/10/18 11:26 Pulse Ox 99 09/10/18 11:26 - Labs Result Diagrams: 09/10/18 04:30 09/10/18 04:30 Labs: Laboratory Results - last 24 hr 09/10/18 09/10/18 09/10/18 04:30 04:30 08:35 WBC 7.9 D RBC 3.69 Hgb 10.0 L Hct 31.4 L MCV 85.1 MCH 27.1 MCHC 31.8 RDW 15.2 H Plt Count 156 MPV 9.2 Sodium 142 Potassium 3.7 Chloride 106 Carbon Dioxide 25 Anion Gap 15 BUN 34 H Creatinine 1.2 Est GFR ( Amer) > 60 Est GFR (Non-Af Amer) 60 POC Glucose (mg/dL) 104 Random Glucose 129 H Calcium 8.5 Total Bilirubin 0.3 AST 18 ALT 16 Alkaline Phosphatase 70 Total Protein 6.4 Albumin 3.6 Globulin 2.8 Albumin/Globulin Ratio 1.3 Attending/Attestation - Attestation I have personally seen and examined this patient.: Yes I have fully participated in the care of the patient.: Yes I have reviewed all pertinent clinical information: Yes
[2018-09-10 04:56] LABS: MEAN CELL VOLUME 85.1 fl (80.0-105.0); MEAN CORPUSCULAR HEMOGLOBIN 27.1 pg (25.0-35.0); MEAN CORPUSCULAR HGB CONC 31.8 g/dl (31.0-37.0); MEAN PLATELET VOLUME 9.2 fl (7.0-11.0); RBC 3.69 10^6/uL (3.5-6.1); RED CELL DISTRIBUTION WIDTH 15.2 % (11.5-14.5); WHITE BLOOD COUNT 7.9 10^3/uL (4.5-11.0)
[2018-09-10 05:15] LABS: ALB/GLOB RATIO 1.3 (1.1-1.8); ALBUMIN 3.6 g/dL (3.0-4.8); ALT/SGPT 16 U/L (7-56); AST/SGOT 18 U/L (17-59); BLOOD UREA NITROGEN 34 mg/dL (7-21); CALCIUM 8.5 mg/dL (8.4-10.5); GFR NON-AFRICAN AMERICAN 60
[2018-09-10] MEDS ORDERED: Piperacillin/Tazobact 3.375 gm 100 ML IVPB STA (05:25)
[2018-09-10] MEDS ORDERED: Albuterol-Ipratrop 3 mg / 0.5 (3 ml) UD IH PRN (05:48)
[2018-09-10] MEDS ORDERED: Pantoprazole 40 mg EC Tab PO SCH (06:00)
[2018-09-10] MEDS ORDERED: Insulin Lispro (humaLOG) LOW Coverage SC SCH (07:30)
--- NOTE | 2018-09-10 09:01 | CP.PCM.CON ---
<Jose Rodriguez - Last Filed: 09/10/18 11:07> History of Present Illness - History of Present Illness History of Present Illness: Infectious disease consult note: 72-year-old male with past medical history of CAD with multiple stents and CABG, diabetes, hypertension, hyperlipidemia, GERD, COPD, valve replacement, DVT, and osteo presents to the ED complaining of right foot pain and wound. Of note patient was just recently discharged from the hospital for cellulitis and right foot ulcer. At that time cultures were positive for gram-negative reyna. The patient also had a biopsy of the right first metatarsal which was negative for osteomyelitis. Infectious disease was consulted for right foot ulcer. 12 point ROS performed negative unless stated above PMH: As above PSH: Valve replacement, CABG, PCI, appendectomy Medications: Refer to [facility] Allergies: No known drug allergies SH: Active smoker of 1 pack/day for 50 years, denies any smoking or drinking Review of Systems - Review of Systems All systems: reviewed and no additional remarkable complaints except Past Patient History - Infectious Disease Hx of Infectious Diseases: None - Past Social History Smoking Status: Heavy Smoker > 10 Cigarettes Daily - CARDIAC Hx Cardiac Disorders: Yes (CAD s/p CABG, s/p stents, valve replacement) Hx Hypertension: Yes - PULMONARY Hx Chronic Obstructive Pulmonary Disease (COPD): Yes - NEUROLOGICAL Hx Neurological Disorder: No - HEENT Hx HEENT Problems: No - RENAL Hx Chronic Kidney Disease: No - ENDOCRINE/METABOLIC Hx Diabetes Mellitus Type 2: Yes - HEMATOLOGICAL/ONCOLOGICAL Hx Blood Transfusions: No Hx Blood Transfusion Reaction: No - INTEGUMENTARY Hx Dermatological Problems: Yes Other/Comment: rash/reaction from bed bugs - MUSCULOSKELETAL/RHEUMATOLOGICAL Hx Musculoskeletal Disorders: Yes - GASTROINTESTINAL Hx Gastrointestinal Disorders: No - GENITOURINARY/GYNECOLOGICAL Hx Genitourinary Disorders: Yes Other/Comment: Hx prostate ca with radiation therapy - PSYCHIATRIC Hx Emotional Abuse: No Hx Physical Abuse: No Hx Substance Use: No - SURGICAL HISTORY Hx Appendectomy: Yes (at age 17) - ANESTHESIA Hx Anesthesia: Yes Hx Anesthesia Reactions: No Hx Malignant Hyperthermia: No Meds Home Medications: Home Medication List Medication Instructions Recorded Confirmed Type Amoxicillin/Clavulanate [Augmentin 1 tab PO BID 5 Days #10 tab 09/10/18 Rx 875 MG-125 MG Tab] Allergies/Adverse Reactions: Allergies Allergy/AdvReac Type Severity Reaction Status Date / Time No Known Allergies Allergy Verified 09/10/18 03:16 - Medications Medications: Current Medications Albuterol/Ipratropium (Duoneb 3 Mg/0.5 Mg (3 Ml) Ud) 3 ml IH Q2H PRN PRN Reason: Shortness of Breath Apixaban (Eliquis) 5 mg PO BID [facility]; Protocol Aspirin (Ecotrin) 81 mg PO DAILY [facility] Atorvastatin Calcium (Lipitor) 20 mg PO DAILY [facility] Carvedilol (Coreg) 6.25 mg PO BID [facility] Vancomycin HCl (Vancomycin 1gm) 1 gm in 250 mls @ 167 mls/hr IVPB 1800 [facility]; Protocol Piperacillin Sod/Tazobactam Sod (Zosyn 3.375 In Ns 100ml) 100 mls @ 25 mls/hr IVPB Q8H [facility]; Protocol Stop: 09/11/18 00:29 Insulin Human Lispro (Humalog Low) 0 units SC ACHS [facility]; Protocol Last Admin: 09/10/18 08:37 Dose: Not Given Lisinopril (Zestril) 5 mg PO DAILY [facility] Pantoprazole Sodium (Protonix Ec Tab) 40 mg PO 0600 [facility] Last Admin: 09/10/18 06:56 Dose: 40 mg Physical Exam - Constitutional Appears: No Acute Distress - Head Exam Head Exam: ATRAUMATIC, NORMOCEPHALIC - Eye Exam Eye Exam: EOMI - ENT Exam ENT Exam: Mucous Membranes Moist - Respiratory Exam Respiratory Exam: Clear to Auscultation Bilateral. absent: Wheezes - Cardiovascular Exam Cardiovascular Exam: REGULAR RHYTHM, +S1, +S2 - GI/Abdominal Exam GI & Abdominal Exam: Normal Bowel Sounds, Soft. absent: Tenderness - Extremities Exam Extremities exam: Negative for: calf tenderness, pedal edema - Neurological Exam Neurological exam: Alert, Oriented x3 - Psychiatric Exam Psychiatric exam: Normal Mood - Skin Skin Exam: Dry, Warm Additional comments: Small ulcer of the R big toe with drainage Results - Vital Signs Recent Vital Signs: Last Vital Signs Temp 98.4 F 09/10/18 07:21 Pulse 72 09/10/18 07:21 Resp 18 09/10/18 07:21 BP 144/68 09/10/18 07:21 Pulse Ox 97 09/10/18 07:21 - Labs Result Diagrams: 09/10/18 04:30 09/10/18 04:30 Labs: Laboratory Results - last 24 hr 09/10/18 09/10/18 04:30 04:30 WBC 7.9 D RBC 3.69 Hgb 10.0 L Hct 31.4 L MCV 85.1 MCH 27.1 MCHC 31.8 RDW 15.2 H Plt Count 156 MPV 9.2 Sodium 142 Potassium 3.7 Chloride 106 Carbon Dioxide 25 Anion Gap 15 BUN 34 H Creatinine 1.2 Est GFR ( Amer) > 60 Est GFR (Non-Af Amer) 60 Random Glucose 129 H Calcium 8.5 Total Bilirubin 0.3 AST 18 ALT 16 Alkaline Phosphatase 70 Total Protein 6.4 Albumin 3.6 Globulin 2.8 Albumin/Globulin Ratio 1.3 Assessment & Plan - Assessment and Plan (Free Text) Assessment: Right foot ulcer Coronary artery disease with stents and CABG Diabetes Hypertension Hyperlipidemia COPD History of osteomyelitis in May 2018 GERD COPD Valve replacement Patient was started on vancomycin and Zosyn in the ED, Can d/c with doxy for 5 days Wound cultures shows Providencia and Corneybacterium from the prior admission Follow-up urine and blood cultures and septic work-up Follow-up podiatry recommendations Continue to monitor for any changes Case and plan to be reviewed and discussed with Dr. Martin <Toby Martin - Last Filed: 09/10/18 19:12> Results - Vital Signs Recent Vital Signs: Last Vital Signs Temp 98.2 F 09/10/18 11:26 Pulse 80 09/10/18 11:26 Resp 19 09/10/18 11:26 BP 132/74 09/10/18 11:26 Pulse Ox 99 09/10/18 11:26 - Labs Result Diagrams: 09/10/18 04:30 09/10/18 04:30 Labs: Laboratory Results - last 24 hr 09/10/18 09/10/18 09/10/18 04:30 04:30 08:35 WBC 7.9 D RBC 3.69 Hgb 10.0 L Hct 31.4 L MCV 85.1 MCH 27.1 MCHC 31.8 RDW 15.2 H Plt Count 156 MPV 9.2 Sodium 142 Potassium 3.7 Chloride 106 Carbon Dioxide 25 Anion Gap 15 BUN 34 H Creatinine 1.2 Est GFR ( Amer) > 60 Est GFR (Non-Af Amer) 60 POC Glucose (mg/dL) 104 Random Glucose 129 H Calcium 8.5 Total Bilirubin 0.3 AST 18 ALT 16 Alkaline Phosphatase 70 Total Protein 6.4 Albumin 3.6 Globulin 2.8 Albumin/Globulin Ratio 1.3 Attending/Attestation - Attestation I have personally seen and examined this patient.: Yes I have fully participated in the care of the patient.: Yes I have reviewed all pertinent clinical information: Yes
--- NOTE | 2018-09-10 09:14 | CP.PCM.DIS ---
<JenavictorinoYulisa conde - Last Filed: 09/10/18 15:32> Provider - Provider Date of Admission: 09/10/18 04:08 Attending physician: Liza Martinez MD Primary care physician: Maggieteraspen Consults: 09/10/18 05:26 Physician Consult Routine Comment: Consulting Provider: Daniel Thayer Consulting Physician: Daniel Thayer Reason for Consult: right foot ulcer 09/10/18 05:28 Physician Consult Routine Comment: Consulting Provider: Tanvi Carrillo Consulting Physician: Tanvi Carrillo Reason for Consult: right foot ulcer Time Spent in preparation of Discharge (in minutes): 45 Diagnosis - Discharge Diagnosis (1) Foot ulcer Status: Chronic (2) Homeless Status: Chronic (3) Cellulitis Status: Chronic (4) Non compliance w medication regimen Status: Chronic (5) COPD (chronic obstructive pulmonary disease) Status: Chronic (6) DVT (deep venous thrombosis) Status: Chronic (7) HTN (hypertension) Status: Chronic Priority: High Hospital Course - Lab Results Lab Results: Most Recent Lab Values WBC 7.9 10^3/uL (4.5-11.0) D 09/10/18 04:30 RBC 3.69 10^6/uL (3.5-6.1) 09/10/18 04:30 Hgb 10.0 g/dL (14.0-18.0) L 09/10/18 04:30 Hct 31.4 % (42.0-52.0) L 09/10/18 04:30 MCV 85.1 fl (80.0-105.0) 09/10/18 04:30 MCH 27.1 pg (25.0-35.0) 09/10/18 04:30 MCHC 31.8 g/dl (31.0-37.0) 09/10/18 04:30 RDW 15.2 % (11.5-14.5) H 09/10/18 04:30 Plt Count 156 10^3/uL (120.0-450.0) 09/10/18 04:30 MPV 9.2 fl (7.0-11.0) 09/10/18 04:30 Sodium 142 mmol/L (132-148) 09/10/18 04:30 Potassium 3.7 mmol/L (3.6-5.0) 09/10/18 04:30 Chloride 106 mmol/L (98-107) 09/10/18 04:30 Carbon Dioxide 25 mmol/L (21-33) 09/10/18 04:30 Anion Gap 15 (10-20) 09/10/18 04:30 BUN 34 mg/dL (7-21) H 09/10/18 04:30 Creatinine 1.2 mg/dl (0.8-1.5) 09/10/18 04:30 Est GFR ( Amer) > 60 09/10/18 04:30 Est GFR (Non-Af Amer) 60 09/10/18 04:30 Random Glucose 129 mg/dL (70-110) H 09/10/18 04:30 Calcium 8.5 mg/dL (8.4-10.5) 09/10/18 04:30 Total Bilirubin 0.3 mg/dL (0.2-1.3) 09/10/18 04:30 AST 18 U/L (17-59) 09/10/18 04:30 ALT 16 U/L (7-56) 09/10/18 04:30 Alkaline Phosphatase 70 U/L (38-126) 09/10/18 04:30 Total Protein 6.4 g/dL (5.8-8.3) 09/10/18 04:30 Albumin 3.6 g/dL (3.0-4.8) 09/10/18 04:30 Globulin 2.8 gm/dL 09/10/18 04:30 Albumin/Globulin Ratio 1.3 (1.1-1.8) 09/10/18 04:30 - Hospital Course Hospital Course: Patient is a 72 y/o with PMHx of CAD with multiple stents in the past, Ch/o ABG, NIDDMs, hypertension, hyperlipidemia, GERD, COPD, h/o DVT presenting with inability to berry picker his prescribed antibiotics due to the cost. Patient was discharged yesterday, 09/09/18 with 5 days course of Augmentin, however patient states he didnt go to his pharmacy to berry picker the medication, because he assumed he wont be able to afford it. Instead patient return to the emergency room and was readmitted on observation. Patient remains afebrile, no tachycardia, hemodynamically stable, no leukocytosis and doesnt appear toxic. The Right 1st toe wound appears stable, No purulent drainage, mild erythema, the foot is warm to touch and sensation is intact. Furthermore, patient had biopsy of the wound on 08/23/18 which was negative for osteomyelitis. Patient is to be discharged again with med to bed of 5 days course of Augmentin. Patient is advised to keep the wound clean, and follow up in the wound care clinic. Patient is also advised to follow up with his primary care doctor in 3-5 days. Activity: Resume baseline activity. Diet: carbohydrate controlled diet with 2 gram sodium. - Date & Time of H&P Date of H&P: 09/10/18 Time of H&P: 04:43 Discharge Exam - Head Exam Head Exam: ATRAUMATIC, NORMOCEPHALIC - Eye Exam Eye Exam: EOMI, Normal appearance, PERRL Pupil Exam: NORMAL ACCOMODATION - ENT Exam ENT Exam: Mucous Membranes Moist - Neck Exam Neck exam: Meningismus, Normal Inspection - Respiratory Exam Respiratory Exam: Clear to PA & Lateral, NORMAL BREATHING PATTERN, UNREMARKABLE. absent: Rales, Rhonchi, Wheezes, Stridor - Cardiovascular Exam Cardiovascular Exam: REGULAR RHYTHM, RRR, +S1, +S2. absent: Gallop, JVD, Rubs, Systolic Murmur - GI/Abdominal Exam GI & Abdominal Exam: Normal Bowel Sounds, Unremarkable. absent: Distended, Firm, Mass, Rebound, Rigid, Soft, Tenderness - Extremities Exam Extremities exam: pedal edema (trace), pedal pulses present - Back Exam Back exam: NORMAL INSPECTION - Neurological Exam Neurological exam: Alert, Oriented x3 Additional comments: Ambulates with a cane - Psychiatric Exam Psychiatric exam: Normal Affect, Normal Mood - Skin Skin Exam: Warm Additional comments: Right greater toe with 2 cm deep wound, with crusted discharge in the wound, no purulent drainage, mild surrounding erythema. Discharge Plan - Discharge Medications Prescriptions: Amoxicillin/Clavulanate [Augmentin 875 MG-125 MG Tab] 1 tab PO BID 5 Days #10 tab - Follow Up Plan Condition: STABLE Disposition: HOME/ ROUTINE Patient education suggested?: Yes Additional Instructions: Please follow up with Dr. Wesley within 3-5 days. Take the Augmentin 875 mg bid for 5 days. Resume the rest of your home medications. Please continue to follow up with Dr. Carrillo at the wound care center. Please return to the emergency room or call 911 if symptoms return or you experience new concerning symptoms. Referrals: Murali Wesley MD [Staff Provider] - Tanvi Carrillo DPM [Staff Provider] - <Vacaal R - Last Filed: 09/11/18 20:09> Provider - Provider Consults: 09/10/18 05:26 Physician Consult Routine Comment: Consulting Provider: Daniel Thayer Consulting Physician: Daniel Thayer Reason for Consult: right foot ulcer 09/10/18 05:28 Physician Consult Routine Comment: Consulting Provider: Tanvi Carrillo Consulting Physician: Tanvi Carrillo Reason for Consult: right foot ulcer Hospital Course - Lab Results Lab Results: Most Recent Lab Values WBC 7.9 10^3/uL (4.5-11.0) D 09/10/18 04:30 RBC 3.69 10^6/uL (3.5-6.1) 09/10/18 04:30 Hgb 10.0 g/dL (14.0-18.0) L 09/10/18 04:30 Hct 31.4 % (42.0-52.0) L 09/10/18 04:30 MCV 85.1 fl (80.0-105.0) 09/10/18 04:30 MCH 27.1 pg (25.0-35.0) 09/10/18 04:30 MCHC 31.8 g/dl (31.0-37.0) 09/10/18 04:30 RDW 15.2 % (11.5-14.5) H 09/10/18 04:30 Plt Count 156 10^3/uL (120.0-450.0) 09/10/18 04:30 MPV 9.2 fl (7.0-11.0) 09/10/18 04:30 Sodium 142 mmol/L (132-148) 09/10/18 04:30 Potassium 3.7 mmol/L (3.6-5.0) 09/10/18 04:30 Chloride 106 mmol/L (98-107) 09/10/18 04:30 Carbon Dioxide 25 mmol/L (21-33) 09/10/18 04:30 Anion Gap 15 (10-20) 09/10/18 04:30 BUN 34 mg/dL (7-21) H 09/10/18 04:30 Creatinine 1.2 mg/dl (0.8-1.5) 09/10/18 04:30 Est GFR ( Amer) > 60 09/10/18 04:30 Est GFR (Non-Af Amer) 60 09/10/18 04:30 POC Glucose (mg/dL) 104 mg/dL (65-110) 09/10/18 08:35 Random Glucose 129 mg/dL (70-110) H 09/10/18 04:30 Calcium 8.5 mg/dL (8.4-10.5) 09/10/18 04:30 Total Bilirubin 0.3 mg/dL (0.2-1.3) 09/10/18 04:30 AST 18 U/L (17-59) 09/10/18 04:30 ALT 16 U/L (7-56) 09/10/18 04:30 Alkaline Phosphatase 70 U/L (38-126) 09/10/18 04:30 Total Protein 6.4 g/dL (5.8-8.3) 09/10/18 04:30 Albumin 3.6 g/dL (3.0-4.8) 09/10/18 04:30 Globulin 2.8 gm/dL 09/10/18 04:30 Albumin/Globulin Ratio 1.3 (1.1-1.8) 09/10/18 04:30 Attending/Attestation - Attestation I have personally seen and examined this patient.: Yes I have fully participated in the care of the patient.: Yes I have reviewed all pertinent clinical information, including history, physical exam and plan: Yes Notes (Text): Please note this DC summary is for 09/10/18 Patient seen and examined by me with residentat approximately 10:45AM and prior to discharge on 09/10/18.Case including discharge plan discussed with resident. Agree with above with following additions/corrections. Patient is a 72-year-old male with past medical history significant for CAD s/p CABG, DM2, HTN, hyperlipidemia, GERD, COPD, DVT, and recent osteomyelitis s/p treatment that presented to the emergency room with right foot pain and drainage from right foot wound. Patient stated he was unable to fill his prescription the day before when being discharged. Please see H&P for full details. Patient was found to have right foot wound, DM2, COPD, hyperlipidemia, hypertension, and CAD. Patient was restarted on home medications. Patient was discharged one day prior. Patient had no changes. Patient was afebrile, no leukocytosis. Wound was unchanged. Patients prescription Augmentin was filled and patient was provided with the medication at bedside prior to discharge. Patient was discharged home. On day of discharge, patient stated he was feeling fine. Denied any pain in his right foot. Patient was ambulating Denied shortness of breath. No chest pain or palpitations. No headaches or dizziness. No abdominal pain. No nausea or vomiting. Patient was tolerating diet. No fevers or chills. No dysuria. No change in vision. Patient denied diarrhea or constipation. Physical exam: General: Awake and alert lying in bed in no acute distress HEENT: Normocephalic, atraumatic. Extraocular muscles intact. Pupils equal and reactive, no scleral icterus. Oropharynx is pink. Neck is supple. Cardiovascular: Normal rhythm. Normal S1 and S2. No murmurs, rubs, or gallops appreciated Pulmonary: Normal respiratory effort. No rhonchi, rales, or wheezing appreciate d. Gastrointestinal: Soft, nondistended. Nontender. Positive bowel sounds all 4 quadrants. No guarding. Musculoskeletal: Moves all extremities. No calf tenderness. Right great toe with dressing clean, dry, and intact. Central nervous system: AAOx3. No focal deficits appreciated. Dermatologic: Skin warm and dry. Please see chart for full details. Follow up instructions: Patient to follow up with PMD within 3-5 days. Patient to take antibiotics as prescribed. Patient to continue other home medications. Patient to continue to follow at wound care center. All instructions explained to the patient in detail. Patient both understands and agrees to all instructions. Written instructions also given. Time spent in discharging the patient including chart review, medication reconciliation, discussion with the patient, medical doctor md, consultants, and nursing staff was approximately 35 minutes.
[2018-09-10] MEDS ORDERED: Non Formulary Medication (Budesonide/Formoterol Fumarate [Symbicort 160-4.5 Mcg Inhaler] 2 IH SCH (10:00)
[2018-09-10] MEDS ORDERED: Albuterol HFA 90 mcg/actuation (8 g) IH SCH (10:00)
[2018-09-10 11:27] VITALS: BP 132/74; PULSE 80; RESP 19; TEMP 98.2; O2SAT 99
[2018-09-10] MEDS ORDERED: Piperacillin/Tazobact 3.375 gm 100 ML IVPB SCH ×2 (12:30→14:00)
[2018-09-10] MEDS ORDERED: Vancomycin 1gm in NS 250ml 1 GM/250 ML BAG IVPB SCH (18:00)
== END 2018-09-10 11:27 | disposition home or self-care (01) ==
LOC: ED 03:10 → UNDOADMOB 04:08 → ERH 04:08 → ED 11:27
DX: L97.519 Non-pressure chronic ulcer of other part of right foot with unspecified severity (principal); Z59.0 Homelessness; L03.115 Cellulitis of right lower limb; I10 Essential (primary) hypertension; J44.9 Chronic obstructive pulmonary disease, unspecified; I25.10 Atherosclerotic heart disease of native coronary artery without angina pectoris; Z95.1 Presence of aortocoronary bypass graft; F17.210 Nicotine dependence, cigarettes, uncomplicated; E11.9 Type 2 diabetes mellitus without complications; E78.5 Hyperlipidemia, unspecified; Z91.14 Patient's other noncompliance with medication regimen; Z85.46 Personal history of malignant neoplasm of prostate; Z86.718 Personal history of other venous thrombosis and embolism
CPT/HCPCS: 80053; 82948; 85027; 96374; 96375; 99284; J2543

== ENCOUNTER 2018-09-22 16:23 | Emergency (ER) | payer MEDICARE, OTHER ==
[2018-09-22 16:23] VITALS: BMI 20.7
[2018-09-22 16:59] VITALS: RESP 18
--- NOTE | 2018-09-22 17:16 | ED PDOC ---
Arrival/HPI - General Chief Complaint: Lower Extremity Problem/Injury Time Seen by Provider: 09/22/18 16:48 Historian: Patient - History of Present Illness Narrative History of Present Illness (Text): 09/22/18 17:13 72 year old M with pmh of CAD with multiple cardiac stents, CABG, diabetes, hypertension, hyperlipidemia, GERD, COPD, valve replacement, DVT, and osteomyelitis, presents to the ED complaining of right foot pain/wound. Patient denies any fevers, chills, headache, dizziness, chest pain, shortness of breath, dyspnea on exertion, cough, abdominal pain, nausea, vomiting, diarrhea, or any other complaints. Symptom Course: Unchanged Past Medical History - Provider Review Nursing Documentation Reviewed: Yes - Infectious Disease Hx of Infectious Diseases: None - Cardiac Hx Cardiac Disorders: Yes (CAD s/p CABG, s/p stents, valve replacement) Hx Hypertension: Yes - Pulmonary Hx Chronic Obstructive Pulmonary Disease (COPD): Yes - Neurological Hx Neurological Disorder: No - HEENT Hx HEENT Disorder: No - Renal Hx Renal Disorder: No - Endocrine/Metabolic Hx Diabetes Mellitus Type 2: Yes - Hematological/Oncological Hx Blood Transfusions: No Hx Blood Transfusion Reaction: No - Integumentary Hx Dermatological Disorder: Yes Other/Comment: rash/reaction from bed bugs - Musculoskeletal/Rheumatological Hx Musculoskeletal Disorders: Yes - Gastrointestinal Hx Gastrointestinal Disorders: No - Genitourinary/Gynecological Hx Genitourinary Disorders: Yes Other/Comment: Hx prostate ca with radiation therapy - Psychiatric Hx Emotional Abuse: No Hx Physical Abuse: No Hx Substance Use: No - Surgical History Hx Appendectomy: Yes (at age 17) - Anesthesia Hx Anesthesia: Yes Hx Anesthesia Reactions: No Hx Malignant Hyperthermia: No - Suicidal Assessment Feels Threatened In Home Enviroment: No Family/Social History - Physician Review Nursing Documentation Reviewed: Yes Family/Social History: Unknown Family HX Smoking Status: Heavy Smoker > 10 Cigarettes Daily Hx Alcohol Use: Yes (stopped drinking 2-3 yrs ago) Hx Substance Use: No Hx Substance Use Treatment: No Allergies/Home Meds Allergies/Adverse Reactions: Allergies No Known Allergies Allergy (Verified 09/22/18 16:59) Home Medications: Home Meds Medication Instructions Recorded Confirmed Albuterol Sulfate [Proair Hfa] 2 puff IH BID 05/17/18 09/10/18 Atorvastatin [Lipitor] 20 mg PO DAILY 05/17/18 09/10/18 Budesonide/Formoterol Fumarate 2 puff IH BID 05/17/18 09/10/18 [Symbicort 160-4.5 Mcg Inhaler] Carvedilol [Coreg] 6.25 mg PO BID 05/17/18 09/10/18 Lisinopril [Zestril] 5 mg PO DAILY 05/17/18 09/10/18 Pantoprazole Sodium [Protonix] 40 mg PO DAILY 05/17/18 09/10/18 metFORMIN [glucOPHAGE] 500 mg PO BID 05/17/18 09/10/18 Review of Systems - Physician Review All systems were reviewed & negative as marked: Yes - Review of Systems Constitutional: absent: Fevers ENT: absent: Sore Throat, Rhinorrhea Respiratory: absent: SOB, Cough Cardiovascular: absent: Chest Pain, Palpitations Gastrointestinal: absent: Abdominal Pain, Diarrhea, Nausea, Vomiting Genitourinary Male: absent: Dysuria, Hematuria Musculoskeletal: Arthralgias (right foot) Neurological: absent: Headache, Dizziness Physical Exam Vital Signs Reviewed: Yes Vital Signs Temp Pulse Resp BP Pulse Ox 09/22/18 16:23 99.1 F 91 H 18 137/71 98 Temperature: Afebrile Blood Pressure: Normal Pulse: Regular Respiratory Rate: Normal Appearance: Positive for: Well-Appearing, Non-Toxic, Comfortable Pain Distress: None Mental Status: Positive for: Alert and Oriented X 3 - Systems Exam Head: Present: Atraumatic, Normocephalic Pupils: Present: PERRL Extroacular Muscles: Present: EOMI Conjunctiva: Present: Normal Mouth: Present: Moist Mucous Membranes Neck: Present: Normal Range of Motion Respiratory/Chest: Present: Clear to Auscultation, Good Air Exchange. No: Respiratory Distress, Accessory Muscle Use Cardiovascular: Present: Regular Rate and Rhythm, Normal S1, S2. No: Murmurs Abdomen: No: Tenderness, Distention, Peritoneal Signs Back: Present: Normal Inspection Upper Extremity: Present: Normal Inspection. No: Cyanosis, Edema Lower Extremity: Present: Other (.5 cm ulcer to right foot, macerated, no purulent discarge). No: Edema Neurological: Present: GCS=15, CN II-XII Intact, Speech Normal Skin: Present: Warm, Dry, Normal Color. No: Rashes Psychiatric: Present: Alert, Oriented x 3, Normal Insight, Normal Concentration Medical Decision Making ED Course and Treatment: 09/22/18 17:14 Impression: 72 year old M presents to the ED complaining of right foot pain/wound Plan: -- Keflex -- Reassess and disposition Prior Visits: Notes and results from previous visits were reviewed. Progress Notes: 09/22/18 18:03 chronic foot pain h/o of small ulcer. neg eval for osteo recent. no fever. numours visits for similar. case discussed with podiatry residnet. advise dc home with keflex. ulcer cleaned, wraped in betadine dressing. advis eoutpt fu return precauions. - Scribe Statement The provider has reviewed the documentation as recorded by the Dylan Mejia All medical record entries made by the Scribe were at my direction and personally dictated by me. I have reviewed the chart and agree that the record accurately reflects my personal performance of the history, physical exam, medical decision making, and the department course for this patient. I have also personally directed, reviewed, and agree with the discharge instructions and disposition. Disposition/Present on Arrival - Present on Arrival Any Indicators Present on Arrival: No History of DVT/PE: No History of Uncontrolled Diabetes: No Urinary Catheter: No History of Decub. Ulcer: No History Surgical Site Infection Following: None - Disposition Have Diagnosis and Disposition been Completed?: Yes Diagnosis: Chronic foot pain, Foot ulcer Disposition: HOME/ ROUTINE Disposition Time: 18:04 Condition: STABLE Discharge Instructions (ExitCare): Chronic Pain (DC), Foot Sprain (DC) Additional Instructions: return to er with worsening. Prescriptions: Cephalexin [cephalexin] 500 mg PO QID #28 cap Referrals: Tanvi Carrillo DPM [Staff Provider] - Follow up with primary Forms: Death by Party (Divehi)
[2018-09-22 17:48] VITALS: BP 135/71; PULSE 90; TEMP 99; O2SAT 100
== END 2018-09-22 17:40 | disposition home or self-care (01) ==
LOC: ED 16:23
DX: G89.29 Other chronic pain (principal); M79.671 Pain in right foot; L97.519 Non-pressure chronic ulcer of other part of right foot with unspecified severity; E11.9 Type 2 diabetes mellitus without complications; I25.10 Atherosclerotic heart disease of native coronary artery without angina pectoris; Z95.1 Presence of aortocoronary bypass graft; E78.5 Hyperlipidemia, unspecified; F17.210 Nicotine dependence, cigarettes, uncomplicated; I10 Essential (primary) hypertension; J44.9 Chronic obstructive pulmonary disease, unspecified; Z95.2 Presence of prosthetic heart valve; Z85.46 Personal history of malignant neoplasm of prostate; Z86.718 Personal history of other venous thrombosis and embolism